=== PATIENT | male | born 1960 | race Caucasian/White ===

== ENCOUNTER 2023-03-22 13:01 | Outpatient (OUT) | payer OTHER, SELFPAY ==
[2023-03-22 13:30] LABS: Estimated Average Glucose 315 mg/dL; Glycohemoglobin A1C 12.6 % (4.5-6.2)
== END 2023-03-22 13:02 | disposition home or self-care (01) ==
PROVIDERS: PCP Internal Medicine; Visit Provider Internal Medicine
DX: E11.65 Type 2 diabetes mellitus with hyperglycemia (principal)
CPT/HCPCS: 36415; 83036

== ENCOUNTER 2023-03-27 09:17 | Outpatient (OUT) | payer OTHER, SELFPAY ==
[2023-03-27 10:12] LABS: Basophils Percent Auto 0.3 % (0.2-2.0); Eosinophils Absolute Auto 0.2 10^3/uL (0.0-0.7); Eosinophils Percent Auto 3.5 % (0.9-7.0); Hematocrit 46.4 % (42.0-54.0); Hemoglobin 15.4 g/dL (14.0-18.0); Immature Granulocytes Abs Auto 0.02 10^3/uL (0.00-0.03); Immature Granulocytes Pct Auto 0.3 % (0.0-0.5); Lymphocytes Absolute Auto 1.7 10^3/uL (1.2-3.8); Lymphocytes Percent Auto 24.8 % (20.5-60.0); Mean Corpuscular HGB Conc 33.2 g/dL (29.9-35.2); Mean Corpuscular Hemoglobin 30.7 pg (25.9-34.0); Mean Corpuscular Volume 92.4 fL (80.0-94.0); Mean Platelet Volume 8.4 fL (9.5-13.5); Monocytes Absolute Auto 0.7 10^3/uL (0.3-0.8); Monocytes Percent Auto 9.9 % (1.7-12.0); Neutrophils Absolute Auto 4.2 10^3/uL (1.4-6.5); Neutrophils Percent Auto 61.2 % (43.0-75.0); Platelet Count 193 10^3/uL (150-450); Red Blood Count 5.02 10^6/uL (4.70-6.10); Red Cell Distribution Width 13.2 % (11.0-15.0); White Blood Count 6.9 10^3/uL (4.0-11.0)
[2023-03-27 10:44] LABS: Alanine Aminotransferase 29 U/L (16-63); Albumin Globulin Ratio 0.9; Albumin Level 3.6 g/dL (3.4-5.0); Alkaline Phosphatase 75 U/L (46-116); Anion Gap 10.2; Aspartate Amino Transferase 15 U/L (15-37); Bilirubin Direct 0.1 mg/dL (0.0-0.2); Bilirubin Total 0.6 mg/dL (0.2-1.0); Calcium 9.3 mg/dL (8.5-10.1); Carbon Dioxide 32.1 mmol/L (21.0-32.0); Chloride 101 mmol/L (98-107); Chol HDL Ratio 3.6; Cholesterol 150 mg/dL (<=200); Estimated GFR (African America >60 (>=60); Estimated GFR (Non-African Ame >60 (>=60); Globulin 4.2 g/dL; Glucose 224 mg/dL (74-106); HDL Cholesterol 42 mg/dL (40-60); LDL Cholesterol Calculated 78.8 mg/dL; Potassium 5.3 mmol/L (3.5-5.1); Sodium 138 mmol/L (136-145); Total Protein 7.8 g/dL (6.4-8.2); Triglycerides 146 mg/dL (<=150); VLDL CHOLESTEROL 29.2 mg/dL
== END 2023-03-27 09:18 | disposition home or self-care (01) ==
PROVIDERS: PCP Internal Medicine; Visit Provider Nurse Practitioner
DX: R06.09 Other forms of dyspnea (principal); I12.0 Hypertensive chronic kidney disease with stage 5 chronic kidney disease or end stage renal disease
CPT/HCPCS: 36415; 80048; 80061; 80076; 85025

== ENCOUNTER 2023-05-02 12:47 | Outpatient (OUT) | payer OTHER, SELFPAY ==
--- NOTE | 2023-05-02 13:23 | CA_ITS ---
Patient: AUGUSTA PATINO Exam Date: 05/02/2023 : 1960 Gender:M Ordering : MELBA MCCLELLAN Admission #: [id number] Family : DR Aldo Simeon D.O. Order #: [id number] CLICK HERE TO VIEW EXAM ECHOCARDIOGRAM REPORT PROCEDURE: CA ECHO DOPPLER COMPLETE INDICATIONS: Dyspnea on exertion, angina, hypertension, diabetes COMPARISON: None. DESCRIPTION: COMPLETE ECHOCARDIOGRAM Real-time transthoracic echocardiography with 2D, M-mode, spectral and color flow Doppler performed. QUALITY: Technically difficult due to patients condition. 73 350# LEFT VENTRICLE: Normal chamber size. Severe concentric left ventricular hypertrophy. LV EF: Global left ventricular systolic function is difficult to assess but appears preserved; visually estimated ejection fraction is 55 to 60%. Unable to assess regional wall motion abnormality; suggest contrast study for better delineation of endocardial borders. DIASTOLIC: Unable to assess degree of diastolic dysfunction. ATRIAL SEPTUM: Inadequately seen. LEFT ATRIUM: Mild dilatation. RIGHT ATRIUM: Moderate dilatation. RIGHT VENTRICLE: Normal chamber size. Normal systolic function. TRICUSPID VALVE: Normal mobility and thickness. No stenosis with trivial regurgitation. Unable to assess right-sided pressures due to lack of measurable tricuspid regurgitation. MITRAL VALVE: Normal mobility and thickness. No evidence of mitral valve stenosis. There is no mitral annular calcification. Trivial mitral regurgitation. AORTIC VALVE: Normal trileaflet appearance. No visible sclerosis. Normal leaflet mobility. No evidence of aortic valve stenosis. No aortic regurgitation. AORTIC ROOT: Normal diameter and appearance. PULMONIC VALVE: Not well visualized. No stenosis. No regurgitation. PERICARDIUM: No evidence of pericardial effusion. IVC: Collapses with inspirations. CONCLUSION: 1. Global left ventricular systolic function is difficult to assess but appears preserved; visually estimated ejection fraction is 55 to 60% 2. Severely increased left ventricular wall thickness 3. Biatrial enlargement 4. The right ventricle is normal in size and systolic function 5. Valves are poorly seen; no significant valvular abnormalities 6. Unable to assess right-sided pressures due to lack of measurable tricuspid regurgitation Adult Echocardiography Procedure Report Left Ventricle LVEDD (3.7 - 5.6 cm): 5.12 cm LVESD (2.2 - 4.0 cm): 3.11 cm LVIVS thickness (0.6 - 1.2 cm): 1.74 cm LVPW thickness (0.5 - 1.0 cm): 1.55 cm e': 0.10 m/s E - e': 9.77 LVOT Max Gradient: 3.70 mm[Hg] LVOT Area (cm2): 0.96 m/s Peak Velocity (LVOT): 0.96 m/s LVOT Diameter 2.37 cm Left Atrium LA Volume Index (2D A2C): 40.66 ml/m2 Left Atrium Systolic Dimension: 4.92 cm Mitral Valve MV E to A Ratio: 1.16 Mitral Valve A-Wave Peak Velocity: 0.83 m/s Mitral Valve E-Wave Peak Velocity: 0.96 m/s Right Ventricle Aorta AO Root Diam: 3.88 cm Aortic Valve AoV Area (Peak Mathieu): 3.85 cm2, 3.85 cm2 Peak Velocity(Antegrade Flow): 1.10 m/s Peak Gradient(Antegrade Flow): 4.84 mm[Hg] Tricuspid Valve Pulmonic Valve Mean Gradient: 1.71 mm[Hg] Mean Velocity: 0.60 m/s Peak Velocity: 0.97 m/s, 1.02 m/s Peak Gradient: 3.73 mm[Hg], 4.18 mm[Hg] Right Atrium Right Atrium Systolic Pressure: 86.43 ml, 86.43 ml Dictated by: Marielena Quintana M.D. on 05/03/2023 at 09:20 Approved by: Marielena Quintana M.D. on 05/03/2023 at 09:23
== END 2023-05-02 12:48 | disposition home or self-care (01) ==
LOC: CARD 12:47
PROVIDERS: PCP Internal Medicine; Visit Provider Nurse Practitioner
DX: I20.0 Unstable angina (principal); R06.09 Other forms of dyspnea
CPT/HCPCS: 93306

== ENCOUNTER 2023-06-27 09:16 | Outpatient (OUT) | payer OTHER, SELFPAY ==
[2023-06-27 10:05] LABS: Alanine Aminotransferase 28 U/L (16-63); Albumin Globulin Ratio 0.8; Albumin Level 3.4 g/dL (3.4-5.0); Alkaline Phosphatase 86 U/L (46-116); Aspartate Amino Transferase 11 U/L (15-37); Bilirubin Direct 0.1 mg/dL (0.0-0.2); Bilirubin Total 0.5 mg/dL (0.2-1.0); Globulin 4.3 g/dL; Total Protein 7.7 g/dL (6.4-8.2)
== END 2023-06-27 09:17 | disposition home or self-care (01) ==
LOC: LAB 09:17
PROVIDERS: PCP Internal Medicine; Visit Provider Nurse Practitioner
DX: I25.10 Atherosclerotic heart disease of native coronary artery without angina pectoris (principal); E78.2 Mixed hyperlipidemia
CPT/HCPCS: 36415; 80076

== ENCOUNTER 2023-07-28 09:38 | Outpatient (OUT) | payer OTHER, SELFPAY ==
--- OUTSIDE RECORDS SUMMARY | 2023-07-28 09:42 | XMS_ITS | CCD ---
Author Name Unknown Address [address] [place] [address] Organization [facility] Care Team Providers Care Stamp Collector Name Role Phone Allison Florez Unavailable BLANCO, DR HUGGINS Attending Unavailable BALL, DR HUGGINS Primary Care Unavailable BALL, DR HUGGINS Consulting Unavailable BALL, DR HUGGINS Admitting Unavailable BALL, DR HUGGINS Consulting Unavailable BALL, DR HUGGINS Attending Unavailable BALL, DR HUGGINS Primary Care Unavailable BALL, DR HUGGINS Admitting Unavailable WEST, DR DOUG Gold Consulting Unavailable BALL, DR HUGGINS Consulting Unavailable BALL, DR HUGGINS Attending Unavailable BALL, DR HUGGINS Primary Care Unavailable BALL, DR HUGGINS Admitting Unavailable BALL, DR HUGGINS Primary Care Unavailable ELTAHAWY, DR ZEPEDA Attending Unavailable ELTAHAWY, DR ZEPEDA Admitting Unavailable WEST, DR DOUG Gold Consulting Unavailable ELTAHAWY, DR ZEPEDA Consulting Unavailable BALL, DR HUGGINS Primary Care Unavailable BALL, DR HUGGINS Attending Unavailable BALL, DR HUGGINS Admitting Unavailable BALL, DR HUGGINS Consulting Unavailable BALL, DR HUGGINS Primary Care Unavailable BALL, DR HUGGINS Attending Unavailable BALL, DR HUGGINS Admitting Unavailable BALL, DR HUGGINS Consulting Unavailable ZIEBER, DR LEONID Ruiz Consulting Unavailable BALL, DR HUGGINS Attending Unavailable BALL, DR HUGGINS Primary Care Unavailable BALL, DR HUGGINS Admitting Unavailable BALL, DR HUGGINS Consulting Unavailable ZIEBER, DR LEONID Ruiz Consulting Unavailable BALL, DR HUGGINS Admitting Unavailable BALL, DR HUGGINS Attending Unavailable BALL, DR HUGGINS Primary Care Unavailable BALL, DR HUGGINS Consulting Unavailable TIMMIS, DR CHAUDHARI Attending Unavailable BALL, DR HUGGINS Primary Care Unavailable TIMMIS, DR CHAUDHARI Admitting Unavailable TIMMIS, DR CHAUDHARI Consulting Unavailable ZIEBER, DR LEONID Ruiz Consulting Unavailable Blanco, Aldo Unavailable ELTAHAWY, JAHAB Admitting Unavailable ELTAHAWY, MARIELENA Attending Unavailable ELTAHAWY, MARIELENA Attending Unavailable VY, MELBA Attending Unavailable ELTAHAWY, JAHAB Referring Unavailable VY, MELBA Attending Unavailable Allergies Allergy Classification Reported Allergen(s) Allergy Type Date of Onset Reaction(s) Facility (11 sources) Lisinopril Drug Allergy Unknown [facility] Other Medications Current Medications Medication Drug Class(es) Dates Sig (Normalized) Sig (Original) [id number] 200 actuat albuterol 0.09 mg/actuat metered dose inhaler (11 sources) beta2-Adrenergic Agonist take 1 puff(s) by inhalation every four hours as needed Albuterol Sulfate HFA 108 (90 Base) MCG/ACT 1 puff as needed Inhalation every 4 hrs Active take 1 puff(s) by in halation every four hours as needed Albuterol Sulfate HFA 108 (90 Base) MCG/ACT 1 puff as needed Inhalation every 4 hrs Active amLODIPine 5 mg oral tablet (12 sources) Dihydropyridine Calcium Channel Jyoti amLODIPine Besylate 5 mg TAKE 1 TABLET DAILY Active aspirin 81 mg delayed release oral tablet (12 sources) Platelet Aggregation Inhibitor, Nonsteroidal Anti-inflammatory Drug take 1 tablet by mouth every twenty-four hours Aspirin 81 MG 1 tablet Orally Once a day Active atorvastatin 20 mg oral tablet (12 sources) HMG-CoA Reductase Inhibitor Atorvastatin Calcium 20 mg TAKE 1 TABLET DAILY IN THE EVENING Active empagliflozin 10 mg oral tablet (5 sources) Sodium-Glucose Cotransporter 2 Inhibitor Start: 023 take 1 tablet by mouth every twenty-four hours Jardiance 10 MG 1 tablet Orally Once a day for 90 days Mar, Active hydroCHLOROthiazide 25 mg / losartan potassium 100 mg oral tablet (12 sources) Thiazide Diuretic, Angiotensin 2 Receptor Jyoti Losartan Potassium-HCTZ 100-25 mg TAKE 1 TABLET DAILY Active 1.5 ml insulin glargine 300 unt/ml pen injector (1 source) Insulin Analog Toujeo SoloStar 300 UNIT/ML INJECT 44 UNITS UNDER THE SKIN DAILY Active metFORMIN hydrochloride 1000 mg oral tablet (12 sources) Biguanide metFORMIN HCl 10 00 mg TAKE 1 TABLET TWICE A DAY WITH FOOD Active semaglutide 14 mg oral tablet (16 sources) Rybelsus 14 MG 1 tablet at least 30 minutes before first food, beverage or other oral medicine of the day Orally Once a day replaces Rybelsus 7 mg Active Ozempic (0.25 or 0.5 MG/DOSE) 2 MG/1.5ML as directed Subcutaneous Active Rybelsus 7 MG 1 tablet at least 30 minutes before first food, beverage or other oral medicine of the day Orally Once a day Active spironolactone 25 mg oral tablet (12 sources) Aldosterone Antagonist Spironolactone 25 MG 1 tablet Orally Active terbinafine 250 mg oral tablet (11 sources) Allylamine Antifungal Start: 08-18-19 take 1 tablet by mouth every twenty-four hours Terbinafine HCl 250 MG 1 tablet Orally Once a day for 10 day(s) Aug, Active TOUJEO SOLOSTAR U-300 (11 sources) TOUJEO SOLOSTAR U-300 50 units Injectable Once Daily Active TOUJEO SOLOSTAR U-300 30 units Injectable Once Daily Active triamcinolone acetonide 0.25 mg/ml topical cream (11 sources) Corticosteroid Start: 08-30-2022 Triamcinolone Acetonide 0.025 % 1 application Externally Once a day for 30 days Aug, Active Problems Active Problems Problem Classification Problem Date Documented Da te Episodic/Chronic Cardiac and circulatory congenital anomalies (2 sources) Malformation of coronary vessels; Translations: [Malformation of coronary vessels] Onset: 04-21-2023 Chronic Coronary atherosclerosis and other heart disease (7 sources) Coronary arteriosclerosis; Translations: [Atherosclerotic heart disease of alutiiq coronary artery without angina pectoris] Onset: 03-22-2023 Chronic Diabetes mellitus with complications (20 sources) Type 2 diabetes mellitus with hyperglycemia; Translations: [Hyperglycemia due to type 2 diabetes mellitus] Onset: 06-13-2022 Chronic Diabetes mellitus without complication (3 sources) Type 2 diabetes mellitus without complications; Translations: [TYPE 2 DM WITHOUT COMPLICATIONS] Onset: 11-24-2021 Chronic Disorders of lipid metabolism (16 sources) Hyperlipidemia, unspecified; Translations: [Pure hypercholesterolemia ] Onset: 11-24-2021 Chronic Esophageal disorders (11 sources) Gastro-esophageal reflux disease with esophagitis; Translations: [Gastroesophageal reflux disease with esophagitis without hemorrhage] Chronic Essential hypertension (20 sources) Essential (primary) hypertension; Translations: [Essential hypertension] Onset: 11-24-2021 Chronic Hyperplasia of prostate (11 sources) Benign prostatic hypertrophy without outflow obstruction; Translations: [Benign prostatic hyperplasia without lower urinary tract symptoms] Chronic Hypertension with complications and secondary hypertension (2 sources) Hypertensive heart disease without heart failure; Translations: [Hypertensive heart disease without heart failure] Onset: 07-24-2023 Chronic Mycoses (12 sources) Candidiasis of skin and nails; Translations: [Candidiasis of skin and nail] Episodic Nonspecific chest pain (16 sources) Chest pain, unspecified; Translations: [Chest pain on exertion] Onset: 09-20-2021 Episodic Osteoarthritis (20 sources) Localized, primary osteoarthritis of the shoulder region; Translations: [Primary osteoarthritis, right shoulder] Chronic Other aftercare (4 sources) 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; Translations: [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 INSULIN] Onset: 06-18-2022 Episodic Other aftercare (11 sources) Long-term current use of insulin; Translations: [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] Episodic Other and ill-defined heart disease (4 sources) Cardiomegaly; Translations: [CARDIOMEGALY] Onset: 09-20-2021 Chronic Other and ill-defined heart disease (10 sources) Left ventricular hypertrophy; Translations: [Cardiomegaly] Chronic Other diseases of kidney and ureters (6 sources) Cyst of kidney, acquired; Translations: [CYST OF KIDNEY ACQUIRED] Onset: 06-29-2022 Episodic Other diseases of kidney and ureters (9 sources) Cyst of kidney; Translations: [Cyst of kidney, acquired] Episodic Other diseases of veins and lymphatics (11 sources) Peripheral venous insufficiency; Translations: [Venous insufficiency (chronic) (peripheral)] Episodic Other diseases of veins and lymphatics (2 sources) Venous insufficiency (chronic) (peripheral) Episodic Other lower respiratory disease (9 sources) Multiple nodules of lung; Translations: [Other nonspecific abnormal finding of lung field] Episodic Other lower respiratory disease (11 sources) Dyspnea; Translations: [Shortness of breath] Episodic Other lower respiratory disease (2 sources) Other nonspecific abnormal finding of lung field; Translations: [Multiple pulmonary nodules] Episodic Other nutritional; endocrine; and metabolic disorders (11 sources) Morbid obesity; Translations: [Morbid (severe) obesity due to excess calories] Chronic Other nutritional; endocrine; and metabolic disorders (3 sources) Morbid (severe) obesity due to excess calories; Translations: [Morbid (severe) obesity due to excess calories] Onset: 03-22-2023 Chronic Other screening for suspected conditions (not mental disorders or infectious disease) (2 sources) Encounter for screening for malignant neoplasm of prostate; Translations: [ENC SCREEN MALIG NEOPLASM PROSTATE] Onset: 08-19-2022 Episodic Other upper respiratory disease (11 sources) Difficulty speaking; Translations: [Dysphonia] Episodic Carmen-; endo-; and myocarditis; cardiomyopathy (except that caused by tuberculosis or sexually transmitted disease) (13 sources) Hypertrophic cardiomyopathy; Translations: [Other hypertrophic cardiomyopathy] Chronic Residual codes; unclassified (10 sources) Obstructive sleep apnea syndrome; Translations: [Obstructive sleep apnea (adult) (pediatric)] Chronic Residual codes; unclassified (3 sources) Obstructive sleep apnea (adult) (pediatric); Translations: [Obstructive sleep apnea] Chronic Substance-related disorders (1 source) Nicotine dependence, cigarettes, in remission; Translations: [NICOTINE DEPEND CIGARETTES REMISS] Onset: 04-08-2022 Chronic Past or Other Problems Problem Classification Problem Date Documented Da te Episodic/Chronic Esophageal disorders (1 source) Esophageal disorders Other circulatory disease (1 source) Other specified symptoms and signs involving the circulatory and respiratory systems; Translations: [OTH SPEC SX SIGNS INVLV CIRC RS] Onset: 11-25-2021 Episodic Other lower respiratory disease (4 sources) Dyspnea, unspecified; Translations: [DYSPNEA UNSPECIFIED] Onset: 04-06-2022 Episodic Other lower respiratory disease (2 sources) Other forms of dyspnea; Translations: [Other forms of dyspnea] Onset: 03-22-2023 Episodic Other skin disorders (4 sources) Localized swelling, mass and lump, neck; Translations: [LOCALIZED SWELLING MASS AND LUMP NECK] Onset: 04-20-2022 Episodic Unclassified (1 source) Cough R05.9 Onset: 02-12-2022 Resolved: 02-12-2022 Viral infection (1 source) COVID-19 Onset: 02-12-2022 Resolved: 02-12-2022 Results Test Name Value Interpretation Reference Range Facility Office Visiton 07-24-2023 Follow-up visit [id number] Jose J Evans 1960 M Date Provider Department Center 07/24/2023 271-DENYS, MARIELENA CARD [facility] No family history on file Level of Service:91377 SD OFFICE/OUTPATIENT ESTABLISHED MOD MDM 30 MIN Normal [facility] Follow-Upon 04-21-2023 Follow-Up [id number] Jose J Evans 1960 M Date Provider Department Center 04/21/2023 MELBA QUINN REMIGIO [facility] No family history on file Level of Service:67684 SD OFFICE/OUTPATIENT ESTABLISHED MOD MDM 30-39 MIN Normal [facility] Orders Onlyon 04-03-2023 Orders Only [id number] Jos eJ Evans 1960 M Date Provider Department Center 04/03/[address] [facility] No family history on file Normal [facility] ANESon 03-29-2023 ANES Attestation signed by Marielena Mcfarlane MD at 03/29/2023 9:35 AM Marielena Mcfarlane MD, MPH, [facility], [facility], [facility] Interventional Cardiology Pager Email: [email or web address] Patient: Jose J Evans Procedure Information Date/Time: 03/29/23 1030 Procedures: Coronary angiography Left heart cath - Rt LT Cors Right heart cath Location: [facility] 3 / [facility] HV VASCULAR LAB (Cath) Providers: Marielena Mcfarlane MD Clinical information reviewed: Tobacco Allergies Meds Med Hx Surg Hx Fam Hx Soc Hx Physical Exam Airway Mallampati: III Cardiovascular Rhythm: regular Rate: normal Dental Pulmonary Abdominal Anesthesia Plan ASA 3 Additional Equipment Requests Normal [facility] HPon 03-29-2023 HP Attestation signed by Marielena Mcfarlane MD at 03/29/2023 9:35 AM Marielena Mcfarlane MD, MPH, [facility], [facility], [facility] Interventional Cardiology Pager Email: [email or web address] H&P reviewed. The patient was examined and there are no changes to the H&P. Patient will have coronary angiogram and right heart catheterization for dyspnea on exertion and chest pain. Patient has history of diabetes mellitus. He is a current smoker. Risk and benefits explained to the patient who agreed to proceed. [facility] NURSNOTEulisses 03-29-2023 VALDO RN educated pt on d/c instructions. RN encouraged pt to voice any questions or concerns. Pt verbalizes no questions or concerns at this time. [facility] Office Visiton 03-22-2023 Follow-up visit [id number] Jose J Evans 1960 M Date Provider Department Center 03/22/2023 MELBA QUINN CARD [facility] No family history on file Level of Service:28127 SD OFFICE/OUTPATIENT ESTABLISHED HIGH MDM 40-54 MIN Reason for Visit and Comments: Follow-up [678952] - Yearly F/U [facility] CBC AUTO DIFFon 08-15-2022 BASO # 0.0 103/ul Normal 0.0-0.1 [facility] Comment on above: Performed By: #### C BC #### [facility] [address] [place] [address] Dr. Beth Johnson Basophils/100 WBC (Bld) 0.6 % Normal 0.2-2.0 [facility] Comment on above: Performed By: #### C BC #### [facility] [address] [place] [address] Dr. Beth Johnson EO # 0.2 103/ul Normal 0.0-0.7 [facility] Comment on above: Performed By: #### C BC #### [facility] [address] [place] [address] Dr. Beth Johnson Eosinophils/100 WBC (Bld) 3.4 % Normal 0.9-7.0 [facility] Comment on above: Performed By: #### C BC #### [facility] [address] [place] [address] Dr. Beth Johnson Erythrocyte distribution width (RBC) [Ratio] 13.4 % Normal 11.0-15.0 [facility] Comment on above: Performed By: #### C BC #### [facility] [address] [place] [address] Dr. Beth Johnson Hematocrit (Bld) [Volume fraction] 44.1 % Normal 42.0-54.0 [facility] Comment on above: Performed By: #### C BC #### [facility] [address] [place] [address] Dr. Beth Johnson Hemoglobin (Bld) [Mass/Vol] 14.9 g/dL Normal 14.0-18.0 [facility] Comment on above: Performed By: #### C BC #### [facility] [address] [place] [address] Dr. Beth Johnson IG # 0.03 10e3/ul Normal 0.00-0.03 [facility] Comment on above: Performed By: #### C BC #### [facility] [address] [place] [address] Dr. Beth Johnson IG % 0.4 % Normal 0.0-0.5 [facility] Comment on above: Performed By: #### C BC #### [facility] [address] [place] [address] Dr. Beth Johnson LYMPH # 1.9 103/ul Normal 1.2-3.8 [facility] Comment on above: Performed By: #### C BC #### [facility] [address] [place] [address] Dr. Beth Johnson Lymphocytes/100 WBC (Bld) 26.2 % Normal 20.5-60.0 [facility] Comment on above: Performed By: #### C BC #### [facility] [address] [place] [address] Dr. Beth Johnson MANUAL DIFF REQ NO Normal [facility] Comment on above: Performed By: #### C BC #### [facility] [address] [place] [address] Dr. Beth Johnson MCH (RBC) [Entitic mass] 30.4 pg Normal 25.9-34.0 [facility] Comment on above: Performed By: #### C BC #### [facility] [address] [place] [address] Dr. Beth Johnson MCHC (RBC) [Mass/Vol] 33.8 g/dL Normal 29.9-35.2 [facility] Comment on above: Performed By: #### C BC #### [facility] [address] [place] [address] Dr. Beth Johnson MCV (RBC) [Entitic vol] 90.0 fL Normal 80.0-94.0 [facility] Comment on above: Performed By: #### C BC #### [facility] [address] [place] [address] Dr. Beth Johnson MONO # 0.7 103/ul Normal 0.3-0.8 [facility] Comment on above: Performed By: #### C BC #### [facility] [address] [place] [address] Dr. Beth Johnson Monocytes/100 WBC (Bld) 9.8 % Normal 1.7-12.0 [facility] Comment on above: Performed By: #### C BC #### [facility] [address] [place] [address] Dr. Beth Johnson NEUT # 4.2 103/ul Normal 1.4-6.5 [facility] Comment on above: Performed By: #### C BC #### [facility] [address] [place] [address] Dr. Beth Johnson Neutrophils/100 WBC (Bld) 59.6 % Normal 43.0-75.0 [facility] Comment on above: Performed By: #### C BC #### [facility] [address] [place] [address] Dr. Beth Johnson Platelet mean volume (Bld) [Entitic vol] 8.1 fL Critically low 9.5-13.5 [facility] Comment on above: Performed By: #### C BC #### [facility] [address] [place] [address] Dr. Beth Johnson PLT 184 103/ul Normal 150-450 [facility] Comment on above: Performed By: #### C BC #### [facility] [address] [place] [address] Dr. Beth Johnson RBC 4.90 106/ul Normal 4.70-6.10 [facility] Comment on above: Performed By: #### C BC #### [facility] [address] [place] [address] Dr. Beth Johnson WBC 7.1 103/ul Normal 4.0-11.0 [facility] Comment on above: Performed By: #### C BC #### [facility] [address] [place] [address] Dr. Beth Johnson Complete Blood Count and Dif gala 08-15-2022 Anisocytosis Ql (Bld) 1EQ [facility] [employer] Other Basophilic stippling LM Ql (Bld) [facility] Other RBC morphology finding Nom (Bld) [facility] Other Complete Blood Count and Diff [facility] Other Comprehensive Metabolic Pane jenniffer 08-15-2022 Albumin [Mass/Vol] 3.424708 g/dL 3.4-5.0 g/dL N [facility] [employer] [facility] Other Calcium [Mass/Vol] 9.2594057 mg/dL 8.5-10 .1 mg/dL [facility] Other CO2 [Moles/Vol] 29.52415672 mmol/L 21.0-3 2.0 mmol/L [facility] Other Creatinine [Mass/Vol] 0.45742278 mg/dL 0.70-1.30 mg/dL [facility] Other Potassium [Moles/Vol] 4.73019375 mmol/L 3.5-5.1 mmol/L [facility] Other Protein [Mass/Vol] 8.530141 g/dL 6.4-8.2 g/dL [facility] [employer] Other Urea nitrogen [Mass/Vol] 17.5826825 mg/dL 7.0-18.0 mg/dL [facility] Other Comprehensive Metabolic Panel see note [facility] Other Comprehensive Metabolic Panel 137 mmol/L 136-145 mmol/L [facility] Other Comprehensive Metabolic Panel 182 mg/dL Critically high 74-106 mg/dL [facility] Other Comprehensive Metabolic Panel >60 mL/min/1.73m2 >=60 mL/min/1.73m2 [facility] Other Comprehensive Metabolic Panel 0.5 mg/dL 0.2-1.0 mg/dL [facility] Other Comprehensive Metabolic Panel 4.2 g/dL [facility] Other GLYCOHEMOGLOBIN A1Con 2022 ADA RECOMMENDATION SEE BELOW Normal [facility] Comment on above: Result Comment: ADA RECOMMENDED LIMIT 4.0 - 6.0 ADA THERAPEUTIC TARGET < 7.0 ACTION SUGGESTED > 7.0 Performed By: #### L IPID #### [facility] [address] [place] [address] Dr. Beth Johnson Glucose [Mass/Vol] 169 mg/dL Normal [facility] Comment on above: Performed By: #### L IPID #### [facility] [address] [address] [address] Beth Johnson HbA1c (Bld) [Mass fraction] 7.5 % Critically high 4.5-6.2 [facility] Comment on above: Performed By: #### L IPID #### [facility] [address] [address] [address] Beth Johnson LIPID PROFILEon 08-15-2022 CHOL-HDL RATIO NORM SEE BELOW Normal [facility] Comment on above: Result Comment: 3.3 - 4.4 LOW RISK 4.4 - 7.1 AVERAGE RISK 7.1 - 11.0 MODERATE RISK >11.0 HIGH RISK Performed By: #### L IPID, CMP #### [facility] [address] [address] [address] Beth Johnson Cholesterol [Mass/Vol] 155 mg/dL <=200 mg/dL [facility] Comment on above: Performed By: #### L IPID, CMP #### [facility] [address] [address] [address] Beth Johnson Cholesterol in HDL [Mass/Vol] 44 mg/dL 40-60 mg/dL [facility] Comment on above: Performed By: #### L IPID, CMP #### [facility] [address] [address] [address] Beth Johnson Cholesterol in LDL [Mass/Vol] 76.4 mg/dL Normal [facility] Comment on above: Performed By: #### L IPID, CMP #### [facility] [address] [address] [address] Beth Johnson Cholesterol.total/Ch olesterol in HDL [Mass ratio] 3.5 {ratio} [facility] Comment on above: Performed By: #### L IPID, CMP #### [facility] [address] [address] [address] Beth Johnson HDL NORMAL > or = 60 mg/dl - LOW CARDIOVASCULAR RISK <40 mg/dl - HIGH CARDIOVASCULAR RISK Normal [facility] Comment on above: Performed By: #### L IPID, CMP #### [facility] [address] [address] [address] Beth Johnson LDL CALC NORMAL SEE BELOW Normal [facility] Comment on above: Result Comment: <100 mg/dl OPTIMAL 100 - 129 mg/dl NEAR OR ABOVE OPTIMAL 130 - 159 mg/dl BORDERLINE HIGH 160 - 189 mg/dl HIGH >190 mg/dl VERY HIGH Performed By: #### L IPID, CMP #### [facility] [address] [address] [address] Beth Johnson Triglyceride [Mass/Vol] 173 mg/dL Critically high <=150 mg/dL [facility] Comment on above: Performed By: #### L IPID, CMP #### [facility] [address] [address] [address] Beth Johnson VLDL CALC 34.6 mg/dL Normal [facility] Comment on above: Performed By: #### L IPID, CMP #### [facility] [address] [address] [address] Beth Johnson Lipid Panelon 08-15-2022 Lipid Panel > or = 60 mg/dl - LOW CARDIOVASCULAR RISK <40 mg/dl - HIGH CARDIOVASCULAR RISK [facility] Other Lipid Panel SEE BELOW [facility] Other Lipid Panel 76.4 mg/dL [facility] Other Lipid Panel 34.6 mg/dL [facility] Other MICROALBUMIN, RAND URon 08-03 mALB 4.1 mg/L Normal <=30.0 [facility] Comment on above: Performed By: #### L IPID #### [facility] [address] [address] [address] Beth Johnson PROF 14(COMP METB)on 023 Albumin [Mass/Vol] 3.8 g/dL Normal 3.4-5.0 [facility] Comment on above: Performed By: #### L IPID, CMP #### [facility] [address] [address] [address] Beth Johnson Albumin/Globulin [Mass ratio] 0.9 {ratio} [facility] Comment on above: Performed By: #### L IPID, CMP #### [facility] [address] [place] [address] Dr. Beth Johnson ALP [Catalytic activity/Vol] 75 U/L 46-116 U/L [facility] Comment on above: Performed By: #### L IPID, CMP #### [facility] [address] [place] [address] Dr. Beth Johnson ALT [Catalytic activity/Vol] 44 U/L 16-63 U/L [facility] Comment on above: Performed By: #### L IPID, CMP #### [facility] [address] [place] [address] Dr. Beth Johnson Anion gap [Moles/Vol] 12.8 mmol/L [facility] Comment on above: Performed By: #### L IPID, CMP #### [facility] [address] [place] [address] Dr. Beth Johnson AST [Catalytic activity/Vol] 20 U/L 15-37 U/L [facility] Comment on above: Performed By: #### L IPID, CMP #### [facility] [address] [place] [address] Dr. Beth Johnson Bilirubin [Mass/Vol] 0.5 mg/dL Normal 0.2-1.0 [facility] Comment on above: Performed By: #### L IPID, CMP #### [facility] [address] [place] [address] Dr. Beth Johnson Calcium [Mass/Vol] 9.4 mg/dL Normal 8.5-10.1 [facility] Comment on above: Performed By: #### L IPID, CMP #### [facility] [address] [place] [address] Dr. Beth Johnson Chloride [Moles/Vol] 100 mmol/L 98-107 mmol/L [facility] Comment on above: Performed By: #### L IPID, CMP #### [facility] [address] [place] [address] Dr. Beth Johnson CO2 [Moles/Vol] 29.0 mmol/L Normal 21.0-32.0 [facility] Comment on above: Performed By: #### L IPID, CMP #### [facility] [address] [address] [address] Beth Johnson Creatinine [Mass/Vol] 0.95 mg/dL Normal 0.70-1.30 [facility] Comment on above: Performed By: #### L IPID, CMP #### [facility] [address] [address] [address] Beth Johnson EGFR-AF IVORIAN >60 Normal >=60 [facility] Comment on above: Performed By: #### L IPID, CMP #### [facility] [address] [address] [address] Beth Johnson EGFR-NON AF IVORIAN >60 Normal >=60 [facility] Comment on above: Performed By: #### L IPID, CMP #### [facility] [address] [address] [address] Beth Johnson Globulin (S) [Mass/Vol] 4.2 g/dL Normal [facility] Comment on above: Performed By: #### L IPID, CMP #### [facility] [address] [address] [address] Beth Johnson Glucose [Mass/Vol] 182 mg/dL Critically high 74-106 [facility] Comment on above: Performed By: #### L IPID, CMP #### [facility] [address] [address] [address] Beth Johnson Potassium [Moles/Vol] 4.8 mmol/L Normal 3.5-5.1 [facility] Comment on above: Performed By: #### L IPID, CMP #### [facility] [address] [address] [address] Beth Johnson Protein [Mass/Vol] 8.0 g/dL Normal 6.4-8.2 [facility] Comment on above: Performed By: #### L IPID, CMP #### [facility] [address] [address] [address] Beth Johnson Sodium [Moles/Vol] 137 mmol/L Normal 136-145 [facility] Comment on above: Performed By: #### L IPID, CMP #### [facility] [address] [place] [address] Dr. Beth Johnson Urea nitrogen [Mass/Vol] 17.0 mg/dL Normal 7.0-18.0 [facility] Comment on above: Performed By: #### L IPID, CMP #### [facility] [address] [place] [address] Dr. Beth Johnson Urea nitrogen/Creatinine [Mass ratio] 17.9 mg/mg [facility] Comment on above: Performed By: #### L IPID, CMP #### [facility] [address] [place] [address] Dr. Beth Johnson US KIDNEYSon 06-29-2022 US KIDNEYS EXAMINATION: US KIDNEYS HISTORY: Atrophy of kidney COMPARISON: No relevant comparison available. TECHNIQUE: Ultrasound examination was performed of the bladder. FINDINGS: Right Kidney: Normal in size, contour and cortical echotexture with no solid mass or hydronephrosis. Lateral anechoic area measuring 3.5 cm inferior anechoic area measuring 4.2 cm, simple cysts. The cortex measures 2.3 cm Height: 6.1 cm Length: 12.1 cm Width: 6.6 cm Left Kidney: Normal in size, contour and cortical echotexture with no solid mass or hydronephrosis Height: 7.1 cm Length: 12.0 cm Width: 7.3 cm Urinary bladder is normal in appearance. Volume of 129 mL IMPRESSION: Right renal simple cysts measuring up to 4.2 cm Electronically authenticated by: DOUG ALMONTE Date: 2022-06-29 16:16 Normal [facility] GLYCOHEMOGLOBIN A1Con 2021 ADA RECOMMENDATION SEE BELOW Normal [facility] Comment on above: Result Comment: ADA RECOMMENDED LIMIT 4.0 - 6.0 ADA THERAPEUTIC TARGET < 7.0 ACTION SUGGESTED > 7.0 Performed By: #### A 1C #### [facility] [address] [place] [address] Dr. Beth Johnson Glucose [Mass/Vol] 186 mg/dL Normal [facility] Comment on above: Performed By: #### A 1C #### [facility] [address] [place], [place] [address] Dr. Beth Johnson HbA1c (Bld) [Mass fraction] 8.1 % Critically high 4.5-6.2 [facility] Comment on above: Performed By: #### A 1C #### [facility] [address] [address] [address] Beth Johnson US ST HEAD_NECKon 04-21-[address] HEAD_NECK EXAM: US ST HEAD_NECK HISTORY: Mass of neck ; lateral left neck palpable lump for one year COMPARISON: None. TECHNIQUE: Percutaneous ultrasound evaluation. FINDINGS: Within the lateral left mid neck deep to the sternal cleidomastoid muscle and adjacent the jugular vein are 3 rounded hypoechoic nodules with fatty hilum favoring lymph nodes; 1.1 x 0.8 x 0.5 cm, 1.6 x 0.9 x 0.6 cm, and 0.6 x 0.7 x 0.5 cm respectively. IMPRESSION: 1. Patient's palpable lumps appear to correspond to small lymph nodes. No overtly suspicious findings. Electronically authenticated by: LEONID ST Date: 2022-04-21 06:21 Normal [facility] HEMOGLOBINon 04-06-2022 Hemoglobin (Bld) [Mass/Vol] 13.8 g/dL Critically low 14.0-18.0 [facility] Comment on above: Performed By: #### H GB #### [facility] [address] [address] [address] Beth Johnson COVID Quick Testingon 2021 Result Positive [facility] Other US CAROTID ART BILon 022 US CAROTID ART ARELY EXAMINATION: US CAROTID ART ARELY HISTORY: Cardiovascular symptoms carotid bruit, left neck pain for one year COMPARISON: No relevant comparison available. TECHNIQUE: Duplex Doppler ultrasound analysis of carotid and vertebral arteries. . Bilateral carotid arterial duplex examination was performed using B-mode, color flow and spectral analysis. Carotid stenosis is reported according to validated velocity parameters, similar to NASCET criteria. FINDINGS: RIGHT CAROTID ARTERY: Mild plaque without significant stenosis. RIGHT VERTEBRAL: Antegrade flow. Subclavian: PSV: 144.5 cm/s EDV: 0.0 cm/s CCA: Prox: PSV: 144.6 cm/s EDV: 27.6 cm/s Mid: PSV: 91.6 cm/s EDV: 16.4 cm/s Distal: PSV: 70.9 cm/s EDV: 19.2 cm/s BULB: PSV: 58.1 cm/s EDV: 17.5 cm/s ICA: Prox: PSV: 48.2 cm/s EDV: 17.5 cm/s Mid: PSV: 61.4 cm/s EDV: 21.9 cm/s Distal: PSV: 108.2 cm/s EDV: 34.4 cm/s ECA: PSV: 96.9 cm/s EDV: 14.1 cm/s VERTEBRAL: PSV: 40.9 cm/s EDV: 13.9 cm/s ICA/CCA ratio: PSV: 0.7 EDV: 1.2 LEFT CAROTID ARTERY: Mild plaque without significant stenosis. LEFT VERTEBRAL: Antegrade flow. Subclavian: PSV: 143.9 cm/s EDV: 0.0 cm/s CCA: Prox: PSV: 125.2 cm/s EDV: 27.6 cm/s Mid: PSV: 111.3 cm/s EDV: 23.0 cm/s Distal: PSV: 68.5 cm/s EDV: 16.7 cm/s BULB: PSV: 54.2 cm/s EDV: 16.7 cm/s ICA: Prox: PSV: 77.5 cm/s EDV: 24.5 cm/s Mid: PSV: 85.3 cm/s EDV: 36.1 cm/s Distal: PSV: 89.1 cm/s EDV: 35.9 cm/s ECA: PSV: 95.6 cm/s EDV: 7.6 cm/s VERTEBRAL: PSV: 57.2 cm/s EDV: 20.6 cm/s ICA/CCA ratio: PSV: 0.7 EDV: 1.3 IMPRESSION: 1. Bilateral 0-49% flow stenosis. Mild atherosclerotic disease. Electronically authenticated by: LEONID ST Date: 2021-11-19 16:07 Normal [facility] NM STRESS/REST MULTIon 11-18 NM STRESS/REST MULTI Patient: JOSE J EVANS Exam Date: 11/18/2021 : 1960 Gender:M Ordering : DR ALDO SIMEON D.O. Admission #: [id number] Family : Order #: [id number] CLICK HERE TO VIEW EXAM RADIOLOGY REPORT PROCEDURE: RADIONUCLIDE IMAGING STRESS/REST MULTI COMPARISON: NM STRESS/REST MULTI, 12/30/2019. INDICATIONS: Chest pain TECHNIQUE: Exam Description: Stress/Rest two day protocol gated SPECT Rest Imagin.7 mCi Tc-99m Cardiolite IV on 11/19/2021 Stress Imaging 25.1 mCi Tc-99m Cardiolite IV on 11/18/2021 Exercise Protocol: 0.4 mg Lexiscan given IV Heart Rate (bpm): Rest: 61 Max: 75 PMHR: 47 Blood Pressure: Rest: 130/78 Max: 182/92 Symptoms: Rest and peak stress ECG findings were normal and the exercise portion of the study was normal per attending physician Dr. Leobardo Simeon . For more details please see separate cardiac stress test report. FINDINGS: QUALITY OF STUDY: Excellent. PERFUSION DEFECT: LOCATION: Mid-inferolateral. Apical inferior. SIZE: Small (1-2 segments). SEVERITY: Mild. TYPE: Persistent. WALL MOTION: Dyskinesis: Apical anterior. LV SIZE: Enlarged; EDV 158 mL. TID / TCD: None; 1.1 LVEF: Abnormal. Calculated EF 53%. SUMMARY: Myocardial perfusion imaging study has ABNORMAL findings. CONCLUSION: 1. No acute or reversible ischemia. 2. Mild, fixed distal inferior and inferior lateral wall perfusion defect; not appreciably changed. 3. Mild dyskinesia of the apically anterior wall. 4. Mild left ventriculomegaly, 158 mL. 5. Slightly low ejection fraction, 53%. Dictated by: Leonid St M.D. on 11/19/2021 at 11:56 Approved by: Leonid St M.D. on 11/19/2021 at 12:06 Normal [facility] CBC AUTO DIFFon 09-17-2021 BASO # 0.0 103/ul Normal 0.0-0.1 [facility] Comment on above: Performed By: #### C BC #### [facility] [address] [place] [address] Dr. Beth Johnson Basophils/100 WBC (Bld) 0.2 % Normal 0.2-2.0 [facility] Comment on above: Performed By: #### C BC #### [facility] [address] [place] [address] Dr. Beth Johnson EO # 0.3 103/ul Normal 0.0-0.7 [facility] Comment on above: Performed By: #### C BC #### [facility] [address] [place] [address] Dr. Beth Johnson Eosinophils/100 WBC (Bld) 3.1 % Normal 0.9-7.0 [facility] Comment on above: Performed By: #### C BC #### [facility] [address] [place] [address] Dr. Beth Johnson Erythrocyte distribution width (RBC) [Ratio] 13.7 % Normal 11.0-15.0 [facility] Comment on above: Performed By: #### C BC #### [facility] [address] [place] [address] Dr. Beth Johnson Hematocrit (Bld) [Volume fraction] 43.9 % Normal 42.0-54.0 [facility] Comment on above: Performed By: #### C BC #### [facility] [address] [place] [address] Dr. Beth Johnson Hemoglobin (Bld) [Mass/Vol] 14.6 g/dL Normal 14.0-18.0 [facility] Comment on above: Performed By: #### C BC #### [facility] [address] [place] [address] Dr. Beth Johnson IG # 0.04 10e3/ul Critically high 0.00-0.03 [facility] Comment on above: Performed By: #### C BC #### [facility] [address] [place] [address] Dr. Beth Johnson IG % 0.5 % Normal 0.0-0.5 [facility] Comment on above: Performed By: #### C BC #### [facility] [address] [place] [address] Dr. Beth Johnson LYMPH # 2.4 103/ul Normal 1.2-3.8 [facility] Comment on above: Performed By: #### C BC #### [facility] [address] [place] [address] Dr. Beth Johnson Lymphocytes/100 WBC (Bld) 28.7 % Normal 20.5-60.0 [facility] Comment on above: Performed By: #### C BC #### [facility] [address] [place] [address] Dr. Beth Johnson MANUAL DIFF REQ NO Normal [facility] Comment on above: Performed By: #### C BC #### [facility] [address] [place] [address] Dr. Beth Johnson MCH (RBC) [Entitic mass] 30.6 pg Normal 25.9-34.0 [facility] Comment on above: Performed By: #### C BC #### [facility] [address] [place] [address] Dr. Beth Johnson MCHC (RBC) [Mass/Vol] 33.3 g/dL Normal 29.9-35.2 [facility] Comment on above: Performed By: #### C BC #### [facility] [address] [place] [address] Dr. Beth Johnson MCV (RBC) [Entitic vol] 92.0 fL Normal 80.0-94.0 [facility] Comment on above: Performed By: #### C BC #### [facility] [address] [place] [address] Dr. Beth Johnson MONO # 0.7 103/ul Normal 0.3-0.8 [facility] Comment on above: Performed By: #### C BC #### [facility] [address] [place] [address] Dr. Beth Johnson Monocytes/100 WBC (Bld) 8.7 % Normal 1.7-12.0 [facility] Comment on above: Performed By: #### C BC #### [facility] [address] [place] [address] Dr. Beth Johnson NEUT # 4.9 103/ul Normal 1.4-6.5 [facility] Comment on above: Performed By: #### C BC #### [facility] [address] [place] [address] Dr. Beth Johnson Neutrophils/100 WBC (Bld) 58.8 % Normal 43.0-75.0 [facility] Comment on above: Performed By: #### C BC #### [facility] [address] [place] [address] Dr. Beth Johnson Platelet mean volume (Bld) [Entitic vol] 8.2 fL Critically low 9.5-13.5 [facility] Comment on above: Performed By: #### C BC #### [facility] [address] [place] [address] Dr. Beth Johnson PLT 190 103/ul Normal 150-450 [facility] Comment on above: Performed By: #### C BC #### [facility] [address] [place] [address] Dr. Beth Johnson RBC 4.77 106/ul Normal 4.70-6.10 [facility] Comment on above: Performed By: #### C BC #### [facility] [address] [place] [address] Dr. Beht Johnson WBC 8.3 103/ul Normal 4.0-11.0 [facility] Comment on above: Performed By: #### C BC #### [facility] [address] [place] [address] Dr. Beth Johnson CTA CHEST WO W CONon 022 CTA CHEST WO W CON EXAMINATION: CTA CHEST WO W CON HISTORY: Chest pain , shortness of breath with exertion COMPARISON: No relevant comparison available. TECHNIQUE: Axial, Coronal, and Sagittal images were created without and with IV contrast. Dose reduction techniques were achieved by using automated exposure control and/or adjustment of mA and/or kV according to patient size and/or use of iterative reconstruction technique. FINDINGS: LUNGS: Scattered punctate solid pulmonary nodules the largest measures 4 mm superior segment of the right lower lobe along the major fissure axial image #52, nonspecific. Minimal dependent opacities, atelectasis is favored. PLEURA: No mass, effusion, or pneumothorax. VASCULATURE: Normal contrast filling of the central pulmonary arterial tree with no filling defects YANCI: No mass or adenopathy. MEDIASTINUM: No mass or adenopathy. CARDIAC: No enlargement or pericardial effusion. Moderate coronary atherosclerosis AORTA: No aneurysm or dissection. CHEST WALL: No mass or axillary adenopathy. BONES: No bone lesion or fracture. LIMITED ABDOMEN: Diffuse hypoattenuation of the visualized liver suggesting hepatic steatosis. OTHER: Negative. IMPRESSION: No central pulmonary thromboembolic disease Scattered punctate pulmonary nodules measuring up to 4 mm, nonspecific Hepatic steatosis Electronically authenticated by: DOUG ALMONTE Date: 2021-09-17 10:08 Normal [facility] ECHOCARDIO M/2D COMPLETEon 0 09-17-2021 ECHOCARDIO M/2D COMPLETE Patient: JOSE J EVANS Exam Date: 09/17/2021 : 1960 Gender:M Ordering : DR MARIELENA MCFARLANE M.D. Admission #: [id number] Family : DR ALDO SIMEON D.O. Order #: [id number] CLICK HERE TO VIEW EXAM ECHOCARDIOGRAM REPORT PROCEDURE: CARDIO PULMONARY ECHOCARDIO M/2D COMP INDICATIONS: Left ventricular hypertrophy COMPARISON: None. DESCRIPTION: COMPLETE ECHOCARDIOGRAM Real-time transthoracic echocardiography with 2D, M-mode, spectral and color flow Doppler performed. QUALITY: Technically difficult due to patient's condition. LEFT VENTRICLE: Normal chamber size. Moderate concentric left ventricular hypertrophy. Global left ventricular systolic function is normal. Visual estimation of left ventricular ejection fraction is 60-65%. LV EF: Normal left ventricular ejection fraction, (>55%). DIASTOLIC: Normal diastolic function. ATRIAL SEPTUM: Visually appears intact. LEFT ATRIUM: Mild dilatation. RIGHT ATRIUM: Mild dilatation. RIGHT VENTRICLE: Normal chamber size. Normal right ventricular systolic function. TRICUSPID VALVE: Normal mobility and thickness. No stenosis with trivial regurgitation. MITRAL VALVE: Normal mobility and thickness. No evidence of mitral valve stenosis. There is no mitral annular calcification. No mitral regurgitation. AORTIC VALVE: Normal trileaflet appearance. No visible sclerosis. Normal leaflet mobility. No evidence of aortic valve stenosis. No aortic regurgitation. AORTIC ROOT: Aortic root and ascending aorta are normal in size corrected for patient's BSA. PULMONIC VALVE: Not well visualized. No stenosis. No regurgitation. PERICARDIUM: No evidence of pericardial effusion. CONCLUSION: Global left ventricular systolic function is normal; visually estimated ejection fraction is 60 to 65%. Moderate to severe left ventricular hypertrophy. Biatrial enlargement. The right ventricle is normal in size and systolic function. No significant valvular abnormalities. Unable to assess right ventricular systolic pressure due to lack of measurable tricuspid regurgitation. Adult Echocardiography Procedure Report Left Ventricle LVEDD (3.7 - 5.6 cm): 4.96 cm LVESD (2.2 - 4.0 cm): 3.10 cm LVIVS thickness (0.6 - 1.2 cm): 1.60 cm LVPW thickness (0.5 - 1.0 cm): 1.61 cm e': 10.10 cm/s E - e': 8.60 LVOT Area (cm2): 7.55 cm2 LVOT Diameter 3.10 cm Left Ventricular Ejection Fraction: 67.30 % Left Atrium Left Atrium Systolic Dimension: 5.10 cm Left Atrium Systolic Area(A4C): 32.70 cm2 Left Atrium Systolic Volume(A4C): 318198 mm3 Mitral Valve MV E to A Ratio: 0.90 Mitral Valve A-Wave Peak Velocity: 92.90 cm/s Mitral Valve E-Wave Peak Velocity: 86.40 cm/s Deceleration Time: 251 ms Right Ventricle Aorta AO Root Diam: 4.70 cm Aortic Valve AoV Area (Peak Mathieu): 5.73 cm2 Peak Velocity(Antegrade Flow): 149.00 cm/s Peak Gradient(Antegrade Flow): 9 mm[Hg] Tricuspid Valve Pulmonic Valve Peak Velocity: 112.00 cm/s Peak Gradient: 5 mm[Hg] Right Atrium Dictated by: Marielena Mcfarlane M.D. on 09/17/2021 at 15:52 Approved by: Marielena Mcfarlane M.D. on 09/17/2021 at 15:55 Normal [facility] GLYCOHEMOGLOBIN A1Con 2021 ADA RECOMMENDATION ADA THERAPEUTIC TARGET 6.0 - 7.0 ACTION SUGGESTED > 7.0 Normal [facility] Comment on above: Performed By: #### A 1C #### [facility] [address] [place] [address] Dr. Beth Johnson Glucose [Mass/Vol] 160 mg/dL Normal [facility] Comment on above: Performed By: #### A 1C #### [facility] [address] [address] [address] Beth Johnson HbA1c (Bld) [Mass fraction] 7.2 % Critically high <=6.0 [facility] Comment on above: Performed By: #### A 1C #### [facility] [address] [address] [address] Beth Johnson LIPID PROFILEon 09-17-2021 CHOL-HDL RATIO NORM SEE BELOW Normal [facility] Comment on above: Result Comment: 3.3 - 4.4 LOW RISK 4.4 - 7.1 AVERAGE RISK 7.1 - 11.0 MODERATE RISK >11.0 HIGH RISK Performed By: #### L IPID #### [facility] [address] [place] [address] Dr. Beth Johnson Cholesterol [Mass/Vol] 154 mg/dL Normal <=200 [facility] Comment on above: Performed By: #### L IPID #### [facility] [address] [place] [address] Dr. Beth Johnson Cholesterol in HDL [Mass/Vol] 46 mg/dL Normal 40-60 [facility] Comment on above: Performed By: #### L IPID #### [facility] [address] [place] [address] Dr. Beth Johnson Cholesterol in LDL [Mass/Vol] 77.2 mg/dL Normal [facility] Comment on above: Performed By: #### L IPID #### [facility] [address] [address] [address] Beth Johnson Cholesterol.total/Ch olesterol in HDL [Mass ratio] 3.3 {ratio} Normal [facility] Comment on above: Performed By: #### L IPID #### [facility] [address] [place] [address] Dr. Beth Johnson HDL NORMAL > or = 60 mg/dl - LOW CARDIOVASCULAR RISK <40 mg/dl - HIGH CARDIOVASCULAR RISK Normal [facility] Comment on above: Performed By: #### L IPID #### [facility] [address] [address] [address] Beth Johnson LDL CALC NORMAL SEE BELOW Normal [facility] Comment on above: Result Comment: <100 mg/dl OPTIMAL 100 - 129 mg/dl NEAR OR ABOVE OPTIMAL 130 - 159 mg/dl BORDERLINE HIGH 160 - 189 mg/dl HIGH >190 mg/dl VERY HIGH Performed By: #### L IPID #### [facility] [address] [address] [address] Beth Johnson Triglyceride [Mass/Vol] 154 mg/dL Critically high <=150 [facility] Comment on above: Performed By: #### L IPID #### [facility] [address] [address] [address] Beth Johnson VLDL CALC 30.8 mg/dL Normal [facility] Comment on above: Performed By: #### L IPID #### [facility] [address] [place] [address] Dr. Beth Johnson MICROALBUMIN, RAND URon 08-31 mALB 2.4 mg/L Normal <=30.0 [facility] Comment on above: Performed By: #### L IPID #### [facility] [address] [address] [address] Beth Johnson PROF 14(COMP METB)on 022 Albumin [Mass/Vol] 3.9 g/dL Normal 3.4-5.0 [facility] Comment on above: Performed By: #### C MP #### [facility] [address] [place] [address] Dr. Beth Johnson Albumin/Globulin [Mass ratio] 0.9 {ratio} Normal [facility] Comment on above: Performed By: #### C MP #### [facility] [address] [address] [address] Beth Johnson ALP [Catalytic activity/Vol] 86 U/L Normal 46-116 [facility] Comment on above: Performed By: #### C MP #### [facility] [address] [place] [address] Dr. Beth Johnson ALT [Catalytic activity/Vol] 29 U/L Normal 16-63 [facility] Comment on above: Performed By: #### C MP #### [facility] [address] [address] [address] Beth Johnson Anion gap [Moles/Vol] 10.7 mmol/L Normal [facility] Comment on above: Performed By: #### C MP #### [facility] [address] [address] [address] Beth Johnson AST [Catalytic activity/Vol] 14 U/L Critically low 15-37 [facility] Comment on above: Performed By: #### C MP #### [facility] [address] [address] [address] Beth Johnson Bilirubin [Mass/Vol] 0.6 mg/dL Normal 0.2-1.3 [facility] Comment on above: Performed By: #### C MP #### [facility] [address] [address] [address] Beth Johnson Calcium [Mass/Vol] 8.7 mg/dL Normal 8.5-10.1 [facility] Comment on above: Performed By: #### C MP #### [facility] [address] [address] [address] Beth Johnson Chloride [Moles/Vol] 102 mmol/L Normal 98-107 [facility] Comment on above: Performed By: #### C MP #### [facility] [address] [address] [address] Beth Johnson CO2 [Moles/Vol] 30.6 mmol/L Critically high 22.0-30.0 [facility] Comment on above: Performed By: #### C MP #### [facility] [address] [address] [address] Beth Johnson Creatinine [Mass/Vol] 1.12 mg/dL Normal 0.66-1.25 [facility] Comment on above: Performed By: #### C MP #### [facility] [address] [address] [address] Beth Johnson EGFR-AF IVORIAN >60 Normal >=60 [facility] Comment on above: Performed By: #### C MP #### [facility] [address] [address] [address] Beth Johnson EGFR-NON AF IVORIAN >60 Normal >=60 [facility] Comment on above: Performed By: #### C MP #### [facility] [address] [address] [address] Beth Johnson Globulin (S) [Mass/Vol] 4.4 g/dL Normal [facility] Comment on above: Performed By: #### C MP #### [facility] [address] [address] [address] Beth Johnson Glucose [Mass/Vol] 131 mg/dL Critically high 74-106 [facility] Comment on above: Performed By: #### C MP #### [facility] [address] [address] [address] Beth Johnson Potassium [Moles/Vol] 4.3 mmol/L Normal 3.4-5.0 [facility] Comment on above: Performed By: #### C MP #### [facility] [address] [place] [address] Dr. Beth Johnson Protein [Mass/Vol] 8.3 g/dL Critically high 6.1-8.2 [facility] Comment on above: Performed By: #### C MP #### [facility] [address] [place] [address] Dr. Beth Johnson Sodium [Moles/Vol] 139 mmol/L Normal 137-145 [facility] Comment on above: Performed By: #### C MP #### [facility] [address] [place] [id number] Dr[address] Beth Johnson Urea nitrogen [Mass/Vol] 23.0 mg/dL Critically high 7.0-18.0 [facility] Comment on above: Performed By: #### C MP #### [facility] [address] [place] [address] Dr. Beth Johnson Urea nitrogen/Creatinine [Mass ratio] 20.5 mg/mg Normal [facility] Comment on above: Performed By: #### C MP #### [facility] [address] [place] [address] Dr. Beth Johnson Vital Signs Date Time Vital Sign Value Performing Clinician Facility 03-20-2023 09:00-0400 Body height 180.34 cm Aldo Ball Other [facility] Other 03-20-2023 09:00-0400 Body mass index (BMI) [Ratio] 50.23 kg/m2 Aldo Ball Other [facility] Other 03-20-2023 09:00-0400 Body weight 163.39 kg Aldo Ball Other [facility] Other 03-20-2023 09:00-0400 Diastolic blood pressure 76 mm[Hg] Aldo Ball Other [facility] Other 03-20-2023 09:00-0400 Respiratory rate 16 /min Aldo Ball Other [facility] Other 03-20-2023 09:00-0400 Systolic blood pressure 158 mm[Hg] Aldo Ball Other [facility] Other 08-18-2022 10:30-0500 Body height 180.34 cm Aldo Ball Other [facility] Other 08-18-2022 10:30-0500 Body mass index (BMI) [Ratio] 50.15 kg/m2 Aldo Ball Other [facility] Other 08-18-2022 10:30-0500 Body weight 163.11 kg Aldo Ball Other [facility] Other 08-18-2022 10:30-0500 Diastolic blood pressure 74 mm[Hg] Aldo Ball Other [facility] Other 08-18-2022 10:30-0500 Respiratory rate 16 /min Aldo Ball Other [facility] Other 08-18-2022 10:30-0500 Systolic blood pressure 128 mm[Hg] Aldo Simeon Other [facility] Other 02-12-2022 14:15-0400 Body height 180.34 cm Allison Florez Other [facility] Other 02-12-2022 14:15-0400 Body mass index (BMI) [Ratio] 50.2 kg/m2 Allison Florez Other [facility] Other 02-12-2022 14:15-0400 Body temperature 97.9 [degF] Allison Florez Other [facility] Other 02-12-2022 14:15-0400 Body weight 163.3 kg Allison Florez Other [facility] Other 02-12-2022 14:15-0400 Respiratory rate 20 /min Allison Florez Other [facility] Other 02-12-2022 14:15-0400 SaO2% (BldA) [Mass fraction] 92 % Allison Florez Other [facility] Other Encounters Encounter Date Encounter Type Care Provider Facility Start: 07-24-2023 End: 07-24-2023 ambulatory [facility] Start: 04-21-2023 End: 04-21-2023 ambulatory MELBA MCCLELLAN [facility] Start: 04-17-2023 End: 04-17-2023 ambulatory Aldo Simeon Other [facility] Other Start: 04-17-2023 Telephone encounter Aldo Simeon [facility] Start: 03-29-2023 Telephone encounter Aldo Ball [facility] Start: 03-29-2023 End: 03-29-2023 ambulatory EHAB DENYS [facility] Other Start: 03-23-2023 End: 03-23-2023 ambulatory Aldo Simeon Other [facility] Other Start: 03-23-2023 Telephone encounter Aldo BLANCO [facility] Start: 03-22-2023 End: 03-22-2023 ambulatory MELBA MCCLELLAN [facility] Other Start: 03-22-2023 Telephone encounter Aldo BLANCO [facility] Start: 03-20-2023 End: 03-20-2023 ambulatory Aldo Simeon Other [facility] Other Start: 03-20-2023 Office outpatient vi sit 25 minutes Aldo Simeon [facility] Start: 11-24-2022 End: 11-24-2022 ambulatory Aldo Simeon Other [facility] Other Start: 11-24-2022 Telephone encounter Aldo BLANCO [facility] Start: 08-22-2022 End: 08-22-2022 ambulatory Aldo Simeon Other [facility] Other Start: 08-22-2022 Telephone encounter Aldo BLANCO [facility] Start: 08-19-2022 Encounter for genera l adult medical examination without abnormal findings DR ALDO SIMEON [facility] Start: 08-18-2022 End: 08-18-2022 ambulatory Aldo Simeon Other [facility] Other Start: 08-18-2022 Encounter for genera l adult medical examination without abnormal findings Aldo Simeon [facility] Start: 08-18-2022 Periodic preventive med est patient 40-64yrs Aldo Simeon [facility] Start: 08-18-2022 Telephone encounter Aldo BLANCO [facility] Start: 08-15-2022 End: 02-14-[address] ALDO SIMEON Facility:[facility] Start: 08-15-2022 End: 08-16-2022 Encounter for general adult medical examination without abnormal findings DR ALDO SIMEON Facility:[facility] Start: 08-11-2022 End: 08-11-2022 ambulatory Aldo Simeon Other [facility] Other Start: 08-11-2022 Encounter for genera l adult medical examination without abnormal findings lAdo Simeon [facility] Start: 08-11-2022 Telephone encounter Aldo Simeon [facility] Start: 06-29-2022 End: 06-30-[address] ALDO SIMEON Facility:[facility] Start: 06-13-2022 End: 06-14-[address] ALDO SIMEON Facility:[facility] Start: 04-20-2022 End: 04-21-[address] FARA SNOW Facility:[facility] Start: 04-06-2022 End: 04-07-[address] ALDO SIMEON Facility:[facility] Start: 02-12-2022 End: 02-12-2022 ambulatory Allison Florez Other [facility] Other Start: 02-12-2022 Office outpatient ne w 30 minutes Allison Florez [facility] Start: 11-19-2021 End: 11-20-[address] ALDO SIMEON Facility:[facility] Start: 11-18-2021 End: 11-19-[address] ALDO SIMEON Facility:[facility] Start: 09-17-2021 End: 09-18-[address] ALDO SIMEON Facility:[facility] Procedures Date Procedure Procedure Detail Performing Clinician Start: 08-15-[address] AAMIR SIMEON Comment on above: Performed By: #### L IPID #### [facility] [address] [place] [address] Dr. Beth Johnson Immunizations Immunization Date Immunization Notes Care Provider Fa cili 03-20-2023 influenza, injectabl e, quadrivalent, preservative free Aldo Simeon Other [facility] Other 05-05-2022 influenza virus vaccine, split virus (incl. purified surface antigen) Aldo Simeon Other [facility] Other 05-05-2022 influenza, injectabl e, quadrivalent, contains preservative Aldo Simeon Other [facility] Other 05-25-2021 influenza virus vaccine, split virus (incl. purified surface antigen) Aldo Simeon Other [facility] Other 05-24-2021 COVID-19 Vaccine Moderna - Documentation Purposes Only Aldo Simeon Other [facility] Other 05-24-2021 zoster vaccine recombinant Aldo Simeon Other [facility] Other 05-24-2021 zoster vaccine, live Benjami aaron Simeon Other [facility] Other 03-05-2021 zoster vaccine recombinant Aldo Simeon Other [facility] Other 10-12-2020 COVID-19 Vaccine Moderna - Documentation Purposes Only Aldo Simeon Other [facility] Other 09-14-2020 COVID-19 Vaccine Moderna - Documentation Purposes Only Aldo Simeon Other [facility] Other 04-28-2020 influenza virus vaccine, split virus (incl. purified surface antigen) Aldo Simeon Other [facility] Other 04-16-2019 influenza virus vaccine, split virus (incl. purified surface antigen) Aldo Simeon Other [facility] Other Payers Date Payer Category Payer Unknown [id number] [id number] 1959 Unknown [id number] 2.16.84 [id number] 1959 Unknown [id number] 2.16.84 [id number] 1959 Unknown [id number] 2.16.84 [id number] 1959 Unknown [id number] 2.16.84 [id number] 1959 Unknown [id number] 2.16.84 [id number] 1959 Unknown [id number] 2.16.84 [id number] 1959 Unknown [id number] 2.16.84 [id number] 1959 Unknown [id number] 2.16.84 [id number] 1959 Unknown [id number] 2.16.84 [id number] Social History Date Type Detail Facility Sex Assigned At [facility] Other Medical Equipment Procedure Code Equipment Code Equipment Original Text Equi pment Identifier Dates BD Pen Needle Or iginal U/F 29G X 12.7MM Clinical Notes 02-12-2022 to 07-24-2023 Note Date & Type Note Facility 07-24-2023 Note [facility] Note Chief Complaint: Patient here for 3 mo follow up CAD and hyperlipidemia. Atorvastatin was increased to 40mg daily at last apt in Apr 2023. Had liver profile a few weeks ago but lipid wasn't drawn. Tolerating higher dose of statin just fine. Chest pain has resolved. Says LE edema and PORTILLO are no more than usual for him. Said HR was [address] Simeon's office on Monday and he advised him to exercise more. Says Dr. Simeon wanted to discontinue metoprolol until he realized it was prescribed by cardiology. HPI: Jose J Evans is a 63 y.o. male History of hypertension, left ventricular hypertrophy obesity and diabetes mellitus Family history: Father had an IN at age 55-56, a stroke and at the age of 61. The patient is a former smoker. Cardiology ROS: Review of Systems Eyes: Positive for blurred vision (intermittent). Cardiovascular: Positive for dyspnea on exertion and leg swelling. Musculoskeletal: Positive for arthritis and neck pain. Neurological: Positive for headaches. All other systems reviewed and are negative. Past Medical History He has no past medical history on file. Surgical History He has no past surgical history on file. Social History He reports that he quit smoking about 21 years ago. His smoking use included cigarettes. He has a 10.00 pack-year smoking history. He has never used smokeless tobacco. He reports current alcohol use of about 2.0 - 3.0 standard drinks of alcohol per week. He reports that he does not use drugs. Family History No family history on file. Allergies Patient has no known allergies. Medications Current Outpatient Medications: amLODIPine (Norvasc) 5 mg tablet, Take by mouth in the morning., Disp: , Rfl: aspirin 81 mg capsule, Take 81 mg by mouth in the morning., Disp: , Rfl: atorvastatin (Lipitor) 40 mg tablet, Take 1 tablet (40 mg) by mouth in the morning., Disp: 90 tablet, Rfl: 3 insulin glargine (Toujeo SoloStar U-300 Insulin) 300 unit/mL (1.5 mL) injection, Inject under the skin at bedtime., Disp: , Rfl: losartan-hydrochlorothiazide (Hyzaar) 100-25 mg tablet, Take 1 tablet by mouth in the morning., Disp: , Rfl: metFORMIN (Glucophage) 1,000 mg tablet, , Disp: , Rfl: metoprolol succinate XL (Toprol-XL) 25 mg 24 hr tablet, Take 1 tablet (25 mg) by mouth in the morning. Do not crush or chew., Disp: 90 tablet, Rfl: 3 Ozempic 1 mg/dose (4 mg/3 mL) pen injector, , Disp: , Rfl: semaglutide (Rybelsus) 14 mg tablet, Take 14 mg by mouth in the morning., Disp: , Rfl: spironolactone (Aldactone) 25 mg tablet, TAKE 1 TABLET DAILY, Disp: 90 tablet, Rfl: 3 Last Recorded Vitals BP 128/64 (BP Location: Right arm, Patient Position: Sitting) Pulse (!) 40 Ht 1.854 m (6' 1 ) Wt (!) 168 kg (371 lb) SpO2 94% BMI 48.95 kg/m??? Physical Examination: GENERAL: alert and oriented x3, well developed, in no acute distress. HEAD: atraumatic, normocephalic. EYES: YG, EOMI. NECK: trachea midline, no JVD present, no carotid bruits present. CARDIAC: S1, S2 present. RRR. No murmur, rubs, or gallops. RESPIRATORY: CTAB, no increased effort of breathing, no rales, rhonchi, or wheezing. ABDOMEN: soft, nontender, nondistended. EXTREMITIES: no lower extremity edema, peripheral pulses are 2+ bilaterally. No rash/skin discoloration present. NEURO: strength/sensation equal and symmetric in bilateral upper and lower extremities. PSYCH: appropriate mood, affect, and judgement. INVESTIGATIONS: CV Testing: EKG today Sinus bradycardia with 1st degree AV block, with ST changes 02/20/2020 TTE Left Ventricle: The left ventricle is normal size. Global left ventricular systolic function is hyperdynamic. The EF is 75 % visually. Left ventricular wall thickness is moderately increased. The septum is abnormal, consistent with RV volume and/or pressure overload. Unable to assess diastolic dysfunction. Right Ventricle: The right ventricle is mildly enlarged. Normal right ventricular systolic function. Doppler studies suggest mildly elevated right sided pressures. Left Atrium: The left atrium is mildly enlarged. Right Atrium: The right atrium is moderately enlarged. Overall Conclusions: Moderate concentric left ventricular hypertrophy. No evidence of left ventricular outflow tract obstruction at rest or with provocation. No significant valvular abnormalities No previous study to compare. No echocardiogram results found for the past 12 months 10/06/22 EDG Findings: The nasopharynx and oropharynx were normal. LA Grade A (one or more mucosal breaks less than 5 mm, not extending between tops of 2 mucosal folds) esophagitis with no bleeding was found 35 cm from the incisors. Biopsies were taken with a cold forceps for histology. A single 7 mm sessile polyp with no bleeding and no stigmata of recent bleeding was found on the greater curvature of the gastric body. The polyp was re (more content not included)... [facility] 04-21-2023 Note lipitor was increase d to 40 mg Will repeat labs in 2 months [facility] 04-21-2023 Note [facility] CARDIOLOGY PROGR ESS NOTE HPI: Jose J Evans is a 63 y.o. male here for Chest pain, CAD, myocardial bridging Patient here for follow up cath on 03/[address] Mcfarlane. Atorvastatin was doubled to 40mg. He will have liver and lipid panels drawn in Jun 2023. Says sometimes at home his BP is in the 170's systolic. He will recheck it a few minutes later and it comes down to the 130's systolic. Chest pain isn't as often but he did still have 1 episode the other day. SOB and lightheadedness has improved. Overall states he is doing well, has started walking about 1 hour/day- activity is limited by arthritic/knee pain States b/p at home is typically 130-140/80 Review of Systems Eyes: Positive for blurred vision. Cardiovascular: Positive for chest pain and leg swelling. Neurological: Positive for headaches. All other systems reviewed and are negative. Visit Vitals BP 156/85 (BP Location: Left arm, Patient Position: Sitting) Pulse 56 Ht 1.854 m (6' 1 ) Wt (!) 163 kg (360 lb) SpO2 94% BMI 47.50 kg/m??? Smoking Status Former BSA 2.9 m??? No Known Allergies Medications: Current Outpatient Medications on File Prior to Visit Medication Sig Dispense Refill amLODIPine (Norvasc) 5 mg tablet Take by mouth in the morning. aspirin 81 mg capsule Take 81 mg by mouth in the morning. atorvastatin (Lipitor) 40 mg tablet Take 1 tablet (40 mg) by mouth in the morning. 90 tablet 3 insulin glargine (Toujeo SoloStar U-300 Insulin) 300 unit/mL (1.5 mL) injection Inject under the skin at bedtime. losartan-hydrochlorothiazide (Hyzaar) 100-25 mg tablet Take 1 tablet by mouth in the morning. metFORMIN (Glucophage) 1,000 mg tablet semaglutide (Rybelsus) 14 mg tablet Take 14 mg by mouth in the morning. spironolactone (Aldactone) 25 mg tablet TAKE 1 TABLET DAILY 90 tablet 3 Ozempic 1 mg/dose (4 mg/3 mL) pen injector [DISCONTINUED] aspirin 81 mg chewable tablet Chew 81 mg in the morning. [DISCONTINUED] spironolactone (Aldactone) 25 mg tablet TAKE 1 TABLET DAILY 90 tablet 0 No current facility-administered medications on file prior to visit. Physical Exam: Constitutional: Appearance: Normal appearance. Without apparent distress, obese HENT: Head: Normocephalic and atraumatic. Nose: Nose normal. Mouth/Throat: Mouth: Mucous membranes are moist. Eyes: Extraocular Movements: Extraocular movements intact. Conjunctiva/sclera: Conjunctivae normal. Neck: Vascular: No JVD. Cardiovascular: Rate and Rhythm: Normal rate and regular rhythm. Pulses: Radial pulses are 3 on the right side and 3on the left side. Lt radial site C/D/I, well healed without bruit, hematoma or ecchymosis Posterior tibial pulses are 3 on the right side and 3 on the left side. Heart sounds: Normal heart sounds, S1 normal and S2 normal. Pulmonary: Effort: Pulmonary effort is normal. Breath sounds: Normal breath sounds. Abdominal: General: Bowel sounds are normal. Palpations: Abdomen is soft. Musculoskeletal: General: Normal range of motion. Cervical back: Normal range of motion. Right lower leg: No edema. Left lower leg: No edema. Skin: General: Skin is warm and dry. Capillary Refill: Capillary refill takes less than 2 seconds. Neurological: General: No focal deficit present. Mental Status: he is alert and oriented to person, place, and time. Psychiatric: Mood and Affect: Mood normal. Behavior: Behavior normal. Thought Content: Thought content normal. Judgment: Judgment normal. 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 Left anterior descending coronary artery: This shows a proximal to midportion 40% stenosis at the bend in the vessel followed by a long segment of what appears to be myocardial bridging. There is systolic compression. Post nitroglycerin this appearance was exaggerated. An instantaneous wave free ratio was 0.92.Final images showed AIDEE-3 (more content not included)... [facility] 04-21-2023 Note Patient here for fol low up cath on 03/[address] Mcfarlane. Atorvastatin was doubled to 40mg. He will have liver and lipid panels drawn in Jun 2023. Says sometimes at home his BP is in the 170's systolic. He will recheck it a few minutes later and it comes down to the 130's systolic. Chest pain isn't as often but he did still have 1 episode the other day. SOB and lightheadedness has improved. Review of Systems Eyes: Positive for blurred vision. Cardiovascular: Positive for chest pain and leg swelling. Neurological: Positive for headaches. All other systems reviewed and are negative. [facility] 04-21-2023 Note Coronary artery dise ase is stable Continue GDMT- ASA, lipitor and metoprolol Repeat hepatic function and lipid level in 2 months continue risk factor modifications- heart healthy diet, regular exercise as tolerated and continue all medications. [facility] 04-21-2023 Note Script for toprol se nt and d/w pt that if chest pain reoccurs he is to call office and will need uptitrating beta jyoti. [facility] 04-03-2023 Note In light of noted CA D, and LDL > 70 on recent labs therefore increased lipitor to 40 mg daily Will repeat LFT and Lipid level in 2-3 months. Melba Mcclellan PASTING MACHINE OFFBEARER Division of Cardiology, 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 Should his chest discomfort persist, will escalate the beta-jyoti and consider addition of nitrates or calcium channel jyoti. A complete echocardiogram will be obtained as an outpatient Follow-up with Melba Rodriguez certified nurse practitioner in the next 1 to 2 months Follow-up with her family physician as scheduled PROCEDURES: Ultrasound-guided access to the right internal jugular vein, right heart catheterization, ultrasound-guided access to the left radial artery, bilateral selective coronary angiography METHODS: After risks, benefits, and alternatives were explained, written informed consent was obtained. The patient was prepped and draped in usual sterile fashion over the right neck and left radial regions. Using 1% lidocaine solution, local infiltration anesthesia was achieved. Using a modified Seldinger technique, a micropuncture kit, and under ultrasound guidance, access to the right internal jugular vein was obtained. A 6 Yemeni 11 cm sheath was inserted without difficulty. Right heart catheterization was performed using a Gordon catheter via the venous sheath. Pressures were measured in the right atrium, right ventricle, pulmonary artery, and pulmonary capillary wedge positions. Oxygen saturations were obtained and cardiac output/cardiac index was calculated using the modified Justin principle. The Gordon catheter was removed. The jugular sheath was removed with application of manual pressure to achieve optimal hemostasis. Local infiltration anesthesia was achieved of the left wrist. Using a micropuncture kit, and under ultrasound-guided access of the left radial artery was obtained. A 6 Yemeni glide sheath was inserted without difficulty. Bilateral selective coronary angiography was performed using JL4 and JR4 catheters. After reviewing the images, it was elected to proceed with a physiological assessment of the left anterior descending. A 6 Yemeni XB 3.5 guide catheter was advanced in and coaxially engaged into the left main ostium. The Omni pressure wire was advanced in with pressures normalized just after exiting the catheter. It was used to traverse the suspect stenosis. An instantaneous wave free ratio was performed. An instantaneous wave free ratio pullback was performed. The wire was removed. Final images showed AIDEE-3 flow with no dissection thrombus or distal wire trauma. After reviewing the images, it was elected to conclude the procedure. All catheters were removed. The radial sheath was removed with application of a TR band per protocol to achieve optimal hemostasis. Overall the patient tolerated the procedure well. There were no overt complications. He was to be transferred to the holding area in stable condition. FINDINGS: Hemodynamics: RA 7 RV 39/1, 8 PA 39/13 (24) PCWP 11 TPG 13 AO 109/63 [75] Cardiac output /cardiac index AO sat /PA sat LEFT VENTRICULOGRAPHY: This was not performed; ejection fraction is normal by prior noninvasive imaging. CORONARY ARTERIES: Left main coronary artery: This arises from the left coronary cusp and bifurcates into the left anterior descending and left circumflex coronary arteries it shows plaque with no significant stenoses. Left anterior descending coronary artery: This shows a proximal to midportion 40% stenosis at the bend in the vessel followed by a long segment of what appears to be myocardial bridging. There is systolic compression. Post nitroglycerin this appearance was exaggerated. An instantaneous wave free ratio was 0.92.Final images showed AIDEE-3 flow with no dissection thrombus or distal wire trauma. Left circumflex coronary artery: This is a codominant vessel giving rise to posterolateral branches. It shows AIDEE II flow and mild plaque with no significant high-grade stenoses. Right coronary artery: This arises from the right coronary cusp, it appears to be a codominant vessel giving rise to the posterior descending artery, with diffuse calcific plaque and sluggish flow in the mid to distal portion. INDICATIONS: [facility] Completely normal CBCUnEast [facility]09-21-2023 Evaluation note* Encounter Date Diagnosis Assessment Notes Treatment Notes Treatment Clinical Notes Mar, Type 2 diabetes mellitus with hyperglycemia (ICD-10 - E11.65) Mar, residential (current) use of insulin (ICD-10 - Z79.4) [facility] Other 09-20-2023 NotePlan for cardiac cath to assess for any significant coronary disease/stenosis. Will start imdur for angina and script for NTG SL and d/w pt that he can take 1 tab SL for chest pain and may repeat q 5 min for max of 3 tablets and if CP continues to call 911, and he voiced understandingUnEast [facility]-20[facility] NoteWill monitorUnEast [facility]09-[facility]-2023 NoteHypertension is elevated today Start imdur for HTN and ANginaUnEast [facility]09-20-2023 Note Plan for cardiac cath- Rt LT and CORS, with echocardiogram to assess cardiac function and perfusion, rt sided pressures and fluid status. May be r/t multiple factors including pulmonary disease, obesity and deconditioning.[facility]09-20-2023 NoteRecommend weight loss- f/U with PCPUnEast [facility]09-20-2023 Note Diabetes is managed by PCP Reports A1C typically is 6-7UnEast [facility]09-20-2023 Note Review of Systems Eyes: Positive for blurred vision. Cardiovascular: Positive for chest pain and leg swelling. Respiratory: Positive for shortness of breath. Neurological: Positive for dizziness, headaches and light-headedness. All other systems reviewed and are negative.[facility] 03-22-2023 NoteUTP CARDIOLOGY PROGRESS NOTE HPI: Jose J Evans is a 63 y.o. male here for routine F/U for HTN, LVH, Obesity, DM Chest Pain This is a recurrent problem. The current episode started more than 1 month ago (within the last year). The onset quality is sudden. The problem occurs every several days. The problem has been gradually worsening. The pain is present in the substernal region. The pain is at a severity of 4/10. The pain is moderate. The quality of the pain is described as sharp. The pain does not radiate. Associated symptoms include diaphoresis, dizziness, exertional chest pressure, headaches, lower extremity edema, malaise/fatigue and shortness of breath. The pain is aggravated by food, emotional upset and exertion. He has tried nothing for the symptoms. Risk factors include alcohol intake, sedentary lifestyle, smoking/tobacco exposure, stress, lack of exercise, male gender and obesity. Father had IN at age 55-56 yo, stroke and at age 61 yo with second IN. Pt is a former smoker, obese, DM and sedentary with increased activity intolerance over the last couple months to 1 year. Review of Systems Constitutional: Positive for diaphoresis and malaise/fatigue. Respiratory: Positive for chest tightness and shortness of breath. Cardiovascular: Positive for chest pain and leg swelling. Neurological: Positive for dizziness, light-headedness and headaches. Negative for syncope. All other systems reviewed and are negative. Visit Vitals BP 146/73 (BP Location: Right arm, Patient Position: Sitting, BP Cuff Size: Adult) Pulse 55 Wt (!) 164 kg (361 lb) SpO2 94% BMI 47.63 kg/m??? Smoking Status Former BSA 2.91 m??? No Known Allergies Medications: Current Outpatient Medications on File Prior to Visit Medication Sig Dispense Refill amLODIPine (Norvasc) 5 mg tablet Take by mouth in the morning. aspirin 81 mg chewable tablet Chew 81 mg in the morning. atorvastatin (Lipitor) 20 mg tablet Take 1 tablet by mouth in the evening. insulin glargine (Toujeo SoloStar U-300 Insulin) 300 unit/mL (1.5 mL) injection Inject under the skin at bedtime. losartan-hydrochlorothiazide (Hyzaar) 100-25 mg tablet Take 1 tablet by mouth in the morning. metFORMIN (Glucophage) 1,000 mg tablet Ozempic 1 mg/dose (4 mg/3 mL) pen injector spironolactone (Aldactone) 25 mg tablet TAKE 1 TABLET DAILY 90 tablet 0 aspirin 81 mg capsule Take 81 mg by mouth in the morning. No current facility-administered medications on file prior to visit. Physical Exam: Constitutional: Appearance: Normal appearance. Without apparent distress, obese HENT: Head: Normocephalic and atraumatic. Nose: Nose normal. Mouth/Throat: Mouth: Mucous membranes are moist. Eyes: Extraocular Movements: Extraocular movements intact. Conjunctiva/sclera: Conjunctivae normal. Neck: Vascular: No JVD. Cardiovascular: Rate and Rhythm: Normal rate and regular rhythm. Pulses: Dorsalis pedis pulses are 3 on the right side and 3on the left side. Posterior tibial pulses are 3 on the right side and 3 on the left side. Heart sounds: Normal heart sounds, S1 normal and S2 normal. Pulmonary: Effort: Pulmonary effort is normal. Breath sounds: Normal breath sounds. Abdominal: General: Bowel sounds are normal. Palpations: Abdomen is soft. Musculoskeletal: General: Normal range of motion. Cervical back: Normal range of motion. Right lower leg: No edema. Left lower leg: No edema. Skin: General: Skin is warm and dry. Capillary Refill: Capillary refill takes less than 2 seconds. Neurological: General: No focal deficit present. Mental Status: he is alert and oriented to person, place, and time. Psychiatric: Mood and Affect: Mood normal. Behavior: Behavior normal. Thought Content: Thought content normal. Judgment: Judgment normal. Labs: No previous labs noted in chart Will send pt for routine labs, CBC, CMP, LIpid Last lab values have been reviewed CV Testing: EKG today Sinus bradycardia with 1st degree AV block, with ST changes 02/20/2020 TTE Left Ventricle: The left ventricle is normal size. Global left ventricular systolic function is hyperdynamic. The EF is 75 % visually. Left ventricular wall thickness is moderately increased. The septum is abnormal, consistent with RV volume and/or pressure overload. Unable to assess diastolic dysfunction. Right Ventricle: The right ventricle is mildly enlarged. Normal right ventricular systolic function. Doppler studies suggest mildly elevated right sided pressures. Left Atrium: The left atrium is mildly enlarged. Right Atrium: The right atrium is moderately enlarged. Overall Conclusions: Moderate concentric left ventricular hypertrophy. No evidence of left ventricular outflow tract obstruction at rest or with provocation. No significant valvular abnormalities No previous study to compare. No echocardiogram results found for the past 1 (more content not included)... [facility]09-20-2023 NoteUTP CARDIOLOGY PROGRESS NOTE HPI: Jose J Evans is a 63 y.o. male here for routine F/U for HTN, LVH, Obesity, DM Chest Pain This is a recurrent problem. The current episode started more than 1 month ago (within the last year). The onset quality is sudden. The problem occurs every several days. The problem has been gradually worsening. The pain is present in the substernal region. The pain is at a severity of 4/10. The pain is moderate. The quality of the pain is described as sharp. The pain does not radiate. Associated symptoms include diaphoresis, dizziness, exertional chest pressure, headaches, lower extremity edema, malaise/fatigue and shortness of breath. The pain is aggravated by food, emotional upset and exertion. He has tried nothing for the symptoms. Risk factors include alcohol intake, sedentary lifestyle, smoking/tobacco exposure, stress, lack of exercise, male gender and obesity. Father had IN at age 55-56 yo, stroke and at age 61 yo with second IN. Pt is a former smoker, obese, DM and sedentary with increased activity intolerance over the last couple months to 1 year. Review of Systems Constitutional: Positive for diaphoresis and malaise/fatigue. Respiratory: Positive for chest tightness and shortness of breath. Cardiovascular: Positive for chest pain and leg swelling. Neurological: Positive for dizziness, light-headedness and headaches. Negative for syncope. All other systems reviewed and are negative. Visit Vitals BP 146/73 (BP Location: Right arm, Patient Position: Sitting, BP Cuff Size: Adult) Pulse 55 Wt (!) 164 kg (361 lb) SpO2 94% BMI 47.63 kg/m??? Smoking Status Former BSA 2.91 m??? No Known Allergies Medications: Current Outpatient Medications on File Prior to Visit Medication Sig Dispense Refill amLODIPine (Norvasc) 5 mg tablet Take by mouth in the morning. aspirin 81 mg chewable tablet Chew 81 mg in the morning. atorvastatin (Lipitor) 20 mg tablet Take 1 tablet by mouth in the evening. insulin glargine (Toujeo SoloStar U-300 Insulin) 300 unit/mL (1.5 mL) injection Inject under the skin at bedtime. losartan-hydrochlorothiazide (Hyzaar) 100-25 mg tablet Take 1 tablet by mouth in the morning. metFORMIN (Glucophage) 1,000 mg tablet Ozempic 1 mg/dose (4 mg/3 mL) pen injector spironolactone (Aldactone) 25 mg tablet TAKE 1 TABLET DAILY 90 tablet 0 aspirin 81 mg capsule Take 81 mg by mouth in the morning. No current facility-administered medications on file prior to visit. Physical Exam: Constitutional: Appearance: Normal appearance. Without apparent distress, obese HENT: Head: Normocephalic and atraumatic. Nose: Nose normal. Mouth/Throat: Mouth: Mucous membranes are moist. Eyes: Extraocular Movements: Extraocular movements intact. Conjunctiva/sclera: Conjunctivae normal. Neck: Vascular: No JVD. Cardiovascular: Rate and Rhythm: Normal rate and regular rhythm. Pulses: Dorsalis pedis pulses are 3 on the right side and 3on the left side. Posterior tibial pulses are 3 on the right side and 3 on the left side. Heart sounds: Normal heart sounds, S1 normal and S2 normal. Pulmonary: Effort: Pulmonary effort is normal. Breath sounds: Normal breath sounds. Abdominal: General: Bowel sounds are normal. Palpations: Abdomen is soft. Musculoskeletal: General: Normal range of motion. Cervical back: Normal range of motion. Right lower leg: No edema. Left lower leg: No edema. Skin: General: Skin is warm and dry. Capillary Refill: Capillary refill takes less than 2 seconds. Neurological: General: No focal deficit present. Mental Status: he is alert and oriented to person, place, and time. Psychiatric: Mood and Affect: Mood normal. Behavior: Behavior normal. Thought Content: Thought content normal. Judgment: Judgment normal. Labs: No previous labs noted in chart Will send pt for routine labs, CBC, CMP, LIpid Last lab values have been reviewed CV Testing: EKG today Sinus bradycardia with 1st degree AV block, with ST changes 02/20/2020 TTE Left Ventricle: The left ventricle is normal size. Global left ventricular systolic function is hyperdynamic. The EF is 75 % visually. Left ventricular wall thickness is moderately increased. The septum is abnormal, consistent with RV volume and/or pressure overload. Unable to assess diastolic dysfunction. Right Ventricle: The right ventricle is mildly enlarged. Normal right ventricular systolic function. Doppler studies suggest mildly elevated right sided pressures. Left Atrium: The left atrium is mildly enlarged. Right Atrium: The right atrium is moderately enlarged. Overall Conclusions: Moderate concentric left ventricular hypertrophy. No evidence of left ventricular outflow tract obstruction at rest or with provocation. No significant valvular abnormalities No previous study to compare. No echocardiogram results found for the past 1 (more content not included)... [facility]09-20-2023 Evaluation note* Encounter Date Diagnosis Assessment Notes Treatment Notes Treatment Clinical Notes Mar, Type 2 diabetes mellitus with hyperglycemia (ICD-10 - E11.65) [facility] Other 09-18-2023 Evaluation note* Encounter Date Diagnosis Assessment Notes Treatment Notes Treatment Clinical Notes Mar, Hypertrophic cardiomyopathy (ICD-10 - I42.2) Control BP Aware of HFpEF - important to normalize BP, exercise and decrease weight Mar, Type 2 diabetes mellitus with hyperglycemia (ICD-10 - E11.65) This patient is following a comprehensive diabetic treatment plan. They are checking their feet daily for calluses and nonhealing ulcers. They are being seen for yearly dilated eye examinations. Goals: SBP less than 130, LDL less than 100, FBS less than 140, AC and A1C less than 7%. They are checking their BS daily, will which are reviewed at the office visit. Continue regular routine monitoring of A1C,] Microalbumin, Dilated eye exam and Foot exam Mar, Type 2 diabetes mellitus with diabetic polyneuropathy (ICD-10 - E11.42) Inspect feet daily for cuts and calluses.Recommend diabetic shoes and inserts to prevent callus formation.Fall precautions. Mar, Primary hypertension (ICD-10 - I10) This patient is instructed to consume a healthy, low-fat, low-salt diet. They are also encouraged to continue exercise to achieve/maintain a normal BMI. Elevated today Patient is instructed on home BP measurements: - rest for 5 minutes w/o talking- positioned w/ feet on floor and arm supported- average best 2/3 readings w/ goal < 135/85 _update office w results Mar, Hyperlipidemia type II (ICD-10 - E78.01) Instructed on diet and exercise with continued statin therapy.Discussed the beneficial effects of lowering cholesterol in reducing the risk for cerebrovascular and cardiovascular disease. Mar, Chronic venous insufficiency (ICD-10 - I87.2) Avoid salt and elevate lower extremities, support stockings, inspect legs and feet daily for blisters and ulcerations. Mar, Obstructive sleep apnea (ICD-10 - G47.33) This patient is aware of the benefits associated with JAMES: With continued use, the patient reduces the risk for IN, CVA, HTN, cardiac dysrhythmias and sudden cardiac deaths.The patient is also aware of the association between JAMES and morning headaches, daytime somnolence, fatigue and obesity. Noncomplaint, aware may be contributing to fatigue Mar, residential (current) use of insulin (ICD-10 - Z79.4) Continue as directed [facility] Other 02-16-2023 Evaluation note* Encounter Date Diagnosis Assessment Notes Treatment Notes Treatment Clinical Notes Aug, Wellness examination (ICD-10 - Z00.00) Healthy diet and exercise. Reviewed age-appropriate preventive testing recommended. Aug, Obstructive sleep apnea (ICD-10 - G47.33) This patient is aware of the benefits associated with JAMES: With continued use, the patient reduces the risk for IN, CVA, HTN, cardiac dysrhythmias and sudden cardiac deaths.The patient is also aware of the association between JAMES and morning headaches, daytime somnolence, fatigue and obesity Noncompliant, recommend referral back to sleep clinic to discuss Inspire Aug, Essential hypertensi on (ICD-10 - I10) This patient is instructed to consume a healthy, low-fat, low-salt diet. They are also encouraged to continue exercise to achieve/maintain a normal BMI. Aug, Chronic venous insufficiency (ICD-10 - I87.2) Avoid salt and elevate lower extremities, support stockings, inspect legs and feet daily for blisters and ulcerations. Aug, Hypertrophic cardiomyopathy (ICD-10 - I42.2) Healthy, low fat/salt diet. Exercise and weight loss. Control BP Aug, Hyperlipidemia type II (ICD-10 - E78.01) Diet and exercise with continued statin therapy. Aug, Type 2 diabetes mellitus with hyperglycemia (ICD-10 - E11.65) This patient is following a comprehensive diabetic treatment plan. They are checking their feet daily for calluses and nonhealing ulcers. They are being seen for yearly dilated eye examinations. Goals: SBP less than 130, LDL less than 100, FBS less than 140, AC and A1C less than 7%. They are checking their BS daily, will which are reviewed at the office visit. A1C: [ ] Microalbumin: [ ] Eye exam: [ ] Foot exam: [ ] Aug, residential (current) use of insulin (ICD-10 - Z79.4) Aug, Morbid exogenous obesity (ICD-10 - E66.01) This patient has been instructed on a low-fat, high-fiber diet. They are instructed to reduce calories, portion sizes and snacks. It is recommended that they exercise for 30 minutes, 3-5 times weekly. Aug, Gastroesophageal reflux disease with esophagitis without hemorrhage (ICD-10 - K21.00) Diet instructions: Smaller portions, avoid eating and laying flat, avoid eating or drinking prior to bedtime. Weight loss. Declined PPI Refer for EGD Aug, Screening PSA (prostate specific antigen) (ICD-10 - Z12.5) [facility] Other 02-16-2023 Evaluation note* Encounter Date Diagnosis Assessment Notes Treatment Notes Treatment Clinical Notes Aug, Tinea cruris (ICD-10 - B35.6) [facility] Other 02-09-2023 Evaluation note* Encounter Date Diagnosis Assessment Notes Treatment Notes Treatment Clinical Notes Aug, Wellness examination (ICD-10 - Z00.00) [facility] Other 08-13-2022 Evaluation note* Encounter Date Diagnosis Assessment Notes Treatment Notes Treatment Clinical Notes Jan, Cough (ICD-10 - R05.9) Jan, COVID-19 (ICD-10 - U07.1) Rapid COVID test performed in office today. Advised patient that test was positive. Instructed patient to isolate per CDC guidelines for 5 days from symptom onset, mask 5 days following. May return to work/activities outside home after isolation period as long as symptoms are improving and has been afebrile for 24 hours without use of antipyretic. Advised patient that treatment of COVID is with viral supportive care, OTC cold medications as directed, Tylenol/Motrin as needed for body aches/fever. Increase fluids and rest. Encouraged use of cool mist humidifier. Follow-up with PCP to advise of positive result and further management. Immediate eval for SOB, difficulty, chest pain, fevers that do not break with antipyretic or any other concerning symptoms as reviewed on patient education handout. Patient verbalizes understanding and is agreeable to treatment plan. Patient left in stable condition [facility] Other Evaluation noteNo InformationNort [employer] Other History general Narrative - Reported* Type Description Date Medical History Type 2 Diabetic [facility] Other Histxoe general Narrative - Reported* Type Description Date Medical History Type 2 Diabetic Medical History Renal cyst Medical History Controlled type 2 di abetes mellitus with hyperglycemia, without long-term current use of insulin Medical History Obstructive sleep apnea Medical History Shortness of breath Medical History Multiple pulmonary nodules Medical History Essential hypertension Medical History Hypertrophic cardiomyopathy Medical History Chronic venous insufficiency Medical History Type 2 diabetes gatito itus with diabetic polyneuropathy, without long-term current use of insulin Medical History Hyperlipidemia type II Medical History Bilateral primary osteoarthritis of knee Medical History Degenerative arthritis of right shoulder region Medical History Chest pain on exertion Medical History Left ventricular hypertrophy Medical History Benign prostatic hyp erplasia, presence of lower urinary tract symptoms unspecified Medical History Candidiasis, intertrigo Medical History Hoarseness, persistent Surgical History COLONOSCOPY Surgical History FISTULECTOMY 2006 Surgical History HEMORRHOIDECTOMY 2006 Surgical History ARTHROSCOPY RIGHT KNEE 2009 Surgical History I/D GROIN ABSCESS 2009 Hospitalization History SEE SURGICAL HX [facility] Other [employer] general Narrative - Reported* Type Description Date Medical History Type 2 Diabetic Medical History Renal cyst Medical History Controlled type 2 di abetes mellitus with hyperglycemia, without long-term current use of insulin Medical History Obstructive sleep apnea Medical History Shortness of breath Medical History Multiple pulmonary nodules Medical History Essential hypertension Medical History Hypertrophic cardiomyopathy Medical History Chronic venous insufficiency Medical History Type 2 diabetes gatito itus with diabetic polyneuropathy, without long-term current use of insulin Medical History Hyperlipidemia type II Medical History Bilateral primary osteoarthritis of knee Medical History Degenerative arthritis of right shoulder region Medical History Chest pain on exertion Medical History Left ventricular hypertrophy Medical History Benign prostatic hyp erplasia, presence of lower urinary tract symptoms unspecified Medical History Candidiasis, intertrigo Medical History Hoarseness, persistent Surgical History COLONOSCOPY Surgical History FISTULECTOMY 2006 Surgical History HEMORRHOIDECTOMY 2006 Surgical History ARTHROSCOPY RIGHT KNEE 2009 Surgical History I/D GROIN ABSCESS 2009 Surgical History EGD w/ biopsy 10/2022 Hospitalization History SEE SURGICAL HX [facility] Other [employer] general Narrative - Reported* Type Description Date Medical History Type 2 Diabetic Medical History Renal cyst Medical History Controlled type 2 di abetes mellitus with hyperglycemia, without long-term current use of insulin Medical History Obstructive sleep apnea Medical History Shortness of breath Medical History Multiple pulmonary nodules Medical History Essential hypertension Medical History Hypertrophic cardiomyopathy Medical History Chronic venous insufficiency Medical History Type 2 diabetes gatito itus with diabetic polyneuropathy, without long-term current use of insulin Medical History Hyperlipidemia type II Medical History Bilateral primary osteoarthritis of knee Medical History Degenerative arthritis of right shoulder region Medical History Chest pain on exertion Medical History Left ventricular hypertrophy Medical History Benign prostatic hyp erplasia, presence of lower urinary tract symptoms unspecified Medical History Candidiasis, intertrigo Medical History Hoarseness, persistent Medical History ASHD Surgical History COLONOSCOPY Surgical History FISTULECTOMY 2005 Surgical History HEMORRHOIDECTOMY 2005 Surgical History ARTHROSCOPY RIGHT KNEE 2009 Surgical History I/D GROIN ABSCESS 2009 Surgical History EGD w/ biopsy 10/2022 Surgical History LHC (moderate diseas e of LAD, sluggish flow, endomyocardial bridging) 03/2023 Hospitalization History SEE SURGICAL HX [facility] Other Summary Purpose Family History No Family History Records FoundNo Family History Records Found Advance Directives No Advanced Directives Records FoundNo Advanced Directives Records Found Reason for Referral Reason 09/28/22 Patient i s being referred for persistent upper abdominal discomfort and heartburn. He denies change in appetite, unexplained weight loss, dysphagia, melena or hematochezia. He is being referred for an EGD. Diagnosis 1 Gastroesophageal ref lux disease with esophagitis without hemorrhage (K21.00) Referral Organization [facility] Referring Provider First Name Aldo Referring Provider Last Name Blanco Referring Provider Specialty Internal Ct hailey Referred Organization Unknown Facility Referred Provider Diego Kinsey Referred Provider Specialty Surgery Referral Priority Routine Referral Appointment Date 2022-09-28 General Notes Sendy Dennis 12:07:09 PM >received today, notes locked, labs and insurance card attached, referral faxed Sendy Dennis 08/22/2022 04:57:13 PM >received message that Dr. Ward is no longer priacting and referral needs sent elsewhere. will call pt in morning to see if he has another doctor in mind Sendy Dennis 08/23/2022 03:21:31 PM >spoke with pt, and he mentioned Dr. 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, POSITIVE HOME TEST, H/A, SORE THROAT, COUGHLabsWELLNESSNo InformationReferralNo Information4 month Follow upNo InformationNo InformationLab ResultsNo InformationMedication intolerance (unrecognized sect ion and content) No Status Records FoundNo Status Records Found INFORMATION SOURCE (unrecogn ized section and content) DATE CREATED AUTHOR 08/20/2022 [facility] DATE CREATED AUTHOR AUTHOR'S ORGANIZ ATION 07/24/2023 [facility] FOR RECORDS PERTAINING TO PATIENTS WHO ARE OR HAVE BEEN ENROLLED IN A CHEMICAL DEPENDENCY/SUBSTANCEABUSE PROGRAM, SOME INFORMATION MAY BE OMITTED. This clinical summary was aggregated from multiple sources. Caution should be exercised in using it in the provision of clinical care. This summary normalizes information from multiple sources, and as a consequence, information in this document may materially change the coding, format and clinical context of patient data. In addition, data may be omitted in some cases. CLINICAL DECISIONS SHOULD BE BASED ON THE PRIMARY CLINICAL RECORDS. [email or web address] provides no warranty or guarantee of the accuracy or completeness of information in this document.
[2023-07-28 10:16] LABS: Estimated Average Glucose 286 mg/dL; Glycohemoglobin A1C 11.6 % (4.5-6.2)
== END 2023-07-28 09:39 | disposition home or self-care (01) ==
LOC: LAB 09:39
PROVIDERS: PCP Internal Medicine; Visit Provider Internal Medicine
DX: E11.65 Type 2 diabetes mellitus with hyperglycemia (principal)
CPT/HCPCS: 36415; 83036

== ENCOUNTER 2023-12-14 08:11 | Outpatient (OUT) | payer OTHER, SELFPAY ==
--- OUTSIDE RECORDS SUMMARY | 2023-12-14 08:20 | XMS_ITS | CCD ---
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 Name Role Phone Allison Florez Unavailable BLANCO, [...] Admitting Unavailable BALL, DR HUGGINS Consulting Unavailable ZIEBJUAN J, DR LEONID Ruiz Consulting Unavailable BALL, DR HUGGINS Admitting Unavailable BALL, DR HUGGINS Attending Unavailable BALL, DR HUGGINS Primary Care Unavailable BALL, DR HUGGINS Consulting Unavailable TIMMIS, DR CHAUDHARI Attending Unavailable BALL, DR HUGGINS Primary Care Unavailable TIMMIS, DR CHAUDHARI Admitting Unavailable TIMMIS, DR CHAUDHARI Consulting Unavailable ZIEBER, DR LEONID Ruiz Consulting Unavailable Blanco, Aldo Unavailable ELTAHAWY, MARIELENA Admitting Unavailable ELTAHAWY, MARIELENA Attending Unavailable ELTAHAWY, MARIELENA Attending Unavailable VY, MELBA Attending Unavailable ELTAHAWY, MARIELENA Referring Unavailable VY, MELBA Attending Unavailable LINO DOVE Referring Unavailable BALL, ALDO Primary Care Unavailable Allergies Allergy Classification Reported Allergen(s) Allergy Type Date of Onset Reaction(s) Facility (12 sources) Lisinopril Drug Allergy Unknown Showcase Other Medications Current Medications Medication Drug Class(es) Dates Sig (Normalized) Sig (Original) [id number] 200 actuat albuterol 0.09 mg/actuat metered dose inhaler (14 sources) beta2-Adrenergic Agonist Start: 10-19-2023 take 1 puff(s) by inhalation every four hours Albuterol Sulfate Active 1 PUFF INHALATION Every 4 hours October 19, 2023 12:00am take 1 puff(s) by in halation every [...] hrs Active amLODIPine 5 mg oral tablet (15 sources) Dihydropyridine Calcium Channel Jyoti Start: 10-19-2023 take 5 mg by mouth once daily Amlodipine Active 5 MG PO Daily October 19, 2023 12:00am amLODIPine Besyl ate 5 mg TAKE 1 TABLET DAILY Active aspirin 81 mg delayed release oral tablet (15 sources) Platelet Aggregation Inhibitor, Nonsteroidal Anti-inflammatory Drug Start: 10-19-2023 take 81 mg by mouth once daily Aspirin Active 81 MG PO Daily October 19, 2023 12:00am take 1 tablet by karin th every twenty-four hours Aspirin 81 MG 1 tablet Orally Once a day Active atorvastatin 20 mg oral tablet (15 sources) HMG-CoA Reductase Inhibitor Start: 10-19-2023 take 20 mg by mouth once daily in the evening Atorvastatin Active 20 MG PO Every evening October 19, 2023 12:00am Atorvastatin Phillip cium 20 mg TAKE 1 TABLET DAILY IN THE EVENING Active ciprofloxacin 500 mg oral tablet (2 sources) Quinolone Antimicrobial Start: 10-20-2023 End: 10-26-2023 take 500 mg by mouth twice daily Ciprofloxacin Hcl Active 500 MG PO Twice daily 14 October 26, 2023 9:14am empagliflozin 10 mg oral tablet (5 sources) Sodium-Glucose Cotransporter 2 Inhibitor Start: 03-22-2023 take 1 tablet by mouth every twenty-four hours Jardiance 10 MG 1 tablet Orally Once a day for 90 days Mar, Active hydroCHLOROthiazide 25 mg / losartan potassium 100 mg oral tablet (15 sources) Thiazide Diuretic, Angiotensin 2 Receptor Jyoti Start: 10-19-2023 take 1 tablet by mouth once daily Losartan-Hydrochl orothiazide Active 1 TAB PO Daily October 19, 2023 12:00am Losartan Potassi um-HCTZ 100-25 mg TAKE 1 TABLET DAILY Active 1.5 ml insulin glargine 300 unt/ml pen injector (2 sources) Insulin Analog Toujeo SoloStar 300 UNIT/ML INJECT 44 UNITS UNDER THE SKIN DAILY Active Insulin Glargine U-300 Conc (Toujeo Solostar U-300 Insulin) 300 unit/mL (1.5 mL) insulin pen (2 sources) Start: 10-19-19 Insulin Glargine U-300 Conc (Toujeo Solostar U-300 Insulin) 300 unit/mL (1.5 mL) insulin pen Active 44 UNIT SUBCUT Daily October 19, 2023 12:00am 3 ml insulin lispro 100 unt/ml pen injector (1 source) Insulin Analog Start: 07-28-19 inject 100 [IU] by subcutaneous injection once daily HumaLOG KwikPen 100 UNIT/ML 2-12units Subcutaneous qd for 30 days Jul, Active metFORMIN hydrochloride 1000 mg oral tablet (15 sources) Biguanide Start: 10-19-19 take 1000 mg by mouth twice daily at mealtime Metformin Active 1000 MG PO Twice daily with meals October 19, 2023 12:00am metFORMIN HCl 10 00 mg TAKE 1 TABLET TWICE A DAY WITH FOOD Active 24 hr metoprolol succinate 25 mg extended release oral tablet (3 sources) beta-Adrenergic Jyoti Start: 10-19-2023 take 25 mg by mouth once daily Metoprolol Succinate Active 25 MG PO Daily October 19, 2023 12:00am Metoprolol Succi aylin ER 25 MG Oral for 90 Days Active metroNIDAZOLE 500 mg oral tablet (2 sources) Nitroimidazole Antimicrobial Start: 10-20-2023 End: 10-26-2023 take 500 mg by mouth every eight hours Metronidazole Active 500 MG PO Every 8 hours 7 October 26, 2023 9:14am semaglutide 14 mg oral tablet (17 sources) take 50 [IU] by mouth once daily Rybelsus 14 MG 50 Units Orally Once a day replaces Rybelsus 7 mg Active Rybelsus 14 MG 1 tablet at least [...] the day Orally Once a day Active Semaglutide (1 source) Start: 10-20-2023 Semaglutide (Ozempic) 0.25 mg or 0.5 mg (2 mg/3 mL) pen injector Active 0.25 MG SUBCUT every week 3 October 20, 2023 12:00am for 4 weeks spironolactone 25 mg oral tablet (15 sources) Aldosterone Antagonist Start: 10-19-2023 take 25 mg by mouth once daily Spironolactone Active 25 MG PO Daily October 19, 2023 12:00am Spironolactone 2 5 MG 1 tablet Orally Active terbinafine 250 mg oral tablet (14 sources) Allylamine Antifungal Start: 10-19-2023 take 250 mg by mouth once daily Terbinafine Hcl Active 250 MG PO Daily October 19, 2023 12:00am Start: 08-18-2022 take 1 tablet by karin th every twenty-four hours Terbinafine HCl 250 MG 1 tablet Orally Once a day for 10 day(s) Aug, Active TOUJEO SOLOSTAR U-300 (11 sources) TOUJEO SOLOSTAR U-300 50 units Injectable Once Daily Active TOUJEO SOLOSTAR U-300 30 units Injectable Once Daily Active triamcinolone acetonide 0.25 mg/ml topical cream (14 sources) Corticosteroid Start: 10-19-2023 Triamcinolone Acetonide Active 1 APPLIC TOPICAL Daily October 19, 2023 12:00am Start: 08-30-2022 Triamcinolone Acetonide 0.025 % 1 application Externally Once a day for 30 days Aug, Active Start: 08-30-2022 Triamcinolone Acetonide 0.025 % 1 application Externally Once a day for 30 days Aug, Active Completed/Discontinued Medications Medication Drug Class(es) Dates Sig (Normalized) Sig (Original) Semaglutide (2 sources) Start: 10-19-2023 End: 10-20-2023 take 14 mg by mouth once daily Semaglutide Discontinued 14 MG PO Daily October 19, 2023 12:00am October 20, 2023 9:34am Start: 10-19-2023 take 14 mg by mouth once daily Semaglutide Active 14 MG PO Daily October 19, 2023 12:00am Problems Active Problems Problem Classification Problem Date Documented Da te Episodic/Chronic Cardiac and circulatory congenital anomalies (2 sources) Malformation of coronary vessels; Translations: [Malformation of coronary vessels] Onset: 04-21-2023 Chronic Coronary atherosclerosis and other heart disease (8 sources) Coronary arteriosclerosis; Translations: [Atherosclerotic heart disease of [place] coronary artery without angina pectoris] Onset: 03-22-2023 Chronic Diabetes mellitus with complications (20 sources) Type 2 diabetes mellitus with hyperglycemia; Translations: [Hyperglycemia due to type 2 diabetes mellitus] Onset: 06-13-2022 Chronic Diabetes mellitus without complication (3 sources) Type 2 diabetes mellitus without complications; Translations: [TYPE 2 DM WITHOUT COMPLICATIONS] Onset: 11-24-2021 Chronic Disorders of lipid metabolism (20 sources) Hyperlipidemia, unspecified; Translations: [Pure hypercholesterolemia ] Onset: 11-24-2021 Chronic Esophageal disorders (16 sources) Gastro-esophageal reflux disease with esophagitis; Translations: [Gastroesophageal reflux disease with esophagitis without hemorrhage] 10-19-2023 Chronic Essential hypertension (20 sources) Essential (primary) hypertension; Translations: [Essential hypertension] Onset: 11-24-2021 Chronic Hyperplasia of prostate (12 sources) Benign prostatic hypertrophy without outflow obstruction; Translations: [Benign prostatic hyperplasia without lower urinary tract symptoms] Chronic Hypertension with complications and secondary hypertension (2 sources) Hypertensive heart disease without heart failure; Translations: [Hypertensive heart disease without heart failure] Onset: 07-24-2023 Chronic Inflammatory conditions of male genital organs (3 sources) Inflammatory disorders of scrotum; Translations: [Other inflammatory disorders of male genital organs] Onset: 10-26-2023 10-20-2023 Episodic Mycoses (13 sources) Candidiasis of skin and nails; Translations: [Candidiasis of skin and nail] Episodic Nonspecific chest pain (17 sources) Chest pain, unspecified; Translations: [Chest pain on exertion] Onset: 09-20-2021 Episodic Osteoarthritis (20 sources) Localized, primary osteoarthritis of the shoulder region; Translations: [Primary osteoarthritis, right shoulder] Chronic Other aftercare (4 sources) residential (current) use of insulin; 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] Onset: 06-18-2022 Episodic Other aftercare (12 sources) Long-term current use of insulin; 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] Episodic Other and ill-defined heart disease (4 sources) Cardiomegaly; Translations: [CARDIOMEGALY] Onset: 09-20-2021 Chronic Other and ill-defined heart disease (11 sources) Left ventricular hypertrophy; Translations: [Cardiomegaly] Chronic Other diseases of kidney and ureters (6 sources) Cyst of kidney, acquired; Translations: [CYST OF KIDNEY ACQUIRED] Onset: 06-29-2022 Episodic Other diseases of kidney and ureters (10 sources) Cyst of kidney; Translations: [Cyst of kidney, acquired] Episodic Other diseases of veins and lymphatics (12 sources) Peripheral venous insufficiency; Translations: [Venous insufficiency (chronic) (peripheral)] Episodic Other diseases of veins and lymphatics (4 sources) Venous insufficiency (chronic) (peripheral); Translations: [Venous (peripheral) insufficiency, unspecified] Episodic Other diseases of veins and lymphatics (2 sources) Venous insufficiency of leg; Translations: [Venous insufficiency (chronic) (peripheral)] 10-19-2023 Episodic Other lower respiratory disease (10 sources) Multiple nodules of lung; Translations: [Other nonspecific abnormal finding of lung field] Episodic Other lower respiratory disease (12 sources) Dyspnea; Translations: [Shortness of breath] Episodic Other lower respiratory disease (2 sources) Other nonspecific abnormal finding of lung field; Translations: [Multiple pulmonary nodules] Episodic Other nutritional; endocrine; and metabolic disorders (12 sources) Morbid obesity; Translations: [Morbid (severe) obesity due to excess calories] Chronic Other nutritional; endocrine; and metabolic disorders (3 sources) Morbid (severe) obesity due to excess calories; Translations: [Morbid (severe) obesity due to excess calories] Onset: 03-22-2023 Chronic Other nutritional; endocrine; and metabolic disorders (1 source) Body mass index 40+ - severely obese; Translations: [Body mass index (BMI) 50.0-59.9, adult] Chronic Other nutritional; endocrine; and metabolic disorders (1 source) Severe obesity; Translations: [Morbid (severe) obesity due to excess calories] Chronic Other screening for suspected conditions (not mental disorders or infectious disease) (2 sources) Encounter for screening for malignant neoplasm of prostate; Translations: [ENC SCREEN MALIG NEOPLASM PROSTATE] Onset: 08-19-2022 Episodic Other upper respiratory disease (12 sources) Difficulty speaking; Translations: [Dysphonia] Episodic Carmen-; endo-; and myocarditis; cardiomyopathy (except that caused by tuberculosis or sexually transmitted disease) (14 sources) Hypertrophic cardiomyopathy; Translations: [Other hypertrophic cardiomyopathy] Chronic Residual codes; unclassified (13 sources) Obstructive sleep apnea syndrome; Translations: [Obstructive sleep apnea (adult) (pediatric)] 10-19-2023 Chronic Residual codes; unclassified (5 sources) Obstructive sleep apnea (adult) (pediatric); Translations: [Obstructive sleep apnea (adult)(pediatric)] Chronic Substance-related disorders (1 source) Nicotine dependence, [...] 02-12-2022 Viral infection (1 source) COVID-19 Onset: 08-13-2022 Resolved: 02-12-2022 Results Test Name Value Interpretation Reference Range Facility Office Visiton 07-24-2023 Follow-up visit [id number] J Godoy 1960 M [facility] Provider Department [place] 07/24/2023 MARIELENA PLAZA [facility] No family history on file Level of Service:23372 [place] OFFICE/OUTPATIENT ESTABLISHED MOD MDM 30 MIN Normal [facility] Follow-Upon 04-21-2023 Follow-Up [id number] J Victoria 1960 [facility] Provider Department [place] 04/21/2023 MELBA QUINN REMIGIO [facility] No family history on file Level of Service:04082 VA OFFICE/OUTPATIENT ESTABLISHED MOD MDM 30-39 MIN [facility] Orders Onlyon 04-03-2023 Orders Only [id number] J Godoy 1960 [facility] Department [place] 04/03/2023 MELBA QUINN Charlie . No family history on file [facility] ANESon 03-29-2023 ANES Attestation signed by Marielena Mcfarlane MD at 03/29/2023 9:35 AM Marielena Mcfarlane MD, MPH, [facility], [facility], [facility] Interventional Cardiology Pager Email: [email or web address] Patient: Jose J Evans Procedure Information Date/Time: 03/29/23 1030 Procedures: Coronary angiography Left heart cath - Rt LT Cors Right heart cath Location: [facility] 3 / [facility] (Cath) Providers: Marielena Mcfarlane MD Clinical information reviewed: Tobacco Allergies Meds Med Hx Surg Hx Fam Hx Soc Hx Physical Exam Airway Mallampati: III Cardiovascular Rhythm: regular Rate: normal Dental Pulmonary Abdominal Anesthesia Plan ASA 3 Additional Equipment Requests Normal [facility] HPon 03-29-2023 HP Attestation signed by Marielena Mcfarlane MD at 03/29/2023 9:35 AM Marielena Mcfarlane MD, MPH, [facility], [facility], [facility] Interventional Cardiology Pager Email: [email or web address] H&P reviewed. The patient was examined and there are no changes to the H&P. Patient will have coronary angiogram and right heart catheterization for dyspnea on exertion and chest pain. Patient has history of diabetes mellitus. He is a current smoker. Risk and benefits explained to the patient who agreed to proceed. Normal [facility] NURSNOTEon 03-29-2023 VALDO RN educated pt on d/c instructions. RN encouraged pt to voice any questions or concerns. Pt verbalizes no questions or concerns at this time. Normal [facility] Office Visiton 03-22-2023 Follow-up visit [id number] Jose J Evans 1960 M Date Provider Department Center 03/22/2023 MELBA QUINN BH CARD [facility] No family history on file Level of Service:47031 VA OFFICE/OUTPATIENT ESTABLISHED HIGH MDM 40-54 MIN Reason for Visit and Comments: Follow-up [[id number]] - Yearly F/U Normal [facility] CBC AUTO DIFFon 08-15-2022 BASO # 0.0 103/ul Normal 0.0-0.1 [facility] Comment on above: Performed By: #### C BC #### [facility] [address] [place] [address] Dr. Beth Johnson Basophils/100 WBC (Bld) 0.6 % Normal 0.2-2.0 [facility] Comment on above: Performed By: #### C BC #### [facility] [address] [place] [address] Dr. Beth Johnson EO # 0.2 103/ul Normal 0.0-0.7 [facility] Comment on above: Performed By: #### C BC #### [facility] [address] [place] [address] Dr. Beth Johnson Eosinophils/100 WBC (Bld) 3.4 % Normal 0.9-7.0 [facility] Comment on above: Performed By: #### C BC #### [facility] [address] [place] [address] Dr. Beth Johnson Erythrocyte distribution width (RBC) [Ratio] 13.4 % Normal 11.0-15.0 [facility] Comment on above: Performed By: #### C BC #### [facility] [address] [place] [address] Dr. Beth Johnson Hematocrit (Bld) [Volume fraction] 44.1 % Normal 42.0-54.0 [facility] Comment on above: Performed By: #### C BC #### [facility] [address] [place] [address] Dr. Beth Johnson Hemoglobin (Bld) [Mass/Vol] 14.9 g/dL Normal 14.0-18.0 [facility] Comment on above: Performed By: #### C BC #### [facility] [address] [place] [address] Dr. Beth Johnson IG # 0.03 10e3/ul Normal 0.00-0.03 [facility] Comment on above: Performed By: #### C BC #### [facility] [address] [place] [address] Dr. Beth Johnson IG % 0.4 % Normal 0.0-0.5 [facility] Comment on above: Performed By: #### C BC #### [facility] [address] [place] [address] Dr. Beth Johnson LYMPH # 1.9 103/ul Normal 1.2-3.8 [facility] Comment on above: Performed By: #### C BC #### [facility] [address] [place] [address] Dr. Beth Johnson Lymphocytes/100 WBC (Bld) 26.2 % Normal 20.5-60.0 [facility] Comment on above: Performed By: #### C BC #### [facility] [address] [place] [address] Dr. Beth Johnson MANUAL DIFF REQ NO Normal [facility] Comment on above: Performed By: #### C BC #### [facility] [address] [place] [address] Dr. Beth Johnson MCH (RBC) [Entitic mass] 30.4 pg Normal 25.9-34.0 [facility] Comment on above: Performed By: #### C BC #### [facility] [address] [place] [address] Dr. Beth Johnson MCHC (RBC) [Mass/Vol] 33.8 g/dL Normal 29.9-35.2 [facility] Comment on above: Performed By: #### C BC #### [facility] [address] [place] [address] Dr. Beth Johnson MCV (RBC) [Entitic vol] 90.0 fL Normal 80.0-94.0 [facility] Comment on above: Performed By: #### C BC #### [facility] [address] [place] [address] Dr. Beth Johnson MONO # 0.7 103/ul Normal 0.3-0.8 [facility] Comment on above: Performed By: #### C BC #### [facility] [address] [address] [address] Beth Johnson Monocytes/100 WBC (Bld) 9.8 % Normal 1.7-12.0 [facility] Comment on above: Performed By: #### C BC #### [facility] [address] [address] [address] Beth Johnson NEUT # 4.2 103/ul Normal 1.4-6.5 [facility] Comment on above: Performed By: #### C BC #### [facility] [address] [place] [address] Dr. Beth Johnson Neutrophils/100 WBC (Bld) 59.6 % Normal 43.0-75.0 [facility] Comment on above: Performed By: #### C BC #### [facility] [address] [place] [address] Dr. Beth Johnson Platelet mean volume (Bld) [Entitic vol] 8.1 fL Critically low 9.5-13.5 [facility] Comment on above: Performed By: #### C BC #### [facility] [address] [place] [address] Dr. Beth Johnson PLT 184 103/ul Normal 150-450 [facility] Comment on above: Performed By: #### C BC #### [facility] [address] [place] [address] Dr. Beth Johnson RBC 4.90 106/ul Normal 4.70-6.10 [facility] Comment on above: Performed By: #### C BC #### [facility] [address] [place] [address] Dr. Beth Johnson WBC 7.1 103/ul Normal 4.0-11.0 [facility] Comment on above: Performed By: #### C BC #### [facility] [address] [place] [address] Dr. Beth Johnson Complete Blood Count and Dif gala 08-15-2022 Anisocytosis Ql (Bld) Showcase Other Basophilic stippling LM Ql (Bld) Showcase Other RBC morphology finding Nom (Bld) Showcase Other Complete Blood Count and Diff Showcase Other Comprehensive Metabolic Pane jenniffer 08-15-2022 Albumin [Mass/Vol] 3.102967 g/dL 3.4-5.0 g/dL N VB Rags Other Calcium [Mass/Vol] 9.1421588 mg/dL 8.5-10 .1 mg/dL Showcase Other CO2 [Moles/Vol] 29.81508777 mmol/L 21.0-3 2.0 mmol/L Showcase Other Creatinine [Mass/Vol] 0.74692377 mg/dL 0.70-1.30 mg/dL Showcase Other Potassium [Moles/Vol] 4.05714152 mmol/L 3.5-5.1 mmol/L Showcase Other Protein [Mass/Vol] 8.998593 g/dL 6.4-8.2 g/dL N VB Rags Other Urea nitrogen [Mass/Vol] 17.9611920 mg/dL 7.0-18.0 mg/dL Showcase Other Comprehensive Metabolic Panel see note Showcase Other Comprehensive Metabolic Panel 137 mmol/L 136-145 mmol/L Showcase Other Comprehensive Metabolic Panel 182 mg/dL Critically high 74-106 mg/dL Showcase Other Comprehensive Metabolic Panel >60 mL/min/1.73m2 >=60 mL/min/1.73m2 Showcase Other Comprehensive Metabolic Panel 0.5 mg/dL 0.2-1.0 mg/dL Showcase Other Comprehensive Metabolic Panel 4.2 g/dL Showcase Other GLYCOHEMOGLOBIN A1Con 2022 ADA RECOMMENDATION SEE BELOW Normal [facility] Comment on above: Result Comment: ADA RECOMMENDED LIMIT 4.0 - 6.0 ADA THERAPEUTIC TARGET < 7.0 ACTION SUGGESTED > 7.0 Performed By: #### L IPID #### [facility] [address] [place] [address] Dr. Beth Johnson Glucose [Mass/Vol] 169 mg/dL Normal [facility] Comment on above: Performed By: #### L IPID #### [facility] [address] [address] [address] Beth Johnson HbA1c (Bld) [Mass fraction] 7.5 % Critically high 4.5-6.2 [facility] Comment on above: Performed By: #### L IPID #### [facility] [address] [place] [address] Dr. Beth Johnson LIPID PROFILEon 08-15-2022 CHOL-HDL RATIO NORM SEE BELOW Normal [facility] Comment on above: Result Comment: 3.3 - 4.4 LOW RISK 4.4 - 7.1 AVERAGE RISK 7.1 - 11.0 MODERATE RISK >11.0 HIGH RISK Performed By: #### L IPID, CMP #### [facility] [address] [place] [address] Dr. Beth Johnson Cholesterol [Mass/Vol] 155 mg/dL <=200 mg/dL [facility] Comment on above: Performed By: #### L IPID, CMP #### [facility] [address] [place] [address] Dr. Beth Johnson Cholesterol in HDL [Mass/Vol] 44 mg/dL 40-60 mg/dL [facility] Comment on above: Performed By: #### L IPID, CMP #### [facility] [address] [place] [address] Dr. Beth Johnson Cholesterol in LDL [Mass/Vol] 76.4 mg/dL Normal [facility] Comment on above: Performed By: #### L IPID, CMP #### [facility] [address] [place] [address] Dr. Beth Johnson Cholesterol.total/Ch olesterol in HDL [Mass ratio] 3.5 {ratio} [facility] Comment on above: Performed By: #### L IPID, CMP #### [facility] [address] [place] [address] Dr. Beth Johnson HDL NORMAL > or = 60 mg/dl - LOW CARDIOVASCULAR RISK <40 mg/dl - HIGH CARDIOVASCULAR RISK Normal [facility] Comment on above: Performed By: #### L IPID, CMP #### [facility] [address] [address] [address] Beth Johnson LDL CALC NORMAL SEE BELOW Normal [facility] Comment on above: Result Comment: <100 mg/dl OPTIMAL 100 - 129 mg/dl NEAR OR ABOVE OPTIMAL 130 - 159 mg/dl BORDERLINE HIGH 160 - 189 mg/dl HIGH >190 mg/dl VERY HIGH Performed By: #### L IPID, CMP #### [facility] [address] [place] [address] Dr. Beth Johnson Triglyceride [Mass/Vol] 173 mg/dL Critically high <=150 mg/dL [facility] Comment on above: Performed By: #### L IPID, CMP #### [facility] [address] [place] [address] Dr. Beth Johnson VLDL CALC 34.6 mg/dL Normal [facility] Comment on above: Performed By: #### L IPID, CMP #### [facility] [address] [place] [address] Dr. Beth Johnson Lipid Panelon 08-15-2022 Lipid Panel > or = 60 mg/dl - LOW CARDIOVASCULAR RISK <40 mg/dl - HIGH CARDIOVASCULAR RISK [facility] [employer] Other Lipid Panel SEE BELOW [facility] Other Lipid Panel 76.4 mg/dL [facility] Other Lipid Panel 34.6 mg/dL [facility] Other MICROALBUMIN, RAND URon 02- mALB 4.1 mg/L Normal <=30.0 [facility] Comment on above: Performed By: #### L IPID #### [facility] [address] [place] [address] Dr. Beth Johnson PROF 14(COMP METB)on 023 Albumin [Mass/Vol] 3.8 g/dL Normal 3.4-5.0 [facility] Comment on above: Performed By: #### L IPID, CMP #### [facility] [address] [place] [address] Dr. Beth Johnson Albumin/Globulin [Mass ratio] 0.9 {ratio} [facility] Comment on above: Performed By: #### L IPID, CMP #### [facility] [address] [place] [address] Dr. Beth Johnson ALP [Catalytic activity/Vol] 75 U/L 46-116 U/L [facility] Comment on above: Performed By: #### L IPID, CMP #### [facility] [address] [place] [address] Dr. Beth Johnson ALT [Catalytic activity/Vol] 44 U/L 16-63 U/L [facility] Comment on above: Performed By: #### L IPID, CMP #### [facility] [address] [place] [address] Dr. Beth Johnson Anion gap [Moles/Vol] 12.8 mmol/L [facility] Comment on above: Performed By: #### L IPID, CMP #### [facility] [address] [place] [address] Dr. Beth Johnson AST [Catalytic activity/Vol] 20 U/L 15-37 U/L [facility] Comment on above: Performed By: #### L IPID, CMP #### [facility] [address] [place] [address] Dr. Beth Johnson Bilirubin [Mass/Vol] 0.5 mg/dL Normal 0.2-1.0 [facility] Comment on above: Performed By: #### L IPID, CMP #### [facility] [address] [place] [address] Dr. Beth Johnson Calcium [Mass/Vol] 9.4 mg/dL Normal 8.5-10.1 [facility] Comment on above: Performed By: #### L IPID, CMP #### [facility] [address] [place] [address] Dr. Beth Johnson Chloride [Moles/Vol] 100 mmol/L 98-107 mmol/L [facility] Comment on above: Performed By: #### L IPID, CMP #### [facility] [address] [place] [address] Dr. Beth Johnson CO2 [Moles/Vol] 29.0 mmol/L Normal 21.0-32.0 [facility] Comment on above: Performed By: #### L IPID, CMP #### [facility] [address] [place] [address] Dr. Beth Johnson Creatinine [Mass/Vol] 0.95 mg/dL Normal 0.70-1.30 [facility] Comment on above: Performed By: #### L IPID, CMP #### [facility] [address] [place] [address] Dr. Beth Johnson EGFR-AF EQUATORIAL GUINEAN >60 Normal >=60 [facility] Comment on above: Performed By: #### L IPID, CMP #### [facility] [address] [place] [address] Dr. Beth Johnson EGFR-NON AF EQUATORIAL GUINEAN >60 Normal >=60 [facility] Comment on above: Performed By: #### L IPID, CMP #### [facility] [address] [place] [address] Dr. Beth Johnson Globulin (S) [Mass/Vol] 4.2 g/dL Normal [facility] Comment on above: Performed By: #### L IPID, CMP #### [facility] [address] [place] [address] Dr. Beth Johnson Glucose [Mass/Vol] 182 mg/dL Critically high 74-106 [facility] Comment on above: Performed By: #### L IPID, CMP #### [facility] [address] [place] [address] Dr. Beth Johnson Potassium [Moles/Vol] 4.8 mmol/L Normal 3.5-5.1 [facility] Comment on above: Performed By: #### L IPID, CMP #### [facility] [address] [place] [address] Dr. Beth Johnson Protein [Mass/Vol] 8.0 g/dL Normal 6.4-8.2 [facility] Comment on above: Performed By: #### L IPID, CMP #### [facility] [address] [place] [address] Dr. Beth Johnson Sodium [Moles/Vol] 137 mmol/L Normal 136-145 [facility] Comment on above: Performed By: #### L IPID, CMP #### [facility] [address] [place] [address] Dr. Beth Johnson Urea nitrogen [Mass/Vol] 17.0 mg/dL Normal 7.0-18.0 [facility] Comment on above: Performed By: #### L IPID, CMP #### [facility] [address] [place] [address] Dr. Beth Johnson Urea nitrogen/Creatinine [Mass ratio] 17.9 mg/mg [facility] Comment on above: Performed By: #### L IPID, CMP #### [facility] [address] [place] [address] Dr. Beth Johnson US KIDNEYSon 06-29-2022 US [...] by: DOUG ALMONTE Date: 2022-06-29 16:16 Normal [facility] GLYCOHEMOGLOBIN A1Con 2021 ADA RECOMMENDATION SEE BELOW Normal [facility] Comment on above: Result Comment: ADA RECOMMENDED LIMIT 4.0 - 6.0 ADA THERAPEUTIC TARGET < 7.0 ACTION SUGGESTED > 7.0 Performed By: #### A 1C #### [facility] [address] [address] [address] Beth Johnson Glucose [Mass/Vol] 186 mg/dL Normal [facility] Comment on above: Performed By: #### A 1C #### [facility] [address] [address] [address] Beth Johnson HbA1c (Bld) [Mass fraction] 8.1 % Critically high 4.5-6.2 [facility] Comment on above: Performed By: #### A 1C #### [facility] [address] [address] [address] Beth [address] US ST HEAD_NECKon 04-21-2022 [...] by: LEONID ST Date: 2022-04-21 06:21 Normal [facility] HEMOGLOBINon 04-06-2022 Hemoglobin (Bld) [Mass/Vol] 13.8 g/dL Critically low 14.0-18.0 [facility] Comment on above: Performed By: #### H GB #### [facility] [address] [address] [address] Beth Johnson COVID Quick Testingon 2021 Result Positive [facility] Other US CAROTID ART BILon 05-20-2 022 US CAROTID ART ARELY EXAMINATION: US [...] by: LEONID ST Date: 2021-11-19 16:07 Normal [facility] NM STRESS/REST MULTIon 11-18 NM STRESS/REST MULTI Patient: JOSE J EVANS Exam Date: 11/18/2021 : 1960 Gender:M Ordering : DR ALDO SIMEON D.O. Admission #: [id number] Family : Order #: [id number] CLICK HERE TO VIEW EXAM RADIOLOGY REPORT [...] St M.D. on 11/19/2021 at 12:06 Normal [facility] CBC AUTO DIFFon 09-17-2021 BASO # 0.0 103/ul Normal 0.0-0.1 [facility] Comment on above: Performed By: #### C BC #### [facility] [address] [address] [address] Beth Johnson Basophils/100 WBC (Bld) 0.2 % Normal 0.2-2.0 [facility] Comment on above: Performed By: #### C BC #### [facility] [address] [address] [address] Beth Johnson EO # 0.3 103/ul Normal 0.0-0.7 [facility] Comment on above: Performed By: #### C BC #### [facility] [address] [address] [address] Beth Johnson Eosinophils/100 WBC (Bld) 3.1 % Normal 0.9-7.0 [facility] Comment on above: Performed By: #### C BC #### [facility] [address] [place] [address] Dr. Beth Johnson Erythrocyte distribution width (RBC) [Ratio] 13.7 % Normal 11.0-15.0 [facility] Comment on above: Performed By: #### C BC #### [facility] [address] [address] [address] Beth Johnson Hematocrit (Bld) [Volume fraction] 43.9 % Normal 42.0-54.0 [facility] Comment on above: Performed By: #### C BC #### [facility] [address] [place] [address] Dr. Beth Johnson Hemoglobin (Bld) [Mass/Vol] 14.6 g/dL Normal 14.0-18.0 [facility] Comment on above: Performed By: #### C BC #### [facility] [address] [place] [address] Dr. Beth Johnson IG # 0.04 10e3/ul Critically high 0.00-0.03 [facility] Comment on above: Performed By: #### C BC #### [facility] [address] [place] [address] Dr. Beth Johnson IG % 0.5 % Normal 0.0-0.5 [facility] Comment on above: Performed By: #### C BC #### [facility] [address] [place] [address] Dr. Beth Johnson LYMPH # 2.4 103/ul Normal 1.2-3.8 [facility] Comment on above: Performed By: #### C BC #### [facility] [address] [place] [address] Dr. Beth Johnson Lymphocytes/100 WBC (Bld) 28.7 % Normal 20.5-60.0 [facility] Comment on above: Performed By: #### C BC #### [facility] [address] [place] [address] Dr. Beth Johnson MANUAL DIFF REQ NO Normal [facility] Comment on above: Performed By: #### C BC #### [facility] [address] [place] [address] Dr. Beth Johnson MCH (RBC) [Entitic mass] 30.6 pg Normal 25.9-34.0 [facility] Comment on above: Performed By: #### C BC #### [facility] [address] [place] [address] Dr. Beth Johnson MCHC (RBC) [Mass/Vol] 33.3 g/dL Normal 29.9-35.2 [facility] Comment on above: Performed By: #### C BC #### [facility] [address] [place] [address] Dr. Beth Johnson MCV (RBC) [Entitic vol] 92.0 fL Normal 80.0-94.0 [facility] Comment on above: Performed By: #### C BC #### [facility] [address] [place] [address] Dr. Beth Johnson MONO # 0.7 103/ul Normal 0.3-0.8 [facility] Comment on above: Performed By: #### C BC #### [facility] [address] [place] [address] Dr. Beth Johnson Monocytes/100 WBC (Bld) 8.7 % Normal 1.7-12.0 [facility] Comment on above: Performed By: #### C BC #### [facility] [address] [place] [address] Dr. Beth Johnson NEUT # 4.9 103/ul Normal 1.4-6.5 [facility] Comment on above: Performed By: #### C BC #### [facility] [address] [place] [address] Dr. Beth Johnson Neutrophils/100 WBC (Bld) 58.8 % Normal 43.0-75.0 [facility] Comment on above: Performed By: #### C BC #### [facility] [address] [place] [address] Dr. Beth Johnson Platelet mean volume (Bld) [Entitic vol] 8.2 fL Critically low 9.5-13.5 [facility] Comment on above: Performed By: #### C BC #### [facility] [address] [place] [address] Dr. Beth Johnson PLT 190 103/ul Normal 150-450 [facility] Comment on above: Performed By: #### C BC #### [facility] [address] [place] [address] Dr. Beth Johnson RBC 4.77 106/ul Normal 4.70-6.10 [facility] Comment on above: Performed By: #### C BC #### [facility] [address] [place] [address] Dr. Beth Johnson WBC 8.3 103/ul Normal 4.0-11.0 [facility] Comment on above: Performed By: #### C BC #### [facility] [address] [place] [address] Dr. Beth Johnson CTA CHEST WO W [...] by: DOUG ALMONTE Date: 2021-09-17 10:08 Normal [facility] ECHOCARDIO M/2D COMPLETEon 0 09-17-2021 ECHOCARDIO M/2D COMPLETE Patient: JOSE J EVANS Exam Date: 09/17/2021 : 1960 Gender:M Ordering : DR MARIELENA MCFARLANE M.D. Admission #: [id number] Family : DR ALDO SIMEON DCarrie Order #: [id number] CLICK HERE TO VIEW EXAM ECHOCARDIOGRAM REPORT [...] Area(A4C): 32.70 cm2 Left Atrium Systolic Volume(A4C): 098181 mm3 Mitral Valve MV E to A [...] Mcfarlane M.D. on 09/17/2021 at 15:55 Normal [facility] GLYCOHEMOGLOBIN A1Con 2021 ADA RECOMMENDATION ADA THERAPEUTIC TARGET 6.0 - 7.0 ACTION SUGGESTED > 7.0 Normal [facility] Comment on above: Performed By: #### A 1C #### [facility] [address] [address] [address] Beth Johnson Glucose [Mass/Vol] 160 mg/dL Normal [facility] Comment on above: Performed By: #### A 1C #### [facility] [address] [address] [address] Beth Johnson HbA1c (Bld) [Mass fraction] 7.2 % Critically high <=6.0 [facility] Comment on above: Performed By: #### A 1C #### [facility] [address] [place] [address] Dr. Beth Johnson LIPID PROFILEon 09-17-2021 CHOL-HDL RATIO NORM SEE BELOW Normal [facility] Comment on above: Result Comment: 3.3 - 4.4 LOW RISK 4.4 - 7.1 AVERAGE RISK 7.1 - 11.0 MODERATE RISK >11.0 HIGH RISK Performed By: #### L IPID #### [facility] [address] [place] [address] Dr. Beth Johnson Cholesterol [Mass/Vol] 154 mg/dL Normal <=200 [facility] Comment on above: Performed By: #### L IPID #### [facility] [address] [address] [address] Beth Johnson Cholesterol in HDL [Mass/Vol] 46 mg/dL Normal 40-60 [facility] Comment on above: Performed By: #### L IPID #### [facility] [address] [address] [address] Beth Johnson Cholesterol in LDL [Mass/Vol] 77.2 mg/dL Normal [facility] Comment on above: Performed By: #### L IPID #### [facility] [address] [address] [address] Beth Johnson Cholesterol.total/Ch olesterol in HDL [Mass ratio] 3.3 {ratio} Normal [facility] Comment on above: Performed By: #### L IPID #### [facility] [address] [place] [address] Dr. Beth Johnson HDL NORMAL > or = 60 mg/dl - LOW CARDIOVASCULAR RISK <40 mg/dl - HIGH CARDIOVASCULAR RISK Normal [facility] Comment on above: Performed By: #### L IPID #### [facility] [address] [address] [address] Beth Johnson LDL CALC NORMAL SEE BELOW Normal [facility] Comment on above: Result Comment: <100 mg/dl OPTIMAL 100 - 129 mg/dl NEAR OR ABOVE OPTIMAL 130 - 159 mg/dl BORDERLINE HIGH 160 - 189 mg/dl HIGH >190 mg/dl VERY HIGH Performed By: #### L IPID #### [facility] [address] [place] [address] Dr. Beth Johnson Triglyceride [Mass/Vol] 154 mg/dL Critically high <=150 [facility] Comment on above: Performed By: #### L IPID #### [facility] [address] [address] [address] Beth Johnson VLDL CALC 30.8 mg/dL Normal [facility] Comment on above: Performed By: #### L IPID #### [facility] [address] [place] [address] Dr. Beth Johnson MICROALBUMIN, RAND URon 03- mALB 2.4 mg/L Normal <=30.0 [facility] Comment on above: Performed By: #### L IPID #### [facility] [address] [place] [address] Dr. Beth Johnson PROF 14(COMP METB)on 022 Albumin [Mass/Vol] 3.9 g/dL Normal 3.4-5.0 [facility] Comment on above: Performed By: #### C MP #### [facility] [address] [place] [address] Dr. Beth Johnson Albumin/Globulin [Mass ratio] 0.9 {ratio} Normal [facility] Comment on above: Performed By: #### C MP #### [facility] [address] [address] [address] Beth Johnson ALP [Catalytic activity/Vol] 86 U/L Normal 46-116 [facility] Comment on above: Performed By: #### C MP #### [facility] [address] [address] [address] Beth Johnson ALT [Catalytic activity/Vol] 29 U/L Normal 16-63 [facility] Comment on above: Performed By: #### C MP #### [facility] [address] [address] [address] Beth Johnson Anion gap [Moles/Vol] 10.7 mmol/L Normal [facility] Comment on above: Performed By: #### C MP #### [facility] [address] [place] [address] Dr. Beth Johnson AST [Catalytic activity/Vol] 14 U/L Critically low 15-37 [facility] Comment on above: Performed By: #### C MP #### [facility] [address] [place] [address] Dr. Beth Johnson Bilirubin [Mass/Vol] 0.6 mg/dL Normal 0.2-1.3 [facility] Comment on above: Performed By: #### C MP #### [facility] [address] [place] [address] Dr. Beth Johnson Calcium [Mass/Vol] 8.7 mg/dL Normal 8.5-10.1 [facility] Comment on above: Performed By: #### C MP #### [facility] [address] [place] [address] Dr. Beth Johnson Chloride [Moles/Vol] 102 mmol/L Normal 98-107 [facility] Comment on above: Performed By: #### C MP #### [facility] [address] [place] [address] Dr. Beth Johnson CO2 [Moles/Vol] 30.6 mmol/L Critically high 22.0-30.0 [facility] Comment on above: Performed By: #### C MP #### [facility] [address] [address] [address] Beth Johnson Creatinine [Mass/Vol] 1.12 mg/dL Normal 0.66-1.25 [facility] Comment on above: Performed By: #### C MP #### [facility] [address] [address] [address] Beth Johnson EGFR-AF EQUATORIAL GUINEAN >60 Normal >=60 [facility] Comment on above: Performed By: #### C MP #### [facility] [address] [address] [address] Beth Johnson EGFR-NON AF EQUATORIAL GUINEAN >60 Normal >=60 [facility] Comment on above: Performed By: #### C MP #### [facility] [address] [place] [address] Dr. Beth Johnson Globulin (S) [Mass/Vol] 4.4 g/dL Normal [facility] Comment on above: Performed By: #### C MP #### [facility] [address] [address] [address] Beth Johnson Glucose [Mass/Vol] 131 mg/dL Critically high 74-106 [facility] Comment on above: Performed By: #### C MP #### [facility] [address] [place] [address] Dr. Beth Johnson Potassium [Moles/Vol] 4.3 mmol/L Normal 3.4-5.0 [facility] Comment on above: Performed By: #### C MP #### [facility] [address] [place] [address] Dr. Beth Johnson Protein [Mass/Vol] 8.3 g/dL Critically high 6.1-8.2 [facility] Comment on above: Performed By: #### C MP #### [facility] [address] [place] [address] Dr. Beth Johnson Sodium [Moles/Vol] 139 mmol/L Normal 137-145 [facility] Comment on above: Performed By: #### C MP #### [facility] [address] [place] [address] Dr. Beth Johnson Urea nitrogen [Mass/Vol] 23.0 mg/dL Critically high 7.0-18.0 [facility] Comment on above: Performed By: #### C MP #### [facility] [id number] Beth Johnson Urea nitrogen/Creatinine [Mass ratio] 20.5 mg/mg Normal [facility] Comment on above: Performed By: #### C MP #### [facility] [address] [address] [address] Beth Johnson Vital Signs Date Time Vital Sign Value Performing Clinician Facility 10-26-2023 08:54-0400 Body height 180.34 cm [facility] 10-26-2023 08:54-0400 Body mass index (BMI) [Ratio] 50.5 kg/m2 [facility] 10-26-2023 08:54-0400 Body weight 164.42 kg [facility] 10-26-2023 08:54-0400 Diastolic blood pressure 84 mm[Hg] [facility] 10-26-2023 08:54-0400 Heart rate 74 /min [facility] 10-26-2023 08:54-0400 Systolic blood pressure 142 mm[Hg] [facility] 10-20-2023 08:57-0400 Body height 180.34 cm [facility] 10-20-2023 08:57-0400 Body mass index (BMI) [Ratio] 50.5 kg/m2 [facility] 10-20-2023 08:57-0400 Body weight 164.25 kg [facility] 10-20-2023 08:57-0400 Diastolic blood pressure 76 mm[Hg] [facility] 10-20-2023 08:57-0400 Heart rate 54 /min [facility] 10-20-2023 08:57-0400 Respiratory rate 20 /min [facility] 10-20-2023 08:57-0400 Systolic blood pressure 140 mm[Hg] [facility] 03-20-2023 09:00-0400 Body height 180.34 cm Aldo Ball Other [facility] Other 03-20-2023 09:00-0400 Body mass index (BMI) [Ratio] 50.23 kg/m2 Aldo Ball Other [facility] Other 03-20-2023 09:00-0400 Body weight 163.39 kg Aldo Ball Other [facility] Other 03-20-2023 09:00-0400 Diastolic blood pressure 76 mm[Hg] Aldo Ball Other [facility] Other 03-20-2023 09:00-0400 Respiratory rate 16 /min Aldo Ball Other [facility] Other 03-20-2023 09:00-0400 Systolic blood pressure 158 mm[Hg] Aldo Ball Other [facility] Other 08-18-2022 10:30-0500 Body height 180.34 cm Aldo Ball Other [facility] Other 08-18-2022 10:30-0500 Body mass index (BMI) [Ratio] 50.15 kg/m2 Aldo Ball Other [facility] Other 08-18-2022 10:30-0500 Body weight 163.11 kg Aldo Ball Other [facility] Other 08-18-2022 10:30-0500 Diastolic blood pressure 74 mm[Hg] Aldo Ball Other [facility] Other 08-18-2022 10:30-0500 Respiratory rate 16 /min Aldo Ball Other [facility] Other 08-18-2022 10:30-0500 Systolic blood pressure 128 mm[Hg] Aldo Ball Other [facility] Other 02-12-2022 14:15-0400 Body height 180.34 cm Allison Gautam Other [facility] Other 02-12-2022 14:15-0400 Body mass index (BMI) [Ratio] 50.2 kg/m2 Allison Gautam Other [facility] Other 02-12-2022 14:15-0400 Body temperature 97.9 [degF] Allison Gautam Other [facility] Other 02-12-2022 14:15-0400 Body weight 163.3 kg Allison Gautam Other [facility] Other 02-12-2022 14:15-0400 Respiratory rate 20 /min Allison Florez Other [facility] Other 02-12-2022 14:15-0400 SaO2% (BldA) [Mass fraction] 92 % Allison Florez Other [facility] Other Encounters Encounter Date Encounter Type Care Provider Facility Start: 10-26-2023 End: 10-27-2023 ambulatory [facility] Start: 10-26-2023 End: 10-26-2023 ambulatory [facility] Work Phone: Start: 10-26-2023 End: 10-26-2023 [facility] Start: 10-20-2023 End: 10-20-2023 ambulatory [facility] Work Phone: Start: 10-20-2023 End: 10-20-2023 Encounter for general adult medical examination without abnormal findings [facility] Start: 10-20-2023 End: 10-20-2023 Patient encounter procedure [facility] Work Phone: Start: 07-28-2023 End: 07-28-2023 ambulatory Aldo Simeon Other [facility] Other Start: 07-28-2023 Telephone encounter Aldo Simeon [facility] Start: 07-24-2023 End: 07-24-2023 ambulatory [facility] Start: 04-21-2023 End: 04-21-2023 ambulatory [facility] Start: 04-17-2023 End: 04-17-2023 ambulatory Aldo Simeon Other [facility] Other Start: 04-17-2023 Telephone encounter Aldo Simeon [facility] Start: 03-29-2023 Telephone encounter Aldo Simeon [facility] Start: 03-29-2023 End: 03-29-2023 ambulatory [facility] Other Start: 03-23-2023 End: 03-23-2023 ambulatory Aldo Simeon Other [facility] Other Start: 03-23-2023 Telephone encounter Aldo Simeon [facility] Start: 03-22-2023 End: 03-22-2023 ambulatory MELBA MCCLELLAN [facility] Other Start: 03-22-2023 Telephone encounter Aldo Simeon [facility] Start: 03-20-2023 End: 03-20-2023 ambulatory Aldo Simeon Other [facility] Other Start: 03-20-2023 Office outpatient vi sit 25 minutes Aldo Simeon [facility] Start: 11-24-2022 End: 11-24-2022 ambulatory Aldo Simeon Other [facility] Other Start: 11-24-2022 Telephone encounter Aldo Simeon [facility] Start: 08-22-2022 End: 08-22-2022 ambulatory Aldo Simeon Other [facility] Other Start: 08-22-2022 Telephone encounter Aldo Simeon [facility] Start: 08-19-2022 Encounter for genera l adult medical examination without abnormal findings DR ALDO SIMEON [facility] Start: 08-18-2022 End: 08-18-2022 ambulatory Aldo Simeon Other [facility] Other Start: 08-18-2022 Encounter for genera l adult medical examination without abnormal findings Aldo Simeon [facility] Start: 08-18-2022 Periodic preventive med est patient 40-64yrs Aldo Simeon [facility] Start: 08-18-2022 Telephone encounter Aldo Simeon [facility] Start: 08-15-2022 End: 08-16-[address] ALDO SIMEON Facility:[facility] Start: 08-15-2022 End: 08-16-2022 Encounter for general adult medical examination without abnormal findings DR ALDO SIMEON Facility:[facility] Start: 08-11-2022 End: 08-11-2022 ambulatory Aldo Simeon Other [facility] Other Start: 08-11-2022 Encounter for genera l adult medical examination without abnormal findings Aldo Simeon [facility] Start: 08-11-2022 Telephone encounter Aldo Simeon [facility] Start: 06-29-2022 End: 06-30-[address] ALDO SIMEON Facility:[facility] Start: 06-13-2022 End: 06-14-[address] ALDO SIMEON Facility:[facility] Start: 04-20-2022 End: 04-21-[address] FARA SNOW Facility:[facility] Start: 04-06-2022 End: 04-07-[address] ALDO SIMEON Facility:[facility] Start: 02-12-2022 End: 02-12-2022 ambulatory Allison Florez Other [facility] Other Start: 02-12-2022 Office outpatient ne w 30 minutes Allison Florez [facility] Start: 11-19-2021 End: 11-20-[address] ALDO SIMEON Facility:[facility] Start: 11-18-2021 End: 11-19-[address] ALDO SIMEON Facility:[facility] Start: 09-17-2021 End: 09-18-[address] ALDO SIMEON Facility:[facility] Procedures Date Procedure Procedure Detail Performing Clinician Start: 08-15-[address] AAMIR SIMEON Comment on above: Performed By: #### L IPID #### [facility] [address] [place] [address] Dr. Beth Johnson Immunizations Immunization Date Immunization Notes Care Provider Fa [facility] 03-20-2023 influenza, injectabl e, quadrivalent, preservative free Aldo Simeon Other [facility] 05-05-2022 influenza virus vaccine, split virus (incl. purified surface antigen) Aldo Simeon Other [facility] Other 05-05-2022 influenza virus vaccine, unspecified formulation [facility] 05-05-2022 influenza, injectabl e, quadrivalent, preservative free [facility] 05-05-2022 influenza, injectabl e, quadrivalent, contains preservative Aldo Simeon Other [facility] Other 05-25-2021 influenza virus vaccine, split virus (incl. purified surface antigen) Aldo Simeon Other [facility] Other 05-25-2021 influenza virus vaccine, unspecified formulation [facility] 05-24-2021 COVID-19 Vaccine Moderna - Documentation Purposes Only Aldo Simeon Other [facility] 05-24-2021 zoster vaccine recombinant Aldo Simeon Other [facility] 05-24-2021 zoster vaccine, live Yovany Simeon Other [facility] 03-05-2021 zoster vaccine recombinant Aldo Simeon Other [facility] 10-12-2020 COVID-19 Vaccine Moderna - Documentation Purposes Only Aldo Simeon Other [facility] 09-14-2020 COVID-19 Vaccine Moderna - Documentation Purposes Only Aldo Simeon Other [facility] 04-28-2020 influenza virus vaccine, split virus (incl. purified surface antigen) Aldo Simeon Other [facility] Other 04-28-2020 influenza virus vaccine, unspecified formulation [facility] 04-16-2019 influenza virus vaccine, split virus (incl. purified surface antigen) Aldo Simeon Other [facility] Other 04-16-2019 influenza virus vaccine, unspecified formulation [facility] Payers Date Payer Category Payer Unknown [id number] 2.16.8 [id number] 1959 Unknown [id number] 2.16.84 [id number] 1959 Unknown [id number] 2.16.84 [id number] 1959 Unknown [id number] 2.16.84 [id number] 1959 Unknown [id number] 2.16.84 [id number] 1959 Unknown [id number] 2.16.84 [id number] 1959 Unknown [id number] 2.16.84 [id number] 1959 Unknown [id number] 2.16.84 [id number] 1959 Unknown [id number] 2.16.84 [id number] 1959 Unknown [id number] 2.16.84 [id number] 1959 Unknown [id number] 2.16.8 [id number] Unknown [facility] [id number] Social History Date Type Detail Facility Sex Assigned At [facility] Other Start: 10-19-2023 [facility] Start: 1960 Sex Assigned At Male F [facility] Medical Equipment Procedure Code Equipment Code Equipment Original Text Equi pment Identifier Dates BD Pen Needle Or iginal U/F 29G X 12.7MM Clinical Notes 02-12-2022 to 07-28-2023 Note Date & Type Note Facility 07-28-2023 Evaluation note Encounter Date Diagnosis Assessment Notes Jul, Type 2 diabetes mellitus with hyperglycemia (ICD-10 - E11.65) [facility] Chief Complaint: Patient here [...] diabetes mellitus Family history: Father had an FL at age 55-56, a stroke and at [...] The polyp was re (more content not included)...[facility] 04-21-2023 Notelipitor was increased to 40 mg Will repeat labs in 2 monthsUn[facility] Note UTP CARDIOLOGY PROGRESS NOTE HPI: Jose J Evans [...] 0.92.Final images showed AIDEE-3 (more content not included)...[facility]10-20-2023 NotePatient here for follow up cath on 03/29 [...] headaches. All other systems reviewed and are negative.[facility] 04-21-2023 NoteCoronary artery disease is stable Continue GDMT- ASA, lipitor and metoprolol Repeat hepatic function and lipid level in 2 months continue risk factor modifications- heart healthy diet, regular exercise as tolerated and continue all medications.[facility] 04-21-2023 NoteScript for toprol sent and d/w pt that if chest pain reoccurs he is to call office and will need uptitrating beta jyoti.[facility]10-02-2023 NoteIn light of noted CAD, and LDL > 70 on recent labs therefore increased lipitor to 40 mg daily Will repeat LFT and Lipid level in 2-3 months. Melba Mcclellan NP Division of Cardiology, [facility]- [phone] Pager- [phone] Email- [email or web address] hospitalUnAden[facility]09-27-2023 Evaluation note* Encounter Date Diagnosis Assessment Notes Treatment Notes Treatment Clinical Notes Mar, ASHD (arteriosclerotic heart disease) (ICD-10 - I25.10) [facility]: moderate disease in LAD - 03/2023 [facility] Other 09-27-2023 NoteCardiovascular Laboratory Report FINAL IMPRESSIONS: [...] internal jugular vein was obtained. A 6 Ivorian 11 cm sheath was inserted without difficulty. [...] left radial artery was obtained. A 6 Ivorian glide sheath was inserted without difficulty. Bilateral selective coronary angiography was performed using JL4 and JR4 catheters. After reviewing the images, it was elected to proceed with a physiological assessment of the left anterior descending. A 6 Ivorian XB 3.5 guide catheter was advanced in [...] the mid to distal portion. INDICATIONS: Unstable anginaUnAdena [facility]09-26-2023 Note Completely normal CBCUnAdena [facility]09-21-2023 Evaluation note* Encounter Date Diagnosis Assessment Notes Treatment Notes Treatment Clinical Notes Mar, Type 2 diabetes mellitus with hyperglycemia (ICD-10 - E11.65) Mar, residential (current) use of insulin (ICD-10 - Z79.4) [facility] Other 09-20-2023 NotePlan for cardiac cath to assess for any significant coronary disease/stenosis. Will start imdur for angina and script for NTG SL and d/w pt that he can take 1 tab SL for chest pain and may repeat q 5 min for max of 3 tablets and if CP continues to call 911, and he voiced understandingUnAdena [facility]09-20-2023 NoteWill monitorUnAdena [facility]09-20-2023 NoteHypertension is elevated today Start imdur for HTN and ANginaUnAdena [facility]09-20-2023 Note Plan for cardiac cath- Rt LT and CORS, with echocardiogram to assess cardiac function and perfusion, rt sided pressures and fluid status. May be r/t multiple factors including pulmonary disease, obesity and deconditioning.[facility]09-20-2023 NoteRecommend weight loss- f/U with PCPUnAdena [facility]09-20-2023 Note Diabetes is managed by PCP Reports A1C typically is 6-7UnAdena [facility]09-20-2023 Note Review of Systems Eyes: Positive for blurred vision. Cardiovascular: Positive for chest pain and leg swelling. Respiratory: Positive for shortness of breath. Neurological: Positive for dizziness, headaches and light-headedness. All other systems reviewed and are negative.[facility] 03-22-2023 NoteUTP CARDIOLOGY PROGRESS NOTE HPI: Jose [...] exercise, male gender and obesity. Father had FL at age 55-56 yo, stroke and at age 60 yo with second FL. Pt is a former smoker, obese, DM [...] by mouth in the evening. insulin glargine ([facility] U-300 Insulin) 300 unit/mL (1.5 mL) [...] the past 1 (more content not included)... [facility]09-20-2023 NoteUTP CARDIOLOGY PROGRESS NOTE HPI: Jose J [...] exercise, male gender and obesity. Father had FL at age 55-56 yo, stroke and at age 60 yo with second FL. Pt is a former smoker, obese, DM [...] by mouth in the evening. insulin glargine ([employer] SoloStar U-300 Insulin) 300 unit/mL (1.5 mL) [...] the past 1 (more content not included)... [facility]09-20-2023 Evaluation note* Encounter Date Diagnosis Assessment Notes Treatment Notes Treatment Clinical Notes Mar, Type 2 diabetes mellitus with hyperglycemia (ICD-10 - E11.65) [facility] Other 09-18-2023 Evaluation note* Encounter Date Diagnosis [...] use, the patient reduces the risk for FL, CVA, HTN, cardiac dysrhythmias and sudden cardiac deaths.The patient is also aware of the association between JAMES and morning headaches, daytime somnolence, fatigue and obesity. 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 Reviewed age-appropriate preventive testing recommended. Aug, Obstructive sleep apnea (ICD-10 - G47.33) This patient is aware of the benefits associated with JAMES: With continued use, the patient reduces the risk for FL, CVA, HTN, cardiac dysrhythmias and sudden cardiac [...] PSA (prostate specific antigen) (ICD-10 - Z12.5) [facility] Other 02-16-2023 Evaluation note* Encounter Date Diagnosis Assessment Notes Treatment Notes Treatment Clinical Notes Aug, Tinea cruris (ICD-10 - B35.6) [facility] Other 02-09-2023 Evaluation note* Encounter Date Diagnosis Assessment Notes Treatment Notes Treatment Clinical Notes Aug, Wellness examination (ICD-10 - Z00.00) [facility] Other 08-13-2022 Evaluation note* Encounter Date Diagnosis [...] treatment plan. Patient left in stable condition [facility] Other Evaluation noteNo InformationNortGeisinger [facility] Other Evaluation note* Diagnosis Onset Date Resolution Status Chronic venous insufficiency of lower extremity acute GERD (gastroesophageal reflux disease) acute Hypercholesterolemia acute Hypertension acute JAMES (obstructive sleep apnea) acute Type 2 diabetes mellitus wit h diabetic polyneuropathy acute Type 2 diabetes mellitus with hyperglycemia acute Wellness examination noneact [facility] Work Phone: Evaluation note* Diagnosis Onset Date Resolution Status Chronic venous insufficiency of lower extremity acute GERD (gastroesophageal reflux disease) acute Hypercholesterolemia acute Hypertension acute JAMES (obstructive sleep apnea) acute Type 2 diabetes mellitus wit h diabetic polyneuropathy acute Type 2 diabetes mellitus with hyperglycemia acute Cellulitis, scrotum noneacti ve Wellness examination noneact june Hypertension acute Type 2 diabetes mellitus with hyperglycemia acute Cellulitis, scrotum noneacti ve [facility] Work Phone: Hisiiky general Narrative - Reported* Type Description Date Medical History Type 2 Diabetic [facility] Other History general Narrative - Reported* Type [...] ABSCESS 2009 Hospitalization History SEE SURGICAL HX [facility] Other Hisdjkj general Narrative - Reported* Type Description Date [...] HEMORRHOIDECTOMY 2006 Surgical History ARTHROSCOPY RIGHT KNEE 2008 Surgical History I/D GROIN ABSCESS 2009 Surgical History EGD w/ biopsy 10/2022 Hospitalization History SEE SURGICAL [facility] Other Hisedyb general Narrative - Reported* Type Description Date [...] bridging) 03/2023 Hospitalization History SEE SURGICAL HX [facility] Other Summary Purpose Family History No Family History Records Found Relationship Condition Age at Onset Recorded Date/T parvin father Heart disease Unknown Unknown Not Specified Unknown Malignant neoplasm Unknown Diabetes mellitus Unknown Advance Directives No Advanced Directives Records Found Advance Directive Response Recorded Date/ Time Advance Directives No October 19, 024 8:49am Reason for Referral Reason 09/28/22 Patient i s being referred for persistent upper abdominal discomfort and heartburn. He denies change in appetite, unexplained weight loss, dysphagia, melena or hematochezia. He is being referred for an EGD. Diagnosis 1 Gastroesophageal ref lux disease with esophagitis without hemorrhage (K21.00) Referral Organization [facility] Referring Provider First Name Aldo Referring Provider Last Name Blanco Referring Provider Specialty Internal Al dicine Referred Organization Unknown Facility Referred Provider Diego [...] pt, and he mentioned Dr. Kinsey in [place], referral faxed Sendy Dennis 08/30/2022 09:07:00 AM >faxed first attempt letter Sendy Dennis 08/31/2022 02:39:54 PM >received fax with appt date Chief Complaint and Reason for Visit Chief Complaint wellness Reason for Visit Chronic venous insuf ficiency of lower extremity GERD (gastroesophageal reflux disease) Hypercholesterolemia Hypertension JAMES (obstructive sleep apnea) Type 2 diabetes mellitus with diabetic polyneuropathy Type 2 diabetes mellitus with hyperglycemia Wellness examination Chief Complaint wellness 1 week follow up Reason for Visit Chronic venous insuf ficiency of lower extremity GERD (gastroesophageal reflux disease) Hypercholesterolemia Hypertension JAMES (obstructive sleep apnea) Type 2 diabetes mellitus with diabetic polyneuropathy Type 2 diabetes mellitus with hyperglycemia Cellulitis, scrotum Wellness examination Hypertension Type 2 diabetes mellitus with hyperglycemia Cellulitis, scrotum Additional Source Comments REASON FOR VISIT (unrecogniz ed section and content) 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, POSITIVE HOME TEST, H/A, SORE THROAT, COUGHLabsWELLNESSNo InformationReferralNo Information4 month Follow upNo InformationNo InformationLab ResultsNo InformationMedication intoleranceLab results (unrecognized sect ion and content) No Status Records FoundNo Status Records FoundNo Status Records Found INFORMATION SOURCE (unrecogn ized section and content) DATE CREATED AUTHOR 08/20/2022 [facility] DATE CREATED AUTHOR AUTHOR'S ORGANIZ ATION 07/24/2023 [facility] DATE CREATED AUTHOR AUTHOR'S ORGANIZ ATION 10/28/2023 [facility] Care Teams (unrecognized sec tion and content) Team Status: Active Member Role Status Dates Aldo Simeon DO Primary Care Provider Active Team Status: Inactive Member Role Status Dates Aldo Simeon DO Primary Care Provide r, Attending Provider Active Start: October 20, 2023 End: October 20, 2023 Team Status: Inactive Member Role Status Dates Aldo Simeon DO Primary Care Provide r, Attending Provider Active Start: October 26, 2023 End: October 26, 2023 Goals (unrecognized section and content) Goals may be documented in a n alternate section FOR RECORDS PERTAINING TO PATIENTS WHO ARE [...] BE BASED ON THE PRIMARY CLINICAL RECORDS. [facility] [employer] [facility]. provides no warranty or guarantee of the accuracy or completeness of information in this document.
[2023-12-14 08:44] LABS: Basophils Percent Auto 0.3 % (0.2-2.0); Eosinophils Absolute Auto 0.4 10^3/uL (0.0-0.7); Eosinophils Percent Auto 4.3 % (0.9-7.0); Hematocrit 41.6 % (42.0-54.0); Hemoglobin 13.9 g/dL (14.0-18.0); Immature Granulocytes Abs Auto 0.04 10^3/uL (0.00-0.03); Immature Granulocytes Pct Auto 0.5 % (0.0-0.5); Lymphocytes Percent Auto 22.9 % (20.5-60.0); Mean Corpuscular HGB Conc 33.4 g/dL (29.9-35.2); Mean Corpuscular Volume 89.7 fL (80.0-94.0); Mean Platelet Volume 8.3 fL (9.5-13.5); Monocytes Absolute Auto 0.7 10^3/uL (0.3-0.8); Monocytes Percent Auto 7.7 % (1.7-12.0); Neutrophils Absolute Auto 5.7 10^3/uL (1.4-6.5); Neutrophils Percent Auto 64.3 % (43.0-75.0); Platelet Count 176 10^3/uL (150-450); Red Blood Count 4.64 10^6/uL (4.70-6.10); Red Cell Distribution Width 13.9 % (11.0-15.0); White Blood Count 8.8 10^3/uL (4.0-11.0)
[2023-12-14 08:51] LABS: Microalbumin Urine Random 3.2 mg/dL (<=30.0)
[2023-12-14 09:12] LABS: Alanine Aminotransferase 19 U/L (16-63); Albumin Globulin Ratio 0.8; Albumin Level 3.5 g/dL (3.4-5.0); Alkaline Phosphatase 98 U/L (46-116); Anion Gap 12.3; Aspartate Amino Transferase 15 U/L (15-37); BUN Creatinine Ratio 18.5; Bilirubin Total 0.7 mg/dL (0.2-1.0); Calcium 9.1 mg/dL (8.5-10.1); Carbon Dioxide 30.1 mmol/L (21.0-32.0); Chloride 103 mmol/L (98-107); Estimated Average Glucose 240 mg/dL; Estimated GFR (African America >60 (>=60); Estimated GFR (Non-African Ame >60 (>=60); Globulin 4.6 g/dL; Glucose 136 mg/dL (74-106); Potassium 4.4 mmol/L (3.5-5.1); Sodium 141 mmol/L (136-145); Total Protein 8.1 g/dL (6.4-8.2)
== END 2023-12-14 08:12 | disposition home or self-care (01) ==
LOC: LAB 08:12
PROVIDERS: PCP Internal Medicine; Visit Provider Internal Medicine
DX: Z00.00 Encounter for general adult medical examination without abnormal findings (principal)
CPT/HCPCS: 36415; 80053; 82043; 83036; 84681; 85025; G0103

== ENCOUNTER 2024-05-15 10:39 | Outpatient (OUT) | payer MEDICARE, OTHER, SELFPAY ==
[2024-05-15 11:59] LABS: Estimated Average Glucose 240 mg/dL
== END 2024-05-15 10:40 | disposition home or self-care (01) ==
LOC: LAB 10:47
PROVIDERS: PCP Internal Medicine; Visit Provider Internal Medicine
DX: E11.65 Type 2 diabetes mellitus with hyperglycemia (principal)
CPT/HCPCS: 36415; 83036

== ENCOUNTER 2024-12-24 07:47 | Outpatient (OUT) | payer MEDICARE, OTHER, SELFPAY ==
--- OUTSIDE RECORDS SUMMARY | 2024-12-24 07:59 | XMS_ITS | CCD ---
Author Organization [facility] Care Team Providers Care Director Epidemiology Name Role Phone Allison Florez Unavailable SOLITARIO, DR HUGGINS Attending Unavailable BALL, DR HUGGINS [...] Admitting Unavailable BALL, DR HUGGINS Consulting Unavailable SOLITARIO, DR HUGGINS Primary Care Unavailable BALL, DR HUGGINS Attending Unavailable BALL, DR HUGGINS Admitting Unavailable BALL, DR HUGGINS Consulting Unavailable ZIEBER, DR JAYSON Ruiz Consulting Unavailable SOLITARIO, DR HUGGINS Attending Unavailable BALL, DR HUGGINS Primary Care Unavailable BALL, DR HUGGINS Admitting Unavailable BALL, DR HUGGINS Consulting Unavailable ZIEBJUAN J, DR JAYSON Ruiz Consulting Unavailable SOLITARIO, DR HUGGINS Admitting Unavailable BALL, DR HUGGINS Attending Unavailable BALL, DR HUGGINS Primary Care Unavailable BALL, DR HUGGINS Consulting Unavailable TIMMIS, DR CHAUDHARI Attending Unavailable BALL, DR HUGGINS Primary Care Unavailable TIMMIS, DR CHAUDHARI Admitting Unavailable TIMMIS, DR CHAUDHARI Consulting Unavailable ARNOLDO, DR JAYSON Ruiz Consulting Unavailable Aldo Jerez Unavailable Aldo Jerez MD Primary Care Provider Aldo Jerez DO Primary Care Provider NATTY ARREGUIN Attending Unavailable FARA SNOW Attending Unavailable TIMMIFARA Aguirre Attending Unavailable POLO HAYNES Attending Unavailable ELTASAQIB, MARIELENA Attending Unavailable ZEYNEP ISAAC Referring Unavailable ALDO JEREZ Primary Care Unavailable ALDO JEREZ Primary Care Unavailable LINO DOVE Referring Unavailable ALDO JEREZ Primary Care Unavailable KARY ZAPATA Admitting Unavailable KARY ZAPATA Attending Unavailable SHI AYALA Consulting Unavailable Allergies Allergy Classification Reported Allergen(s) Allergy Type Date of Onset Reaction(s) Facility (16 sources) Lisinopril Drug Allergy 4 Other (See Comments) [facility] (8 sources) Lisinopril Allergy to substance 4 [facility] [employer] Work Phone: Medications Current Medications Medication Drug Class(es) Dates Sig (Normalized) Sig (Original) Acetaminophen (1 source) Start: 06-18-2024 acetaminophen (TYLENOL) tablet 650 mg [id number] 200 actuat albuterol 0.09 mg/actuat metered dose inhaler (20 sources) beta2-Adrenergic Agonist Start: 06-18-2024 Start: 10-19-2023 take 1 puff(s) by inhalation every six hours as needed albuterol sulfate HFA (PROVENTIL;VENTOLIN;PROAIR) 108 (90 Base) MCG/ACT inhaler Inhale 1 puff into the lungs every 6 hours as needed 10/19/2023 Active Start: 10-19-2023 take 1 puff(s) by inhalation every six hours albuterol HFA 90 mcg/act inhaler Inhale 1 puff every 6 (six) hours if needed 10/19/2023 Active Start: 10-19-2023 take 1 puff(s) by inhalation every four hours Albuterol Sulfate 90 mcg/actuation HFA aerosol inhaler Active 1 PUFF INHALATION Every 4 hours October 19, 2023 12:00am take 1 puff(s) by inhalation every four hours as needed Albuterol Sulfate HFA 108 (90 Base) MCG/ACT 1 puff as needed Inhalation every 4 hrs Active take 1 puff(s) by inhalation every four hours as needed Albuterol Sulfate HFA 108 (90 Base) MCG/ACT 1 puff as needed Inhalation every 4 hrs Active take 1 puff(s) by inhalation every four hours as needed Albuterol Sulfate HFA 108 (90 Base) MCG/ACT 1 puff as needed Inhalation every 4 hrs Active aspirin 81 mg delayed release oral tablet (20 sources) Platelet Aggregation Inhibitor, Nonsteroidal Anti-inflammatory Drug Start: 10-19-2023 take 1 tablet by mouth once daily Aspirin 81 mg tablet,delayed release (DR/EC) Active 81 MG PO Daily October 19, 2023 12:00am take 1 capsule by [facility] once daily as needed Aspirin 81 MG CAPS Take 81 mg by mouth daily as needed Active atorvastatin 20 mg oral tablet (20 sources) HMG-CoA Reductase Inhibitor Start: 10-19-2023 End: 07-10-2024 take 1 tablet by mouth once daily in the evening Atorvastatin 20 mg tablet Active 20 MG PO Every evening October 19, 2023 12:00am Start: 09-11-2023 End: 06-21-2024 atorvastatin (LIPITOR) 40 MG tablet 09/11/2023 06/21/2024 Discontinued (Stop Taking at Discharge) Blood-Glucose Meter,Continuo us (Dexcom G7 Automatic Drilling Machine Operator) misc (5 sources) Start: 07-24-2024 Blood-Glucose Meter,Continuous (Dexcom G7 Automatic Drilling Machine Operator) misc Active 0 .ROUTE .MEDSUPPLY July 24, 2024 2:17pm As directed Start: 07-24-2024 End: 07-24-2024 Blood-Glucose Meter,Continuo us (Dexcom G7 Automatic Drilling Machine Operator) misc Discontinued 0 .ROUTE .MEDSUPPLY July 24, 2024 1:58pm July 24, 2024 2:19pm As directed Start: 07-08-2024 End: 07-24-2024 Blood-Glucose Meter,Continuo us (Dexcom G7 Automatic Drilling Machine Operator) misc Discontinued 0 .ROUTE .MEDSUPPLY July 08, 2024 11:16am July 24, 2024 1:58pm As directed Start: 04-16-2024 End: 07-08-2024 Blood-Glucose Meter,Continuo us (Dexcom G7 Automatic Drilling Machine Operator) misc Discontinued 0 .ROUTE .MEDSUPPLY April 15, 2024 11:00pm July 08, 2024 11:16am As directed Start: 04-16-2024 Blood-Glucose Meter,Continuous (Dexcom G7 Automatic Drilling Machine Operator) misc Active 0 .ROUTE .MEDSUPPLY April 15, 2024 11:00pm As directed Blood-Glucose Sensor (Dexcom G7 Sensor) device (11 sources) Start: 07-24-2024 Blood-Glucose Sensor (Dexcom G7 Sensor) device Active 0 .ROUTE .MEDSUPPLY July 24, 2024 3:21pm Use to test home BS 4-6x daily Start: 07-24-2024 Blood-Glucose Sensor (Dexcom G7 Sensor) device Active 0 .ROUTE .MEDSUPPLY July 24, 2024 2:21pm Use to test home BS 4-6x daily Start: 07-24-2024 End: 07-24-2024 Blood-Glucose Sensor (Dexcom G7 Sensor) device Discontinued 0 .ROUTE .MEDSUPPLY July 24, 2024 3:21pm July 24, 2024 3:22pm Use to test home BS 4-6x daily Start: 07-24-2024 End: 07-24-2024 Blood-Glucose Sensor (Dexcom G7 Sensor) device Discontinued 0 .ROUTE .MEDSUPPLY July 24, 2024 2:21pm July 24, 2024 2:22pm Use to test home BS 4-6x daily Start: 07-24-2024 End: 07-24-2024 Blood-Glucose Sensor (Dexcom G7 Sensor) device Discontinued 0 .ROUTE .MEDSUPPLY July 24, 2024 2:58pm July 24, 2024 3:21pm Use to test home BS 4-6x daily Start: 07-24-2024 End: 07-24-2024 Blood-Glucose Sensor (Dexcom G7 Sensor) device Discontinued 0 .ROUTE .MEDSUPPLY July 24, 2024 1:58pm July 24, 2024 2:21pm Use to test home BS 4-6x daily Start: 07-08-2024 End: 07-24-2024 Blood-Glucose Sensor (Dexcom G7 Sensor) device Discontinued 0 .ROUTE .MEDSUPPLY July 08, 2024 12:15pm July 24, 2024 2:58pm Use to test home BS 4-6x daily Start: 07-08-2024 End: 07-24-2024 Blood-Glucose Sensor (Dexcom G7 Sensor) device Discontinued 0 .ROUTE .MEDSUPPLY July 08, 2024 11:15am July 24, 2024 1:58pm Use to test home BS 4-6x daily Start: 04-16-2024 End: 07-08-2024 Blood-Glucose Sensor (Dexcom G7 Sensor) device Discontinued 0 .ROUTE .MEDSUPPLY April 16, 2024 12:00am July 08, 2024 12:16pm Use to test home BS 4-6x daily Start: 04-16-2024 End: 07-08-2024 Blood-Glucose Sensor (Dexcom G7 Sensor) device Discontinued 0 .ROUTE .MEDSUPPLY April 15, 2024 11:00pm July 08, 2024 11:16am Use to test home BS 4-6x daily Start: 04-16-2024 Blood-Glucose Sensor (Dexcom G7 Sensor) device Active 0 .ROUTE .MEDSUPPLY April 15, 2024 11:00pm Use to test home BS 4-6x daily Blood-Glucose,Automatic Drilling Machine Operator,Cont (Dexcom G7 Automatic Drilling Machine Operator) misc (4 sources) Start: 07-24-2024 Blood-Glucose,Automatic Drilling Machine Operator,Cont (Dexcom G7 Automatic Drilling Machine Operator) misc Active 0 .ROUTE .MEDSUPPLY July 24, 2024 3:17pm As directed Start: 07-24-2024 End: 07-24-2024 Blood-Glucose,Automatic Drilling Machine Operator,Cont (Dexcom G7 Automatic Drilling Machine Operator) misc Discontinued 0 .ROUTE .MEDSUPPLY July 24, 2024 2:58pm July 24, 2024 3:19pm As directed Start: 07-08-2024 End: 07-24-2024 Blood-Glucose,Automatic Drilling Machine Operator,Cont (Dexcom G7 Automatic Drilling Machine Operator) misc Discontinued 0 .ROUTE .MEDSUPPLY July 08, 2024 12:16pm July 24, 2024 2:58pm As directed Start: 04-16-2024 End: 07-08-2024 Blood-Glucose,Automatic Drilling Machine Operator,Cont (Dexcom G7 Automatic Drilling Machine Operator) misc Discontinued 0 .ROUTE .MEDSUPPLY April 16, 2024 12:00am July 08, 2024 12:16pm As directed chlorhexidine gluconate 40 m g/ml medicated liquid soap (2 sources) Start: 07-23-2024 Chlorhexidine Gluconate (Hibiclens) 4 % solution Indications: Hidradenitis suppurativa Use up to 2-3 times a week around the groin area, do not use above the neck 118 mL 07/23/2024 Active Start: 07-23-2024 Chlorhexidine Gluconate (Hibiclens) 4 % solution Indications: Hidradenitis suppurativa Use up to 2-3 times a week around the groin area, do not use above the neck 118 mL 07/23/2024 Active ciprofloxacin 3 mg/ml / dexamethasone 1 mg/ml otic suspension (2 sources) Corticosteroid, Quinolone Antimicrobial Start: 06-10-2024 End: 06-17-2024 ciprofloxacin-dexAMETHasone (CiproDEX) otic suspension Indications: Acute reactive otitis externa of left ear Administer 4 drops into affected ear(s) in the morning and 4 drops before bedtime. Do all this for 7 days. 7.5 mL 06/10/2024 06/17/2024 Active clindamycin 10 mg/ml topical lotion (2 sources) Lincosamide Antibacterial Start: 07-23-2024 clindamycin (Cleocin T) 1 % lotion Indications: Hidradenitis suppurativa Apply thin layer to affected area on the groin, once daily, 30 day supply 60 mL 07/23/2024 Active Start: 07-23-2024 clindamycin (C leocin T) 1 % lotion Indications: Hidradenitis suppurativa Apply thin layer to affected area on the groin, once daily, 30 day supply 60 mL 07/23/2024 Active diphenhydrAMINE hydrochloride 20 mg/ml topical cream (3 sources) Histamine-1 Receptor Antagonist Start: 07-23-2024 End: 07-23-2025 diphenhydrAMINE (BENADryl) 2 % cream Indications: Hidradenitis suppurativa Apply topically 3 (three) times a day as needed for itching 30 g 07/23/2024 07/23/2025 Active Start: 06-19-2024 End: 06-19-2024 25 mg, IntraVENous, ONCE, 1 dose, On Mon06/19/24 at 1130, IV Push at rate not to exceed 25 mg/min. doxycycline hyclate 100 mg oral capsule (2 sources) Tetracycline-class Drug Start: 06-21-2024 End: 06-28-2024 take 1 capsule by mouth every twelve hours doxycycline hyclate (VIBRAMYCIN) 100 MG capsule Take 1 capsule by mouth every 12 hours for 7 days 14 capsule 06/21/2024 06/28/2024 Active Start: 06-19-2024 End: 06-29-2024 100 mg, Oral, EVERY 12 HOURS SCHEDULED (2 times per day), 20 doses, First dose on Mon06/19/24 at 1130, Last dose on Mon06/28/24 at 2100, Antimicrobial Indications: Skin and Soft Tissue Infection, Skin duration of therapy: Other, Other Skin and Soft Tissue Infection Duration: 10, This medication can interact with tube feedings (TF)- obtain MD order to manage. Recommend holding TF for 1 h before and 2 h after dose. Take 1 h before or 2 h after dairy, calcium, iron, magnesium, aluminum or zinc. empagliflozin 10 mg oral tablet (5 sources) Sodium-Glucose Cotransporter 2 Inhibitor Start: 03-22-2023 take 1 tablet by mouth every twenty-four hours Jardiance 10 MG 1 tablet Orally Once a day for 90 days Mar, Active glucagon (rdna) 1 mg injection (1 source) Antihypoglycemic Agent Start: 06-18-2024 1 mg, SubCUTAneous, PRN, Starting on Mon06/18/24 at 2135, Until Discontinued, Low blood sugar, Blood glucose LESS THAN 70 mg/dL and patient NOT ALERT or NPO and does not have IV access., After administration, attempt intravenous access and start dextrose 10% at 100 mL/hr. Repeat blood glucose in 15 minutes x 2 and notify provider. Reconstitute powder for injection by adding 1 mL of ammonia nitrate operator-cole pplied sterile diluent or sterile water for injection to a vial containing 1 mg of the drug, to provide solutions containing 1 mg/mL. Shake vial gently to dissolve. hydroCHLOROthiazide 25 mg / losartan potassium 100 mg oral tablet (20 sources) Thiazide Diuretic, Angiotensin 2 Receptor Jyoti Start: 02-22-2024 Losartan-Hydroc hlorothiazide 100-25 mg tablet Active 0 .ROUTE .COMPLEX 90 February 22, 2024 6:55am TAKE 1 TABLET DAILY Start: 10-19-2023 End: 02-22-2024 take 1 tablet by mouth once daily Losartan-Hydrochlorothiazide 100-25 mg tablet Discontinued 1 TAB PO Daily October 19, 2023 12:00am February 22, 2024 6:56am Insulin Aspart U-100 (Novolog Flexpen U-100 Insulin) 100 unit/mL (3 mL) insulin pen (3 sources) Start: 04-16-2024 inject 10 [IU] by subcutaneous injection three times daily Insulin Aspart U-100 (Novolog Flexpen U-100 Insulin) 100 unit/mL (3 mL) insulin pen Active 10 UNIT SUBCUT Three times daily April 16, 2024 12:00am Start: 04-16-2024 inject 10 [IU] by cole bcutaneous injection three times daily Insulin Aspart U-100 (Novolog Flexpen U-100 Insulin) 100 unit/mL (3 mL) insulin pen Active 10 UNIT SUBCUT Three times daily April 15, 2024 11:00pm Insulin Glargine U-300 Conc (Toujeo Max U-300 Solostar) 300 unit/mL (3 mL) insulin pen (1 source) Start: 10-01-2024 Insulin Glargi ne U-300 Conc (Toujeo Max U-300 Solostar) 300 unit/mL (3 mL) insulin pen Active 50 UNIT SUBCUT Daily October 01, 2024 12:00am Losartan (1 source) Angiotensin 2 Receptor Jyoti Start: 06-19-2024 losartan (COZAAR) tablet 100 mg 24 hr metoprolol succinate 25 mg extended release oral tablet (20 sources) beta-Adrenergic Jyoti Start: 12-12-2024 take 1 tablet by mouth every other day Metoprolol Succinate 25 mg tablet extended release 24 hr Active 25 MG PO .every other day December 12, 2024 9:08am Start: 12-12-2024 End: 12-12-2024 take 2 tablets by mouth once daily Metoprolol Succinate 25 mg tablet extended release 24 hr Discontinued 12.5 MG PO Daily December 12, 2024 8:31am December 12, 2024 9:09am Start: 07-26-2024 End: 12-12-2024 Metoprolol Succinate 25 mg t ablet extended release 24 hr Discontinued 37.5 MG PO Daily July 26, 2024 9:53am December 12, 2024 8:31am Start: 06-22-2024 take 1 tablet by karin th once daily metoprolol succinate (TOPROL XL) 25 MG extended release tablet Take 1 tablet by mouth daily 30 tablet 3 06/22/2024 Active Start: 06-22-2024 take 1 tablet by karin th once daily metoprolol succinate (TOPROL XL) 25 MG extended release tablet Take 1 tablet by mouth daily 30 tablet 3 06/22/2024 Active Start: 04-16-2024 End: 07-26-2024 take 2 tablets by mouth once daily Metoprolol Succinate 25 mg tablet extended release 24 hr Discontinued 12.5 MG PO Daily April 16, 2024 9:15am July 26, 2024 7:57pm Start: 04-16-2024 take 12.5 mg by mout h once daily Metoprolol Succinate Active 12.5 MG PO Daily April 16, 2024 9:15am Start: 10-02-2023 End: 06-21-2024 take 1 tablet by mouth once daily Metoprolol Succinate 25 mg tablet extended release 24 hr Discontinued 25 MG PO Daily October 19, 2023 12:00am April 16, 2024 9:15am omeprazole 40 mg delayed release oral capsule (3 sources) Proton Pump Inhibitor Start: 09-29-2022 take 1 capsule by mouth once daily omeprazole (PRILOSEC) 40 MG delayed release capsule Take 1 capsule by mouth daily 09/29/2022 Active ondansetron (ZOFRAN-ODT) disintegrating tablet 4 mg (1 source) Start: 06-18-2024 ondansetron (ZOFRAN-ODT) disintegrating tablet 4 mg piperacillin-tazobact am (ZOSYN) 4,500 mg in sodium chloride 0.9 % 100 mL IVPB ([id number]) (1 source) Start: 06-19-2024 End: 06-26-2024 4,500 mg, IntraVENous, EVERY 8 HOURS, 21 doses, First dose (after last modification) on Mon06/19/24 at 1200, Last dose on Mon06/26/24 at 0400, Antimicrobial Indications: Skin and Soft Tissue Infection, Skin duration of therapy: 7 days, Use 20mm (Blue) [id number] Adapter Preparation instructions: Attach medication vial to one 20mm (Blue) [id number] adapter. William fluid bag with adapter, mix, and administer per order. polyethylene glycol 3350 [id number] mg powder for oral solution (1 source) Osmotic Laxative Start: 06-18-2024 0.25 mg, 0.5 mg dose 1.5 ml semaglutide 1.34 mg/ml pen injector (20 sources) Semaglutide,0.25 or 0.5MG/DOS, (OZEMPIC, 0.25 OR 0.5 MG/DOSE,) 2 MG/1.5ML SOPN Inject into the skin Active End: 06-21-2024 take 1 tablet by mouth once daily RYBELSUS 14 MG TABS Take 14 mg by mouth daily 06/21/2024 Discontinued (Stop Taking at Discharge) take 50 [IU] by mout h once daily Rybelsus 14 MG 50 Units Orally Once a day replaces Rybelsus 7 mg Active Rybelsus 7 MG 1 tablet at least 30 minutes before first food, beverage or other oral medicine of the day Orally Once a day Active 1000 ml sodium chloride 9 mg/ml injection (5 sources) Start: 06-18-2024 5-40 mL, Intra VENous, EVERY 12 HOURS SCHEDULED (2 times per day), First dose on Mon06/18/24 at 2200, Until Discontinued, For Line Patency: Peripheral IV = 5 mL; Midline or Central Line = 10 mL/lumen. If following IV push medication, administer flush at same rate as the IV push. Flush volume is determined by type of infusion therapy being given. For non-viscous solutions use: Peripheral IV = 5 mL Midline or Central Line = 10 mL/lumen For viscous solutions (i.e. blood components, parenteral nutrition, contrast media, or after obtaining blood sample) use: Peripheral IV = 10 mL Midline or Central Line = 20 mL/lumen Start: 06-18-2024 Start: 06-18-2024 End: 06-20-2024 Start: 06-18-2024 End: 06-18-2024 2,466 mL (30 mL/kg 82.2 kg I deal weight), IntraVENous, at 4,772.9 mL/hr, Administer over 31 Minutes, ONCE, On Mon06/18/24 at 1600, For 1 dose spironolactone 25 mg oral tablet (20 sources) Aldosterone Antagonist Start: 10-13-2023 take 1 tablet by mouth once daily Spironolactone 25 mg tablet Active 25 MG PO Daily October 19, 2023 12:00am terbinafine 250 mg oral tablet (20 sources) Allylamine Antifungal Start: 08-18-2022 take 1 tablet by mouth once daily Terbinafine Hcl 250 mg tablet Active 250 MG PO Daily October 19, 2023 12:00am TOUJEO SOLOSTAR U-300 (11 sources) TOUJEO SOLOSTAR U-300 50 units Injectable Once Daily Active TOUJEO SOLOSTAR U-300 30 units Injectable Once Daily Active triamcinolone acetonide 0.25 mg/ml topical cream (20 sources) Corticosteroid Start: 10-19-2023 triamcinolone (KENALOG) 0.025 % cream Apply topically as needed 10/19/2023 Active Start: 10-19-2023 Triamcinolone Acetonide 0.025 % cream Active 1 APPLIC TOPICAL Daily October 19, 2023 12:00am Start: 08-30-2022 Triamcinolone Acetonide 0.025 % 1 application Externally Once a day for 30 days Aug, Active Start: 08-30-2022 Triamcinolone Acetonide 0.025 % 1 application Externally Once a day for 30 days Aug, Active Completed/Discontinued Medications Medication Drug Class(es) Dates Sig (Normalized) Sig (Original) amLODIPine 5 mg oral tablet (20 sources) Dihydropyridine Calcium Channel Jyoti Start: 01-11-2024 End: 08-20-2024 Amlodipine 5 mg tablet Discontinued 0 .ROUTE .COMPLEX 90 January 11, 2024 6:56am August 20, 2024 1:04pm TAKE 1 TABLET DAILY Start: 10-13-2023 End: 07-10-2024 take 1 tablet by mouth once daily Amlodipine 5 mg tablet Discontinued 5 MG PO Daily October 19, 2023 12:00am January 11, 2024 6:56am ceFEPIme (MAXIPIME) 2,000 mg in dextrose 5 % 100 mL IVPB ([id number]) (1 source) Start: 06-18-2024 End: 06-18-2024 2,000 mg, IntraVENous, ONCE, 1 dose, On Mon06/18/24 at 1645, Antimicrobial Indications: Other, Other Abx Indication: Suspected Sepsis of Skin or Soft Tissue Origin, Use 20mm (Blue) [id number] Adapter Preparation instructions: Attach medication vial to one 20mm (Blue) Qril0Ams adapter. William fluid bag with adapter, mix, and administer per order. ciprofloxacin 500 mg oral tablet (12 sources) Quinolone Antimicrobial Start: 10-20-2023 End: 06-03-2024 take 1 tablet by mouth twice daily Ciprofloxacin Hcl 500 mg tablet Discontinued 500 MG PO Twice daily 14 October 26, 2023 9:14am June 03, 2024 11:06am 1000 ml glucose 100 mg/ml injection (6 sources) Start: 06-18-2024 dextrose bolus 10% 125 mL Start: 06-18-2024 16 g (4 tablet ), Oral, PRN, Starting on Mon06/18/24 at 2218, Until Discontinued, Low blood sugar, If blood glucose is LESS THAN 70 mg/dL and patient is alert and tolerating oral. Give 4 tablets (16g) Repeat blood glucose in 15 minutes. If blood glucose is LESS THAN 70 mg/dL, repeat treatment and recheck blood glucose in 15 minutes x 2. If blood glucose remains LESS THAN 70 mg/dL, notify provider. Start: 06-18-2024 IntraVENous, a t 100 mL/hr, CONTINUOUS PRN, if blood glucose remains LESS THAN 70 mg/dL after 2 dextrose 10% intravenous boluses or administration of glucagon, Starting on Mon06/18/24 at 2218, If blood glucose fails to stabilize after 2 dextrose 10% intravenous boluses or glucagon administration, start dextrose 10% infusion at 100 mL/hour and repeat blood glucose at 30 and 60 minutes. If blood glucose is GREATER THAN 70 mg/dL after 60 minutes, discontinue dextrose 10% infusion. Start: 06-18-2024 dextrose bolus 10% 125 mL Start: 06-18-2024 16 g (4 tablet ), Oral, PRN, Starting on Mon06/18/24 at 2135, Until Discontinued, Low blood sugar, If blood glucose is LESS THAN 70 mg/dL and patient is alert and tolerating oral. Give 4 tablets (16g) Repeat blood glucose in 15 minutes. If blood glucose is LESS THAN 70 mg/dL, repeat treatment and recheck blood glucose in 15 minutes x 2. If blood glucose remains LESS THAN 70 mg/dL, notify provider. 1 ml heparin sodium, porcine 5000 unt/ml prefilled syringe (1 source) Unfractionated Heparin, Anti-coagulant Start: 06-18-2024 inject 1 dose by subcutaneous injection three times daily 5,000 Units, SubCUTAneous, EVERY 8 HOURS SCHEDULED (3 times per day), First dose on Mon06/18/24 at 2200, Until Discontinued 3 ml insulin glargine 100 unt/ml pen injector (20 sources) Insulin Analog Start: 09-30-2024 End: 10-01-2024 Insulin Glargine (Basaglar Kwikpen U-100 Insulin) 100 unit/mL (3 mL) insulin pen Discontinued 50 UNIT SUBCUT Every evening 45 90 September 30, 2024 12:00am October 01, 2024 9:27pm Start: 08-20-2024 End: 09-25-2024 Insulin Glargine (Lantus Fern ostar U-100 Insulin) 100 unit/mL (3 mL) insulin pen Discontinued 50 UNIT SUBCUT Daily 45 90 September 23, 2024 1:08pm September 25, 2024 9:14am Start: 07-16-2024 End: 08-20-2024 Insulin Glargine (Lantus Fern ostar U-100 Insulin) 100 unit/mL (3 mL) insulin pen Discontinued 44 UNIT SUBCUT Daily 45 30 July 16, 2024 1:00am August 20, 2024 1:07pm Start: 06-21-2024 TOUJEO SOLOSTA R 300 UNIT/ML concentrated injection pen Inject 60 Units into the skin every morning 5 Adjustable Dose Pre-filled Pen Syringe 5 06/21/2024 Active Start: 06-20-2024 inject 60 [IU] by cole bcutaneous injection once daily 60 Units, SubCUTAneous, DAILY, First dose (after last modification) on Mon06/20/24 at 0900, Until Discontinued Start: 06-19-2024 inject 1 dose by sub cutaneous injection once 20 Units, SubCUTAneous, ONCE, 1 dose, On Mon06/19/24 at 0930 Start: 06-19-2024 End: 06-19-2024 inject 40 [IU] by subcutaneous injection once daily 40 Units, SubCUTAneous, DAILY, First dose on Mon06/19/24 at 0900, Until Discontinued Start: 10-14-2023 End: 07-16-2024 Insulin Glargine U-300 Conc (Toujeo Solostar U-300 Insulin) 300 unit/mL (1.5 mL) insulin pen Discontinued 0 .ROUTE .COMPLEX 13.5 April 11, 2024 7:00am July 16, 2024 9:52am INJECT 44 UNITS UNDER THE SKIN DAILY Start: 10-14-2023 End: 06-21-2024 TOUJEO SOLOSTAR 300 UNIT/ML concentrated injection pen Inject 50 Units into the skin every morning 10/14/2023 06/21/2024 Discontinued Insulin Glargine U-300 Conc (Toujeo Solostar U-300 Insulin) 300 unit/mL (1.5 mL) insulin pen (12 sources) Start: 12-21-2023 End: 04-11-2024 Insulin Glargine U-300 Conc (Toujeo Solostar U-300 Insulin) 300 unit/mL (1.5 mL) insulin pen Discontinued 50 UNIT SUBCUT Daily December 21, 2023 12:02pm April 11, 2024 6:01am Start: 12-21-2023 End: 04-11-2024 Insulin Glargine U-300 Conc (Toujeo Solostar U-300 Insulin) 300 unit/mL (1.5 mL) insulin pen Discontinued 50 UNIT SUBCUT Daily December 21, 2023 1:02pm April 11, 2024 7:01am Start: 12-21-2023 Insulin Glargi ne U-300 Conc (Toujeo Solostar U-300 Insulin) 300 unit/mL (1.5 mL) insulin pen Active 50 UNIT SUBCUT Daily December 21, 2023 1:02pm Start: 10-19-2023 End: 12-21-2023 Insulin Glargine U-300 Conc (Toujeo Solostar U-300 Insulin) 300 unit/mL (1.5 mL) insulin pen Discontinued 44 UNIT SUBCUT Daily October 18, 2023 11:00pm December 21, 2023 12:03pm Start: 10-19-2023 End: 12-21-2023 Insulin Glargine U-300 Conc (Toujeo Solostar U-300 Insulin) 300 unit/mL (1.5 mL) insulin pen Discontinued 44 UNIT SUBCUT Daily October 19, 2023 12:00am December 21, 2023 1:03pm Start: 10-19-2023 Insulin Glargi ne U-300 Conc (Toumeraryo Solostar U-300 Insulin) 300 unit/mL (1.5 mL) insulin pen Active 44 UNIT SUBCUT Daily October 19, 2023 12:00am Insulin Glargine-Yfgn (1 source) Start: 09-25-2024 End: 09-30-2024 Insulin Glargine-Yfgn 100 unit/mL (3 mL) insulin pen Discontinued 50 UNIT SUBCUT Daily 45 90 September 25, 2024 12:00am September 30, 2024 8:59pm insulin lispro 100 unt/ml injectable solution (20 sources) Insulin Analog Start: 06-18-2024 0-8 Units, Sub CUTAneous, 4 TIMES DAILY BEFORE MEALS & NIGHTLY, First dose on Mon06/18/24 at 2245, Until Discontinued, Medium Dose Corrective Algorithm Glucose: Dose: 70-179 No Insulin 180-249 2 Units 250-299 4 Units 300-349 6 Units Over 349 8 Units and notify physician Administer as soon as possible within 60 minutes of last blood glucose check Start: 04-12-2024 End: 04-16-2024 inject 100 [IU] by subcutaneous injection once daily Insulin Lispro (Humalog Kwikpen Insulin) 100 unit/mL insulin pen Discontinued 0 .ROUTE .COMPLEX 15 April 12, 2024 6:54am April 16, 2024 9:40am INJECT 2 TO 12 UNITS UNDER THE SKIN DAILY Start: 07-31-2023 HUMALOG KWIKPE N 100 UNIT/ML SOPN 07/31/2023 Active Start: 07-31-2023 insulin lispro (HumaLOG) 100 UNIT/ML injection Inject under the skin 3 (three) times a day with meals 07/31/2023 Active Start: 07-28-2023 End: 12-21-2023 Insulin Lispro (Humalog Kwik pen Insulin) 100 unit/mL insulin pen Discontinued 1 sliding scale dose SUBCUT December 18, 2023 12:00am December 21, 2023 1:03pm 70 - 130 - 0 units 131-180 - 2 units 181-240 - 4 units 241-300 - 6 units 301-350- 8 units 351-400 - 10 units > 400 - 12 units Insulin Lispro (Humalog Kwikpen Insulin) 100 unit/mL insulin pen (5 sources) Start: 12-21-2023 End: 04-12-2024 Insulin Lispro (Humalog Kwik pen Insulin) 100 unit/mL insulin pen Discontinued 1 sliding scale dose SUBCUT December 21, 2023 12:02pm April 12, 2024 5:54am 70 - 130 - 0 units 131-180 - 12 units 181-240 - 16 units 241-300 - 20 units 301-350- 24 units 351-400 - 28 units > 400 - 32 units Start: 12-21-2023 End: 04-12-2024 Insulin Lispro (Humalog Kwik pen Insulin) 100 unit/mL insulin pen Discontinued 1 sliding scale dose SUBCUT December 21, 2023 1:02pm April 12, 2024 6:54am 70 - 130 - 0 units 131-180 - 12 units 181-240 - 16 units 241-300 - 20 units 301-350- 24 units 351-400 - 28 units > 400 - 32 units Start: 12-21-2023 Insulin Lispro (Humalog Kwikpen Insulin) 100 unit/mL insulin pen Active 1 sliding scale dose SUBCUT December 21, 2023 1:02pm 70 - 130 - 0 units 131-180 - 12 units 181-240 - 16 units 241-300 - 20 units 301-350- 24 units 351-400 - 28 units > 400 - 32 units insulin, regular, human 100 unt/ml injectable solution (1 source) Insulin Start: 06-18-2024 End: 06-18-2024 10 Units, IntraVENous, ONCE, 1 dose, On Mon06/18/24 at 1645 iopamidol (ISOVUE-370) 76 % injection 75 mL (1 source) Start: 06-18-2024 End: 06-18-2024 take 1 dose intravenously once 75 mL, IntraVENous, IMG ONCE PRN, 1 dose, Starting on Mon06/18/24 at 1647, Until Mon06/18/24 at 1708, Other metFORMIN hydrochloride 500 mg oral tablet (20 sources) Biguanide Start: 06-20-2024 take 500 mg by mouth twice daily at mealtime 500 mg, Oral, 2 TIMES DAILY WITH MEALS, First dose (after last reorder) on Mon06/20/24 at 1700, Until Discontinued Start: 02-15-2024 Metformin 1,00 0 mg tablet Active 0 .ROUTE .COMPLEX 180 February 15, 2024 7:28am TAKE 1 TABLET TWICE A DAY WITH FOOD Start: 02-15-2024 Metformin 1,00 0 mg tablet Active 0 .ROUTE .COMPLEX 180 February 15, 2024 6:28am TAKE 1 TABLET TWICE A DAY WITH FOOD Start: 02-15-2024 Metformin Acti ve 0 .ROUTE .COMPLEX 180 February 15, 2024 7:28am TAKE 1 TABLET TWICE A DAY WITH FOOD Start: 08-19-2023 End: 02-15-2024 take 1 tablet by mouth twice daily at mealtime Metformin 1,000 mg tablet Discontinued 1000 MG PO Twice daily with meals October 19, 2023 12:00am February 15, 2024 7:28am metroNIDAZOLE 500 mg oral tablet (12 sources) Nitroimidazole Antimicrobial Start: 10-20-2023 End: 08-20-2024 take 1 tablet by mouth every eight hours Metronidazole 500 mg tablet Discontinued 500 MG PO Every 8 hours 21 7 October 26, 2023 9:14am August 20, 2024 12:19pm piperacillin-tazoba ctam (ZOSYN) 3,375 mg in sodium chloride 0.9 % 50 mL IVPB (Ftdr7Opi) (1 source) Start: 06-19-2024 End: 06-19-2024 3,375 mg, IntraVENous, EVERY 8 HOURS, First dose on Mon06/19/24 at 0400, Until Discontinued, Antimicrobial Indications: Skin and Soft Tissue Infection, Skin duration of therapy: 7 days, Use 20mm (Blue) [id number] Adapter Preparation instructions: Attach medication vial to one 20mm (Blue) [id number] adapter. William fluid bag with adapter, mix, and administer per order. Semaglutide (4 sources) Start: 10-19-2023 End: 10-20-2023 take 14 mg by mouth once daily Semaglutide Discontinued 14 MG PO Daily October 19, 2023 12:00am October 20, 2023 9:34am Start: 10-19-2023 take 14 mg by mouth once daily Semaglutide Active 14 MG PO Daily October 19, 2023 12:00am Semaglutide (11 sources) Start: 07-05-2024 End: 08-20-2024 Semaglutide 0.25 mg or 0.5 m g (2 mg/3 mL) pen injector Discontinued 0.5 MG SUBCUT every week July 05, 2024 4:20pm August 20, 2024 12:53pm Start: 07-05-2024 End: 08-20-2024 Semaglutide 0.25 mg or 0.5 m g (2 mg/3 mL) pen injector Discontinued 0.5 MG SUBCUT every week July 05, 2024 3:20pm August 20, 2024 11:53am Start: 05-16-2024 End: 07-05-2024 inject 0.25 mg by subcutaneous injection every week, then inject 0.5 mg by subcutaneous injection every week Semaglutide 0.25 mg or 0.5 mg (2 mg/3 mL) pen injector Discontinued 0 SUBCUT every week May 16, 2024 1:00am July 05, 2024 4:20pm 0.25mg subcutaneously weekly x 4 weeks, then increase to 0.5mg SC weekly. Start: 05-16-2024 End: 07-05-2024 inject 0.25 mg by subcutaneous injection every week, then inject 0.5 mg by subcutaneous injection every week Semaglutide 0.25 mg or 0.5 mg (2 mg/3 mL) pen injector Discontinued 0 SUBCUT every week May 16, 2024 12:00am July 05, 2024 3:20pm 0.25mg subcutaneously weekly x 4 weeks, then increase to 0.5mg SC weekly. Start: 05-16-2024 inject 0.25 mg by cole bcutaneous injection every week, then inject 0.5 mg by subcutaneous injection every week Semaglutide 0.25 mg or 0.5 mg (2 mg/3 mL) pen injector Active 0 SUBCUT every week May 16, 2024 12:00am 0.25mg subcutaneously weekly x 4 weeks, then increase to 0.5mg SC weekly. Start: 10-20-2023 End: 12-15-2023 Semaglutide (Ozempic) 0.25 m g or 0.5 mg (2 mg/3 mL) pen injector Discontinued 0.25 MG SUBCUT every week 09 27October 19, 2023 11:00pm December 15, 2023 3:51pm for 4 weeks Start: 10-20-2023 End: 12-15-2023 Semaglutide (Ozempic) 0.25 m g or 0.5 mg (2 mg/3 mL) pen injector Discontinued 0.25 MG SUBCUT every week 3 October 20, 2023 12:00am December 15, 2023 4:51pm for 4 weeks Start: 10-20-2023 Semaglutide (O zempic) 0.25 mg or 0.5 mg (2 mg/3 mL) pen injector Active 0.25 MG SUBCUT every week 3 October 20, 2023 12:00am for 4 weeks Semaglutide (Rybelsus) 14 mg tablet (10 sources) Start: 01-11-2024 End: 05-16-2024 take 1 tablet by mouth once daily Semaglutide (Rybelsus) 14 mg tablet Discontinued 14 MG PO Daily January 11, 2024 9:43am May 16, 2024 6:37pm Start: 01-11-2024 End: 05-16-2024 take 1 tablet by mouth once daily Semaglutide (Rybelsus) 14 mg tablet Discontinued 14 MG PO Daily January 11, 2024 8:43am May 16, 2024 5:37pm Start: 01-11-2024 take 1 tablet by karin th once daily Semaglutide (Rybelsus) 14 mg tablet Active 14 MG PO Daily January 11, 2024 9:43am Start: 12-15-2023 End: 01-11-2024 take 1 tablet by mouth once daily Semaglutide (Rybelsus) 14 mg tablet Discontinued 14 MG PO Daily December 14, 2023 11:00pm January 11, 2024 8:44am Start: 12-15-2023 End: 01-11-2024 take 1 tablet by mouth once daily Semaglutide (Rybelsus) 14 mg tablet Discontinued 14 MG PO Daily December 15, 2023 12:00am January 11, 2024 9:44am Semaglutide 14 mg tablet (3 sources) Start: 10-19-2023 End: 10-20-2023 take 1 tablet by mouth once daily Semaglutide 14 mg tablet Discontinued 14 MG PO Daily October 19, 2023 12:00am October 20, 2023 9:34am Start: 10-19-2023 End: 10-20-2023 take 1 tablet by mouth once daily Semaglutide 14 mg tablet Discontinued 14 MG PO Daily October 18, 2023 11:00pm October 20, 2023 8:34am sulfamethoxazole 800 mg / trimethoprim 160 mg oral tablet (2 sources) Dihydrofolate Reductase Inhibitor Antibacterial, Sulfonamide Antimicrobial Start: 06-17-2024 End: 07-01-2024 take 1 tablet by mouth twice daily sulfamethoxazole-trimethoprim (BACTRIM DS;SEPTRA DS) 800-160 MG per tablet Take 1 tablet by mouth 2 times daily for 14 days 28 tablet 06/17/2024 07/01/2024 Suspended 300 ml vancomycin 5 mg/ml injection (2 sources) Glycopeptide Antibacterial Start: 06-19-2024 End: 06-19-2024 1,500 mg (9.21 mg/kg), IntraVENous, at 200 mL/hr, Administer over 90 Minutes, EVERY 24 HOURS, First dose on Mon06/19/24 at 0700 Start: 06-18-2024 End: 06-18-2024 2,000 mg (12.1 mg/kg), Intra VENous, at 200 mL/hr, Administer over 120 Minutes, ONCE, On Mon06/18/24 at 1645, For 1 dose Problems Active Problems Problem Classification Problem Date Documented Da te Episodic/Chronic Acute and unspecified renal failure (2 sources) Acute renal failure syndrome; Translations: [Acute kidney failure, unspecified] Onset: 06-18-2024 06-18-2024 Episodic Cardiac and circulatory congenital anomalies (10 sources) Myocardial bridge of coronary artery; Translations: [Malformation of coronary vessels] Onset: 04-21-2023 06-10-2024 Chronic Cardiac dysrhythmias (20 sources) Bradycardia; Translations: [Bradycardia, unspecified] Onset: 01-30-2024 01-11-2024 Episodic Coronary atherosclerosis and other heart disease (20 sources) Coronary arteriosclerosis; Translations: [Atherosclerotic heart disease of [place] coronary artery without angina pectoris] Onset: 03-22-2023 Resolved: 06-18-2024 Chronic Diabetes mellitus with complications (20 sources) Type 2 diabetes mellitus with hyperglycemia; Translations: [Hyperglycemia due to type 2 diabetes mellitus] Onset: 06-13-2022 Chronic Comment on above: ISS coverage:70-130 = 0,131-180 = 12,181-240 = 16,241-300 = 20,301-350 = 24, 351-400 = 28,> 400 = 32 Diabetes mellitus without complication (13 sources) Type 2 diabetes mellitus without complications; Translations: [Diabetes mellitus] Onset: 01-22-2020 06-10-2024 Chronic Disorders of lipid metabolism (20 sources) Hyperlipidemia, unspecified; Translations: [Pure hypercholesterolemia ] Onset: 11-24-2021 Resolved: 06-10-2024 Chronic Esophageal disorders (20 sources) Gastro-esophageal reflux disease with esophagitis; Translations: [Gastroesophageal reflux disease with esophagitis without hemorrhage] Onset: 01-30-2024 Resolved: 06-10-2024 10-19-2023 Chronic Essential hypertension (20 sources) Essential (primary) hypertension; Translations: [Essential hypertension] Onset: 01-22-2020 Chronic Fluid and electrolyte disorders (2 sources) Hyponatremia; Translations: [Hypo-osmolality and hyponatremia] Onset: 06-18-2024 06-18-2024 Episodic Hyperplasia of prostate (13 sources) Benign prostatic hypertrophy without outflow obstruction; Translations: [Benign prostatic hyperplasia without lower urinary tract symptoms] Chronic Mycoses (14 sources) Candidiasis of skin and nails; Translations: [Candidiasis of skin and nail] Episodic Nonspecific chest pain (18 sources) Chest pain, unspecified; Translations: [Chest pain on exertion] Onset: 09-20-2021 Episodic Osteoarthritis (20 sources) Localized, primary osteoarthritis of the shoulder region; Translations: [Primary osteoarthritis, right shoulder] Onset: 06-10-2024 06-10-2024 Chronic Other aftercare (4 sources) 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; 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] Onset: 06-18-2022 Episodic Other aftercare (15 sources) Long-term current use of insulin; Translations: [long-term (current) use of insulin] 07-24-2024 Episodic Other and ill-defined heart disease (2 sources) Cardiomegaly; Translations: [CARDIOMEGALY] Onset: 09-20-2021 Chronic Other and ill-defined heart disease (20 sources) Left ventricular hypertrophy; Translations: [Cardiomegaly] Onset: 01-22-2020 06-10-2024 Chronic Other circulatory disease (3 sources) Low blood pressure; Translations: [Hypotension, unspecified] Onset: 06-18-2024 06-18-2024 Episodic Other circulatory disease (2 sources) Spider nevus; Translations: [Nevus, non-neoplastic] 07-23-2024 Episodic Other diseases of kidney and ureters (6 sources) Cyst of kidney, acquired; Translations: [CYST OF KIDNEY ACQUIRED] Onset: 06-29-2022 Episodic Other diseases of kidney and ureters (11 sources) Cyst of kidney; Translations: [Cyst of kidney, acquired] Episodic Other diseases of veins and lymphatics (12 sources) Venous insufficiency (chronic) (peripheral); Translations: [Venous (peripheral) insufficiency, unspecified] Episodic Other diseases of veins and lymphatics (18 sources) Venous insufficiency of leg; Translations: [Venous insufficiency (chronic) (peripheral)] Onset: 03-22-2023 10-19-2023 Episodic Other diseases of veins and lymphatics (2 sources) Disorder of vein of lower extremity; Translations: [Venous insufficiency (chronic) (peripheral)] 07-23-2024 Episodic Other ear and sense organ disorders (11 sources) Chronic otitis externa; Translations: [Unspecified chronic otitis externa, unspecified ear] Onset: 06-10-2024 Resolved: 06-18-2024 06-10-2024 Chronic Other ear and sense organ disorders (8 sources) Malignant otitis externa; Translations: [Malignant otitis externa, unspecified ear] Onset: 06-10-2024 06-10-2024 Chronic Other ear and sense organ disorders (11 sources) Mixed conductive and sensorineural hearing loss of left ear; Translations: [Mixed conductive and sensorineural hearing loss, unilateral, left ear, with unrestricted hearing on the contralateral side] Onset: 06-10-2024 06-10-2024 Chronic Other ear and sense organ disorders (4 sources) Acute contact otitis externa; Translations: [Acute reactive otitis externa, left ear] 06-10-2024 Episodic Other ear and sense organ disorders (4 sources) Impacted cerumen in left ear; Translations: [Impacted cerumen, left ear] 06-10-2024 Episodic Other lower respiratory disease (11 sources) Multiple nodules of lung; Translations: [Other nonspecific abnormal finding of lung field] Episodic Other lower respiratory disease (13 sources) Dyspnea; Translations: [Shortness of breath] Episodic Other lower respiratory disease (2 sources) Other nonspecific abnormal finding of lung field; Translations: [Multiple pulmonary nodules] Episodic Other non-traumatic joint disorders (8 sources) Derangement of right shoulder joint; Translations: [Other specific joint derangements of right shoulder, not elsewhere classified] Onset: 06-10-2024 06-10-2024 Chronic Other nutritional; endocrine; and metabolic disorders (20 sources) Morbid obesity; Translations: [Morbid (severe) obesity due to excess calories] Onset: 03-22-2023 06-10-2024 Chronic Other nutritional; endocrine; and metabolic disorders (1 source) Morbid (severe) obesity due to excess calories Chronic Other nutritional; endocrine; and metabolic disorders (2 sources) Body mass index 40+ - severely obese; Translations: [Body mass index (BMI) 50.0-59.9, adult] Chronic Other nutritional; endocrine; and metabolic disorders (2 sources) Severe obesity; Translations: [Morbid (severe) obesity due to excess calories] Chronic Other nutritional; endocrine; and metabolic disorders (4 sources) Obesity; Translations: [Obesity, unspecified] 01-11-2024 Chronic Other nutritional; endocrine; and metabolic disorders (6 sources) Obesity, unspecified; Translations: [Obesity, unspecified] 04-16-2024 Chronic Other screening for suspected conditions (not mental disorders or infectious disease) (4 sources) Encounter for screening for malignant neoplasm of prostate; Translations: [Patient encounter status] Onset: 08-19-2022 Episodic Other skin disorders (2 sources) Lentiginosis; Translations: [Other melanin hyperpigmentation] 07-23-2024 Episodic Other skin disorders (2 sources) Sebaceous gland hypertrophy; Translations: [Other specified follicular disorders] 07-23-2024 Episodic Other skin disorders (2 sources) Acne vulgaris; Translations: [Acne vulgaris] 07-23-2024 Episodic Other skin disorders (2 sources) Hidradenitis suppurativa; Translations: [Hidradenitis suppurativa] 07-23-2024 Episodic Other upper respiratory disease (13 sources) Difficulty speaking; Translations: [Dysphonia] Episodic Carmen-; endo-; and myocarditis; cardiomyopathy (except that caused by tuberculosis or sexually transmitted disease) (20 sources) Hypertrophic cardiomyopathy; Translations: [Other hypertrophic cardiomyopathy] Chronic Comment on above: Echo: [id number]%, LV H, JANIA, normal RV size/function - 04/2023 Residual codes; unclassified (20 sources) Obstructive sleep apnea syndrome; Translations: [Obstructive sleep apnea (adult) (pediatric)] Onset: 06-10-2024 10-19-2023 Chronic Residual codes; unclassified (13 sources) Obstructive sleep apnea (adult) (pediatric); Translations: [Obstructive sleep apnea (adult)(pediatric)] Chronic Septicemia (except in labor) (6 sources) Sepsis; Translations: [Sepsis, unspecified organism] Onset: 06-18-2024 06-18-2024 Episodic Skin and subcutaneous tissue infections (11 sources) Abscess of groin; Translations: [Cutaneous abscess of groin] Onset: 06-17-2024 06-17-2024 Episodic Substance-related disorders (1 source) Nicotine dependence, cigarettes, in remission; Translations: [NICOTINE DEPEND CIGARETTES REMISS] Onset: 04-08-2022 Chronic Past or Other Problems Problem Classification Problem Date Documented Da te Episodic/Chronic Esophageal disorders (1 source) Esophageal disorders Inflammatory conditions of male genital organs (5 sources) Inflammatory disorders of scrotum; Translations: [Other inflammatory disorders of male genital organs] Onset: 10-26-2023 10-20-2023 Episodic Other and unspecified benign neoplasm (11 sources) History of polyp of colon; Translations: [Hx of colonic polyps] Onset: 09-28-2022 Resolved: 06-10-2024 06-10-2024 Episodic Other circulatory disease (1 source) Other specified symptoms and signs involving the circulatory and respiratory systems; Translations: [OTH SPEC SX SIGNS INVLV CIRC RS] Onset: 11-25-2021 Episodic Other diseases of veins and lymphatics (20 sources) Peripheral venous insufficiency; Translations: [Venous insufficiency (chronic) (peripheral)] Onset: 01-22-2020 06-10-2024 Episodic Other ear and sense organ disorders (11 sources) Bilateral hearing loss; Translations: [Conductive hearing loss, unilateral, left ear with restricted hearing on the contralateral side] Onset: 06-10-2024 Resolved: 06-18-2024 06-10-2024 Chronic Other gastrointestinal disorders (11 sources) History of diverticulitis; Translations: [Personal history of other diseases of the digestive system] Onset: 09-28-2022 Resolved: 06-10-2024 06-10-2024 Episodic Other lower respiratory disease (4 sources) Dyspnea, unspecified; Translations: [DYSPNEA UNSPECIFIED] Onset: 04-06-2022 Episodic Other lower respiratory disease (8 sources) Dyspnea on exertion; Translations: [Other forms of dyspnea] Onset: 03-22-2023 06-10-2024 Episodic Other skin disorders (4 sources) Localized swelling, mass and lump, neck; Translations: [LOCALIZED SWELLING MASS AND LUMP NECK] Onset: 04-20-2022 Episodic Unclassified (1 source) Cough R05.9 Onset: 02-12-2022 Resolved: 02-12-2022 Viral infection (1 source) COVID-19 Onset: 02-12-2022 Resolved: 02-12-2022 Results Test Name Value Interpretation Reference Range Facility Office Visiton 07-25-2024 Follow-up visit [id number] Jose J Evans 1960 M Date Provider Department Center 07/25/2024 [facility]MAR[facility]LE[facility] No family history on file Level of Service:39659 CO OFFICE/OUTPATIENT ESTABLISHED LOW MDM 20 MIN Normal [facility] Cult, Bloodon 06-23-2024 Cult, Blood Specimen Description .BLOOD Special Requests R AC 20ML Culture NO GROWTH 5 DAYS Report Status FINAL 06/23/2024 [facility] Comment on above: Performed By: #### C DP #### [facility] [address] [place] [address] [place] [address] Bait Man: Doug Juarez MD [facility],Bloodon 06-23-2024 [facility],Blood Specimen Description .BLOOD Special Requests L AC 20ML Culture NO GROWTH 5 DAYS Report Status FINAL 06/23/2024 [facility] Comment on above: Performed By: #### C DP #### [facility] [address] [place] [address] [place] [address] Bait Man: Doug Juarez MD Basic Metab w/rfx MGon 06-21 Anion gap [Moles/Vol] 7 mmol/L Low 9-16 [facility] Comment on above: Performed By: #### L ACDS #### [address] [place], [place] [id number] Bait Man: Doug Juarez MD Calcium [Mass/Vol] 8.7 mg/dL Normal 8.6-10.[address] [facility] Comment on above: Performed By: #### L ACDS #### [address] [place], [place] [id number] Bait Man: Doug Juarez MD Chloride [Moles/Vol] 107 mmol/L Normal 98-107 [facility] Comment on above: Performed By: #### L ACDS #### [address] [place], [place] [id number] Bait Man: Doug Juarez MD CO2 [Moles/Vol] 25 mmol/L Normal 20-31 [facility] Comment on above: Performed By: #### L ACDS #### [address] [place], [place] [id number] Bait Man: Doug Juarez MD Creatinine [Mass/Vol] 1.1 mg/dL Normal 0.70-1.20 [facility] Comment on above: Performed By: #### L ACDS #### [address] [place], [place] [id number] Bait Man: Doug Juarez MD Glucose [Mass/Vol] 107 mg/dL High 74-[address] [facility] Comment on above: Performed By: #### L ACDS #### [address] [place] [address] Bait Man: Doug Juarez MD Potassium [Moles/Vol] 4.9 mmol/L Normal 3.7-5.3 [facility] Comment on above: Performed By: #### L ACDS #### [address] [place] [id number] Bait Man: Doug Juarez MD Sodium [Moles/Vol] 139 mmol/L Normal 136-145 [facility] Comment on above: Performed By: #### L ACDS #### [facility] [address] [place] [id number] Bait Man: Doug Juarez MD Urea nitrogen [Mass/Vol] 21 mg/dL Normal 8-23 [facility] Comment on above: Performed By: #### L ACDS #### [facility] [address] [place] [id number] Bait Man: Doug Juarez MD BUN/CRE Ratio 19 Normal 9-20 [facility] Comment on above: Performed By: #### L ACDS #### [facility] [address] [place], [place] [id number] Bait Man: Doug Juarez MD GFR/1.73 sq M.predicted among non-blacks MDRD (S/P/Bld) [Vol rate/Area] 74 mL/min/{1.73_m2} Normal >60 [facility] Comment on above: Result Comment: These results are not intended for use in patients <18 years of age. eGFR results are calculated without a race factor using the 2020 CKD-EPI equation. Careful clinical correlation is recommended, particularly when comparing to results calculated using previous equations. The CKD-EPI equation is less accurate in patients with extremes of muscle mass, extra-renal metabolism of creatine, excessive creatine ingestion, or following therapy that affects renal tubular secretion. Performed By: #### L ACDS #### [facility] [address] [place], [place] [id number] Bait Man: Doug Juarez MD Basic Metabolic Panel w/ Ref ronald to MGon 06-21-2024 Est, Glom Filt Rate 74 - PINF [facility] Comment on above: These results are not intended for use in patients <18 years of age. eGFR results are calculated without a race factor using the 2020 CKD-EPI equation. Careful clinical correlation is recommended, particularly when comparing to results calculated using previous equations. The CKD-EPI equation is less accurate in patients with extremes of muscle mass, extra-renal metabolism of creatine, excessive creatine ingestion, or following therapy that affects renal tubular secretion. Interpretation and review of laboratory results Abnormal [facility] Urea nitrogen/Creatinine [Mass ratio] 19 mg/mg 9 - 20 [facility] CBC auto differentialon 06-03 0 Basophils (Bld) [#/Vol] [facility] Basophils/100 WBC (Bld) 0 % 0 - 2 % [facility] Eosinophils (Bld) [#/Vol] 0.15 10*3/uL [facility] [facility] E[facility]/100 WBC (Bld) 3 % 1 - 4 % [facility] Erythrocyte distribution width (RBC) [Ratio] 13.8 % 11.8 - 14.4 % [facility] Hematocrit (Bld) [Volume fraction] 37.1 % Low 40.7 - 50.3 % [facility] Hemoglobin (Bld) [Mass/Vol] 12.3 g/dL Low 13.0 - 17.0 g/dL [facility] Immature granulocytes (Bld) [#/Vol] [facility] Immature granulocytes/100 WBC (Bld) 0 % 0 [facility] Interpretation and review of laboratory results Abnormal [facility] Lymphocytes/100 WBC (Bld) 33 % 24 - 43 % [facility] Lymphocytes/100 WBC (Bld) 1.51 % [facility] MCH (RBC) [Entitic mass] 29.6 pg 25.2 - 33.5 pg [facility] MCHC (RBC) [Mass/Vol] 33.2 g/dL 28.4 - 34.8 g/dL [facility] MCV (RBC) [Entitic vol] 89.2 fL 82.6 - 102.9 fL [facility] Monocytes/100 WBC (Bld) 13 % High 3 - 12 % [facility] Monocytes/100 WBC (Bld) 0.59 % [facility] Neutrophils/100 WBC (Bld) 51 % 36 - 65 % [facility] Nucleated RBC/100 WBC (Bld) [Ratio] 0.0 % 0.0 per 100 WBC [facility] Platelet mean volume (Bld) [Entitic vol] 8.4 fL 8.1 - 13.5 fL [facility] Platelets (Bld) [#/Vol] 136 10*3/uL Low [facility] RBC (Bld) [#/Vol] 4.16 10*6/uL Low 4.21 - 5.7 7 m/uL [facility] Segmented neutrophils/100 WBC (Bld) 2.30 % [facility] WBC other (Bld) [#/Vol] 4.6 [facility] CBC with Diffon 06-21-2024 Abs. Basophil <0.03 Normal 0.00-0.20 [facility] Comment on above: Performed By: #### L ACDS #### [facility] [address] [place] [address] Dr. [place] [id number] Bait Man: Doug Juarez MD Abs.Imm.Granulocyte <0.03 Normal 0.00-0.30 [facility] Comment on above: Performed By: #### L ACDS #### [address] [place] [id number] Bait Man: Doug Juarez MD Abs.Neutrophil (Seg) 2.30 k/uL Normal 1.50-8.10 [facility] Comment on above: Performed By: #### L ACDS #### [facility] [address] [place] [address] Dr. [place] [id number] Bait Man: Doug Juarez MD Basophils/100 WBC (Bld) 0 % Normal 0-2 [facility] Comment on above: Performed By: #### L ACDS #### [address] [place] [id number] Bait Man: Doug Juarez MD Eosinophils (Bld) [#/Vol] 0.15 10*3/uL Normal 0.00-0.44 [facility] Comment on above: Performed By: #### L ACDS #### [facility] [address] [place], [place] [id number] Bait Man: Doug Juarez MD Eosinophils/100 WBC (Bld) 3 % Normal 1-4 [facility] Comment on above: Performed By: #### L ACDS #### [facility] [address] [place], [place] [id number] Bait Man: Doug Juarez MD Erythrocyte distribution width (RBC) [Ratio] 13.8 % Normal 11.8-14.4 [facility] Comment on above: Performed By: #### L ACDS #### [address] [place], [place] [id number] Bait Man: Doug Juarez MD Hematocrit (Bld) [Volume fraction] 37.1 % Low 40.7-50.3 [facility] Comment on above: Performed By: #### L ACDS #### [address] [place], [place] 1484683 Bait Man: Doug Juarez MD Hemoglobin (Bld) [Mass/Vol] 12.3 g/dL Low 13.0-17.0 [facility] Comment on above: Performed By: #### L ACDS #### [address] [place], [place] [id number] Bait Man: Doug Juarez MD Immature granulocytes/100 WBC (Bld) 0 % Normal 0 [facility] Comment on above: Performed By: #### L ACDS #### [address] [place] [address] Bait Man: Doug Juarez MD Lymphocytes (Bld) [#/Vol] 1.51 10*3/uL Normal 1.10-3.70 [facility] Comment on above: Performed By: #### L ACDS #### [address] [place] [address] Bait Man: Doug Juarez MD Lymphocytes/100 WBC (Bld) 33 % Normal 24-43 [facility] Comment on above: Performed By: #### L ACDS #### [facility] [address] [place], [place] [id number] Bait Man: Doug Juarez MD MCH (RBC) [Entitic mass] 29.6 pg Normal 25.2-33.5 [facility] Comment on above: Performed By: #### L ACDS #### [facility] [address] [place], [place] [id number] Bait Man: Doug Juarez MD MCHC (RBC) [Mass/Vol] 33.2 g/dL Normal 28.4-34.8 [facility] Comment on above: Performed By: #### L ACDS #### [facility] [address] [place] [address] Dr. [place], [facility]83 Bait Man: Doug Juarez MD MCV (RBC) [Entitic vol] 89.2 fL Normal 82.6-102.9 [facility] Comment on above: Performed By: #### L ACDS #### [address] [place], [place] 1518383 Bait Man: Doug Juarez MD Monocytes (Bld) [#/Vol] 0.59 10*3/uL Normal 0.10-1.20 [facility] Comment on above: Performed By: #### L ACDS #### [facility] [address] [place], [place] [id number] Bait Man: Doug Juarez MD Monocytes/100 WBC (Bld) 13 % High 3-12 [facility] Comment on above: Performed By: #### L ACDS #### [facility] [address] [place] [address] Bait Man: Doug Juarez MD Neutrophil (Seg) 51 % Normal 36-65 [facility] Comment on above: Performed By: #### L ACDS #### [facility] [address] [place], [place] [id number] Bait Man: Doug Juarez MD NRBC Automated 0.0 per 100 WBC Normal 0.0 [facility] Comment on above: Performed By: #### L ACDS #### [facility] [address] [place], [place] [id number] Bait Man: Doug Juarez MD Platelet mean volume (Bld) [Entitic vol] 8.4 fL Normal 8.1-13.5 [facility] Comment on above: Performed By: #### L ACDS #### [facility] [address] [place], [place] [id number] Bait Man: Doug Juarez MD Platelets (Bld) [#/Vol] 136 10*3/uL Low 138-453 [facility] Comment on above: Performed By: #### L ACDS #### [facility] [address] [place], [place] [id number] Bait Man: Doug Juarez MD RBC (Bld) [#/Vol] 4.16 10*6/uL Low 4.21-5.77 [facility] Comment on above: Performed By: #### L ACDS #### [facility] [address] [place], [place] [id number] Bait Man: Doug Juarez MD WBC (Bld) [#/Vol] 4.6 10*3/uL Normal 3.5-11.3 [facility] Comment on above: Performed By: #### L ACDS #### [facility] [address] [place] [address] Bait Man: Doug Juarez MD Glucose, Whole Bloodon 06-21 Glucose [Mass/Vol] 107 mg/dL High 74 - 100 mg/dL [facility] Interpretation and review of laboratory results Abnormal [facility] Glucose [Mass/Vol] 107 mg/dL High 74-100 [facility] Basic Metab w/rfx MGon 06-20 Anion gap [Moles/Vol] 7 mmol/L Low 9-16 [facility] Comment on above: Performed By: #### B MPX ####[facility] , [place] [id number] Lab Director: Doug Juarez MD BUN/CRE Ratio 22 High 9-20 [facility] Comment on above: Performed By: #### B MPX ####[facility] , [place] 1688183 Lab Director: Doug Juarez MD Calcium [Mass/Vol] 8.3 mg/dL Low 8.6-10.4 [facility] Comment on above: Performed By: #### B MPX ####[facility] , [place] 2770183 Lab Director: Doug Juarez MD Chloride [Moles/Vol] 106 mmol/L Normal 98-107 [facility] Comment on above: Performed By: #### B MPX ####[facility] , [place] 4834583 Lab Director: Doug Juarez MD CO2 [Moles/Vol] 24 mmol/L Normal 20-31 [facility] Comment on above: Performed By: #### B MPX ####[facility] , [place] 1649983 Lab Director: Doug Juarez MD Creatinine [Mass/Vol] 1.3 mg/dL High 0.70-1.20 [facility] Comment on above: Performed By: #### B MPX ####[facility] [place] [address] Lab Director: Doug uJarez MD GFR/1.73 sq M.predicted among non-blacks MDRD (S/P/Bld) [Vol rate/Area] 59 mL/min/{1.73_m2} Low >60 [facility] Comment on above: Result Comment: These results are not intended for use in patients <18 years of age. eGFR results are calculated without a race factor using the 2020 CKD-EPI equation. Careful clinical correlation is recommended, particularly when comparing to results calculated using previous equations. The CKD-EPI equation is less accurate in patients with extremes of muscle mass, extra-renal metabolism of creatine, excessive creatine ingestion, or following therapy that affects renal tubular secretion. Performed By: #### B MPX ####[address] [place] [address] Lab Director: Doug Juarez MD Glucose [Mass/Vol] 128 mg/dL High 74-99 [facility] Comment on above: Performed By: #### B MPX ####[address] , [place] 0691283 Lab Director: Doug Juarez MD Potassium [Moles/Vol] 5.0 mmol/L Normal 3.7-5.3 [facility] Comment on above: Performed By: #### B MPX ####[address] , [place] [id number] Lab Director: Doug Juarez MD Sodium [Moles/Vol] 137 mmol/L Normal 136-145 [facility] Comment on above: Performed By: #### B MPX ####[address] , [place] 6735083 Lab Director: Doug Juarez MD Urea nitrogen [Mass/Vol] 29 mg/dL High 8-23 [facility] Comment on above: Performed By: #### B MPX ####[address] [place] [address] Lab Director: Doug Juarez MD Basic Metabolic Panel w/ Ref ronald to MGon 06-20-2024 Anion gap [Moles/Vol] 7 mmol/L Low 9 - 16 mmol/L [facility] Calcium [Mass/Vol] 8.3 mg/dL Low 8.6 - 10. 4 mg/dL [facility] Chloride [Moles/Vol] 106 mmol/L 98 - 10 7 mmol/L [facility] CO2 [Moles/Vol] 24 mmol/L 20 - 31 mmol/L [facility] Creatinine [Mass/Vol] 1.3 mg/dL High 0.70 - 1.20 mg/dL [facility] EstLakhwindert Rate 59 Low - PINF [facility] Comment on above: These results are not intended for use in patients <18 years of age. eGFR results are calculated without a race factor using the 2020 CKD-EPI equation. Careful clinical correlation is recommended, particularly when comparing to results calculated using previous equations. The CKD-EPI equation is less accurate in patients with extremes of muscle mass, extra-renal metabolism of creatine, excessive creatine ingestion, or following therapy that affects renal tubular secretion. Glucose [Mass/Vol] 128 mg/dL High 74 - 99 mg/dL [facility] Interpretation and review of laboratory results Abnormal [facility] Potassium [Moles/Vol] 5.0 mmol/L 3.7 - 5.3 mmol/L [facility] Sodium [Moles/Vol] 137 mmol/L 136 - 145 mmol/L [facility] Urea nitrogen [Mass/Vol] 29 mg/dL High 8 - 23 mg/dL [facility] Urea nitrogen/Creatinine [Mass ratio] 22 mg/mg High 9 - 20 [facility] C-Reactive Proteinon 06-20-2 024 CRP High sensitivity method [Mass/Vol] 49.8 mg/L High 0.0 - 5.0 mg/L [facility] Interpretation and review of laboratory results Abnormal [facility] CRP [Mass/Vol] 49.8 mg/L High 0.0-5.0 [facility] Comment on above: Performed By: #### C RP ####[facility] [place] [address] , [place] [address] lab Director: Doug Juarez MD CBC auto differentialon 06-02 Basophils (Bld) [#/Vol] [facility] Basophils/100 WBC (Bld) 0 % 0 - 2 % [facility] Eosinophils (Bld) [#/Vol] 0.24 10*3/uL [facility] Eosinophils/100 WBC (Bld) 6 % High 1 - 4 % [facility] Erythrocyte distribution width (RBC) [Ratio] 14.0 % 11.8 - 14.4 % [facility] Hematocrit (Bld) [Volume fraction] 37.2 % Low 40.7 - 50.3 % [facility] Hemoglobin (Bld) [Mass/Vol] 12.4 g/dL Low 13.0 - 17.0 g/dL [facility] Immature granulocytes (Bld) [#/Vol] [facility] Immature granulocytes/100 WBC (Bld) 1 % High 0 [facility] Interpretation and review of laboratory results Abnormal [facility] Lymphocytes/100 WBC (Bld) 27 % 24 - 43 % [facility] Lymphocytes/100 WBC (Bld) 1.13 % [facility] MCH (RBC) [Entitic mass] 30.2 pg 25.2 - 33.5 pg [facility] MCHC (RBC) [Mass/Vol] 33.3 g/dL 28.4 - 34.8 g/dL [facility] MCV (RBC) [Entitic vol] 90.5 fL 82.6 - 102.9 fL [facility] Monocytes/100 WBC (Bld) 19 % High 3 - 12 % [facility] Monocytes/100 WBC (Bld) 0.79 % [facility] Neutrophils/100 WBC (Bld) 47 % 36 - 65 % [facility] Nucleated RBC/100 WBC (Bld) [Ratio] 0.0 % 0.0 per 100 WBC [facility] Platelet mean volume (Bld) [Entitic vol] 8.6 fL 8.1 - 13.5 fL [facility] Platelets (Bld) [#/Vol] 130 10*3/uL Low [facility] RBC (Bld) [#/Vol] 4.11 10*6/uL Low 4.21 - 5.7 7 m/uL [facility] Segmented neutrophils/100 WBC (Bld) 2.04 % [facility] WBC other (Bld) [#/Vol] 4.2 [facility] CBC with Diffon 06-20-2024 Abs. Basophil <0.03 Normal 0.00-0.20 [facility] Comment on above: Performed By: #### C DP #### [facility] [address] [place] [address] [place] [address] Bait Man: Doug Juarez MD Abs.Imm.Granulocyte <0.03 Normal 0.00-0.30 [facility] Comment on above: Performed By: #### C DP #### [address] [place], [place] [id number] Bait Man: Doug Juarez MD Abs.Neutrophil (Seg) 2.04 k/uL Normal 1.50-8.10 [facility] Comment on above: Performed By: #### C DP #### [address] [place], [place] 2254583 Bait Man: Doug Juarez MD Basophils/100 WBC (Bld) 0 % Normal 0-2 [facility] Comment on above: Performed By: #### C DP #### [facility] [address] [place] [address] Dr. [place], [place] [phone] Bait Man: Doug Juarez MD Eosinophils (Bld) [#/Vol] 0.24 10*3/uL Normal 0.00-0.44 [facility] Comment on above: Performed By: #### C DP #### [address] [place] [address] Bait Man: Doug Juarez MD Eosinophils/100 WBC (Bld) 6 % High 1-4 [facility] Comment on above: Performed By: #### C DP #### [facility] [address] [place], [place] [id number] Bait Man: Doug Juarez MD Erythrocyte distribution width (RBC) [Ratio] 14.0 % Normal 11.8-14.4 [facility] Comment on above: Performed By: #### C DP #### [facility] [address] [place], [place] [id number] Bait Man: Doug Juarez MD Hematocrit (Bld) [Volume fraction] 37.2 % Low 40.7-50.3 [facility] Comment on above: Performed By: #### C DP #### [address] [place], [place] 4849283 Bait Man: Doug Juarez MD Hemoglobin (Bld) [Mass/Vol] 12.4 g/dL Low 13.0-17.0 [facility] Comment on above: Performed By: #### C DP #### [facility] [address] [place] [address] Dr. [place], [facility]83 Bait Man: Doug Juarez MD Immature granulocytes/100 WBC (Bld) 1 % High 0 [facility] Comment on above: Performed By: #### C DP #### [address] [place], [place] [phone] Bait Man: Doug Juarez MD Lymphocytes (Bld) [#/Vol] 1.13 10*3/uL Normal 1.10-3.70 [facility] Comment on above: Performed By: #### C DP #### [facility] [address] [place], [place] 8652883 Bait Man: Doug Juarez MD Lymphocytes/100 WBC (Bld) 27 % Normal 24-43 [facility] Comment on above: Performed By: #### C DP #### [facility] [address] [place] [address] Bait Man: Doug Juarez MD MCH (RBC) [Entitic mass] 30.2 pg Normal 25.2-33.5 [facility] Comment on above: Performed By: #### C DP #### [facility] [address] [place] [phone] Bait Man: Doug Juarez MD MCHC (RBC) [Mass/Vol] 33.3 g/dL Normal 28.4-34.8 [facility] Comment on above: Performed By: #### C DP #### [facility] [address] [place] [phone] Bait Man: Doug Juarez MD MCV (RBC) [Entitic vol] 90.5 fL Normal 82.6-102.9 [facility] Comment on above: Performed By: #### C DP #### [address] [place] [phone] Bait Man: Doug Juarez MD Monocytes (Bld) [#/Vol] 0.79 10*3/uL Normal 0.10-1.20 [facility] Comment on above: Performed By: #### C DP #### [address] [place] [id number] Bait Man: Doug Juarez MD Monocytes/100 WBC (Bld) 19 % High 3-12 [facility] Comment on above: Performed By: #### C DP #### [address] [place], [facility]83 Bait Man: Doug Juarez MD Neutrophil (Seg) 47 % Normal 36-65 [facility] Comment on above: Performed By: #### C DP #### [address] [place] [id number] Bait Man: Doug Juarez MD NRBC Automated 0.0 per 100 WBC Normal 0.0 [facility] Comment on above: Performed By: #### C DP #### [address] [place] [address] Bait Man: Doug Juarez MD Platelet mean volume (Bld) [Entitic vol] 8.6 fL Normal 8.1-13.5 [facility] Comment on above: Performed By: #### C DP #### [facility] [address] [place] [address] Bait Man: Doug Juarez MD Platelets (Bld) [#/Vol] 130 10*3/uL Low 138-453 [facility] Comment on above: Performed By: #### C DP #### [facility] [address] [place] [address] Bait Man: Doug Juarez MD RBC (Bld) [#/Vol] 4.11 10*6/uL Low 4.21-5.77 [facility] Comment on above: Performed By: #### C DP #### [facility] [address] [place], [facility]83 Bait Man: Doug Juarez MD WBC (Bld) [#/Vol] 4.2 10*3/uL Normal 3.5-11.3 [facility] Comment on above: Performed By: #### C DP #### [facility] [address] [place] [address] Bait Man: Doug Juarez MD EKG Rhythm Stripon 4 sinus shanika [facility] Glucose, Whole Bloodon 06-20 Glucose [Mass/Vol] 314 mg/dL High 74 - 100 mg/dL [facility] Interpretation and review of laboratory results Abnormal [facility] Glucose [Mass/Vol] 314 mg/dL High 74-100 [facility] Glucose [Mass/Vol] 288 mg/dL High 74 - 100 mg/dL [facility] Interpretation and review of laboratory results Abnormal [facility] Glucose [Mass/Vol] 288 mg/dL High 74-100 [facility] Glucose [Mass/Vol] 199 mg/dL High 74 - 100 mg/dL [facility] Interpretation and review of laboratory results Abnormal [facility] Glucose [Mass/Vol] 199 mg/dL High 74-100 [facility] Glucose [Mass/Vol] 115 mg/dL High 74 - 100 mg/dL [facility] Interpretation and review of laboratory results Abnormal [facility] Glucose [Mass/Vol] 115 mg/dL High 74-100 [facility] CBC auto differentialon 06-02 Basophils (Bld) [#/Vol] 0.00 10*3/uL [facility] Basophils/100 WBC (Bld) 0 % 0 - 2 % [facility] Eosinophils (Bld) [#/Vol] 0.04 10*3/uL [facility] Eosinophils/100 WBC (Bld) 1 % 1 - 4 % [facility] Erythrocyte distribution width (RBC) [Ratio] 14.0 % 11.8 - 14.4 % [facility] Hematocrit (Bld) [Volume fraction] 38.2 % Low 40.7 - 50.3 % [facility] Hemoglobin (Bld) [Mass/Vol] 13.0 g/dL 13.0 - 17.0 g/dL [facility] Immature granulocytes (Bld) [#/Vol] 0.00 10*3/uL [facility] Immature granulocytes/100 WBC (Bld) 0 % 0 [facility] Interpretation and review of laboratory results Abnormal [facility] Lymphocytes/100 WBC (Bld) 9 % Low 24 - 43 % [facility] Lymphocytes/100 WBC (Bld) 0.33 % Low [facility] MCH (RBC) [Entitic mass] 30.7 pg 25.2 - 33.5 pg [facility] MCHC (RBC) [Mass/Vol] 34.0 g/dL 28.4 - 34.8 g/dL [facility] MCV (RBC) [Entitic vol] 90.1 fL 82.6 - 102.9 fL [facility] Monocytes/100 WBC (Bld) 6 % 3 - 12 % [facility] Monocytes/100 WBC (Bld) 0.22 % [facility] Morphology Ang (Bld) [Interp] Platelet scan shows Normal Platelets [facility] Neutrophils/100 WBC (Bld) 84 % High 36 - 65 % [facility] Nucleated RBC/100 WBC (Bld) [Ratio] 0.0 % 0.0 per 100 WBC [facility] Platelet mean volume (Bld) [Entitic vol] 8.4 fL 8.1 - 13.5 fL [facility] Platelets (Bld) [#/Vol] 115 10*3/uL Low [facility] RBC (Bld) [#/Vol] 4.24 10*6/uL 4.21 - 5.7 7 m/uL [facility] Segmented neutrophils/100 WBC (Bld) 3.11 % [facility] WBC other (Bld) [#/Vol] 3.7 [facility] CBC with Diffon 06-19-2024 Abs. Basophil 0.00 k/uL Normal 0.0-0.2 [facility] Comment on above: Performed By: #### V NCR, CMPX, CDP ####[address] [place] [address] Lab Director: Doug Juarez MD Abs.Imm.Granulocyte 0.00 k/uL Normal 0.00-0.30 [facility] Comment on above: Performed By: #### V NCR, CMPX, CDP ####[facility] [place] [address] Lab Director: Doug Juarez MD Abs.Neutrophil (Seg) 3.11 k/uL Normal 1.50-8.10 [facility] Comment on above: Performed By: #### V NCR, CMPX, CDP ####[facility] , [place] [id number] Lab Director: Doug Juarez MD Basophils/100 WBC (Bld) 0 % Normal 0-2 [facility] Comment on above: Performed By: #### V NCR, CMPX, CDP ####[address] , [place] [id number] Lab Director: Doug Juarez MD Eosinophils (Bld) [#/Vol] 0.04 10*3/uL Normal 0.00-0.44 [facility] Comment on above: Performed By: #### V NCR, CMPX, CDP ####[address] , [facility]83 Lab Director: Doug Juarez MD Eosinophils/100 WBC (Bld) 1 % Normal 1-4 [facility] Comment on above: Performed By: #### V NCR, CMPX, CDP ####[address] , [facility]83 Lab Director: Doug Juarez MD Immature granulocytes/100 WBC (Bld) 0 % Normal 0 [facility] Comment on above: Performed By: #### V NCR, CMPX, CDP ####[address] , [facility]83 Lab Director: Doug Juarez MD Lymphocytes (Bld) [#/Vol] 0.33 10*3/uL Low 1.10-3.70 [facility] Comment on above: Performed By: #### V NCR, CMPX, CDP ####[address] [place] [address] Lab Director: Doug Juarez MD Lymphocytes/100 WBC (Bld) 9 % Low 24-43 [facility] Comment on above: Performed By: #### V NCR, CMPX, CDP ####[address] , [place] [id number] Lab Director: Doug Juarez MD Monocytes (Bld) [#/Vol] 0.22 10*3/uL Normal 0.10-1.20 [facility] Comment on above: Performed By: #### V NCR, CMPX, CDP ####[address] [place] [address] Lab Director: Doug Juarez MD Monocytes/100 WBC (Bld) 6 % Normal 3-12 [facility] Comment on above: Performed By: #### V NCR, CMPX, CDP ####[address] [place] [address] Lab Director: Doug Juarez MD Morphology Ang (Bld) [Interp] Platelet scan shows Normal Platelets Normal [facility] Comment on above: Performed By: #### V NCR, CMPX, CDP ####[address] [place] [address] Lab Director: Doug Juarez MD Neutrophil (Seg) 84 % High 36-65 [facility] Comment on above: Performed By: #### V NCR, CMPX, CDP ####[address] [place] [address] Lab Director: Doug Juarez MD Erythrocyte distribution width (RBC) [Ratio] 14.0 % Normal 11.8-14.4 [facility] Comment on above: Performed By: #### V NCR, CMPX, CDP ####[address] [place] [address] Lab Director: Doug Juarez MD Hematocrit (Bld) [Volume fraction] 38.2 % Low 40.7-50.3 [facility] Comment on above: Performed By: #### V NCR, CMPX, CDP ####[address] , [place] [id number] Lab Director: Doug Juarez MD Hemoglobin (Bld) [Mass/Vol] 13.0 g/dL Normal 13.0-17.0 [facility] Comment on above: Performed By: #### V NCR, CMPX, CDP ####[address] [place] [address] Lab Director: Doug Juarez MD MCH (RBC) [Entitic mass] 30.7 pg Normal 25.2-33.5 [facility] Comment on above: Performed By: #### V NCR, CMPX, CDP ####[address] , [facility]83 Lab Director: Doug Juarez MD MCHC (RBC) [Mass/Vol] 34.0 g/dL Normal 28.4-34.8 [facility] Comment on above: Performed By: #### V NCR, CMPX, CDP ####[address] , [facility]83 Lab Director: Doug Juarez MD MCV (RBC) [Entitic vol] 90.1 fL Normal 82.6-102.9 [facility] Comment on above: Performed By: #### V NCR, CMPX, CDP ####[address] , [facility]83 Lab Director: Doug Juarez MD NRBC Automated 0.0 per 100 WBC Normal 0.0 [facility] Comment on above: Performed By: #### V NCR, CMPX, CDP ####[address] , [place] [address])[phone] Director: Doug Juarez MD Platelet mean volume (Bld) [Entitic vol] 8.4 fL Normal 8.1-13.5 [facility] Comment on above: Performed By: #### V NCR, CMPX, CDP ####[address] , [place] [id number] Lab Director: Doug Juarez MD Platelets (Bld) [#/Vol] 115 10*3/uL Low 138-453 [facility] Comment on above: Performed By: #### V NCR, CMPX, CDP ####[address] [place] [address] Lab Director: Doug Juarez MD RBC (Bld) [#/Vol] 4.24 10*6/uL Normal 4.21-5.77 [facility] Comment on above: Performed By: #### V NCR, CMPX, CDP ####[address] [place] [address] Lab Director: Doug Juarez MD WBC (Bld) [#/Vol] 3.7 10*3/uL Normal 3.5-11.3 [facility] Comment on above: Performed By: #### V NCR, CMPX, CDP ####[address] , [place] [id number] Lab Director: Doug Juarez MD Comp Metabolic Pr/rfx MGon 1 - Albumin [Mass/Vol] 3.1 g/dL Low 3.5-5.2 [facility] Comment on above: Performed By: #### V NCR, CMPX, CDP ####[address] , [place] [id number] Lab Director: Doug Juarez MD Albumin/Glob Ratio 1.0 Normal 1.0-2.5 [facility] Comment on above: Performed By: #### V NCR, CMPX, CDP ####[address] , [place] [id number] Lab Director: Doug Juarez MD Alkaline Phos 68 U/L Normal 40-129 [facility] Comment on above: Performed By: #### V NCR, CMPX, CDP ####[address] , [place] [id number] Lab Director: Doug Juarez MD ALT [Catalytic activity/Vol] 13 U/L Normal 10-50 [facility] Comment on above: Performed By: #### V NCR, CMPX, CDP ####[address] , [place] [id number] Lab Director: Doug Juarez MD Anion gap [Moles/Vol] 9 mmol/L Normal 9-16 [facility] Comment on above: Performed By: #### V NCR, CMPX, CDP ####[facility] [place] , [place] [address]83 Lab Director: Doug Juarez MD AST [Catalytic activity/Vol] 19 U/L Normal 10-50 [facility] Comment on above: Performed By: #### V NCR, CMPX, CDP ####[address] , [place] [id number] Lab Director: Doug Juarez MD Bilirubin [Mass/Vol] 0.5 mg/dL Normal 0.00-1.20 [facility] Comment on above: Performed By: #### V NCR, CMPX, CDP ####[address] , [place] [id number] Lab Director: Doug Juarez MD BUN/CRE Ratio 22 High 9-20 [facility] Comment on above: Performed By: #### V NCR, CMPX, CDP ####[address] [place] [address] Lab Director: Doug Juarez MD Calcium [Mass/Vol] 8.1 mg/dL Low 8.6-10.4 [facility] Comment on above: Performed By: #### V NCR, CMPX, CDP ####[address] , [place] [id number] Lab Director: Doug Juarez MD Chloride [Moles/Vol] 100 mmol/L Normal 98-107 [facility] Comment on above: Performed By: #### V NCR, CMPX, CDP ####[address] [place] [address] lab Director: Doug Juarez MD CO2 [Moles/Vol] 24 mmol/L Normal 20-31 [facility] Comment on above: Performed By: #### V NCR, CMPX, CDP ####[address] [place] [address] lab Director: Doug Juarez MD Creatinine [Mass/Vol] 1.9 mg/dL High 0.70-1.20 [facility] Comment on above: Performed By: #### V NCR, CMPX, CDP ####[address] [place] [address] lab Director: Doug Juarez MD GFR/1.73 sq M.predicted among non-blacks MDRD (S/P/Bld) [Vol rate/Area] 38 mL/min/{1.73_m2} Low >60 [facility] Comment on above: Result Comment: These results are not intended for use in patients <18 years of age. eGFR results are calculated without a race factor using the 2020 CKD-EPI equation. Careful clinical correlation is recommended, particularly when comparing to results calculated using previous equations. The CKD-EPI equation is less accurate in patients with extremes of muscle mass, extra-renal metabolism of creatine, excessive creatine ingestion, or following therapy that affects renal tubular secretion. Performed By: #### V NCR, CMPX, CDP ####[address] [place] [address] lab Director: Doug Juarez MD Glucose [Mass/Vol] 190 mg/dL High 74-99 [facility] Comment on above: Performed By: #### V NCR, CMPX, CDP ####[address] [place] [address] lab Director: Doug Juarez MD Potassium [Moles/Vol] 4.5 mmol/L Normal 3.7-5.3 [facility] Comment on above: Performed By: #### V NCR, CMPX, CDP ####[address] [place] [address] [facility] Director: Doug Juarez MD Protein [Mass/Vol] 6.3 g/dL Low 6.6-8.7 [facility] Comment on above: Performed By: #### V NCR, CMPX, CDP ####[facility] [place] , [place] [id number] lab Director: Doug Juarez MD Sodium [Moles/Vol] 133 mmol/L Low 136-145 [facility] Comment on above: Performed By: #### V NCR, CMPX, CDP ####[facility] [place] [address] lab Director: Doug Juarez MD Urea nitrogen [Mass/Vol] 42 mg/dL High 8-23 [facility] Comment on above: Performed By: #### V NCR, CMPX, CDP ####[facility] [place] , [facility]83 lab Director: Doug Juarez MD Comprehensive Metabolic Pane l w/ Reflex to MGon 06-19-2024 Albumin [Mass/Vol] 3.1 g/dL Low 3.5 - 5.2 g/dL [facility] Albumin/Globulin [Mass ratio] 1.0 {ratio} 1.0 - 2.5 [facility] ALP [Catalytic activity/Vol] 68 U/L 40 - 129 U/L [facility] ALT [Catalytic activity/Vol] 13 U/L 10 - 50 U/L [facility] Anion gap [Moles/Vol] 9 mmol/L 9 - 16 mmol/L [facility] AST [Catalytic activity/Vol] 19 U/L 10 - 50 U/L [facility] Bilirubin [Mass/Vol] 0.5 mg/dL 0.00 - 1.20 mg/dL [facility] Calcium [Mass/Vol] 8.1 mg/dL Low 8.6 - 10. 4 mg/dL [facility] Chloride [Moles/Vol] 100 mmol/L 98 - 10 7 mmol/L [facility] CO2 [Moles/Vol] 24 mmol/L 20 - 31 mmol/L [facility] Creatinine [Mass/Vol] 1.9 mg/dL High 0.70 - 1.20 mg/dL [facility] Lakhwinder Dunbar Rate 38 Low - PINF [facility] Comment on above: These results are not intended for use in patients <18 years of age. eGFR results are calculated without a race factor using the 2020 CKD-EPI equation. Careful clinical correlation is recommended, particularly when comparing to results calculated using previous equations. The CKD-EPI equation is less accurate in patients with extremes of muscle mass, extra-renal metabolism of creatine, excessive creatine ingestion, or following therapy that affects renal tubular secretion. Glucose [Mass/Vol] 190 mg/dL High 74 - 99 mg/dL [facility] Interpretation and review of laboratory results Abnormal [facility] Potassium [Moles/Vol] 4.5 mmol/L 3.7 - 5.3 mmol/L [facility] Protein [Mass/Vol] 6.3 g/dL Low 6.6 - 8.7 g/dL [facility] Sodium [Moles/Vol] 133 mmol/L Low 136 - 145 mmol/L [facility] Urea nitrogen [Mass/Vol] 42 mg/dL High 8 - 23 mg/dL [facility] Urea nitrogen/Creatinine [Mass ratio] 22 mg/mg High 9 - 20 [facility] Cult,Woundon 06-19-2024 Cult,Wound Specimen Description .LEG LEFT SWAB Direct Exam MANY NEUTROPHILS MANY GRAM POSITIVE COCCI IN PAIRS AND IN CHAINS MODERATE GRAM NEGATIVE RODS Culture NORMAL SKIN SARAH Report Status FINAL 06/19/2024 Normal [facility] Comment on above: Performed By: #### C DP #### [facility] [address] [place] [address] Bait Man: Doug Juarez MD EKG Rhythm Stripon 4 [facility] [address] [facility] Glucose, Whole Bloodon 06-19 Glucose [Mass/Vol] 289 mg/dL High 74 - 100 mg/dL [facility] Interpretation and review of laboratory results Abnormal [facility] Glucose [Mass/Vol] 289 mg/dL High 74-100 [facility] Glucose [Mass/Vol] 282 mg/dL High 74 - 100 mg/dL [facility] Interpretation and review of laboratory results Abnormal [facility] Glucose [Mass/Vol] 282 mg/dL High 74-100 [facility] Glucose [Mass/Vol] 285 mg/dL High 74 - 100 mg/dL [facility] Interpretation and review of laboratory results Abnormal [facility] Glucose [Mass/Vol] 285 mg/dL High 74-100 [facility] Glucose [Mass/Vol] 201 mg/dL High 74 - 100 mg/dL [facility] Interpretation and review of laboratory results Abnormal [facility] Glucose [Mass/Vol] 201 mg/dL High 74-100 [facility] Vancomycin Level, Randomon 1 08-20-2023 Vancomycin [Mass/Vol] 9.1 ug/mL 5.0 - 40.0 ug/mL [facility] Comment on above: Higher trough serum vancomycin concentrations of 15-20 ug/mL are recommended for complicated infections such as bacteremia, endocarditis, osteomyelitis, meningitis, and hospital acquired pneumonia. [facility] Vancomycin,Randomon 06-19-20 24 Vancomycin 9.1 ug/mL Normal 5.0-40.0 [facility] Comment on above: Result Comment: High er trough serum vancomycin concentrations of 15-20 ug/mL are recommended for complicated infections such as bacteremia, endocarditis, osteomyelitis, meningitis, and hospital acquired pneumonia. Performed By: #### V NCR, CMPX, CDP ####[facility] [place] [address] lab Director: Doug Juarez MD Basic Metabolic Panelon 06-02 Anion gap [Moles/Vol] 10 mmol/L 9 - 16 mmol/L [facility] Calcium [Mass/Vol] 7.6 mg/dL Low 8.6 - 10. 4 mg/dL [facility] Chloride [Moles/Vol] 97 mmol/L Low 98 - 10 7 mmol/L [facility] CO2 [Moles/Vol] 22 mmol/L 20 - 31 mmol/L [facility] Creatinine [Mass/Vol] 2.3 mg/dL High 0.70 - 1.20 mg/dL [facility] Est, Glom Filt Rate 31 Low - PINF [facility] Comment on above: These results are not intended for use in patients <18 years of age. eGFR results are calculated without a race factor using the 2020 CKD-EPI equation. Careful clinical correlation is recommended, particularly when comparing to results calculated using previous equations. The CKD-EPI equation is less accurate in patients with extremes of muscle mass, extra-renal metabolism of creatine, excessive creatine ingestion, or following therapy that affects renal tubular secretion. Glucose [Mass/Vol] 292 mg/dL High 74 - 99 mg/dL [facility] Potassium [Moles/Vol] 4.8 mmol/L 3.7 - 5.3 mmol/L [facility] Sodium [Moles/Vol] 129 mmol/L Low 136 - 145 mmol/L [facility] Urea nitrogen [Mass/Vol] 44 mg/dL High 8 - 23 mg/dL [facility] Urea nitrogen/Creatinine [Mass ratio] 19 mg/mg - [facility] Basic Metabolic Profon 06-18 Anion gap [Moles/Vol] 10 mmol/L Normal -16 [facility] Comment on above: Performed By: #### C DP #### [facility] [address] [place] [address] Bait Man: Doug Juarez MD BUN/CRE Ratio 19 Normal - [facility] Comment on above: Performed By: #### C DP #### [facility] [address] [place] [address] Bait Man: Doug Juarez MD Calcium [Mass/Vol] 7.6 mg/dL Low 8.6-10.4 [facility] Comment on above: Performed By: #### C DP #### [facility] [address] [place] [address] Bait Man: Doug Juarez MD Chloride [Moles/Vol] 97 mmol/L Low 98-107 [facility] Comment on above: Performed By: #### C DP #### [facility] [address] [place] [address] Bait Man: Doug Juarez MD CO2 [Moles/Vol] 22 mmol/L Normal 20-31 [facility] Comment on above: Performed By: #### C DP #### [facility] [address] [place] [address] Bait Man: Doug Juarez MD Creatinine [Mass/Vol] 2.3 mg/dL High 0.70-1.20 [facility] Comment on above: Performed By: #### C DP #### [facility] [address] [place] [address] Bait Man: Doug Juarez MD GFR/1.73 sq M.predicted among non-blacks MDRD (S/P/Bld) [Vol rate/Area] 31 mL/min/{1.73_m2} Low >60 [facility] Comment on above: Result Comment: These results are not intended for use in patients <18 years of age. eGFR results are calculated without a race factor using the 2020 CKD-EPI equation. Careful clinical correlation is recommended, particularly when comparing to results calculated using previous equations. The CKD-EPI equation is less accurate in patients with extremes of muscle mass, extra-renal metabolism of creatine, excessive creatine ingestion, or following therapy that affects renal tubular secretion. Performed By: #### C DP #### [facility] [address] [place] [address] Bait Man: Doug Juarez MD Glucose [Mass/Vol] 292 mg/dL High 74-99 [facility] Comment on above: Performed By: #### C DP #### [facility] [address] [place] [address] Bait Man: Doug Juarez MD Potassium [Moles/Vol] 4.8 mmol/L Normal 3.7-5.3 [facility] Comment on above: Performed By: #### C DP #### [facility] [address] [place], [place] [id number] Bait Man: Doug Juarez MD Sodium [Moles/Vol] 129 mmol/L Low 136-145 [facility] Comment on above: Performed By: #### C DP #### [facility] [address] [place] [address] Bait Man: Doug Juarez MD Urea nitrogen [Mass/Vol] 44 mg/dL High 8-23 [facility] Comment on above: Performed By: #### C DP #### [facility] [address] [place], [facility]83 Bait Man: Doug Juarez MD C-Reactive Proteinon CRP High sensitivity method [Mass/Vol] 138.0 mg/L High 0.0 - 5.0 mg/L [facility] CRP [Mass/Vol] 138.0 mg/L High 0.0-5.0 [facility] Comment on above: Performed By: #### C DP, TROPI, SED, CRP, CP #### [facility] [address] [place], [facility]83 Bait Man: Doug Juarez MD CBC with Auto Differentialon 06-18-2024 Basophils (Bld) [#/Vol] 0.00 10*3/uL [facility] Basophils/100 WBC (Bld) 0 % 0 - 2 % [facility] Eosinophils (Bld) [#/Vol] 0.00 10*3/uL [facility] Eosinophils/100 WBC (Bld) 0 % Low 1 - 4 % [facility] Erythrocyte distribution width (RBC) [Ratio] 13.5 % 11.8 - 14.4 % [facility] Hematocrit (Bld) [Volume fraction] 43.7 % 40.7 - 50.3 % [facility] Hemoglobin (Bld) [Mass/Vol] 15.1 g/dL 13.0 - 17.0 g/dL [facility] Immature granulocytes (Bld) [#/Vol] 0.08 10*3/uL [facility] Immature granulocytes/100 WBC (Bld) 1 % High 0 [facility] Interpretation and review of laboratory results Abnormal [facility] Lymphocytes/100 WBC (Bld) 2 % Low 24 - 43 % [facility] Lymphocytes/100 WBC (Bld) 0.15 % Low [facility] MCH (RBC) [Entitic mass] 30.4 pg 25.2 - 33.5 pg [facility] MCHC (RBC) [Mass/Vol] 34.6 g/dL 28.4 - 34.8 g/dL [facility] MCV (RBC) [Entitic vol] 88.1 fL 82.6 - 102.9 fL [facility] Monocytes/100 WBC (Bld) 5 % 3 - 12 % [facility] Monocytes/100 WBC (Bld) 0.39 % [facility] Morphology Ang (Bld) [Interp] Normal [facility] Neutrophils/100 WBC (Bld) 92 % High 36 - 65 % [facility] Nucleated RBC/100 WBC (Bld) [Ratio] 0.0 % 0.0 per 100 WBC [facility] Platelet mean volume (Bld) [Entitic vol] 8.8 fL 8.1 - 13.5 fL [facility] Platelets (Bld) [#/Vol] 180 10*3/uL [facility] RBC (Bld) [#/Vol] 4.96 10*6/uL 4.21 - 5.7 7 m/uL [facility] Segmented neutrophils/100 WBC (Bld) 7.08 % [facility] WBC other (Bld) [#/Vol] 7.7 [facility] CBC with Diffon 06-18-2024 Abs. Basophil 0.00 k/uL Normal 0.0-0.2 [facility] Comment on above: Performed By: #### L ACDS #### [facility] [address] [place] [address] Bait Man: Doug Juarez MD Abs.Imm.Granulocyte 0.08 k/uL Normal 0.00-0.30 [facility] Comment on above: Performed By: #### L ACDS #### [facility] [address] [place], [facility]83 Bait Man: Doug Juarez MD Abs.Neutrophil (Seg) 7.08 k/uL Normal 1.50-8.10 [facility] Comment on above: Performed By: #### L ACDS #### [address] [place], [facility]83 Bait Man: Doug Juarez MD Basophils/100 WBC (Bld) 0 % Normal 0-2 [facility] Comment on above: Performed By: #### L ACDS #### [address] [place], [facility]83 Bait Man: Doug Juarez MD Eosinophils (Bld) [#/Vol] 0.00 10*3/uL Normal 0.00-0.44 [facility] Comment on above: Performed By: #### L ACDS #### [facility] [address] [place] [address] Dr[address] [place], [facility]83 Bait Man: Doug Juarez MD Eosinophils/100 WBC (Bld) 0 % Low 1-4 [facility] Comment on above: Performed By: #### L ACDS #### [address] [place] [address] Bait Man: Doug Juarez MD Immature granulocytes/100 WBC (Bld) 1 % High 0 [facility] Comment on above: Performed By: #### L ACDS #### [facility] [address] [place], [place] [id number] Bait Man: Doug Juarez MD Lymphocytes (Bld) [#/Vol] 0.15 10*3/uL Low 1.10-3.70 [facility] Comment on above: Performed By: #### L ACDS #### [facility] [address] [place], [place] [id number] Bait Man: Doug Juarez MD Lymphocytes/100 WBC (Bld) 2 % Low 24-43 [facility] Comment on above: Performed By: #### L ACDS #### [facility] [address] [place], [place] [address] Bait Man: Doug Juarez MD Monocytes (Bld) [#/Vol] 0.39 10*3/uL Normal 0.10-1.20 [facility] Comment on above: Performed By: #### L ACDS #### [facility] [address] [place], [place] [id number] Bait Man: Doug Juarez MD Monocytes/100 WBC (Bld) 5 % Normal 3-12 [facility] Comment on above: Performed By: #### L ACDS #### [facility] [address] [place], [place] [id number] Bait Man: Doug Juarez MD Morphology Ang (Bld) [Interp] Normal Normal [facility] Comment on above: Performed By: #### L ACDS #### [facility] [address] [place], [place] [id number] Bait Man: Doug Juarez MD Neutrophil (Seg) 92 % High 36-65 [facility] Comment on above: Performed By: #### L ACDS #### [facility] [address] [place], [place] [id number] Bait Man: Doug Juarez MD Erythrocyte distribution width (RBC) [Ratio] 13.5 % Normal 11.8-14.4 [facility] Comment on above: Performed By: #### L ACDS #### [address] [place], [facility]83 Bait Man: Doug Juarez MD Hematocrit (Bld) [Volume fraction] 43.7 % Normal 40.7-50.3 [facility] Comment on above: Performed By: #### L ACDS #### [address] [place], [facility]83 Bait Man: Doug Juarez MD Hemoglobin (Bld) [Mass/Vol] 15.1 g/dL Normal 13.0-17.0 [facility] Comment on above: Performed By: #### L ACDS #### [address] [place], [facility]83 Bait Man: Doug Juarez MD MCH (RBC) [Entitic mass] 30.4 pg Normal 25.2-33.5 [facility] Comment on above: Performed By: #### L ACDS #### [address] [place] [address] Bait Man: Doug Juarez MD MCHC (RBC) [Mass/Vol] 34.6 g/dL Normal 28.4-34.8 [facility] Comment on above: Performed By: #### L ACDS #### [address] [place], [facility]83 Bait Man: Doug Juarze MD MCV (RBC) [Entitic vol] 88.1 fL Normal 82.6-102.9 [facility] Comment on above: Performed By: #### L ACDS #### [address] [place] [address] Bait Man: Doug Juarez MD NRBC Automated 0.0 per 100 WBC Normal 0.0 [facility] Comment on above: Performed By: #### L ACDS #### [facility] [address] [place], [place] [id number] Bait Man: Doug Juarez MD Platelet mean volume (Bld) [Entitic vol] 8.8 fL Normal 8.1-13.5 [facility] Comment on above: Performed By: #### L ACDS #### [address] [place], [place] [id number] Bait Man: Doug Juarez MD Platelets (Bld) [#/Vol] 180 10*3/uL Normal 138-453 [facility] Comment on above: Performed By: #### L ACDS #### [address] [place], [place] 937[address]83 Bait Man: Doug Juarez MD RBC (Bld) [#/Vol] 4.96 10*6/uL Normal 4.21-5.77 [facility] Comment on above: Performed By: #### L ACDS #### [address] [place], [place] [id number] Bait Man: Doug Juarez MD WBC (Bld) [#/Vol] 7.7 10*3/uL Normal 3.5-11.3 [facility] Comment on above: Performed By: #### L ACDS #### [address] [place], [place] [id number] Bait Man: Doug Juarez MD CT ABDOMEN PELVIS W IV CONTR Rosa Elena 06-18-2024 CT ABDOMEN PELVIS W IV CONTRAST EXAMINATION: CT OF THE ABDOMEN AND PELVIS WITH CONTRAST 06/18/2024 1:47 pm TECHNIQUE: CT of the abdomen and pelvis was performed with the administration of intravenous contrast. Multiplanar reformatted images are provided for review. Automated exposure control, iterative reconstruction, and/or weight based adjustment of the mA/kV was utilized to reduce the radiation dose to as low as reasonably achievable. COMPARISON: None. HISTORY: ORDERING SYSTEM PROVIDED HISTORY: groin abscess- TECHNOLOGIST PROVIDED HISTORY: pls scan low to include groin and upper thigh groin abscess- Decision Support Exception - unselect if not a suspected or confirmed emergency medical condition->Emergency Medical Condition (MA) FINDINGS: Lower Chest: Lung bases are clear. Organs: Liver is normal in size and density. No focal masses identified. No evidence of intrahepatic ductal dilatation. Spleen is normal size. The gallbladder is unremarkable. Both adrenal glands are normal. Pancreas is normal in appearance. Couple of right renal cysts. No follow-up imaging of the cysts is required.. The kidneys are normal in size and attenuation without evidence of hydronephrosis or renal calculi. GI/Bowel: The visualized bowel and mesentery show no mass lesions. Pelvis: No intrapelvic mass is identified. Bladder and rectum are intact. Peritoneum/Retroperi toneum: No free fluid. No lymphadenopathy. No evidence of pneumoperitoneum. Bones/Soft Tissues: Multiple left inguinal lymph nodes measuring up to 2.5 cm. Inflammatory/edemato us changes seen in the subcutaneous tissues of the medial left upper thigh.. Small fat containing umbilical hernia. Degenerative changes seen in the visualized spine. Spondylolysis at L5. No acute bony abnormalities. IMPRESSION: 1. Inflammatory/edemato us changes seen in the subcutaneous tissues of the medial left upper thigh suggesting cellulitis. No drainable fluid collection. 2. Multiple left inguinal lymph nodes measuring up to 2.5 cm, probably reactive. 3. No acute intra-abdominal or intrapelvic abnormalities. Interpreted by: Everardo Farnsworth MD Signed by: Everardo Farnsworth MD 06/18/24 Final result Normal [facility] CT Abdomen and Pelvis W cont rast James 06-18-2024 1. Inflammatory/edemato us changes seen in the subcutaneous tissues of the medial left upper thigh suggesting cellulitis. No drainable fluid collection. 2. Multiple left inguinal lymph nodes measuring up to 2.5 cm, probably reactive. 3. No acute intra-abdominal or intrapelvic abnormalities. [facility] RIS CONSOLIDATED EXAMINATION: CT OF THE ABDOMEN AND PELVIS WITH CONTRAST 06/18/2024 1:47 pm TECHNIQUE: CT of the abdomen and pelvis was performed with the administration of intravenous contrast. Multiplanar reformatted images are provided for review. Automated exposure control, iterative reconstruction, and/or weight based adjustment of the mA/kV was utilized to reduce the radiation dose to as low as reasonably achievable. COMPARISON: None. HISTORY: ORDERING SYSTEM PROVIDED HISTORY: groin abscess- TECHNOLOGIST PROVIDED HISTORY: pls scan low to include groin and upper thigh groin abscess- Decision Support Exception - unselect if not a suspected or confirmed emergency medical condition->Emergency Medical Condition (MA) FINDINGS: Lower Chest: Lung bases are clear. Organs: Liver is normal in size and density. No focal masses identified. No evidence of intrahepatic ductal dilatation. Spleen is normal size. The gallbladder is unremarkable. Both adrenal glands are normal. Pancreas is normal in appearance. Couple of right renal cysts. No follow-up imaging of the cysts is required.. The kidneys are normal in size and attenuation without evidence of hydronephrosis or renal calculi. GI/Bowel: The visualized bowel and mesentery show no mass lesions. Pelvis: No intrapelvic mass is identified. Bladder and rectum are intact. Peritoneum/Retroperi toneum: No free fluid. No lymphadenopathy. No evidence of pneumoperitoneum. Bones/Soft Tissues: Multiple left inguinal lymph nodes measuring up to 2.5 cm. Inflammatory/edemato us changes seen in the subcutaneous tissues of the medial left upper thigh.. Small fat containing umbilical hernia. Degenerative changes seen in the visualized spine. Spondylolysis at L5. No acute bony abnormalities. [facility] RIS CONSOLIDATED Everardo Farnsworth MD - 06/18/2024 EXAMINATION: CT OF THE ABDOMEN AND PELVIS WITH CONTRAST 06/18/2024 1:47 pm TECHNIQUE: CT of the abdomen and pelvis was performed with the administration of intravenous contrast. Multiplanar reformatted images are provided for review. Automated exposure control, iterative reconstruction, and/or weight based adjustment of the mA/kV was utilized to reduce the radiation dose to as low as reasonably achievable. COMPARISON: None. HISTORY: ORDERING SYSTEM PROVIDED HISTORY: groin abscess- TECHNOLOGIST PROVIDED HISTORY: pls scan low to include groin and upper thigh groin abscess- Decision Support Exception - unselect if not a suspected or confirmed emergency medical condition->Emergency Medical Condition (MA) FINDINGS: Lower Chest: Lung bases are clear. Organs: Liver is normal in size and density. No focal masses identified. No evidence of intrahepatic ductal dilatation. Spleen is normal size. The gallbladder is unremarkable. Both adrenal glands are normal. Pancreas is normal in appearance. Couple of right renal cysts. No follow-up imaging of the cysts is required.. The kidneys are normal in size and attenuation without evidence of hydronephrosis or renal calculi. GI/Bowel: The visualized bowel and mesentery show no mass lesions. Pelvis: No intrapelvic mass is identified. Bladder and rectum are intact. Peritoneum/Retroperi toneum: No free fluid. No lymphadenopathy. No evidence of pneumoperitoneum. Bones/Soft Tissues: Multiple left inguinal lymph nodes measuring up to 2.5 cm. Inflammatory/edemato us changes seen in the subcutaneous tissues of the medial left upper thigh.. Small fat containing umbilical hernia. Degenerative changes seen in the visualized spine. Spondylolysis at L5. No acute bony abnormalities. IMPRESSION: 1. Inflammatory/edemato us changes seen in the subcutaneous tissues of the medial left upper thigh suggesting cellulitis. No drainable fluid collection. 2. Multiple left inguinal lymph nodes measuring up to 2.5 cm, probably reactive. 3. No acute intra-abdominal or intrapelvic abnormalities. [facility] Radiology Study observation (narrative) [facility] CT Abdomen and Pelvis W cont rast IVOrdered By: Everardo Farnsworth on 06-18-2024 [facility] Work Phone: CT MAXILLOFACIAL WO CONTRAST on 06-18-2024 CT MAXILLOFACIAL WO CONTRAST EXAMINATION: CT OF THE FACE WITHOUT CONTRAST 06/18/2024 3:46 pm TECHNIQUE: CT of the face was performed without the administration of intravenous contrast. Multiplanar reformatted images are provided for review. Automated exposure control, iterative reconstruction, and/or weight based adjustment of the mA/kV was utilized to reduce the radiation dose to as low as reasonably achievable. COMPARISON: None HISTORY: ORDERING SYSTEM PROVIDED HISTORY: Right facial swelling/cellulitis and ear pain TECHNOLOGIST PROVIDED HISTORY: Right facial swelling/cellulitis and ear pain Decision Support Exception - unselect if not a suspected or confirmed emergency medical condition->Emergency Medical Condition (MA) FINDINGS: FACIAL BONES: The frontal sinuses, orbital graf, maxilla, pterygoid plates, zygomatic arches, hard palate, nasal bones and mandible are intact. The temporomandibular joints are aligned. ORBITAL CONTENTS: The globes appear intact. The extraocular muscles, optic nerve sheath complexes and lacrimal glands appear unremarkable. No retrobulbar hematoma or mass is seen. SINUSES: Moderate mucosal thickening in the bilateral ethmoid sinuses. Mild mucosal thickening in the bilateral maxillary, ethmoid and frontal sinuses. There is a left mastoid effusion without evidence of bony erosive change. There is partial opacification of the left middle ear cavity. The right mastoid air cells and middle ear cavity are clear. SOFT TISSUES: No superficial facial soft tissue swelling is seen. No appreciable periauricular or other facial fluid collection. The parotid glands and submandibular glands are unremarkable in appearance. IMPRESSION: 1. Left mastoid effusion and partial opacification of the left middle ear cavity. Findings are nonspecific, but could be related to otitis media with reactive mastoid effusion or mastoiditis. No evidence of bony erosive change. 2. No appreciable superficial facial soft tissue swelling or fluid collection. 3. Paranasal sinus disease. Interpreted by: Chantell Levine MD Signed by: Chantell Levine MD 06/18/24 Final result Normal [facility] CT [facility] 1. Left mastoid effusion and partial opacification of the left middle ear cavity. Findings are nonspecific, but could be related to otitis media with reactive mastoid effusion or mastoiditis. No evidence of bony erosive change. 2. No appreciable superficial facial soft tissue swelling or fluid collection. 3. Paranasal sinus disease. [facility] RIS CONSOLIDATED EXAMINATION: CT OF THE FACE WITHOUT CONTRAST 06/18/2024 3:46 pm TECHNIQUE: CT of the face was performed without the administration of intravenous contrast. Multiplanar reformatted images are provided for review. Automated exposure control, iterative reconstruction, and/or weight based adjustment of the mA/kV was utilized to reduce the radiation dose to as low as reasonably achievable. COMPARISON: None HISTORY: ORDERING SYSTEM PROVIDED HISTORY: Right facial swelling/cellulitis and ear pain TECHNOLOGIST PROVIDED HISTORY: Right facial swelling/cellulitis and ear pain Decision Support Exception - unselect if not a suspected or confirmed emergency medical condition->Emergency Medical Condition (MA) FINDINGS: FACIAL BONES: The frontal sinuses, orbital graf, maxilla, pterygoid plates, zygomatic arches, hard palate, nasal bones and mandible are intact. The temporomandibular joints are aligned. ORBITAL CONTENTS: The globes appear intact. The extraocular muscles, optic nerve sheath complexes and lacrimal glands appear unremarkable. No retrobulbar hematoma or mass is seen. SINUSES: Moderate mucosal thickening in the bilateral ethmoid sinuses. Mild mucosal thickening in the bilateral maxillary, ethmoid and frontal sinuses. There is a left mastoid effusion without evidence of bony erosive change. There is partial opacification of the left middle ear cavity. The right mastoid air cells and middle ear cavity are clear. SOFT TISSUES: No superficial facial soft tissue swelling is seen. No appreciable periauricular or other facial fluid collection. The parotid glands and submandibular glands are unremarkable in appearance. [facility] Chantell Hoffman MD - 06/18/2024 EXAMINATION: CT OF THE FACE WITHOUT CONTRAST 06/18/2024 3:46 pm TECHNIQUE: CT of the face was performed without the administration of intravenous contrast. Multiplanar reformatted images are provided for review. Automated exposure control, iterative reconstruction, and/or weight based adjustment of the mA/kV was utilized to reduce the radiation dose to as low as reasonably achievable. COMPARISON: None HISTORY: ORDERING SYSTEM PROVIDED HISTORY: Right facial swelling/cellulitis and ear pain TECHNOLOGIST PROVIDED HISTORY: Right facial swelling/cellulitis and ear pain Decision Support Exception - unselect if not a suspected or confirmed emergency medical condition->Emergency Medical Condition (MA) FINDINGS: FACIAL BONES: The frontal sinuses, orbital graf, maxilla, pterygoid plates, zygomatic arches, hard palate, nasal bones and mandible are intact. The temporomandibular joints are aligned. ORBITAL CONTENTS: The globes appear intact. The extraocular muscles, optic nerve sheath complexes and lacrimal glands appear unremarkable. No retrobulbar hematoma or mass is seen. SINUSES: Moderate mucosal thickening in the bilateral ethmoid sinuses. Mild mucosal thickening in the bilateral maxillary, ethmoid and frontal sinuses. There is a left mastoid effusion without evidence of bony erosive change. There is partial opacification of the left middle ear cavity. The right mastoid air cells and middle ear cavity are clear. SOFT TISSUES: No superficial facial soft tissue swelling is seen. No appreciable periauricular or other facial fluid collection. The parotid glands and submandibular glands are unremarkable in appearance. IMPRESSION: 1. Left mastoid effusion and partial opacification of the left middle ear cavity. Findings are nonspecific, but could be related to otitis media with reactive mastoid effusion or mastoiditis. No evidence of bony erosive change. 2. No appreciable superficial facial soft tissue swelling or fluid collection. 3. Paranasal sinus disease. [facility] Radiology Study observation (narrative) [facility] CT Maxillofacial region WO c ontrastOrdered By: Chantell Levine on 06-18-2024 [facility] Work Phone: Comp Metabolic Profon 2023 Albumin [Mass/Vol] 3.7 g/dL Normal 3.5-5.2 [facility] Comment on above: Performed By: #### C DP, TROPI, SED, CRP, CP #### [facility] [address] [place] [address] Bait Man: Doug Juarez MD Albumin/Glob Ratio 1.0 Normal 1.0-2.5 [facility] Comment on above: Performed By: #### C DP, TROPI, SED, CRP, CP #### [facility] [address] [place], [place] [id number] Bait Man: Doug Juarez MD Alkaline Phos 88 U/L Normal 40-129 [facility] Comment on above: Performed By: #### C DP, TROPI, SED, CRP, CP #### [facility] [address] [place] [address] Bait Man: Doug Juarez MD ALT [Catalytic activity/Vol] 11 U/L Normal 10-50 [facility] Comment on above: Performed By: #### C DP, TROPI, SED, CRP, CP #### [facility] [address] [place] [address] Bait Man: Doug Juarez MD Anion gap [Moles/Vol] 15 mmol/L Normal 9-16 [facility] Comment on above: Performed By: #### C DP, TROPI, SED, CRP, CP #### [facility] [address] [place], [place] [id number] Bait Man: Doug Juarez MD AST [Catalytic activity/Vol] 15 U/L Normal 10-50 [facility] Comment on above: Performed By: #### C DP, TROPI, SED, CRP, CP #### [facility] [address] [place], [place] [id number] Bait Man: Doug Juarez MD Bilirubin [Mass/Vol] 1.0 mg/dL Normal 0.00-1.20 [facility] Comment on above: Performed By: #### C DP, TROPI, SED, CRP, CP #### [facility] [address] [place] [address] Dr[address] [place], [place] [id number] Bait Man: Doug Juarez MD BUN/CRE Ratio 19 Normal 9-20 [facility] Comment on above: Performed By: #### C DP, TROPI, SED, CRP, CP #### [address] [place], [place] [id number] Bait Man: Doug Juarez MD Calcium [Mass/Vol] 8.7 mg/dL Normal 8.6-10.4 [facility] Comment on above: Performed By: #### C DP, TROPI, SED, CRP, CP #### [address] [place], [place] [id number] Bait Man: Doug Juarez MD Chloride [Moles/Vol] 92 mmol/L Low 98-107 [facility] Comment on above: Performed By: #### C DP, TROPI, SED, CRP, CP #### [facility] [address] [place] [address] Dr[address] [place], [place] [id number] Bait Man: Doug Juarez MD CO2 [Moles/Vol] 21 mmol/L Normal 20-31 [facility] Comment on above: Performed By: #### C DP, TROPI, SED, CRP, CP #### [address] [place] [address] Bait Man: Doug Juarez MD Creatinine [Mass/Vol] 2.3 mg/dL High 0.70-1.20 [facility] Comment on above: Performed By: #### C DP, TROPI, SED, CRP, CP #### [address] [place] [address] Bait Man: Doug Juarez MD GFR/1.73 sq M.predicted among non-blacks MDRD (S/P/Bld) [Vol rate/Area] 31 mL/min/{1.73_m2} Low >60 [facility] Comment on above: Result Comment: These results are not intended for use in patients <18 years of age. eGFR results are calculated without a race factor using the 2020 CKD-EPI equation. Careful clinical correlation is recommended, particularly when comparing to results calculated using previous equations. The CKD-EPI equation is less accurate in patients with extremes of muscle mass, extra-renal metabolism of creatine, excessive creatine ingestion, or following therapy that affects renal tubular secretion. Performed By: #### C DP, TROPI, SED, CRP, CP #### [address] [place] [address] Bait Man: Doug Juarez MD Glucose [Mass/Vol] 422 mg/dL Critically high 74-99 M [facility] Comment on above: Performed By: #### C DP, TROPI, SED, CRP, CP #### [address] [place] [address] Bait Man: Doug Juarez MD Potassium [Moles/Vol] 5.2 mmol/L Normal 3.7-5.3 [facility] Comment on above: Performed By: #### C DP, TROPI, SED, CRP, CP #### [address] [place] [address] Bait Man: Doug Juarez MD Protein [Mass/Vol] 7.4 g/dL Normal 6.6-8.7 [facility] Comment on above: Performed By: #### C DP, TROPI, SED, CRP, CP #### [address] [place] [address] Bait Man: Doug Juarez MD Sodium [Moles/Vol] 128 mmol/L Low 136-145 [facility] Comment on above: Performed By: #### C DP, TROPI, SED, CRP, CP #### [facility] [address] [place] [address] Bait Man: Doug Juarez MD Urea nitrogen [Mass/Vol] 43 mg/dL High 8-23 [facility] Comment on above: Performed By: #### C DP, TROPI, SED, CRP, CP #### [facility] [address] [place] [address] Bait Man: Doug Juarez MD [facility] Metabolic Pane [facility] 06-18-2024 Albumin [Mass/Vol] 3.7 g/dL 3.5 - 5.2 g/dL [facility] Albumin/Globulin [Mass ratio] 1.0 {ratio} 1.0 - 2.5 [facility] ALP [Catalytic activity/Vol] 88 U/L 40 - 129 U/L [facility] ALT [Catalytic activity/Vol] 11 U/L 10 - 50 U/L [facility] Anion gap [Moles/Vol] 15 mmol/L 9 - 16 mmol/L [facility] AST [Catalytic activity/Vol] 15 U/L 10 - 50 U/L [facility] Bilirubin [Mass/Vol] 1.0 mg/dL 0.00 - 1.20 mg/dL [facility] Calcium [Mass/Vol] 8.7 mg/dL 8.6 - 10. 4 mg/dL [facility] Chloride [Moles/Vol] 92 mmol/L Low 98 - 10 7 mmol/L [facility] CO2 [Moles/Vol] 21 mmol/L 20 - 31 mmol/L [facility] Creatinine [Mass/Vol] 2.3 mg/dL High 0.70 - 1.20 mg/dL [facility] Est, Glom Filt Rate 31 Low - PINF [facility] Comment on above: These results are not intended for use in patients <18 years of age. eGFR results are calculated without a race factor using the 2020 CKD-EPI equation. Careful clinical correlation is recommended, particularly when comparing to results calculated using previous equations. The CKD-EPI equation is less accurate in patients with extremes of muscle mass, extra-renal metabolism of creatine, excessive creatine ingestion, or following therapy that affects renal tubular secretion. Glucose [Mass/Vol] 422 mg/dL Critically high 74 - 99 mg/d L [facility] Potassium [Moles/Vol] 5.2 mmol/L 3.7 - 5.3 mmol/L [facility] Protein [Mass/Vol] 7.4 g/dL 6.6 - 8.7 g/dL [facility] Sodium [Moles/Vol] 128 mmol/L Low 136 - 145 mmol/L [facility] Urea nitrogen [Mass/Vol] 43 mg/dL High 8 - 23 mg/dL [facility] Urea nitrogen/Creatinine [Mass ratio] 19 mg/mg 9 - 20 [facility] EKG 12 LeadOrdered By: Walter Aden on 06-18-2024 Atrial Rate 76 BPM [facility] Work Phone: P-R Interval 268 ms [facility] Work Phone: Q-T Interval 358 ms [facility] Work Phone: QRS Duration 88 ms [facility] Work Phone: QTc Calculation (Bazett) 402 ms [facility] Work Phone: R [place] -32 degrees [facility] Work Phone: T [place] 28 degrees [facility] Work Phone: Ventricular Rate 76 BPM [facility] Work Phone: [employer] Phone: EKG 12 Leadon 06-18-2024 Sinus rhythm with 1st degree A-V block Left axis deviation Cannot rule out Anterior infarct , age undetermined Abnormal ECG No previous ECGs available Confirmed by JAYSON ADEN ([id number]) on 06/18/2024 11:52:04 PM [facility] Jaysno Aden MD - 06/18/2024 Sinus rhythm with 1st degree A-V block Left axis deviation Cannot rule out Anterior infarct , age undetermined Abnormal ECG No previous ECGs available Confirmed by JAYSON ADEN ([id number]) on 06/18/2024 11:52:04 PM [facility] EKG Rhythm Stripon [facility] Glucose, Whole Bloodon 06-18 Glucose [Mass/Vol] 242 mg/dL High 74 - 100 mg/dL [facility] Interpretation and review of laboratory results Abnormal [facility] Glucose [Mass/Vol] 242 mg/dL High 74-100 [facility] Glucose [Mass/Vol] 324 mg/dL High 74 - 100 mg/dL [facility] Interpretation and review of laboratory results Abnormal [facility] Glucose [Mass/Vol] 324 mg/dL High 74-100 [facility] Lactate, Sepsison 06-18-2024 Interpretation and review of laboratory results Abnormal [facility] Lactate (BldV) [Moles/Vol] 2.0 mmol/L High 0.5 - 1.9 mmol/L [facility] Lactic Acid, Sepsis 2.0 mmol/L High 0.5-1.9 [facility] Comment on above: Performed By: #### C DP #### [facility] [address] [place] [address] Bait Man: Doug Juarez MD Interpretation and review of laboratory results Abnormal [facility] Lactate (BldV) [Moles/Vol] 2.9 mmol/L High 0.5 - 1.9 mmol/L [facility] Lactic Acid, Sepsis 2.9 mmol/L High 0.5-1.9 [facility] Comment on above: Performed By: #### L ACDS #### [facility] [address] [place] [address] Bait Man: Doug Juarez MD Microscopic Urinalysison Bacteria LM Ql (Urine sed) 2+ Abnormal None [facility] Casts LM.LPF (Urine sed) [#/Area] 10 TO 20 FINE GRANULAR /LPF [facility] Casts LM.LPF (Urine sed) [#/Area] HYALINE /LPF [facility] Epithelial cells LM.HPF (Urine sed) [#/Area] 2 TO 5 [facility] Interpretation and review of laboratory results Abnormal [facility] Mucus Ql (Urine sed) 2+ Abnormal None [facility] RBC LM.HPF (Urine sed) [#/Area] 2 TO 5 [facility] WBC LM.HPF (Urine sed) [#/Area] 2 TO 5 [facility] No Panel Informationon 06-18 Interpretation and review of laboratory results Abnormal [facility] Interpretation and review of laboratory results Abnormal [facility] Portable XR Chest AP single viewon 06-18-2024 Findings suggestive of CHF. [facility] RIS CONSOLIDATED EXAMINATION: ONE XRAY VIEW OF THE CHEST 06/18/2024 4:21 pm COMPARISON: None. HISTORY: ORDERING SYSTEM PROVIDED HISTORY: Sepsis TECHNOLOGIST PROVIDED HISTORY: Sepsis FINDINGS: There is increased bilateral pulmonary vascular markings suggestive of CHF. There is associated cardiomegaly. Bony structures appear normal. Visualized upper abdomen appears normal. [facility] CONSOL[facility] Wilfrido Cordoba MD - 06/18/2024 EXAMINATION: ONE XRAY VIEW OF THE CHEST 06/18/2024 4:21 pm COMPARISON: None. HISTORY: ORDERING SYSTEM PROVIDED HISTORY: Sepsis TECHNOLOGIST PROVIDED HISTORY: Sepsis FINDINGS: There is increased bilateral pulmonary vascular markings suggestive of CHF. There is associated cardiomegaly. Bony structures appear normal. Visualized upper abdomen appears normal. IMPRESSION: Findings suggestive of CHF. [facility] Radiology Study observation (narrative) [facility] Portable XR Chest AP single viewOrdered By: Wilfrido Cordoba on 06-18-2024 [facility] Work Phone: Sedimentation Rateon 12-17-2 024 ESR Photometric method (Bld) [Velocity] 47 High [facility] Interpretation and review of laboratory results Abnormal [facility] Sedimentation Rate 47 mm/Hr High 0-20 [facility] Comment on above: Performed By: #### C DP, TROPI, SED, CRP, CP #### [facility] [address] [place], [place] [id number] Bait Man: Duog Juarez MD Troponinon 06-18-2024 Troponin I.cardiac High sensitivity method [Mass/Vol] 36 ng/L High 0 - 22 ng/L [facility] Comment on above: High Sensitivity Tro ponin values cannot be compared with other Troponin methodologies. Troponin, High Sens 36 ng/L High 022 [facility] Comment on above: Result Comment: High Sensitivity Troponin values cannot be compared with other Troponin methodologies. Performed By: #### C DP #### [facility] [address] [place], [place] [id number] Bait Man: Doug Juarez MD Troponin I.cardiac High sensitivity method [Mass/Vol] 41 ng/L High 0 - 22 ng/L [facility] Comment on above: High Sensitivity Tro ponin values cannot be compared with other Troponin methodologies. Troponin, High Sens 41 ng/L [facility] 0-22 [facility] Center Comment on above: Result Comment: High Sensitivity Troponin values cannot be compared with other Troponin methodologies. Performed By: #### C DP, TROPI, SED, CRP, CP #### [facility] [address] [place], [place] [id number] Bait Man: Doug Juarez MD UA w/Reflex Cultureon 2023 Bilirubin, SemiQt,Ur Negative Normal NEG [facility] Comment on above: Performed By: #### ABA DAS ####[facility] [place] [address] Lab Director: Doug Juarez MD Blood, Urine 1+ Abnormal NEG [facility] Comment on above: Performed By: #### U ABA CLARK ####[address] [place] [address] Lab Director: Doug Juarez MD Clarity (U) Clear Normal CLEAR [facility] Comment on above: Performed By: #### U AX, UMICAO ####[address] , [place] [id number] Lab Director: Doug Juarez MD Color (U) Yellow Normal YEL [facility] Comment on above: Performed By: #### U AX, UMICAO ####[address] [place] [address] Lab Director: Doug Juarez MD Glucose Ql (U) Negative Normal NEG [facility] Comment on above: Performed By: #### U AX, UMICAO ####[address] [place] [address] Lab Director: Doug Juarez MD Ketones Ql (U) Negative Normal NEG [facility] Comment on above: Performed By: #### U AX, UMICAO ####[address] [place] [address] Lab Director: Doug Juarez MD Leukocyte esterase Test strip Ql (U) Negative Normal NEG [facility] Comment on above: Performed By: #### U AX, UMICAO ####[address] [place] [address] Lab Director: Doug Juarez MD Nitrite,Ur Negative Normal NEG [facility] Comment on above: Performed By: #### U AX, UMICAO ####[address] , [place] [id number] Lab Director: Doug Juarez MD PH,Ur 5.5 Normal 5.0-9.0 [facility] Comment on above: Performed By: #### U AX, UMICAO ####[facility] , [place] [id number] [facility] Director: Doug Juarez MD Protein Ql (U) TRACE Abnormal NEG [facility] Comment on above: Performed By: #### U AX, UMICAO ####[facility] , [place] [id number] lab Director: Doug Juarez MD Spec. [place],Ur 1.020 Normal 1.010-1.020 [facility] Comment on above: Performed By: #### U AX, UMICAO ####[address] , [place] [id number] lab Director: Doug Juarez MD Urobilinogen,Ur Normal Normal 0.0-1.0 [facility] Comment on above: Performed By: #### U AX, UMICAO ####[address] , [facility] Director: Doug Juarez MD Urinalysis with Reflex to Cu ltureon 06-18-2024 Bilirubin Ql (U) Negative NEGATIVE [facility] Clarity (U) Clear Clear [facility] Color (U) Yellow Yellow [facility] Glucose Test strip (U) [Mass/Vol] Negative NEGATIVE mg/dL [facility] Hemoglobin Auto test strip Ql (U) 1+ Abnormal NEGATIVE [facility] Interpretation and review of laboratory results Abnormal [facility] Ketones (U) [Mass/Vol] Negative NEGATIVE mg/dL [facility] Leukocyte esterase Test strip Ql (U) Negative NEGATIVE [facility] Nitrite Ql (U) Negative NEGATIVE [facility] pH (U) 5.5 [pH] 5.0 - 9.0 [facility] Protein (U) [Mass/Vol] TRACE Abnormal NEGATIVE mg/dL [facility] Specific gravity (U) [Rel density] 1.020 1.010 - 1.020 [facility] Urobilinogen Qn (U) Normal 0.0 - 1. 0 EU/dL [facility] Bon [facility] Urinalysis,Microon 4 Bacteria 2+ Abnormal NONE [facility] Comment on above: Performed By: #### U AX, UMICAO ####[facility] , [place] [id number] lab Director: Doug Juarez MD Casts 10 TO 20 Normal [facility] Comment on above: Result Comment: FINE GRANULAR HYALINE Performed By: #### U AX, UMICAO ####[facility] , [place] [id number] lab Director: Doug Juarez MD Epithelial cells LM Ql (Urine sed) 2 TO 5 Normal 0-[address] [place] [address] Comment on above: Performed By: #### U AX UMICAO ####[address] , [place] [id number] lab Director: Doug Juarez MD Mucus Strands 2+ Abnormal NONE [facility] Comment on above: Performed By: #### U AX, UMICAO ####[address] , [place] [id number] lab Director: Doug Juarez MD Urine RBC's 2 TO 5 Normal 0-2 [facility] Comment on above: Performed By: #### U AX, UMICAO ####[address] , [place] [id number] lab Director: Doug Juarez MD Urine WBC's 2 TO 5 Normal 0-5 [facility] Comment on above: Performed By: #### U AX, UMICAO ####[address] [place] [address] lab Director: Doug Juarez MD XR CHEST PORTABLEon 06-18-20 24 XR CHEST PORTABLE EXAMINATION: ONE XRAY VIEW OF THE CHEST 06/18/2024 4:21 pm COMPARISON: None. HISTORY: ORDERING SYSTEM PROVIDED HISTORY: Sepsis TECHNOLOGIST PROVIDED HISTORY: Sepsis FINDINGS: There is increased bilateral pulmonary vascular markings suggestive of CHF. There is associated cardiomegaly. Bony structures appear normal. Visualized upper abdomen appears normal. IMPRESSION: Findings suggestive of CHF. Interpreted by: Wilfrido Cordoba MD Signed by: Wilfrido Cordoba MD 06/18/24 Final result Normal [facility] Glucose mean value [Mass/vol ume] in Blood Estimated from glycated hemoglobinon 05-15-2024 Average glucose Estimated from glycated hemoglobin (Bld) [Mass/Vol] Glucose mean value [Mass/volume] in Blood Estimated from glycated hemoglobin [facility] - Hematology and Cell countson 05-15-2024 HbA1c (Bld) [Mass fraction] 10.0 % High 4.5-6.2 [facility] Comment on above: ADA RECOMMENDED LIMI T 4.0 - 6.0ADA THERAPEUTIC TARGET < 7.0ACTION SUGGESTED> 7.0 Office Visiton 01-30-2024 Follow-up visit [id number] Jose J Evans 1960 M Date Provider Department Center 01/30/2024 POLO [facility]REAL [facility] No family history on file Level of Service:79345 CO OFFICE/OUTPATIENT ESTABLISHED LOW MDM 20 MIN Reason for Visit and Comments: Coronary Artery Disease [187] Hypertension [827996] Normal [facility] Basophils Auto (Bld) [#/Vol] on 12-14-2023 Basophils (Bld) [#/Vol] 0.0 10 3/uL 0.0-0.1 [facility] Basophils/100 WBC Auto (Bld) on 12-14-2023 Basophils/100 WBC (Bld) 0.3 % 0.2-2.0 [facility] Eosinophils/100 WBC Auto (Bl d)on 12-14-2023 Eosinophils/100 WBC (Bld) 4.3 % 0.9-7.0 [facility] Erythrocyte distribution wid th Auto (RBC) [Ratio]on 12-14-2023 Erythrocyte distribution width (RBC) [Ratio] 13.9 % 11.0-15.0 [facility] Estimated glomerular filtrat ion rate (GFR) non- Americanon 12-14-2023 GFR/1.73 sq M.predicted among non-blacks MDRD (S/P/Bld) [Vol rate/Area] mL/min/{1.73_m2} >=60 [facility] Globulin Calc (S) [Mass/Vol] on 12-14-2023 Globulin (S) [Mass/Vol] 4.6 g/dL [facility] Glucose mean value [Mass/vol ume] in Blood Estimated from glycated hemoglobinon 12-14-2023 Average glucose Estimated from glycated hemoglobin (Bld) [Mass/Vol] 240 mg/dL [facility] Hematocrit Auto (Bld) [Volum e fraction]on 12-14-2023 Hematocrit (Bld) [Volume fraction] 41.6 % Low 42.0-54.0 [facility] Hemoglobin [Mass/volume] in Bloodon 12-14-2023 Hemoglobin (Bld) [Mass/Vol] 13.9 g/dL Low 14.0-18.0 [facility] Laboratory - Chemistry and C hemistry - challengeon 12-14-2023 Albumin [Mass/Vol] 3.5 g/dL 3.4-5.0 [facility] ALP [Catalytic activity/Vol] 98 U/L 46-116 [facility] ALT [Catalytic activity/Vol] 19 U/L 16-63 [facility] AST [Catalytic activity/Vol] 15 U/L 15-37 [facility] Bilirubin [Mass/Vol] 0.7 mg/dL 0.2-1.0 [facility] Calcium [Mass/Vol] 9.1 mg/dL 8.5-10.1 [facility] Chloride [Moles/Vol] 103 mmol/L 98-107 [facility] CO2 [Moles/Vol] 30.1 mmol/L 21.0-32.0 [facility] Creatinine [Mass/Vol] 1.08 mg/dL 0.70-1.30 [facility] GFR/1.73 sq M.predicted MDRD (S/P/Bld) [Vol rate/Area] mL/min/{1.73_m2} >=60 [facility] Glucose [Mass/Vol] 136 mg/dL High 74-106 [facility] Potassium [Moles/Vol] 4.4 mmol/L 3.5-5.1 [facility] Protein [Mass/Vol] 8.1 g/dL 6.4-8.2 [facility] Sodium [Moles/Vol] 141 mmol/L 136-145 [facility] Urea nitrogen [Mass/Vol] 20.0 mg/dL High 7.0-18.0 [facility] Urea nitrogen/Creatinine [Mass ratio] 18.5 mg/mg [facility] Laboratory - Hematology and Cell countson 12-14-2023 HbA1c (Bld) [Mass fraction] 10.0 % High 4.5-6.2 [facility] Comment on above: ADA RECOMMENDED LIMI T 4.0 - 6.0ADA THERAPEUTIC TARGET < 7.0ACTION SUGGESTED> 7.0 Immature granulocytes/100 WBC (Bld) 0.5 % 0.0-0.5 [facility] Leukocytes [#/volume] correc fely for nucleated erythrocytes in Blood by Automated counon 12-14-2023 WBC corrected for nucl RBC Auto (Bld) [#/Vol] 8.8 10 3/uL 4.0-11.0 [facility] Lymphocytes Auto (Bld) [#/Vo l]on 12-14-2023 Lymphocytes (Bld) [#/Vol] 2.0 10 3/uL 1.2-3.8 [facility] Lymphocytes/100 WBC Auto (Bl d)on 12-14-2023 Lymphocytes/100 WBC (Bld) 22.9 % 20.5-60.0 [facility] MCH Auto (RBC) [Entitic mass ]on 12-14-2023 MCH (RBC) [Entitic mass] 30.0 pg 25.9-34.0 [facility] MCHC Auto (RBC) [Mass/Vol]on 12-14-2023 MCHC (RBC) [Mass/Vol] 33.4 g/dL 29.9-35.2 [facility] MCV Auto (RBC) [Entitic vol] on 12-14-2023 MCV (RBC) [Entitic vol] 89.7 fL 80.0-94.0 [facility] Microalbumin [Mass/volume] i n Urineon 12-14-2023 Albumin DL <= 20 mg/L (U) [Mass/Vol] 3.2 mg/dL <=30.0 [facility] Monocytes Auto (Bld) [#/Vol] on 12-14-2023 Monocytes (Bld) [#/Vol] 0.7 10 3/uL 0.3-0.8 [facility] Monocytes/100 WBC Auto (Bld) on 12-14-2023 Monocytes/100 WBC (Bld) 7.7 % 1.7-12.0 [facility] Neutrophils Auto (Bld) [#/Vo l]on 12-14-2023 Neutrophils (Bld) [#/Vol] 5.7 10 3/uL 1.4-6.5 [facility] Neutrophils/100 WBC Auto (Bl d)on 12-14-2023 Neutrophils/100 WBC (Bld) 64.3 % 43.0-75.0 [facility] No Panel Informationon 12-13 Eosinophils # (Auto) 0.4 10 3/uL 0.0-0.7 [facility] Immature Granulocyte # (Auto) 0.04 10 3/uL High 0.00-0.03 [facility] Prostate Specific Antigen Screen 1.90 ng/mL <=4.00 [facility] Platelet mean volume Auto (B ld) [Entitic vol]on 12-14-2023 Platelet mean volume (Bld) [Entitic vol] 8.3 fL Low 9.5-13.5 [facility] Platelets Auto (Bld) [#/Vol] on 12-14-2023 Platelets (Bld) [#/Vol] 176 10 3/uL 150-450 [facility] RBC Auto (Bld) [#/Vol]on RBC (Bld) [#/Vol] 4.64 10 6/uL Low 4.70-6.10 [facility] Serum or plasma albumin/glob ulin mass ratioon 12-14-2023 Albumin/Globulin [Mass ratio] 0.8 {ratio} [facility] Serum or plasma anion gap de terminationon 12-14-2023 Anion gap [Moles/Vol] 12.3 mmol/L [facility] Cult,Woundon 10-29-2023 Cult,Wound Specimen Description .WOUND Special Requests SCROTAL ABCESS Direct Exam NO NEUTROPHILS SEEN FEW GRAM POSITIVE COCCI IN CHAINS Culture STREPTOCOCCI, BETA HEMOLYTIC GROUP B MODERATE GROWTH NORMAL SKIN SARAH Report Status FINAL 10/29/2023 Normal [facility] Comment on above: Performed By: #### L ACDS #### [facility] [address] [place], [place] [id number] Bait Man: Doug Juarez MD CBC AUTO DIFFon 08-15-2022 BASO # 0.0 103/ul Normal 0.0-0.1 [facility] Comment on above: Performed By: #### C BC #### [facility] [address] [place] [address] Dr. Beth Johnson Basophils/100 WBC (Bld) 0.6 % Normal 0.2-2.0 [facility] Comment on above: Performed By: #### C BC #### [facility] [address] [place] [address] Dr. Beth Johnson EO # 0.2 103/ul Normal 0.0-0.7 [facility] Comment on above: Performed By: #### C BC #### [facility] [address] [place] [address] Dr. Beth Johnson Eosinophils/100 WBC (Bld) 3.4 % Normal 0.9-7.0 [facility] Comment on above: Performed By: #### C BC #### [facility] [address] [place] [address] Dr. Beth Johnson Erythrocyte distribution width (RBC) [Ratio] 13.4 % Normal 11.0-15.0 [facility] Comment on above: Performed By: #### C BC #### [facility] [address] [place] [address] Dr. Beth Johnson Hematocrit (Bld) [Volume fraction] 44.1 % Normal 42.0-54.0 [facility] Comment on above: Performed By: #### C BC #### [facility] [address] [place] [address] Dr. Beth Johnson Hemoglobin (Bld) [Mass/Vol] 14.9 g/dL Normal 14.0-18.0 [facility] Comment on above: Performed By: #### C BC #### [facility] [address] [place] [address] Dr. Beth Johnson IG # 0.03 10e3/ul Normal 0.00-0.03 [facility] Comment on above: Performed By: #### C BC #### [facility] [address] [place] [address] Dr. Beth Johnson IG % 0.4 % Normal 0.0-0.5 [facility] Comment on above: Performed By: #### C BC #### [facility] [address] [place] [address] Dr. Beth Johnson LYMPH # 1.9 103/ul Normal 1.2-3.8 [facility] Comment on above: Performed By: #### C BC #### [facility] [address] [place] [address] Dr. Beth Johnson Lymphocytes/100 WBC (Bld) 26.2 % Normal 20.5-60.0 [facility] Comment on above: Performed By: #### C BC #### [facility] [address] [place] [address] Dr. Beth Johnson MANUAL DIFF REQ NO Normal [facility] Comment on above: Performed By: #### C BC #### [facility] [address] [place] [address] Dr. Beth Johnson MCH (RBC) [Entitic mass] 30.4 pg Normal 25.9-34.0 [facility] Comment on above: Performed By: #### C BC #### [facility] [address] [place] [address] Dr. Beth Johnson MCHC (RBC) [Mass/Vol] 33.8 g/dL Normal 29.9-35.2 [facility] Comment on above: Performed By: #### C BC #### [facility] [address] [place] [address] Dr. Beth Johnson MCV (RBC) [Entitic vol] 90.0 fL Normal 80.0-94.0 [facility] Comment on above: Performed By: #### C BC #### [facility] [address] [place] [address] Dr. Beth Johnson MONO # 0.7 103/ul Normal 0.3-0.8 [facility] Comment on above: Performed By: #### C BC #### [facility] [address] [place] [address] Dr. Beth Johnson Monocytes/100 WBC (Bld) 9.8 % Normal 1.7-12.0 [facility] Comment on above: Performed By: #### C BC #### [facility] [address] [place] [address] Dr. Beth Johnson NEUT # 4.2 103/ul Normal 1.4-6.5 [facility] Comment on above: Performed By: #### C BC #### [facility] [address] [place] [address] Dr. Beth Johnson Neutrophils/100 WBC (Bld) 59.6 % Normal 43.0-75.0 [facility] Comment on above: Performed By: #### C BC #### [facility] [address] [place] [address] Dr. Beth Johnson Platelet mean volume (Bld) [Entitic vol] 8.1 fL Critically low 9.5-13.5 [facility] Comment on above: Performed By: #### C BC #### [facility] [address] [place] [address] Dr. Beth Johnson PLT 184 103/ul Normal 150-450 [facility] Comment on above: Performed By: #### C BC #### [facility] [address] [place] [address] Dr. Beth Johnson RBC 4.90 106/ul Normal 4.70-6.10 [facility] Comment on above: Performed By: #### C BC #### [facility] [address] [place] [address] Dr. Beth Johnson WBC 7.1 103/ul Normal 4.0-11.0 [facility] Comment on above: Performed By: #### C BC #### [facility] [address] [address] [address] Beth Johnson Complete Blood Count and Dif gala 08-15-2022 Anisocytosis Ql (Bld) [employer] Other Basophilic stippling LM Ql (Bld) [employer] Other RBC morphology finding Nom (Bld) [employer] Other Complete Blood Count and Diff [employer] Other Comprehensive Metabolic Pane jenniffer 08-15-2022 Albumin [Mass/Vol] 3.135892 g/dL 3.4-5.0 g/dL [facility] [employer] Other Calcium [Mass/Vol] 9.0282709 mg/dL 8.5-10 .1 mg/dL [employer] Other CO2 [Moles/Vol] 29.03823235 mmol/L 21.0-3 2.0 mmol/L [employer] Other Creatinine [Mass/Vol] 0.60531808 mg/dL 0.70-1.30 mg/dL [employer] Other Potassium [Moles/Vol] 4.27522829 mmol/L 3.5-5.1 mmol/L [employer] Other Protein [Mass/Vol] 8.986489 g/dL 6.4-8.2 g/dL [employer] Other Urea nitrogen [Mass/Vol] 17.0566356 mg/dL 7.0-18.0 mg/dL [employer] Other Comprehensive Metabolic Panel see note [employer] Other Comprehensive Metabolic Panel 137 mmol/L 136-145 mmol/L [employer] Other Comprehensive Metabolic Panel 182 mg/dL Critically high 74-106 mg/dL [employer] Other Comprehensive Metabolic Panel >60 mL/min/1.73m2 >=60 mL/min/1.73m2 [employer] [facility] [employer] Other Comprehensive Metabolic Panel 0.5 mg/dL 0.2-1.0 mg/dL [employer] Other Comprehensive Metabolic Panel 4.2 g/dL [employer] Other GLYCOHEMOGLOBIN A1Con 2022 ADA RECOMMENDATION SEE BELOW Normal [facility] Comment on above: Result Comment: ADA RECOMMENDED LIMIT 4.0 - 6.0 ADA THERAPEUTIC TARGET < 7.0 ACTION SUGGESTED > 7.0 Performed By: #### L IPID #### [facility] [address] [address] [address] Beth Johnson Glucose [Mass/Vol] 169 mg/dL Normal [facility] Comment on above: Performed By: #### L IPID #### [facility] [address] [place] [address] Dr. Beth Johnson HbA1c (Bld) [Mass fraction] 7.5 % Critically high 4.5-6.2 [facility] Comment on above: Performed By: #### L IPID #### [facility] [address] [address] [address] Beth Johnson LIPID PROFILEon 08-15-2022 CHOL-HDL RATIO NORM SEE BELOW Normal [facility] Comment on above: Result Comment: 3.3 - 4.4 LOW RISK 4.4 - 7.1 AVERAGE RISK 7.1 - 11.0 MODERATE RISK >11.0 HIGH RISK Performed By: #### L IPID, CMP #### [facility] [address] [address] [address] Beth Johnson Cholesterol [Mass/Vol] 155 mg/dL <=200 mg/dL [facility] Comment on above: Performed By: #### L IPID, CMP #### [facility] [address] [address] [address] Beth Johnson Cholesterol in HDL [Mass/Vol] 44 mg/dL 40-60 mg/dL [facility] Comment on above: Performed By: #### L IPID, CMP #### [facility] [address] [address] [address] Beth Johnson Cholesterol in LDL [Mass/Vol] 76.4 mg/dL Normal [facility] Comment on above: Performed By: #### L IPID, CMP #### [facility] [address] [address] [address] Beth Johnson Cholesterol.total/Ch olesterol in HDL [Mass ratio] 3.5 {ratio} [facility] Comment on above: Performed By: #### L IPID, CMP #### [facility] [address] [address] [address] Beth Johnson HDL NORMAL > or = 60 mg/dl - LOW CARDIOVASCULAR RISK <40 mg/dl - HIGH CARDIOVASCULAR RISK Normal [facility] Comment on above: Performed By: #### L IPID, CMP #### [facility] [address] [address] [address] Beth Johnson LDL CALC NORMAL SEE BELOW Normal [facility] Comment on above: Result Comment: <100 mg/dl OPTIMAL 100 - 129 mg/dl NEAR OR ABOVE OPTIMAL 130 - 159 mg/dl BORDERLINE HIGH 160 - 189 mg/dl HIGH >190 mg/dl VERY HIGH Performed By: #### L IPID, CMP #### [facility] [address] [address] [address] Beth Johnson Triglyceride [Mass/Vol] 173 mg/dL Critically high <=150 mg/dL [facility] Comment on above: Performed By: #### L IPID, CMP #### [facility] [address] [place] [address] Dr. Beth Johnson VLDL CALC 34.6 mg/dL Normal [facility] Comment on above: Performed By: #### L IPID, CMP #### [facility] [address] [address] [address] Beth Johnson Lipid Panelon 08-15-2022 Lipid Panel > or = 60 mg/dl - LOW CARDIOVASCULAR RISK <40 mg/dl - HIGH CARDIOVASCULAR RISK [employer] Other Lipid Panel SEE BELOW [employer] Other Lipid Panel 76.4 mg/dL [employer] Other Lipid Panel 34.6 mg/dL [employer] Other MICROALBUMIN, RAND URon 08-03 mALB 4.1 mg/L Normal <=30.0 [facility] Comment on above: Performed By: #### L IPID #### [facility] [address] [place] [address] Dr. Beth Johnson PROF 14(COMP METB)on 023 Albumin [Mass/Vol] 3.8 g/dL Normal 3.4-5.0 [facility] Comment on above: Performed By: #### L IPID, CMP #### [facility] [address] [place] [address] Dr. Beth Johnson Albumin/Globulin [Mass ratio] 0.9 {ratio} [facility] Comment on above: Performed By: #### L IPID, CMP #### [facility] [address] [place] [address] Dr. Beth Johnson ALP [Catalytic activity/Vol] 75 U/L 46-116 U/L [facility] Comment on above: Performed By: #### L IPID, CMP #### [facility] [address] [place] [address] Dr. Beth Johnson ALT [Catalytic activity/Vol] 44 U/L 16-63 U/L [facility] Comment on above: Performed By: #### L IPID, CMP #### [facility] [address] [place] [address] Dr. Beth Jonhson Anion gap [Moles/Vol] 12.8 mmol/L [facility] Comment on above: Performed By: #### L IPID, CMP #### [facility] [address] [place] [address] Dr. Beth Johnson AST [Catalytic activity/Vol] 20 U/L 15-37 U/L [facility] Comment on above: Performed By: #### L IPID, CMP #### [facility] [address] [place] [address] Dr. Beth Johnson Bilirubin [Mass/Vol] 0.5 mg/dL Normal 0.2-1.0 [facility] Comment on above: Performed By: #### L IPID, CMP #### [facility] [facility] [address] [place] [address] Dr. Beth Johnson Calcium [Mass/Vol] 9.4 mg/dL Normal 8.5-10.1 [facility] Comment on above: Performed By: #### L IPID, CMP #### [facility] [address] [place] [address] Dr. Beth Johnson Chloride [Moles/Vol] 100 mmol/L 98-107 mmol/L [facility] Comment on above: Performed By: #### L IPID, CMP #### [facility] [address] [place] [address] Dr. Beth Johnson CO2 [Moles/Vol] 29.0 mmol/L Normal 21.0-32.0 [facility] Comment on above: Performed By: #### L IPID, CMP #### [facility] [address] [place] [address] Dr. Beth Johnson Creatinine [Mass/Vol] 0.95 mg/dL Normal 0.70-1.30 [facility] Comment on above: Performed By: #### L IPID, CMP #### [facility] [address] [place] [address] Dr. Beth Johnson EGFR-AF NEPALESE >60 Normal >=60 [facility] Comment on above: Performed By: #### L IPID, CMP #### [facility] [address] [place] [address] Dr. Beth Johnson EGFR-NON AF NEPALESE >60 Normal >=60 [facility] Comment on above: Performed By: #### L IPID, CMP #### [facility] [address] [place] [address] Dr. Beth Johnson Globulin (S) [Mass/Vol] 4.2 g/dL Normal [facility] Comment on above: Performed By: #### L IPID, CMP #### [facility] [address] [place] [address] Dr. Beth Johnson Glucose [Mass/Vol] 182 mg/dL Critically high 74-106 [facility] Comment on above: Performed By: #### L IPID, CMP #### [facility] [address] [place] [address] Dr. Beth Johnson Potassium [Moles/Vol] 4.8 mmol/L Normal 3.5-5.1 [facility] Comment on above: Performed By: #### L IPID, CMP #### [facility] [address] [place] [address] Dr. Beth Johnson Protein [Mass/Vol] 8.0 g/dL Normal 6.4-8.2 [facility] Comment on above: Performed By: #### L IPID, CMP #### [facility] [address] [place] [address] Dr. Beth Johnson Sodium [Moles/Vol] 137 mmol/L Normal 136-145 [facility] Comment on above: Performed By: #### L IPID, CMP #### [facility] [address] [place] [address] Dr. Beth Johnson Urea nitrogen [Mass/Vol] 17.0 mg/dL Normal 7.0-18.0 [facility] Comment on above: Performed By: #### L IPID, CMP #### [facility] [address] [place] [address] Dr. Beth Johnson Urea nitrogen/Creatinine [Mass ratio] 17.9 mg/mg [facility] Comment on above: Performed By: #### L IPID, CMP #### [facility] [address] [place] [address] Dr. Beth Johnson US KIDNEYSon 06-29-2022 US [...] DOUG ALMONTE Date: 2022-06-29 16:16 Normal [facility] GLYCOHEMOGLOBIN A1Con 2021 ADA RECOMMENDATION SEE BELOW Normal [facility] Comment on above: Result Comment: ADA RECOMMENDED LIMIT 4.0 - 6.0 ADA THERAPEUTIC TARGET < 7.0 ACTION SUGGESTED > 7.0 Performed By: #### A 1C #### [facility] [address] [address] [address] Beth Johnson Glucose [Mass/Vol] 186 mg/dL Normal [facility] Comment on above: Performed By: #### A 1C #### [facility] [address] [address] [address] Beth Johnson HbA1c (Bld) [Mass fraction] 8.1 % Critically high 4.5-6.2 [facility] Comment on above: Performed By: #### A 1C #### [facility] [address] [address] [address] Beth [address] US ST HEAD_NECKon 04-21-2022 [...] No overtly suspicious findings. Electronically authenticated by: JAYSON MCLAUGHLIN Date: 2022-04-21 06:21 Normal [facility] HEMOGLOBINon 04-06-2022 Hemoglobin (Bld) [Mass/Vol] 13.8 g/dL Critically low 14.0-18.0 [facility] Comment on above: Performed By: #### H GB #### [facility] [address] [place] [address] Dr. Beth LEON Quick Testingon 2021 Result Positive F-Origin Other US CAROTID ART BILon 022 US [...] stenosis. Mild atherosclerotic disease. Electronically authenticated by: JAYSON MCLAUGHLIN Date: 2021-11-19 16:07 Normal [facility] STRESS/REST MULTIon 11-18 NM STRESS/REST MULTI Patient: JOSE J EVANS Exam Date: 11/18/2021 : 1960 Gender:M Ordering : DR ALDO JEREZ D.O. Admission #: [id number] Family : Order #: [id number] CLICK HERE TO VIEW EXAM RADIOLOGY REPORT PROCEDURE: RADIONUCLIDE IMAGING STRESS/REST MULTI COMPARISON: [place] STRESS/REST MULTI, 12/30/2019. INDICATIONS: Chest pain TECHNIQUE: [...] was normal per attending physician Dr. Leobardo Jerez . For more details please see separate [...] Slightly low ejection fraction, 53%. Dictated by: Jayson Mclaughlin M.D. on 11/19/2021 at 11:56 Approved by: Jayson Mclaughlin M.D. on 11/19/2021 at 12:06 Normal [facility] CBC AUTO DIFFon 09-17-2021 BASO # 0.0 103/ul Normal 0.0-0.1 [facility] Comment on above: Performed By: #### C BC #### [facility] [address] [address] [address] Beth Johnson Basophils/100 WBC (Bld) 0.2 % Normal 0.2-2.0 [facility] Comment on above: Performed By: #### C BC #### [facility] [address] [address] [address] Beth Johnson EO # 0.3 103/ul Normal 0.0-0.7 [facility] Comment on above: Performed By: #### C BC #### [facility] [address] [address] [address] Beth Johnson Eosinophils/100 WBC (Bld) 3.1 % Normal 0.9-7.0 [facility] Comment on above: Performed By: #### C BC #### [facility] [address] [address] [address] Beth Johnson Erythrocyte distribution width (RBC) [Ratio] 13.7 % Normal 11.0-15.0 [facility] Comment on above: Performed By: #### C BC #### [facility] [address] [address] [address] Beth Johnson Hematocrit (Bld) [Volume fraction] 43.9 % Normal 42.0-54.0 [facility] Comment on above: Performed By: #### C BC #### [facility] [address] [place] [address] Dr. Beth Johnson Hemoglobin (Bld) [Mass/Vol] 14.6 g/dL Normal 14.0-18.0 [facility] Comment on above: Performed By: #### C BC #### [facility] [address] [place] [address] Dr. Beth Johnson IG # 0.04 10e3/ul Critically high 0.00-0.03 [facility] Comment on above: Performed By: #### C BC #### [facility] [address] [place] [address] Dr. Beth Johnson IG % 0.5 % Normal 0.0-0.5 [facility] Comment on above: Performed By: #### C BC #### [facility] [address] [place] [address] Dr. Beth Johnson LYMPH # 2.4 103/ul Normal 1.2-3.8 [facility] Comment on above: Performed By: #### C BC #### [facility] [address] [place] [address] Dr. Beth Johnson Lymphocytes/100 WBC (Bld) 28.7 % Normal 20.5-60.0 [facility] Comment on above: Performed By: #### C BC #### [facility] [address] [place] [address] Dr. Beth Johnson MANUAL DIFF REQ NO Normal [facility] Comment on above: Performed By: #### C BC #### [facility] [address] [place] [address] Dr. Beth Johnson MCH (RBC) [Entitic mass] 30.6 pg Normal 25.9-34.0 [facility] Comment on above: Performed By: #### C BC #### [facility] [address] [place] [address] Dr. Beth Johnson MCHC (RBC) [Mass/Vol] 33.3 g/dL Normal 29.9-35.2 [facility] Comment on above: Performed By: #### C BC #### [facility] [address] [place] [address] Dr. Beth Johnson MCV (RBC) [Entitic vol] 92.0 fL Normal 80.0-94.0 [facility] Comment on above: Performed By: #### C BC #### [facility] [address] [place] [address] Dr. Beth Johnson MONO # 0.7 103/ul Normal 0.3-0.8 [facility] Comment on above: Performed By: #### C BC #### [facility] [address] [place] [address] Dr. Beth Johnson Monocytes/100 WBC (Bld) 8.7 % Normal 1.7-12.0 [facility] Comment on above: Performed By: #### C BC #### [facility] [address] [place] [address] Dr. Beth Johnson NEUT # 4.9 103/ul Normal 1.4-6.5 [facility] Comment on above: Performed By: #### C BC #### [facility] [address] [place] [address] Dr. Beth Johnson Neutrophils/100 WBC (Bld) 58.8 % Normal 43.0-75.0 [facility] Comment on above: Performed By: #### C BC #### [facility] [address] [place] [address] Dr. Beth Johnson Platelet mean volume (Bld) [Entitic vol] 8.2 fL Critically low 9.5-13.5 [facility] Comment on above: Performed By: #### C BC #### [facility] [address] [place] [address] Dr. Beth Johnson PLT 190 103/ul Normal 150-450 [facility] Comment on above: Performed By: #### C BC #### [facility] [address] [place] [address] Dr. Beth Johnson RBC 4.77 106/ul Normal 4.70-6.10 [facility] Comment on above: Performed By: #### C BC #### [facility] [address] [place] [address] Dr. Beth Johnson WBC 8.3 103/ul Normal 4.0-11.0 [facility] Comment on above: Performed By: #### C #### [facility] [address] [address] [address] Beth Johnson CTA CHEST WO W [...] by: DOUG ALMONTE Date: 2021-09-17 10:08 Normal [facility] ECHOCARDIO M/2D COMPLETEon 0 09-17-2021 ECHOCARDIO M/2D COMPLETE Patient: JOSE J EVANS Exam Date: 09/17/2021 : 1960 Gender:M Ordering : DR MARIELENA QUINTANA M.D. Admission #: [id number] Family : DR ALDO JEREZ D.O. Order #: [id number] CLICK HERE TO VIEW EXAM ECHOCARDIOGRAM REPORT [...] Area(A4C): 32.70 cm2 Left Atrium Systolic Volume(A4C): 975969 mm3 Mitral Valve MV E to A [...] 5 mm[Hg] Right Atrium Dictated by: Marielena Quintana M.D. on 09/17/2021 at 15:52 Approved by: Marielena Quintana M.D. on 09/17/2021 at 15:55 Normal [facility] GLYCOHEMOGLOBIN A1Con 2021 ADA RECOMMENDATION ADA THERAPEUTIC TARGET 6.0 - 7.0 ACTION SUGGESTED > 7.0 Normal [facility] Comment on above: Performed By: #### A 1C #### [facility] [address] [address] [address] Beth Johnson Glucose [Mass/Vol] 160 mg/dL Normal [facility] Comment on above: Performed By: #### A 1C #### [facility] [address] [address] [address] Beth Johnson HbA1c (Bld) [Mass fraction] 7.2 % Critically high <=6.0 [facility] Comment on above: Performed By: #### A 1C #### [facility] [address] [address] [address] Beth Johnson LIPID PROFILEon 09-17-2021 CHOL-HDL RATIO NORM SEE BELOW Normal [facility] Comment on above: Result Comment: 3.3 - 4.4 LOW RISK 4.4 - 7.1 AVERAGE RISK 7.1 - 11.0 MODERATE RISK >11.0 HIGH RISK Performed By: #### L IPID #### [facility] [address] [address] [address] Beth Johnson Cholesterol [Mass/Vol] 154 mg/dL Normal <=200 [facility] Comment on above: Performed By: #### L IPID #### [facility] [address] [address] [address] Beth Johnson Cholesterol in HDL [Mass/Vol] 46 mg/dL Normal 40-60 [facility] Comment on above: Performed By: #### L IPID #### [facility] [address] [address] [address] Beth Johnson Cholesterol in LDL [Mass/Vol] 77.2 mg/dL Normal [facility] Comment on above: Performed By: #### L IPID #### [facility] [address] [address] [address] Beth Johnson Cholesterol.total/Ch olesterol in HDL [Mass ratio] 3.3 {ratio} Normal [facility] Comment on above: Performed By: #### L IPID #### [facility] [address] [address] [address] Beth Johnson HDL NORMAL > or = 60 mg/dl - LOW CARDIOVASCULAR RISK <40 mg/dl - HIGH CARDIOVASCULAR RISK Normal [facility] Comment on above: Performed By: #### L IPID #### [facility] [address] [place] [address] Dr. Beth Johnson LDL CALC NORMAL SEE BELOW Normal [facility] Comment on above: Result Comment: <100 mg/dl OPTIMAL 100 - 129 mg/dl NEAR OR ABOVE OPTIMAL 130 - 159 mg/dl BORDERLINE HIGH 160 - 189 mg/dl HIGH >190 mg/dl VERY HIGH Performed By: #### L IPID #### [facility] [address] [place] [address] Dr. Beth Johnson Triglyceride [Mass/Vol] 154 mg/dL Critically high <=150 [facility] Comment on above: Performed By: #### L IPID #### [facility] [address] [place] [address] Dr. Beth Johnson VLDL CALC 30.8 mg/dL Normal [facility] Comment on above: Performed By: #### L IPID #### [facility] [address] [address] [address] Beth Johnson MICROALBUMIN, RAND URon - mALB 2.4 mg/L Normal <=30.0 [facility] Comment on above: Performed By: #### L IPID #### [facility] [address] [place] [address] Dr. Beth Johnson PROF 14(COMP METB)on 022 Albumin [Mass/Vol] 3.9 g/dL Normal 3.4-5.0 [facility] Comment on above: Performed By: #### C MP #### [facility] [address] [address] [address] Beth Johnson Albumin/Globulin [Mass ratio] 0.9 {ratio} Normal [facility] Comment on above: Performed By: #### C MP #### [facility] [address] [address] [address] Beth Johnson ALP [Catalytic activity/Vol] 86 U/L Normal 46-116 [facility] Comment on above: Performed By: #### C MP #### [facility] [address] [address] [address] Beth Johnson ALT [Catalytic activity/Vol] 29 U/L Normal 16-63 [facility] Comment on above: Performed By: #### C MP #### [facility] [address] [place] [address] Dr. Beth Johnson Anion gap [Moles/Vol] 10.7 mmol/L Normal [facility] Comment on above: Performed By: #### C MP #### [facility] [address] [place] [address] Dr. Beth Johnson AST [Catalytic activity/Vol] 14 U/L Critically low 15-37 [facility] Comment on above: Performed By: #### C MP #### [facility] [address] [place] [address] Dr. Beth Johnson Bilirubin [Mass/Vol] 0.6 mg/dL Normal 0.2-1.3 [facility] Comment on above: Performed By: #### C MP #### [facility] [address] [place] [address] Dr. Beth Johnson Calcium [Mass/Vol] 8.7 mg/dL Normal 8.5-10.1 [facility] Comment on above: Performed By: #### C MP #### [facility] [address] [place] [address] Dr. Beth Johnson Chloride [Moles/Vol] 102 mmol/L Normal 98-107 [facility] Comment on above: Performed By: #### C MP #### [facility] [address] [address] [address] Beth Johnson CO2 [Moles/Vol] 30.6 mmol/L Critically high 22.0-30.0 [facility] Comment on above: Performed By: #### C MP #### [facility] [address] [place] [address] Dr. Beth Johnson Creatinine [Mass/Vol] 1.12 mg/dL Normal 0.66-1.25 [facility] Comment on above: Performed By: #### C MP #### [facility] [address] [place] [address] Dr. Beth Johnson EGFR-AF NEPALESE >60 Normal >=60 [facility] Comment on above: Performed By: #### C MP #### [facility] [address] [place] [address] Dr. Beth Johnson EGFR-NON AF NEPALESE >60 Normal >=60 [facility] Comment on above: Performed By: #### C MP #### [facility] [address] [place] [address] Dr. Beth Johnson Globulin (S) [Mass/Vol] 4.4 g/dL Normal [facility] Comment on above: Performed By: #### C MP #### [facility] [address] [place] [address] Dr. Beth Johnson Glucose [Mass/Vol] 131 mg/dL Critically high 74-106 [facility] Comment on above: Performed By: #### C MP #### [facility] [address] [place] [address] Dr. Beth Johnson Potassium [Moles/Vol] 4.3 mmol/L Normal 3.4-5.0 [facility] Comment on above: Performed By: #### C MP #### [facility] [address] [place] [address] Dr. Beth Johnson Protein [Mass/Vol] 8.3 g/dL Critically high 6.1-8.2 [facility] Comment on above: Performed By: #### C MP #### [facility] [address] [place] [address] Dr. Beth Johnson Sodium [Moles/Vol] 139 mmol/L Normal 137-145 [facility] Comment on above: Performed By: #### C MP #### [facility] [address] [address] [address] Beth Johnson Urea nitrogen [Mass/Vol] 23.0 mg/dL Critically high 7.0-18.0 [facility] Comment on above: Performed By: #### C MP #### [facility] [address] [address] [address] Beth Johnson Urea nitrogen/Creatinine [Mass ratio] 20.5 mg/mg Normal [facility] Comment on above: Performed By: #### C MP #### [facility] [address] [address] [address] Beth Johnson Vital Signs Date Time Vital Sign Value Performing Clinician Facility 12-12-2024 08:29-0400 Body height 180.34 cm [facility] 12-12-2024 08:29-0400 Body mass index (BMI) [Ratio] 50.9 kg/m2 [facility] 12-12-2024 08:29-0400 Body weight 165.67 kg [facility] 12-12-2024 08:29-0400 Diastolic blood pressure 69 mm[Hg] [facility] 12-12-2024 08:29-0400 Heart rate 43 /min [facility] 12-12-2024 08:29-0400 Respiratory rate 12 /min [facility] 12-12-2024 08:29-0400 SaO2% (BldA) [Mass fraction] 94 % [facility] 12-12-2024 08:29-0400 Systolic blood pressure 129 mm[Hg] [facility] 08-20-2024 10:58-0500 Body height 180.34 cm [facility] 08-20-2024 10:58-0500 Body mass index (BMI) [Ratio] 49.3 kg/m2 [facility] 08-20-2024 10:58-0500 Body weight 160.28 kg [facility] 08-20-2024 10:58-0500 Diastolic blood pressure 80 mm[Hg] [facility] 08-20-2024 10:58-0500 Heart rate 57 /min [facility] 08-20-2024 10:58-0500 SaO2% (BldA) [Mass fraction] 96 % [facility] 08-20-2024 10:58-0500 Systolic blood pressure 124 mm[Hg] [facility] 07-10-2024 07:54-0500 Body height 185.4 cm Fara Snow MD Work Phone: [facility] 07-10-2024 07:54-0500 Body mass index (BMI) [Ratio] 47.5 kg/m2 Fara Snow MD Work Phone: [facility] 07-10-2024 07:54-0500 Body weight 163.29 kg Fara Snow MD Work Phone: [facility] 07-10-2024 07:54-0500 Diastolic blood pressure 80 mm[Hg] Fara Snow MD Work Phone: [facility] 07-10-2024 07:54-0500 Heart rate 55 /min Fara Snow MD Work Phone: [facility] 07-10-2024 07:54-0500 Systolic blood pressure 152 mm[Hg] Fara Snow MD Work Phone: [facility] 07-05-2024 11:49-0500 Body height 180.34 cm [facility] 07-05-2024 11:49-0500 Body mass index (BMI) [Ratio] 48.6 kg/m2 [facility] 07-05-2024 11:49-0500 Body weight 158.36 kg [facility] 07-05-2024 11:49-0500 Diastolic blood pressure 74 mm[Hg] [facility] 07-05-2024 11:49-0500 Heart rate 53 /min [facility] 07-05-2024 11:49-0500 Respiratory rate 12 /min [facility] 07-05-2024 11:49-0500 Systolic blood pressure 160 mm[Hg] [facility] 06-21-2024 06:55-0500 Body temperature 97 [degF] Millie Beltrán MD Work Phone: [employer] 06-21-2024 06:55-0500 Diastolic blood pressure 55 mm[Hg] Millie Beltrán MD Work Phone: [facility] 06-21-2024 06:55-0500 Heart rate 43 /min Millie Beltrán MD Work Phone: [facility] 06-21-2024 06:55-0500 Respiratory rate 18 /min Millie Beltrán MD Work Phone: [facility] 06-21-2024 06:55-0500 SaO2% (BldA) [Mass fraction] 94 % Millie Beltrán MD Work Phone: [facility] 06-21-2024 06:55-0500 Systolic blood pressure 125 mm[Hg] Millie Beltrán MD Work Phone: [facility] 06-21-2024 04:51-0500 Body mass index (BMI) [Ratio] 47.5 kg/m2 Millie Beltrán MD Work Phone: [facility] 06-21-2024 04:51-0500 Body weight 163.3 kg Millie Beltrán MD Work Phone: [facility] 06-19-2024 05:56-0500 Body height 185.4 cm Millie Beltrán MD Work Phone: [facility] 06-10-2024 13:21-0500 Body height 185.4 cm Fara Snow MD Work Phone: [facility] 06-10-2024 13:21-0500 Body mass index (BMI) [Ratio] 47.5 kg/m2 Fara Snow MD Work Phone: [facility] 06-10-2024 13:21-0500 Body weight 163.29 kg Fara Snow MD Work Phone: [facility] 06-10-2024 13:21-0500 Diastolic blood pressure 62 mm[Hg] Fara Snow MD Work Phone: [facility] 06-10-2024 13:21-0500 Systolic blood pressure 127 mm[Hg] Fara Snow MD Work Phone: [facility] 04-16-2024 08:56-0400 Body height 180.34 cm [facility] 04-16-2024 08:56-0400 Body mass index (BMI) [Ratio] 49.5 kg/m2 [facility] 04-16-2024 08:56-0400 Body weight 161.08 kg [facility] 04-16-2024 08:56-0400 Diastolic blood pressure 73 mm[Hg] [facility] 04-16-2024 08:56-0400 Heart rate 53 /min [facility] 04-16-2024 08:56-0400 Respiratory rate 12 /min [facility] 04-16-2024 08:56-0400 Systolic blood pressure 174 mm[Hg] [facility] 01-11-2024 09:30-0400 Body height 180.34 cm [facility] 01-11-2024 09:30-0400 Body mass index (BMI) [Ratio] 48.9 kg/m2 [facility] 01-11-2024 09:30-0400 Body weight 159.32 kg [facility] 01-11-2024 09:30-0400 Diastolic blood pressure 70 mm[Hg] [facility] 01-11-2024 09:30-0400 Heart rate 40 /min [facility] 01-11-2024 09:30-0400 Respiratory rate 12 /min [facility] 01-11-2024 09:30-0400 Systolic blood pressure 152 mm[Hg] [facility] 10-26-2023 08:54-0400 Body height 180.34 cm [facility] 10-26-2023 08:54-0400 Body mass index (BMI) [Ratio] 50.5 kg/m2 [facility] 10-26-2023 08:54-0400 Body weight 164.42 kg [facility] 10-26-2023 08:54-0400 Diastolic blood pressure 84 mm[Hg] [facility] 10-26-2023 08:54-0400 Heart rate 74 /min [facility] 10-26-2023 08:54-0400 Systolic blood pressure 142 mm[Hg] [facility] 10-20-2023 08:57-0400 Body height 180.34 cm [facility] 10-20-2023 08:57-0400 Body mass index (BMI) [Ratio] 50.5 kg/m2 [facility] 10-20-2023 08:57-0400 Body weight 164.25 kg [facility] 10-20-2023 08:57-0400 Diastolic blood pressure 76 mm[Hg] [facility] 10-20-2023 08:57-0400 Heart rate 54 /min [facility] 10-20-2023 08:57-0400 Respiratory rate 20 /min [facility] 10-20-2023 08:57-0400 Systolic blood pressure 140 mm[Hg] [facility] 03-20-2023 09:00-0400 Body height 180.34 cm Aldo Ball Other [facility] [employer] Other 03-20-2023 09:00-0400 Body mass index (BMI) [Ratio] 50.23 kg/m2 Aldo Ball Other [facility] Other 03-20-2023 09:00-0400 Body weight 163.39 kg Aldo Ball Other [facility] [employer] Other 03-20-2023 09:00-0400 Diastolic blood pressure 76 mm[Hg] Aldo Ball Other [facility] [employer] Other 03-20-2023 09:00-0400 Respiratory rate 16 /min Aldo Ball Other [facility] Other 03-20-2023 09:00-0400 Systolic blood pressure 158 mm[Hg] Aldo Ball Other [facility] Other 08-18-2022 10:30-0500 Body height 180.34 cm Aldo Ball Other [facility] Other 08-18-2022 10:30-0500 Body mass index (BMI) [Ratio] 50.15 kg/m2 Aldo Ball Other [facility] Other 08-18-2022 10:30-0500 Body weight 163.11 kg Aldo Ball Other [facility] Other 08-18-2022 10:30-0500 Diastolic blood pressure 74 mm[Hg] Aldo Ball Other [facility] Other 08-18-2022 10:30-0500 Respiratory rate 16 /min Aldo Ball Other [facility] Other 08-18-2022 10:30-0500 Systolic blood pressure 128 mm[Hg] Aldo Ball Other [facility] Other 02-12-2022 14:15-0400 Body height 180.34 cm Allison Florez Other [facility] Other 02-12-2022 14:15-0400 Body mass index (BMI) [Ratio] 50.2 kg/m2 Allison Florez Other [facility] Other 02-12-2022 14:15-0400 Body temperature 97.9 [degF] Allison Florez Other [facility] Other 02-12-2022 14:15-0400 Body weight 163.3 kg Allison Florez Other [facility] Other 02-12-2022 14:15-0400 Respiratory rate 20 /min Allison Florez Other [facility] Other 02-12-2022 14:15-0400 SaO2% (BldA) [Mass fraction] 92 % Allison Florez Other [facility] Other Encounters Encounter Date Encounter Type Care Provider Facility Start: 12-12-2024 End: 12-12-2024 ambulatory [facility] Work Phone: Start: 12-12-2024 End: 12-12-2024 Encounter for general adult medical examination without abnormal findings [facility] Start: 12-12-2024 End: 12-12-2024 Patient encounter procedure [facility] Work Phone: Start: 08-20-2024 End: 08-20-2024 ambulatory [facility] Work Phone: Start: 08-20-2024 End: 08-20-2024 Patient encounter procedure [facility] Work Phone: Start: 08-06-2024 End: 08-06-2024 Subsequent hospital visit by physician [facility] Diabetes Education Room [facility] Diabetic Education Start: 07-25-2024 End: 07-25-2024 ambulatory [facility] Start: 07-23-2024 End: 07-23-2024 Bamboo flowsheet Natty A Felter WOOD CARVING LATHE OPERATOR-ASSOCIATE AUTOMATION ENGINEER Work Phone: [facility] Start: 07-23-2024 End: 07-23-2024 Bamboo flowsheet Natty A Felter WOOD CARVING LATHE OPERATOR-ASSOCIATE AUTOMATION ENGINEER Work Phone: [facility] Start: 07-23-2024 End: 07-23-2024 Office outpatient new 45 minutes Natty A Felter WOOD CARVING LATHE OPERATOR-ASSOCIATE AUTOMATION ENGINEER Work Phone: [facility] Comment on above: Lentigines; Sebaceous hyperplasia; Stasis dermatitis of both legs; Capillary angioma; Acne vulgaris; Hidradenitis suppurativa Start: 07-23-2024 End: 07-23-2024 ambulatory NATTY ARREGUIN Not Available Start: 07-10-2024 End: 07-10-2024 Bamboo flowsheet Fara Snow MD Work Phone: [facility] Start: 07-10-2024 End: 07-10-2024 Bamboo flowsheet Fara Snow MD Work Phone: [facility] Start: 07-10-2024 End: 07-10-2024 Office outpatient visit 15 minutes Fara Snow MD Work Phone: [facility] Comment on above: Acute reactive otiti s externa of left ear (Primary Dx); Left ear impacted cerumen Start: 07-10-2024 End: 07-10-2024 ambulatory FARA SNOW Not Available Start: 07-09-2024 Non-patient / Non-visit [facility] Work Phone: Start: 07-05-2024 End: 07-05-2024 ambulatory [facility] Work Phone: Start: 07-05-2024 End: 07-05-2024 Patient encounter procedure [facility] Work Phone: Start: 06-21-2024 Non-patient / Non-visit [facility] Work Phone: Start: 06-18-2024 End: 06-21-2024 Evaluation and management of inpatient Millie Beltrán MD Work Phone: [facility] Comment on above: Severe sepsis (HCC) (Primary Dx); Groin abscess; SOSA (acute kidney injury) (HCC); Uncontrolled type 2 diabetes mellitus with hyperglycemia (HCC); Hyponatremia Start: 06-17-2024 End: 06-17-2024 ambulatory [facility] Start: 06-17-2024 End: 06-17-2024 Subsequent hospital visit by physician Aldo Jerez DO Work Phone: [facility] Laboratory Comment on above: Abscess of groin, le ft Start: 06-10-2024 End: 06-10-2024 Bamboo flowsheet Fara Snow MD Work Phone: [facility] Start: 06-10-2024 End: 06-10-2024 Bamboo flowsheet Fara Snow MD Work Phone: [facility] Start: 06-10-2024 End: 06-10-2024 Office outpatient visit 25 minutes [facility] Snow MD [facility] Comment on above: Acute reactive otiti s externa of left ear (Primary Dx); Left ear impacted cerumen Start: 06-10-2024 End: 06-10-2024 ambulatory FARA SNOW Not Available Start: 05-15-2024 Non-patient / Non-visit [facility] Work Phone: Start: 04-16-2024 End: 04-16-2024 ambulatory [facility] Work Phone: Start: 04-16-2024 End: 04-16-2024 [facility] Start: 01-30-2024 End: 01-30-[address] [facility] Start: 01-11-2024 End: 01-11-2024 ambulatory [facility] Work Phone: Start: 01-11-2024 End: 01-11-2024 Patient encounter procedure [facility] Work Phone: Start: 12-18-2023 End: 12-18-2023 ambulatory Aldo Jerez Other [facility] Other Start: 12-18-2023 Telephone encounter Aldo Jerez [facility] Start: 12-18-2023 Non-patient / Non-visit [facility] Work Phone: Start: 12-14-2023 Non-patient / Non-visit [facility] [facility] [address] Work Phone: Start: 10-26-2023 End: 10-26-2023 ambulatory ALDO JEREZ [facility] Start: 10-26-2023 End: 10-26-2023 ambulatory [facility] Work Phone: Start: 10-26-2023 End: 10-26-2023 Patient encounter procedure [facility] Work Phone: Start: 10-20-2023 End: 10-20-2023 ambulatory [facility] Work Phone: Start: 10-20-2023 End: 10-20-2023 Encounter for general adult medical examination without abnormal findings [facility] Start: 10-20-2023 End: 10-20-2023 Patient encounter procedure [facility] Work Phone: Start: 07-28-2023 End: 07-28-2023 ambulatory Aldo Jerez Other [facility] Other Start: 07-28-2023 Telephone encounter Aldo Jerez [facility] Start: 04-17-2023 End: 04-17-2023 ambulatory Aldo Jerez Other [facility] Other Start: 04-17-2023 Telephone encounter Aldo Jerez [facility] Start: 03-29-2023 End: 03-29-2023 ambulatory Aldo Jerez Other [facility] Other Start: 03-29-2023 Telephone encounter Aldo Jerez [facility] Start: 03-23-2023 End: 03-23-2023 ambulatory Aldo Jerez Other [facility] Other Start: 03-23-2023 Telephone encounter Aldo Jerez [facility] Start: 03-22-2023 End: 03-22-2023 ambulatory Aldo Jerez Other [facility] Other Start: 03-22-2023 Telephone encounter Aldo Jerez [facility] Start: 03-20-2023 End: 03-20-2023 ambulatory Aldo Jerez Other [facility] Other Start: 03-20-2023 Office outpatient vi sit 25 minutes Aldo Jerez [facility] Start: 11-24-2022 End: 11-24-2022 ambulatory Aldo Jerez Other [facility] Other Start: 11-24-2022 Telephone encounter Aldo Jerez [facility] Start: 08-22-2022 End: 08-22-2022 ambulatory Aldo Jerez Other [facility] Other Start: 08-22-2022 Telephone encounter Aldo Jerez [facility] Start: 08-19-2022 Encounter for genera l adult medical examination without abnormal findings DR ALDO JEREZ [facility] Start: 08-18-2022 End: 08-18-2022 ambulatory Aldo Jerez Other [facility] Other Start: 08-18-2022 Encounter for genera l adult medical examination without abnormal findings Aldo Jerez [facility] Start: 08-18-2022 Periodic preventive med est patient 40-64yrs Aldo Jerez [facility] Start: 08-18-2022 Telephone encounter Aldo BLANCO [facility] Start: 08-15-2022 End: 08-16-[address] ALDO JEREZ Facility:[facility] Start: 08-15-2022 End: 08-16-2022 Encounter for general adult medical examination without abnormal findings DR ALDO JEREZ Facility:[facility] Start: 08-11-2022 End: 08-11-2022 ambulatory Aldo Jerez Other [facility] Other Start: 08-11-2022 Encounter for genera l adult medical examination without abnormal findings Aldo Jerez [facility] Start: 08-11-2022 Telephone encounter Aldo Jerez [facility] Start: 06-29-2022 End: 06-30-[address] ALDO JEREZ Facility:[facility] Start: 06-13-2022 End: 06-14-[address] ALDO JEREZ Facility:[facility] Start: 04-20-2022 End: 04-21-[address] FARA SNOW Facility:[facility] Start: 04-06-2022 End: 04-07-[address] ALDO JEREZ Facility:[facility] Start: 02-12-2022 End: 02-12-2022 ambulatory Allison Florez Other [facility] [employer] Other Start: 02-12-2022 Office outpatient ne w 30 minutes Allison Florez [facility] Start: 11-19-2021 End: 11-20-[address] ALDO JEREZ Facility:[facility] Start: 11-18-2021 End: 11-19-[address] ALDO JEREZ Facility:[facility] Start: 09-17-2021 End: 09-18-[address] ALDO JEREZ Facility:[facility] Procedures Date Procedure Procedure Detail Performing Clinician Start: 06-21-2024 GLUCOSE, WHOLE BLOOD Ch mira Zapata MD Work Phone: Start: 06-21-2024 BASIC METABOLIC PANE L W/ REFLEX TO MG FOR LOW K Marce Briggs WOOD CARVING LATHE OPERATOR - ASSOCIATE AUTOMATION ENGINEER Work Phone: Start: 06-21-2024 Blood count complete auto&auto difrntl wbc Marce Briggs WOOD CARVING LATHE OPERATOR - ASSOCIATE AUTOMATION ENGINEER Work Phone: Start: 06-20-2024 GLUCOSE, WHOLE BLOOD Ch mira Zapata MD Work Phone: Start: 06-20-2024 GLUCOSE, WHOLE BLOOD Ch ivantopher Obdulio Zapata MD Work Phone: Start: 06-20-2024 GLUCOSE, WHOLE BLOOD Ch mira Zapata MD Work Phone: Start: 06-20-2024 GLUCOSE, WHOLE BLOOD Ch mira Zapata MD Work Phone: Start: 06-20-2024 Rhythm ecg 1-3 leads w/interpretation & report Unknown Provider Result Start: 06-20-2024 BASIC METABOLIC PANE L W/ REFLEX TO MG FOR LOW K Marce Hernandez [facility] Work Phone: Start: 06-20-2024 Blood count complete auto&auto difrntl wbc Marce Hernandez [facility] Work Phone: Start: 06-20-2024 C-reactive protein Jennie Hernandez [facility] Work Phone: Start: 06-19-2024 GLUCOSE, WHOLE BLOOD Liam Zapata MD Work Phone: Start: 06-19-2024 GLUCOSE, WHOLE BLOOD Liam Zapata MD Work Phone: Start: 06-19-2024 GLUCOSE, WHOLE BLOOD Liam Zapata MD Work Phone: Start: 06-19-2024 GLUCOSE, WHOLE BLOOD Ch mira Zapata MD Work Phone: Start: 06-19-2024 End: 06-20-2024 Rhythm ecg 1-3 leads w/interpretation & report Unknown Provider Result Start: 06-19-2024 Blood count complete auto&auto difrntl wbc Marce Hernandez [facility] Work Phone: Start: 06-19-2024 Drug screen quantita tive vancomycin Abhier bOdulio Zapata MD Work Phone: Start: 06-19-2024 Rhythm ecg 1-3 leads w/interpretation & report Unknown Provider Result Start: 06-18-2024 Urinalysis microscop ic only Millie Bletrán MD Work Phone: Start: 06-18-2024 Urnls dip stick/tabl et rgnt auto w/o microscopy Millie Beltrán MD Work Phone: Start: 06-18-2024 GLUCOSE, WHOLE BLOOD Ch mira Zaptaa MD Work Phone: Start: 06-18-2024 Rhythm ecg 1-3 leads w/interpretation & report Unknown Provider Result Start: 06-18-2024 Basic metabolic pane l calcium total Millie Andres Leigh Ann ROD Work Phone: Start: 06-18-2024 LACTATE, SEPSIS Millie Andres Leigh Ann ROD Work Phone: Start: 06-18-2024 GLUCOSE, WHOLE BLOOD Th emiliana Andres Leigh Ann ROD Work Phone: Start: 06-18-2024 Ct abdomen & pelvis w/contrast material Millie Beltrán MD Work Phone: Start: 06-18-2024 Ct maxillofacial w/o contrast material Millie Beltrán MD Work Phone: Start: 06-18-2024 Radiologic exam ches t single view Millie Beltrán MD Work Phone: Start: 06-18-2024 Ecg routine ecg w/le ast 12 lds i&r only Milliecarla Beltrán MD Work Phone: Start: 06-18-2024 C-reactive protein Jos aguirre Dmitry Beltrán MD Work Phone: Start: 06-18-2024 Comprehensive metabo lic panel Millie Beltrán MD Work Phone: Start: 06-18-2024 Culture bacterial bl ood aerobic w/id isolates Millie Beltrán MD Work Phone: Start: 06-18-2024 CULTURE, BLOOD 1 Millie Beltrán MD Work Phone: Start: 06-18-2024 LACTATE, SEPSIS Millie Dmitry Beltrán MD Work Phone: Start: 06-17-2024 Cul bact xcpt urine blood/stool aerobic isol Zeynep Isaac PA-C Work Phone: Start: 08-15-[address] [facility]LEDGE [facility] [place] Comment on above: Performed By: #### L IPID #### [facility] [address] [address] [address] Beth Johnson Plan of Treatment Date Care Activity Detail Author Start: 07-22-2025 End: 07-22-2025 Patient encounter procedure 07/22/2025 11:05 AM EST Office Visit [facility] [address] [place] [id number] Natty Arreguin, WOOD CARVING LATHE OPERATOR-ASSOCIATE AUTOMATION ENGINEER [address] [place] [address] [facility] Start: 06-21-2025 GFR test (Diabetes, CKD 3-4, OR last GFR 15-59) GFR test (Diabetes, CKD 3-4, OR last GFR 15-59) [facility] Start: 02-19-2025 End: 02-19-2025 Patient encounter procedure 02/19/2025 9:30 AM EDT Office Visit [facility] [address] [place] [address] Zeynep Isaac, PA-C [address] [place] [address] [address] [place], [place] [id number] 1yr Follow Up [facility] Comment on above: 1yr Follow Up Start: 07-23-2024 End: 07-23-2024 Patient encounter procedure [facility] Comment on above: Arrived Start: 07-10-2024 End: 07-10-2024 Patient encounter procedure [facility] Comment on above: Arrived Start: 07-09-2024 End: 07-09-2024 Patient encounter procedure 07/09/2024 1:00 PM EST Office Visit [facility] [address] [place] [address] Shi Ayala, DO [address] [id number] Groin abscess [facility] Comment on above: Groin abscess Start: 06-17-2024 Annual Wellness Visi t (Medicare) Annual Wellness Visit (Medicare) [facility] Start: 06-10-2024 End: 06-10-2024 Patient encounter procedure 06/10/2024 1:30 PM EST Office Visit [facility] [address] [place] [address] Fara Snow MD [address] [facility] [address] [place] [address] Arrived [facility] Comment on above: Arrived Start: 03-03-2024 COVID-19 Vaccine ( season) COVID-19 Vaccine ( season) [facility] Start: 01-17-2024 Abdominal aortic aneurysm screening AAA screen [facility] Start: 01-17-2024 Pneumococcal Vaccine : 65+ Years (1 of 1 - PCV) Pneumococcal Vaccine: 65+ Years (1 of 1 - PCV) [facility] Start: 2019 Respiratory Syncytia l Virus (RSV) or age 60 yrs+ (1 - Risk 60-74 years 1-dose series) Respiratory Syncytial Virus (RSV) or age 60 yrs+ (1 - Risk 60-74 years 1-dose series) [facility] Start: 01-17-2004 Screening for malign ant neoplasm of colon [facility] Start: 1978 DTaP/Tdap/Td vaccine (1 - Tdap) DTaP/Tdap/Td vaccine (1 - Tdap) [facility] Start: 1977 GFR test (Diabetes, CKD 3-4, OR last GFR 15-59) GFR test (Diabetes, CKD 3-4, OR last GFR 15-59) [facility] Start: 1977 Glaucoma screening Diabetic retinal exam [facility] Start: 1977 Hepatitis C screening Hepatitis C sc reen [facility] Start: 1977 Urine screening for protein Diabetic Alb to Cr ratio (uACR) test [facility] Start: 1974 HIV screening HIV screen [facility] [employer] Start: 1971 Depression Screen Depression Screen [facility] Start: 1969 Diabetic foot examination Diabetic foot exam [facility] Start: 1969 Hemoglobin A1c measurement A1C test (Diabetic or Prediabetic) [facility] [employer] [employer] Start: 1969 Lipid panel Lipids [facility] Start: 1965 Pneumococcal 50+ yea rs Vaccine (1 of 2 - PCV) Pneumococcal 50+ years Vaccine (1 of 2 - PCV) [facility] Start: 1965 Pneumococcal 65+ yea rs Vaccine (1 of 2 - PCV) Pneumococcal 65+ years Vaccine (1 of 2 - PCV) [facility] [employer] [employer] Start: 1959 Screening for malign ant neoplasm of colon [facility] End: 06-24-2024 Basic Metabolic Panel w/ Reflex to MG Basic Metabolic Panel w/ Reflex to MG Lab Routine Daily for 5 Days starting 06/20/2024 until 06/24/2024, 2 completed [facility] Comment on above: Daily for 5 Days sta rting 06/20/2024 until 06/24/2024, 2 completed Blood Culture 1 Blood Culture 1 Microbiology STAT 06/18/2024 3:50 PM EST [facility] End: 06-23-2024 CBC W Auto Differential panel - Blood CBC auto differential Lab Routine Daily for 5 Days starting 06/19/2024 until 06/23/2024, 3 completed [facility] Comment on above: Daily for 5 Days sta rting 06/19/2024 until 06/23/2024, 3 completed Comprehensive metabo lic 2000 panel - Serum or Plasma [facility] Culture, Blood 2 Culture, Blood 2 Microbiology STAT 06/18/2024 3:50 PM EST [facility] Culture, Wound (with Gram Stain) Culture, Wound (with Gram Stain) Microbiology Routine Abscess of groin, left 06/17/2024 9:45 AM EST [facility] Glucose [Mass/volume ] in Serum or Plasma [facility] Comment on above: 4X Daily (AC & HS) u ntil discontinued starting 06/19/2024 As Needed until disc ontinued starting 06/18/2024 End: 06-18-2024 Inpatient Consult to Wound Care Inpatient Consult to Wound Care Wound Ostomy Routine One Time for 1 Occurrences starting 06/18/2024 until 06/18/2024 [facility] Comment on above: One Time for 1 Occur rences starting 06/18/2024 until 06/18/2024 Nasal Cannula Oxygen Nasal Cannu la Oxygen Respiratory Care Routine Daily until discontinued starting 06/19/2024 [facility] Comment on above: Daily until disconti nued starting 06/19/2024 Oxygen therapy [[facility] Data Set] Initiate Oxygen Therapy Protocol Respiratory Care Routine Daily until discontinued starting 06/18/2024 [facility] Comment on above: Daily until disconti nued starting 06/18/2024 [facility] Immunizations Immunization Date Immunization Notes Care Provider Bryce markham 04-16-2024 influenza, high dose seasonal, preservative-free [facility] 03-20-2023 influenza virus vaccine, unspecified formulation Aldo Jerez DO Work Phone: [facility] 03-20-2023 influenza, injectabl e, quadrivalent, preservative free Aldo Jerez Other [facility] 05-05-2022 influenza virus vaccine, split virus (incl. purified surface antigen) Aldo Jerez Other [employer] [facility] Other 05-05-2022 influenza virus vaccine, unspecified formulation [facility] 05-05-2022 Influenza, injectabl e, Madin Viola Canine Kidney, preservative free, quadrivalent Aldo Jerez DO Work Phone: [facility] 05-05-2022 influenza, injectabl e, quadrivalent, preservative free [facility] 05-05-2022 influenza, injectabl e, quadrivalent, contains preservative Aldo Jerez Other [employer] [facility] Other 05-25-2021 influenza virus vaccine, split virus (incl. purified surface antigen) Aldo Jerez Other [facility] [employer] Other 05-25-2021 influenza virus vaccine, unspecified formulation [facility] 05-24-2021 COVID-19 Vaccine Moderna - Documentation Purposes Only Aldo Jerez Other [facility] 05-24-2021 COVID-19, [place] Vaccine , Vaccine Unspecified Aldo Ball DO Work Phone: [facility] 05-24-2021 zoster vaccine recombinant Aldo Ball Other [facility] 05-24-2021 zoster vaccine, live Benjami aaron [facility] Other [facility] 03-05-2021 zoster vaccine recombinant Aldo Ball Other [facility] 10-12-2020 COVID-19 Vaccine Moderna - Documentation Purposes Only Aldo Jerez Other [facility] 10-12-2020 COVID-19, [place] Vaccine , Vaccine Unspecified Aldo Ball DO Work Phone: [facility] 09-14-2020 COVID-19 Vaccine Moderna - Documentation Purposes Only Aldo Jerez Other [facility] 09-14-2020 COVID-19, [place] Vaccine , Vaccine Unspecified Aldo Ball DO Work Phone: [facility] 04-28-2020 influenza virus vaccine, split virus (incl. purified surface antigen) Aldo Jerez Other [facility] Other 04-28-2020 influenza virus vaccine, unspecified formulation [facility] 04-16-2019 influenza virus vaccine, split virus (incl. purified surface antigen) Aldo Jerez Other [facility] Other 04-16-2019 influenza virus vaccine, unspecified formulation [facility] Payers Date Payer Category Payer Medicare MEDICARE [id number] 2024 Private Health Insurance [employer] [id number] 2024 Medicare [id number] 2024 Private Health Insurance [id number] 1959 Unknown [id number] 1959 Unknown [id number] 1959 Unknown [id number] 1959 Unknown [id number] 1959 Unknown [id number] 1959 Unknown [id number] 1959 Unknown [id number] 1959 Unknown [id number] 1959 Unknown [id number] .593 1960 Unknown [id number] 1960 Unknown [id number] 1960 Unknown [id number] 1959 Unknown [id number] 1960 Unknown [id number] 1959 Unknown [id number] 1960 Unknown [id number] Unknown [facility] [id number] Social History Date Type Detail Facility Start: 06-17-2024 End: 06-18-2024 Sex Assigned At [facility] Start: 10-19-2023 End: 10-19-2023 Tobacco smoking status SDIS Ex-smoker (finding) [facility] Start: 1960 Sex Assigned At Male [facility] consumption [facility] Start: 1960 Sex assigned at Not on file [facility] Start: 06-10-2024 Tobacco smoking status SDIS Never smoked tobacco [facility] Start: 06-10-2024 End: 07-10-2024 Tobacco use and exposure Smokeless tobacco non-user [facility] Start: 06-10-2024 End: 06-19-2024 Alcoholic beverage intake Current drinker of alcohol (finding) [facility] Start: 1978 End: 05-03-1998 History of tobacco use Current smoker [facility] Start: 1978 End: 05-03-1998 History of tobacco use Cigarette Smoker [facility] Start: 11-14-2023 Tobacco use and exposure Former smokeless tobacco user [facility] Start: 06-17-2024 End: 06-18-2024 History of Social function [employer] Has the cooala - your brands, or water [employer] threatened to shut off services in your home in past 12Mo No [facility] How often to you hav e a drink containing alcohol? 2-3 time sa week [facility] How many standard dr inks containing alcohol do you have on a typical day? 5 or 6 [facility] How often do you hav e 6 or more drinks on 1 occasion? Never [facility] (I/We) worried ike er (my/our) food would run out before (I/we) got money to buy more. Never true [facility] In the past 12 month s, has lack of transportation kept you from medical appointments or from getting medications? No [facility] Start: 06-18-2024 Alcohol Comment 5 drinks per week containing beer and liquor [facility] Start: 07-05-2024 End: 12-12-2024 Sex Male (finding) [facility] Medical Equipment Procedure Code Equipment Code Equipment Origin al Text Equipment Identifier Dates Start: 09-16-2023 Blood Sugar Diagnostic (Freestyle Test) strip Start: 01-11-2024 Lancets (Freesty le Lancets) 28 gauge misc Start: 01-11-2024 Pen Needle, Diab etic (Bd Ultra-Fine Orig Pen Needle) 29 gauge x 1/2 needle Start: 03-11-2024 Pen Needle, Diab etic (Bd Ultra-Fine Orig Pen Needle) 29 gauge x 1/2 needle Start: 03-11-2024 End: 03-11-2024 Blood Sugar Diagnostic (Freestyle Test) strip Start: 06-25-2024 Lancets (Freesty le Lancets) 28 gauge misc Start: 01-11-2024 Pen Needle, Diab etic (Bd Ultra-Fine Orig Pen Needle) 29 gauge x 1/2 needle Start: 03-11-2024 Blood Sugar Diagnostic (Freestyle Test) strip Start: 06-24-2024 End: 06-25-2024 Blood Sugar Diagnostic (Freestyle Test) strip Start: 01-11-2024 End: 06-24-2024 Pen Needle, Diab etic (Bd Ultra-Fine Orig Pen Needle) 29 gauge x 1/2 needle Start: 03-11-2024 End: 03-11-2024 Lancets (Freesty le Lancets) 28 gauge misc Start: 01-11-2024 Pen Needle, Diab etic (Bd Ultra-Fine Orig Pen Needle) 29 gauge x 1/2 needle Start: 08-20-2024 Blood Sugar Diagnostic (Freestyle Test) strip Start: 06-24-2024 End: 06-25-2024 Blood Sugar Diagnostic (Freestyle Test) strip Start: 06-25-2024 End: 07-24-2024 Blood Sugar Diagnostic (Freestyle Test) strip Start: 07-24-2024 End: 07-24-2024 Blood Sugar Diagnostic (Freestyle Test) strip Start: 01-11-2024 End: 06-24-2024 Pen Needle, Diab etic (Bd Ultra-Fine Orig Pen Needle) 29 gauge x 1/2 needle Start: 03-11-2024 End: 03-11-2024 Pen Needle, Diab etic (Bd Ultra-Fine Orig Pen Needle) 29 gauge x 1/2 needle Start: 03-11-2024 End: 08-20-2024 Lancets (Freesty le Lancets) 28 gauge misc Start: 01-11-2024 Pen Needle, Diab etic (Bd Ultra-Fine Orig Pen Needle) 29 gauge x 1/2 needle Start: 08-20-2024 Blood Sugar Diagnostic (Freestyle Test) strip Start: 06-24-2024 End: 06-25-2024 Blood Sugar Diagnostic (Freestyle Test) strip Start: 06-25-2024 End: 07-24-2024 Blood Sugar Diagnostic (Freestyle Test) strip Start: 07-24-2024 End: 07-24-2024 Blood Sugar Diagnostic (Freestyle Test) strip Start: 01-11-2024 End: 06-24-2024 Pen Needle, Diab etic (Bd Ultra-Fine Orig Pen Needle) 29 gauge x 1/2 needle Start: 03-11-2024 End: 03-11-2024 Pen Needle, Diab etic (Bd Ultra-Fine Orig Pen Needle) 29 gauge x 1/2 needle Start: 03-11-2024 End: 08-20-2024 Clinical Notes 02-12-2022 to 08-06-2024 Nohelia Reardon RN, BSN - 08/06/2024 2:30 PM Chiqui Arreguin APRN-JAS - 07/23/2024 1:25 PM Ariel Snow MD - 07/10/2024 8:00 AM EST Note Date & Type Note Facility 08-06-2024 History of Present illness Narrative Patient called yesterday requesting assistance with Dexcom G7 and application. He has all supplies. Patient arrived to office today. Assisted with kirti download and account set up. We applied sensor in back of right arm after cleansing with alcohol. Warm up started. Educated on avoiding high doses of Tylenol. Informed sensor needs removed prior to CT and MRI. Shown trend arrows. Educated on when to perform fingerstick readings. Shown alarm settings and how to adjust. All of his questions are answered. First reading was 106 with stable trend arrow. Shown customer service number. Educated on proper disposal. Office number given to call with questions or concerns. documented in this encounter [facility] 07-25-2024 Note [facility] Cardiology Clinic Note Chief Complaint: Follow up Jose J Evans is a 64 y.o. male here for follow-up. WAS IN [facility] FOR SEPSIS FOR 3 DAYS WEEK BEFORE [place]. 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 The patient is a former smoker. UPDATE 07/25/2024 He had sepsis stemming from a groin infection around [place]; he was in the hospital for 4 days with IV antibiotics He is doing much better and has no new cardiovascular complaints His last HbA1c was 12! He is working with his family physician to bring that down and is currently on insulin, Ozempic, as well as semaglutide Cardiology ROS: Review of Systems Eyes: Positive for blurred vision (intermittent). Cardiovascular: Positive for dyspnea on exertion and leg swelling. Musculoskeletal: Positive for arthritis and neck pain. Neurological: Positive for headaches. All other systems reviewed and are negative. Past Medical History He has a past medical history of Bradycardia, Coronary artery disease, Diabetes mellitus (CMS/HCC), Hyperlipidemia, and Hypertension. Surgical History He has a past surgical history that includes Cardiac catheterization. Social History He reports that he quit smoking about 22 years ago. His smoking use included cigarettes. He started smoking about 32 years ago. He has a 10 pack-year smoking history. He has never used [...] , Rfl: atorvastatin (Lipitor) 40 mg tablet, TAKE 1 TABLET IN THE MORNING, Disp: 90 tablet, Rfl: 3 insulin glargine (Toujeo SoloStar U-300 Insulin) 300 unit/mL (1.5 mL) injection, Inject under the skin at bedtime., Disp: , Rfl: insulin lispro (HUMALOG PEN SUBQ), Inject under the skin., Disp: , Rfl: losartan-hydrochlorothiazide (Hyzaar) 100-25 mg tablet, Take 1 tablet by mouth in the morning., Disp: , Rfl: metFORMIN (Glucophage) 1,000 mg tablet, Take 1,000 mg by mouth with breakfast and with evening meal., Disp: , Rfl: metoprolol succinate XL (Toprol-XL) 25 mg 24 hr tablet, Take 1 tablet (25 mg) by mouth in the morning. Do not crush or chew. (Patient taking differently: Take 12.5 mg by mouth in the morning. Do not crush or chew.), Disp: 90 tablet, Rfl: 3 metoprolol succinate XL (Toprol-XL) 25 mg 24 hr tablet, Take 0.5 tablets (12.5 mg) by mouth in the morning. Do not crush or chew., Disp: 45 tablet, Rfl: 3 semaglutide (Rybelsus) 14 mg tablet, Take 14 mg by mouth in the morning., Disp: , Rfl: spironolactone (Aldactone) 25 mg tablet, TAKE 1 TABLET DAILY, Disp: 90 tablet, Rfl: 3 Last Recorded Vitals BP 131/81 Pulse 67 Wt (!) 160 kg (352 lb) SpO2 97% BMI 46.44 kg/m??? Physical Examination: GENERAL: alert and oriented [...] normal. LA Grade A (one or more mu (more content not included)... [facility] 07-23-2024 History of Present illness Narrative Skin Check Location: Patient requests a full body skin examination Dermatologic history: no history of skin cancer, no family history of melanoma Last visit: New patient Lesions: Location: groin Duration: years Quality: painful, itchy Modifying factors: rubs on clothing Associated symptoms: draining, enlarged, tender Treatments: he has had them drained before, he has been in the hospital before for them (sepsis) All pertinent medical history, medications, and allergies were reviewed. General Exam: alert, oriented to person, place, and time, normal affect, well appearing Unaccompanied Scalp, Examined , exam limited by hair Right leg Examined Head, Face Examined Left leg Examined Neck Examined Right foot Examined Chest Examined Left foot Examined Back Examined Buttocks Examined Abdomen Examined Digits,nails: Examined Right arm Examined Left arm Examined Lymphatics: Not examined Hands Examined 1. Lentigines Scattered lew macules in sun-exposed areas. The patient was informed that lentigines are benign pigmented lesions that occur on sun-exposed and sun-damaged skin. No treatment is necessary. Recommended regular use of broad spectrum sunscreen SPF 30 or higher 2. Sebaceous hyperplasia Head - Anterior (Face) Small yellow papules with a central dell. Reassure, benign. Discussed these can be removed for a cosmetic fee with the hyfrecator if desired. 3. Stasis dermatitis of both legs Left Lower Leg - Anterior, Right Lower Leg - Anterior [place] scaly plaques in areas of edema The patient was informed that stasis dermatitis is a chronic rash on the lower legs due to swelling often caused by poor circulation. The patient was instructed to keep the legs elevated when seated, avoid standing for long periods of time, and to wear compression stockings. Notify clinic if failing to improve despite treatment. 4. Capillary angioma Torso - Posterior (Back) Scattered andrade-red papule(s). The patient was informed that angiomas are benign growths on the the skin. No treatment is necessary. 5. Acne vulgaris Torso - Posterior (Back) Scattered comedones and inflammatory pustules. Flaring today Patient was counseled that this condition is chronic and can be controlled, but not cured. 6. Hidradenitis suppurativa Pelvis - Anterior Erythematous nodules, double comedones, and scarring. [place] Stage 1. Flaring today The patient was counseled that hidradenitis is a chronic inflammatory disorder of the hair follicles and sweat glands. There appears to be a genetic predisposition for this condition. Quitting smoking, weight loss, and wearing looser fitting clothing may help decrease the severity/amount of flares. The patient was informed that treatment can be difficult and depends on the severity of the condition. Treatment options were explained which include topical antibacterials, oral antibiotics, and Humira. Start Clindamycin lotion once a day, Hibiclens, and benadryl cream as needed to area. clindamycin (Cleocin T) 1 % lotion - Pelvis - Anterior Apply thin layer to affected area on the groin, once daily, 30 day supply Chlorhexidine Gluconate (Hibiclens) 4 % solution - Pelvis - Anterior Use up to 2-3 times a week around the groin area, do not use above the neck diphenhydrAMINE (BENADryl) 2 % cream - Pelvis - Anterior Apply topically 3 (three) times a day as needed for itching Next Visit: 1 year skin check documented in this encounter [facility] 07-10-2024 History of Present illness Narrative Subjective Patient ID: Jose J Evans is a 64 y.o. male who presents for Ear Problem (Ear cleaning) F/U left OE and cerumen impaction. Sx resolved Family History Problem Relation Name Age of Onset Diabetes Mother Nery Evans Heart failure Father Himanshu Evans Active Ambulatory Problems Diagnosis Date Noted Benign essential HTN (CMS/HCC) 03/22/2023 Bradycardia 06/10/2024 Chronic otitis externa 06/10/2024 Chronic venous insufficiency of lower extremity 03/22/2023 Peripheral venous insufficiency 01/22/2020 Conductive hearing loss, unilateral, left ear with restricted hearing on the contralateral side 06/10/2024 Coronary artery disease involving [place] coronary artery of [place] heart without angina pectoris [place] 04/03/2023 Coronary-myocardial bridge ([facility] 04/21/2023 Diabetes mellitus ([facility] 01/22/2020 PORTILLO (dyspnea on exertion) 03/22/2023 Internal derangement of right shoulder 06/10/2024 LVH (left ventricular hypertrophy) 01/22/2020 Malignant otitis externa 06/10/2024 Mixed conductive and sensorineural hearing loss of left ear 06/10/2024 Hypercholesterolemia ([facility]) 06/10/2024 Morbid obesity due to excess calories ([facility] 03/22/2023 Primary osteoarthritis 06/10/2024 JAMES (obstructive sleep apnea) 06/10/2024 Type 2 diabetes mellitus with diabetic polyneuropathy ([facility] 06/10/2024 Unstable angina ([facility] 03/22/2023 Resolved Ambulatory Problems Diagnosis Date Noted GERD (gastroesophageal reflux disease) 01/30/2024 History of diverticulitis of colon 09/28/2022 Hx of colonic polyps 09/28/2022 Mixed hyperlipidemia ([facility]) 04/03/2023 No Additional Past Medical History History reviewed. No pertinent surgical history. Allergies Allergen Reactions Lisinopril Other Reaction(s): Unknown Reaction Current Outpatient Medications on File Prior to Visit Medication Sig Dispense Refill albuterol HFA 90 mcg/act inhaler Inhale 1 puff every 6 (six) hours if needed aspirin 81 MG EC tablet Take 81 mg by mouth Daily insulin lispro (HumaLOG) 100 UNIT/ML injection Inject under the skin 3 (three) times a day with meals losartan-hydroCHLOROthiazide (Hyzaar) 100-25 MG tablet Take 1 tablet by mouth Daily metFORMIN (Glucophage) 1000 MG tablet Take 1 tablet by mouth in the morning and 1 tablet in the evening. Take with meals. semaglutide (Ozempic, 0.25 or 0.5 MG/DOSE,) 2 MG/1.5ML solution pen-injector Inject 0.5 mg under the skin 1 (one) time per week spironolactone (Aldactone) 25 MG tablet Take 25 mg by mouth Daily Toujeo SoloStar 300 UNIT/ML injection Inject under the skin Daily [DISCONTINUED] amLODIPine (Norvasc) 5 MG tablet Take 1 tablet by mouth Daily [DISCONTINUED] atorvastatin (Lipitor) 20 MG tablet Take 20 mg by mouth Daily No current facility-administered medications on file prior to visit. Objective Last Recorded Vitals Vitals: 07/10/24 0754 BP: 152/80 Pulse: 55 ENT Physical Exam Ear Ear Canals: right ear canal normal; Tympanic Membranes: right tympanic membrane normal; left tympanic membrane normal; Ear comments: LT - debrided. Inflammation resolved Assessment/Plan Diagnoses and all orders for this visit: Acute reactive otitis externa of left ear Left ear impacted cerumen LT ear debrided and inflammation resolved. Alc/vinegar gtts if sx recur documented in this encounter [facility] 07-05-2024 Evaluation note Diagnosis Onset Date Resolution ASHD (arteriosclerotic heart disease) acute July 05 11:21am Cellulitis of groin, left acute July 05, 2024 11:21am Chronic venous insufficiency of lower extremity acute July 05 11:21am Hypercholesterolemia acute Matti2024 11:21am Hypertension acute July 05, 2024 11:21am Hypertrophic cardiomyopathy acute July 05, 2024 11:21am Obesity acute July 05, 025 11:21am JAMES (obstructive sleep apnea) acute July 05 11:21am Type 2 diabetes mellitus with diabetic polyneuropathy acute July 05 11:21am Type 2 diabetes mellitus with hyperglycemia acute July 05, 2024 11:21am ASHD (arteriosclerotic heart disease) acute August 20, 2024 10:42am Bradycardia acute August 10:42am Chronic venous insufficiency of lower extremity acute August 20, 2024 10:42am GERD (gastroesophageal reflux disease) acute August 20, 2024 10:42am Hypercholesterolemia acute ua2024 10:42am Hypertension acute August 10:42am Hypertrophic cardiomyopathy acute August 20, 2024 10:42am Obesity acute August 20, 2024 10:42am JAMES (obstructive sleep apnea) acute August 20, 2024 10:42am Type 2 diabetes mellitus with diabetic polyneuropathy acute August 20, 2024 10:42am Type 2 diabetes mellitus with hyperglycemia acute August 10:42am [facility] Work Phone: 1(762) 212-820412-20-2024 History of Present illness Narrative* Jeanine Duran RN - 06/21/2024 12:10 PM EST Reviewed discharge instructions with patient. Patient aware of need to grape picker prescriptions. Reviewed new medication and side effects to monitor for. Reviewed home medications and when next dose is due. Patient aware to stop Norvasc and Lipitor. Instructed to follow a diabetic diet closely to keepblood sugars under control for healing. Patient is to check blood sugars before meals and bedtime. Patient is to do dressing changes to groin with gauze as needed. Educational handout given on Cellulitis, Abscess, and Hidradenitis Suppurativa. Questions answered. Verbalizes understanding. Copy of discharge instructions given to patient. * Fabian Paris RN - 06/21/2024 7:05 AM EST Assessment and vitals obtained. Patient alert and oriented x4. Complaining of some discomfort in his left groin. Wound draining lew/serosanguineous output. Dressing changed. Stating he has some numbness and tingling in lower extremities, which is baseline per patient. No needs at this time. Antibiotics infusing. Call light within reach. * Kirk Quevedo RN - 06/20/2024 6:53 PM EST Pt alert and oriented x4 resting comfortably in chair at this time. Vitals and assessment completedas charted. Pt denies any pain or current needs at this time. Call light is within reach. Care ongoing. * Aldo Coats - 06/20/2024 3:17 PM EST Spiritual Services Interventions [id number] 06/20/2024 Aldo Evans 64 y.o. year old male Encounter Summary Encounter Overview/Reason: (P) Spiritual/Emotional Needs Service Provided For: (P) Patient Referral/Consult From: Mukherjee (P) Last Encounter : (P) 06/20/24 Complexity of Encounter: (P) Moderate Begin Time: (P) 1000 End Time : (P) 1015 Total Time Calculated: (P) 15 min Spiritual/Emotional needs Type: (P) Spiritual Support Assessment/Intervention/Outcome Assessment: (P) Calm Intervention: (P) Discussed belief system/restoration practices/kartik, Discussed illness injury and it s impact Outcome: (P) Encouraged, Engaged in conversation * Katrina Xie RN - 06/20/2024 12:59 PM EST Reassessment and vitals obtained at this time as charted. Patient remains bradycardic, vitals otherwise WNL. Patient denies pain. Patient remains alert and oriented x4. Lung sounds clear to diminished throughout with an occasional cough still noted. Non-pitting edema remains present to BLE. Gauze remains in place to left groin wound. Assessment otherwise as charted, see flowsheets. Patient is resting in the chair with call light in reach, denies other needs at this time. Care ongoing. * Marce Briggs, WOOD CARVING LATHE OPERATOR - ASSOCIATE AUTOMATION ENGINEER - 06/20/2024 8:48 AM EST WOOD CARVING LATHE OPERATOR - Progress Note Patient - Jose J Evans Date of Admission - 06/18/2024 3:39 PM Date of Evaluation - 06/20/2024 Hospital Day - 2 SUBJECTIVE: The Jose J Evans is a 64 y.o. male sitting up in chair no distress. Feels better overall. No complaints. Discussed exercise, DM and weight loss. Discussed POC. ROS: Constitutional: negative for fevers, and negative for chills. Respiratory: negative for shortness of breath, negative for cough, and negative for wheezing Cardiovascular: negative for chest pain, and negative for palpitations Gastrointestinal: negative for abdominal pain, negative for nausea,negative for vomiting, negative for diarrhea, and negative for constipation All other systems were reviewed with the patient and are negative unless otherwise stated in HPI. OBJECTIVE: VITAL SIGNS: Patient Vitals for the past 8 hrs: BP Temp Temp src Pulse Resp SpO2 Weight 06/20/24 0735 125/60 97.3 F (36.3 C) Temporal (!) 47 20 97 % -- 06/20/24 0500 -- -- -- -- -- -- (!) 163.7 kg (360 lb 14.4 oz) Temp: 97.3 F (36.3 C) Temp range: Temp Av.3 F (36.3 C) Min: 97 F (36.1 C) Max: 97.5 F (36.4 C) BP: 125/60 BP Range: Systolic (24hrs), Av , Min:116 , Max:158 Diastolic (24hrs), Av, Min:51, Max:70 Pulse: (!) 47 Pulse Range: Pulse Av Min: 47 Max: 63 Respirations: 20 Resp Range: Resp Av.6 Min: 20 Max: 24 SpO2: 97 % on room air SpO2 range: SpO2 Av.7 % Min: 91 % Max: 97 % Weight Wt Readings from Last 3 Encounters: 06/20/24 (!) 163.7 kg (360 lb 14.4 oz) 06/18/24 (!) 165.1 kg (364 lb) 06/17/24 (!) 165.1 kg (364 lb) Body mass index is 47.62 kg/m . 24HR INTAKE/OUTPUT: Intake/Output Summary (Last 24 hours) at 06/20/2024 0848 Last data filed at 06/20/2024 0745 Gross per 24 hour Intake 5761.97 ml Output 3700 ml Net 2061.97 ml Date 06/20/24 0000 - 06/20/24 235 Shift 2554-2886 3658-2828 7195-3473 24 Hour Total INTAKE P.O. 800 800 I.V.(mL/kg/hr) 3603(2.8) 3603 Shift Total(mL/kg) 4403(26.9) 4403(26.9) OUTPUT Urine(mL/kg/hr) 1650(1.3) 1650 Shift Total(mL/kg) 1650(10.1) 1650(10.1) Weight (kg) 163.7 163.7 163.7 163.7 PHYSICAL EXAM: GEN: Awake and following commands: [] No [x] Yes MENTAL STATUS: alert and oriented x3. DISTRESS: Acute respiratory distress: [x] No [] Yes EYES: EOMI, pupils equal NECK: Supple. No lymphadenopathy. No carotid bruit CVS: regular rate and rhythm, no audible murmur PULM: CTA, no wheezes, rales or rhonchi, no acute respiratory distress ABD: Bowels sounds normal. Abdomen is soft. No distention. no tenderness to palpation. EXT: no edema bilaterally . No calf tenderness. NEURO: Moves all extremities. Motor and sensory are grossly intact SKIN: No rashes. No skin lesions. Groin abscess purulent drainage DATA: Complete Blood Count: Recent Labs 06/18/24 1550 06/19/24 0505 06/20/24 0555 WBC 7.7 3.7 4.2 RBC 4.96 4.24 4.11* HGB 15.1 13.0 12.4* HCT 43.7 38.2* 37.2* MCV 88.1 90.1 90.5 RDW 13.5 14.0 14.0 PLT 180 115* 130* NEUTROABS 7.08 3.11 2.04 LYMPHOPCT 2* 9* 27 LYMPHSABS 0.15* 0.33* 1.13 MONOPCT 5 6 19* BASOPCT 0 0 0 IMMGRAN 1* 0 1* Recent Blood Glucose: Recent Labs 06/18/24 1550 06/18/24 1802 06/19/24 0505 GLUCOSE 422* 292* 190* Comprehensive Metabolic Profile: Recent Labs 06/18/24 1550 06/18/24 1802 06/19/24 0505 BUN 43* 44* 42* CREATININE 2.3* 2.3* 1.9* NA 128* 129* 133* K 5.2 4.8 4.5 CL 92* 97* 100 CALCIUM 8.7 7.6* 8.1* ANIONGAP 15 10 9 CO2 21 22 24 BILITOT 1.0 -- 0.5 ALKPHOS 88 -- 68 AST 15 -- 19 ALT 11 -- 13 Urinalysis: Lab Results Component Value Date/Time NITRU NEGATIVE 06/18/2024 10:48 PM COLORU Yellow 06/18/2024 10:48 PM PHUR 5.5 06/18/2024 10:48 PM WBCUA 2 TO 5 06/18/2024 10:48 PM RBCUA 2 TO 5 06/18/2024 10:48 PM MUCUS 2+ 06/18/2024 10:48 PM BACTERIA 2+ 06/18/2024 10:48 PM LEUKOCYTESUR NEGATIVE 06/18/2024 10:48 PM UROBILINOGEN Normal 06/18/2024 10:48 PM BILIRUBINUR NEGATIVE 06/18/2024 10:48 PM GLUCOSEU NEGATIVE 06/18/2024 10:48 PM KETUA NEGATIVE 06/18/2024 10:48 PM High Sensitivity Troponin: Recent Labs 06/18/24 1550 06/18/24 1802 TROPHS 41* 36* CRP: Recent Labs 06/18/24 1550 CRP 138.0* Radiology/Imaging: CT ABDOMEN PELVIS W IV CONTRAST Additional Contrast? None Final Result 1. Inflammatory/edematous changes seen in the subcutaneous tissues of the medial left upper thigh suggesting cellulitis. No drainable fluid collection. 2. Multiple left inguinal lymph nodes measuring up to 2.5 cm, probably reactive. 3. No acute intra-abdominal or intrapelvic abnormalities. CT MAXILLOFACIAL WO CONTRAST Final Result 1. Left mastoid effusion and partial opacification of the left middle ear cavity. Findings are nonspecific, but could be related to otitis media with reactive mastoid effusion or mastoiditis. No evidence of bony erosive change. 2. No appreciable superficial facial soft tissue swelling or fluid collection. 3. Paranasal sinus disease. XR CHEST PORTABLE Final Result Findings suggestive of CHF. ASSESSMENT / PLAN: Primary Problem(s): Severe sepsis (HCC) Differential diagnoses: Abscess, cellulitis, hydradenitis suppurativa Condition is an acute or chronic illness or injury that poses threat to life or bodily function Condition is Improving Treatment plan: Blood cultures-no growth WC-pending Appreciate Dr Ayala-discussed Monitor labs and replace electrolytes Trend CRP Imaging: no further imaging studies ordered today Medications: Continue Zosyn Stop Vancomycin d/t red blotches following infusion Continue Oral Doxycycline (concern for Hydradenitis Suppurativa) Continue Aldactone (Hydradenitis suppurativa) Continue on Metformin (Concern for Hydradenitis suppurativa) Given IV Cefepime x 1 in ED Received 30ml/kg bolus in ED Medication Monitoring / High Risk Medications: None Otitis media/possible mastoiditis Condition is stable Treatment plan: Monitor labs Blood cultures pending Medications: Continue Zosyn Type 2 Diabetes Condition is a chronic stable condition Treatment plan: POC glucose AC and HS Diabetic diet Last A1c over 12 per patient Imaging: no further imaging studies ordered today Medications: Continue to 60 u of Lantus Humalog sliding scale Hypoglycemia protocol Continue Metformin 500 mg bid (concern for Hydradenitis Suppeurativa) Nutrition status: morbid obesity Courtesy Car Driver consult initiated Hospital Prophylaxis: DVT: Heparin Stress Ulcer: Not indicated at this time Disposition: Shared decision making: All test results, treatment options and disposition options were discussed with the patient today Social determinants of health that may impact management: none Code status: Full Code Disposition: Discharge plan is pending [facility] Advanced Care Planning documentation: [x] I have confirmed that the patient's Advance Care Plan is present, Code Status is documented, orsurrogate decision maker is listed in the patient's medical record [If yes , STOP HERE] [] The patient's Advance Care Plan is NOT present because: [] I confirmed today that the patient does not wish or was not able to name a surrogate decision maker or provide and advance care plan. [] Hospice care is currently being provided or has been provided within the calendar year. [] I did NOT confirm today the presence of an Advance Care Plan or surrogate decision maker documented within the patient's medical record. [DOES NOT SATISFY [facility] PERFORMANCE] Marce Briggs APRN - ASSOCIATE AUTOMATION ENGINEER , RODRIGO-PERFECT BINDER SETTER-C 06/20/2024 8:48 AM Associated attestation - Kary Zapata MD - 06/20/2024 12:41 PM EST Images from the original note were not included. Kary Zapata M.D. Internal Medicine PA/PERFECT BINDER SETTER Attestation Note Patient: Jose J Evans Date of Admission: 06/18/2024 3:39 PM Date of Evaluation: 06/20/2024 I personally evaluated and examined the patient [id number] in conjunction with the PA/PERFECT BINDER SETTER and agree with the management and dispostition of the patient. Please see the PA/PERFECT BINDER SETTER's note for full details.My baltazar findings are: SUBJECTIVE: Jose J Evans is a 64 y.o. male who was seen today along with Marce Gagnon CNP for follow up of left inguinal cellulitis. His pain is much improved today. He denies any fever or chills. He denies any chest pain or palpitations. He has no previous history of adverse effects from anesthesia. OBJECTIVE: Vitals: Temp: 97.3 F (36.3 C) BP: 125/60 Respirations: 20 Pulse: (!) 47 SpO2: 97 % on room air Weight Wt Readings from Last 3 Encounters: 06/20/24 (!) 163.7 kg (360 lb 14.4 oz) 06/18/24 (!) 165.1 kg (364 lb) 06/17/24 (!) 165.1 kg (364 lb) Body mass index is 47.62 kg/m . 24HR INTAKE/OUTPUT: Intake/Output Summary (Last 24 hours) at 06/20/2024 1239 Last data filed at 06/20/2024 0745 Gross per 24 hour Intake 4858.1 ml Output 3050 ml Net 1808.1 ml Exam: GEN: Awake, alert and oriented x 3. EYES: EOMI, pupils equal NECK: Supple. No lymphadenopathy. No carotid bruit CVS: regular rate and rhythm, no audible murmur PULM: CTA, no wheezes, rales or rhonchi, no acute respiratory distress ABD: Bowels sounds normal. Abdomen is soft. No distention. no tenderness to palpation. : Left inguinal abscess with purulent drainage and surrounding erythema EXT: no edema bilaterally . No calf tenderness. NEURO: Moves all extremities. Motor and sensory are grossly intact SKIN: No rashes. No skin lesions. DATA: Complete Blood Count: Recent Labs 06/18/24 1550 06/19/24 0505 06/20/24 0555 WBC 7.7 3.7 4.2 RBC 4.96 4.24 4.11* HGB 15.1 13.0 12.4* HCT 43.7 38.2* 37.2* MCV 88.1 90.1 90.5 RDW 13.5 14.0 14.0 PLT 180 115* 130* Recent Labs 06/18/24 1550 06/19/24 0505 06/20/24 0555 NEUTROABS 7.08 3.11 2.04 LYMPHOPCT 2* 9* 27 LYMPHSABS 0.15* 0.33* 1.13 MONOPCT 5 6 19* BASOPCT 0 0 0 IMMGRAN 1* 0 1* Recent Blood Glucose: Recent Labs 06/18/24 1802 06/19/24 0505 06/20/24 0555 GLUCOSE 292* 190* 128* Comprehensive Metabolic Profile: Recent Labs 06/18/24 1550 06/18/24 1802 06/19/24 0505 06/20/24 0555 BUN 43* 44* 42* 29* CREATININE 2.3* 2.3* 1.9* 1.3* NA 128* 129* 133* 137 K 5.2 4.8 4.5 5.0 CL 92* 97* 100 106 CALCIUM 8.7 7.6* 8.1* 8.3* ANIONGAP 15 10 9 7* CO2 24 BILITOT 1.0 -- 0.5 -- ALKPHOS 88 -- 68 -- AST 15 -- 19 -- ALT 11 -- 13 -- UA: Lab Results Component Value Date COLORU Yellow 06/18/2024 WBCUA 2 TO 5 06/18/2024 RBCUA 2 TO 5 06/18/2024 LEUKOCYTESUR NEGATIVE 06/18/2024 BACTERIA 2+ (A) 06/18/2024 GLUCOSEU NEGATIVE 06/18/2024 KETUA NEGATIVE 06/18/2024 PROTEINU TRACE (A) 06/18/2024 HGBUR 1+ (A) 06/18/2024 CASTUA 10 TO 20 FINE GRANULAR 06/18/2024 CASTUA HYALINE 06/18/2024 Lactic Acid: Recent Labs 06/18/24 1550 06/18/24 1802 LACTSEPSIS 2.9* 2.0* High Sensitivity Troponin: Recent Labs 06/18/24 15506/18/24 1802 TROPHS 41* 36* Microbiology / Cultures: Results Procedure Component Value Units Date/Time Blood Culture 1 [[id number]] Collected: 06/18/241549 Order Status: Completed Specimen: Blood Updated: 06/20/24714 Specimen Description .BLOOD Special Requests L AC 20ML Culture NO GROWTH 2 DAYS Culture, Blood 2 [[id number]] Collected: 06/18/241549 Order Status: Completed Specimen: Blood Updated: 06/20/24714 Specimen Description .BLOOD Special Requests R AC 20ML Culture NO GROWTH 2 DAYS Culture, Wound (with Gram Stain) [[id number]] (Abnormal) Collected: 06/17/24 0945 Order Status: Completed Specimen: Leg Updated: 06/19/24 0755 Specimen Description .LEG LEFT Direct Exam MANY NEUTROPHILS MANY GRAM POSITIVE COCCI IN PAIRS AND IN CHAINS MODERATE GRAM NEGATIVE RODS Culture NORMAL SKIN SARAH Imaging Data: CT ABDOMEN PELVIS W IV CONTRAST Additional Contrast? None Result Date: 06/18/2024 EXAMINATION: CT OF THE ABDOMEN AND PELVIS WITH CONTRAST 06/18/2024 1:47 pm TECHNIQUE: CT of the abdomen and pelvis was performed with the administration of intravenous contrast. Multiplanar reformatted images are provided for review. Automated exposure control, iterative reconstruction, and/or weight based adjustment of the mA/kV was utilized to reduce the radiation dose to as low as reasonably achievable. COMPARISON: None. HISTORY: ORDERING SYSTEM PROVIDED HISTORY: groin abscess- TECHNOLOGIST PROVIDED HISTORY: pls scan low to include groin and upper thigh groin abscess- Decision Support Exception - unselect if not a suspected or confirmed emergency medical condition->Emergency Medical Co ndition ([place]) FINDINGS: Lower Chest: Lung bases are clear. Organs: Liver is normal in size and density. No focal masses identified. No evidence of intrahepatic ductal dilatation. Spleen is normal size. The gallbladder is unremarkable. Both adrenal glands are normal. Pancreas is normal in appearance. Couple of right renal cysts. No follow-up imaging of the cysts is required.. The kidneys are normalin size and attenuation without evidence of hydronephrosis or renal calculi. GI/Bowel: The visualized bowel and mesentery show no mass lesions. Pelvis: No intrapelvic mass is identified. Bladder and rectum are intact. Peritoneum/Retroperitoneum: No free fluid. No lymphadenopathy. No evidence of pneumoperitoneum. Bones/Soft Tissues: Multiple left inguinal lymph nodes measuring up to 2.5 cm. Inflammatory/edematous changes seen in the subcutaneous tissues of the medial left upper thigh.. Small fatcontaining umbilical hernia. Degenerative changes seen in the visualized spine. Spondylolysis at L5. No acute bony abnormalities. 1. Inflammatory/edematous changes seen in the subcutaneous tissues of the medial left upper thigh suggesting cellulitis. No drainable fluid collection. 2. Multiple left inguinal lymph nodes measuringup to 2.5 cm, probably reactive. 3. No acute intra-abdominal or intrapelvic abnormalities. CT MAXILLOFACIAL WO CONTRAST Result Date: 06/18/2024 EXAMINATION: CT OF THE FACE WITHOUT CONTRAST 06/18/2024 3:46 pm TECHNIQUE: CT of the face was performed without the administration of intravenous contrast. Multiplanar reformatted images are providedfor review. Automated exposure control, iterative reconstruction, and/or weight based adjustment ofthe mA/kV was utilized to reduce the radiation dose to as low as reasonably achievable. COMPARISON:None HISTORY: ORDERING SYSTEM PROVIDED HISTORY: Right facial swelling/cellulitis and ear pain TECHNOLOGIST PROVIDED HISTORY: Right facial swelling/cellulitis and ear pain Decision Support Exception -unselect if not a suspected or confirmed emergency medical condition->Emergency Medical Condition (MA) FINDINGS: FACIAL BONES: The frontal sinuses, orbital graf, maxilla, pterygoid plates, zygomatic arches, hard palate, nasal bones and mandible are intact. The temporomandibular joints are aligned. ORBITAL CONTENTS: The globes appear intact. The extraocular muscles, optic nerve sheath complexes and lacrimal glands appear unremarkable. No retrobulbar hematoma or mass is seen. SINUSES: Moderate mucosal thickening in the bilateral ethmoid sinuses. Mild mucosal thickening in the bilateral maxillary, ethmoid and frontal sinuses. There is a left mastoid effusion without evidence of bony erosive change. There is partial opacification of the left middle ear cavity. The right mastoid air cells and middle ear cavity are clear. SOFT TISSUES: No superficial facial soft tissue swelling is seen. No appreciable periauricular or other facial fluid collection. The parotid glands and submandibular glands are unremarkable in appearance. 1. Left mastoid effusion and partial opacification of the left middle ear cavity. Findings are nonspecific, but could be related to otitis media with reactive mastoid effusion or mastoiditis. No evidence of bony erosive change. 2. No appreciable superficial facial soft tissue swelling or fluid collection. 3. Paranasal sinus disease. XR CHEST PORTABLE Result Date: 06/18/2024 EXAMINATION: ONE XRAY VIEW OF THE CHEST 06/18/2024 4:21 pm COMPARISON: None. HISTORY: ORDERING SYSTEM PROVIDED HISTORY: Sepsis TECHNOLOGIST PROVIDED HISTORY: Sepsis FINDINGS: There is increased bilateral pulmonary vascular markings suggestive of CHF. There is associated cardiomegaly. Bony structures appear normal. Visualized upper abdomen appears normal. Findings suggestive of CHF. ASSESSMENT / PLAN: I agree with the assessment, plan and medical decision making documentation as outlined by PA/PERFECT BINDER SETTER below: Severe sepsis with septic shock due to left inguinal cellulitis Condition is improving - sepsis and shock resolved Treatment plan: Gen Surg consult appreciated: discussed with Dr. Ayala Blood cultures = no growth x 2 days Labs ordered: CBC with diff, BMP Imaging: CT = cellulitis, no abcsess no further imaging studies ordered today Medications: Continue IV Zosyn DC Vancomycin due to rash following infusion Start Doxycycline Otitis media / mastoiditis Condition is stable Medications: Continue Zosyn / Doxycycline Diabetes mellitus Condition is uncontrolled Treatment plan: POC glucose A1c (last reading >12 per patient report) Medications: Increase Lantus to 60 units (previously 50 units) daily Start metformin Continue Humalog sliding scale Nutrition status: morbid obesity Courtesy Car Driver consult appreciated Hospital Prophylaxis: DVT: Heparin Medication monitoring / High risk medications: none Disposition: Discharge plan is pending SHARED APC VISIT, PHYSICIAN ATTESTATION: [id number] I personally performed a substantive part of the MDM during the patient's visit. I personally evaluated and examined the patient. I personally made or approved the documented management plan and acknowledge its risk of complications. Test interpretation: My independent EKG interpretation: Normal sinus rhythm with first degree AV block My independent imaging interpretation: CXR shows pulmonary vascular congestion Management and/or test interpretation discussed with JAS Lindquist MD , M.D. 06/20/2024 12:39 PM * Katrina Xie RN - 06/20/2024 7:35 AM EST Shift assessment and vitals obtained at this time as charted. Patient is bradycardic, vitals otherwise WNL. Patient denies pain. Patient is alert and oriented x4. Lung sounds clear to diminished throughout with an occasional cough noted. Non-pitting edema noted to BLE. Gauze dressing to groin abscess changed at this time as well. Assessment otherwise as charted, see flowsheets. Patient is restingin the bed with call light in reach, denies other needs at this time. Care ongoing. * Ian Patel RN - 06/19/2024 7:00 PM EST Shift assessment and vitals complete as charted- see flow sheet for details. Patient is alert and oriented x4 currently denying pain and discomfort. Dressing remains clean, dry and intact. Patient remains free of incontinence at this time. Call light in reach, bed in lowest position and alarm engaged to promote patient safety. Plan of care on going. * Fabian Paris RN - 06/19/2024 2:16 PM EST Report given to JULIANNA Adorno. Patient transferred out of ICU to room 326. * Fabian Paris RN - 06/19/2024 12:[address] Ayala at bedside. * Erica Marroquin [facility] - 06/19/2024 11:13 AM EST Clinical Pharmacy Note Metformin-IV Contrast Interaction Monitoring Serum Creatinine Follow-up Jose J Evans is a 64 y.o. male Recent Labs 06/18/24 1802 06/19/24 0505 CREATININE 2.3* 1.9* Estimated Creatinine Clearance: 62 mL/min (A) (based on SCr of 1.9 mg/dL (H)). It is recommended that METFORMIN be temporarily discontinued in patients undergoing radiologic studies in which intravascular iodinated contrast media are utilized. DATE: Iopamidol given on 06/18/24 at 1708 pm. Authorizing Physician for original order: Marce Gagnon Assessment/Plan: 1. Metformin has been held > 48 hours from time of IV contrast dye administration. 2. Will re-evaluate GFR in 48 hours and restart if appropriate. If eGFR is greater than 30, it should be safe to resume metformin. Note: previous ammonia nitrate operator recommendations stated the following as safe to administer: sCr < 1.5 mg/dL in males, or < 1.4 mg/dL in females. Erica Marroquin RPH, [facility] 06/19/2024 11:11 AM * Fabian Paris RN - 06/19/2024 11:04 AM EST Vancomycin order discontinued by Marce Gagnon NP. One time dose of Benadryl ordered. * Fabian Paris RN - 06/19/2024 10:51 AM EST When this RN was about to administer patient's insulin in his abdomen, noticed his stomach is red and blotchy. Patient states it is not usually like this. Also noticed blotchy spots on his chest and back. Patient stating it does not itch. Marce Gagnon NP, notified. * Erica Marroquin RPH - 06/19/2024 10:18 AM EST Images from the original note were not included. [facility] Pharm[facility] Pharmacy Dosing Adjustment Note Jose J Evans is a 64 y.o. male. Pharmacist assessment of renally cleared medications. Recent Labs 06/18/24 1550 06/18/24 1802 06/19/24 0505 CREATININE 2.3* 2.3* 1.9* Estimated Creatinine Clearance: 62 mL/min (A) (based on SCr of 1.9 mg/dL (H)). Height: Ht Readings from Last 1 Encounters: 06/19/24 1.854 m (6' 1 ) Weight: Wt Readings from Last 1 Encounters: 06/18/24 (!) 162.9 kg (359 lb 0.4 oz) Zosyn 3375mg IV every 8 hours increased to zosyn 4500 IV every 8 hours extended interval for BMI >40kg/m2 and CrCl >40mL/min Thank you, Eriac Marroquin RPH,06/19/2024,10:15 AM * Erica Marroquin RPH - 06/19/2024 10:18 AM EST Images from the original note were not included. [facility] Pharmacy Pharmacy Dosing Adjustment Note Jose J Evans is a 64 y.o. male. Pharmacist assessment of renally cleared medications. Recent Labs 06/18/24 1550 06/18/24 1802 06/19/24 0505 CREATININE 2.3* 2.3* 1.9* Estimated Creatinine Clearance: 62 mL/min (A) (based on SCr of 1.9 mg/dL (H)). Height: Ht Readings from Last 1 Encounters: 06/19/24 1.854 m (6' 1 ) Weight: Wt Readings from Last 1 Encounters: 06/18/24 (!) 162.9 kg (359 lb 0.4 oz) Zosyn 3375mg IV every 8 hours increased to zosyn 4500 IV every 8 hours extended interval for BMI >40kg/m2 and CrCl >40mL/min Thank you, Erica Marroquin RPH,06/19/2024,10:15 AM * Fabian Paris RN - 06/19/2024 8:[address] Ayala in surgery today. Called down to surgery to make sure Dr. Ayala knows of the consult for this patient. * Apolinar Kuo, PT - 06/19/2024 8:18 AM EST Physical Therapy Facility/Department: [facility] ICU Physical Therapy Initial Assessment Name: Jose J Evans : 1960 Date of Service: 06/19/2024 Discharge Recommendations: Home with assist PRN, Home independently Patient Diagnosis(es): The primary encounter diagnosis was Severe sepsis (HCC). Diagnoses of Groin abscess, SOSA (acute kidney injury) (HCC), Uncontrolled type 2 diabetes mellitus with hyperglycemia (HCC), and Hyponatremia were also pertinent to this visit. Past Medical History: has a past medical history of CAD (coronary artery disease), Diabetes mellitus (HCC), Hyperlipidemia, and Hypertension. Past Surgical History: has no past surgical history on file. Assessment Assessment: Patient is 64 year old male with dx of hyponatremia who presents as safe and IND with all transfers and ambulation. No further PT required at this time. Therapy Prognosis: Good Decision Making: Low Complexity Requires PT Follow-Up: No Activity Tolerance Activity Tolerance: Patient tolerated evaluation without incident Plan Safety Devices Type of Devices: All fall risk precautions in place, Left in chair, Call light within reach, Nurse notified Restrictions Restrictions/Precautions Restrictions/Precautions: General Precautions Subjective General Chart Reviewed: Yes Patient assessed for rehabilitation services?: Yes Response To Previous Treatment: Not applicable Family/Caregiver Present: No Referring Practitioner: Dr. Ruy MD Referral Date : 06/18/24 Diagnosis: Hyponatremia, E87.1 Follows Commands: Within Functional Limits Subjective Subjective: Pt agrees to PT eval Social/Functional History Social/Functional History Lives With: Spouse Type of Home: House Home Layout: One level Home Access: Stairs to enter with rails Entrance Stairs - Number of Steps: 2 Entrance Stairs - Rails: Right Home Equipment: None Has the patient had two or more falls in the past year or any fall with injury in the past year?: No Receives Help From: Family Prior Level of Assist for ADLs: Independent Prior Level of Assist for Homemaking: Independent Homemaking Responsibilities: Yes Prior Level of Assist for Ambulation: Independent community ambulator, with or without device Prior Level of Assist for Transfers: Independent Active French Binding Folder: Yes Additional Comments: Pt used no AD prior to admission, shared IADLs with his Vision/Hearing Vision Vision: Impaired Vision Exceptions: Wears glasses for reading Hearing Hearing: Within functional limits Cognition Orientation Overall Orientation Status: Within Normal Limits Cognition Overall Cognitive Status: WNL Objective Temp: 97.1 F (36.2 C) Pulse: 55 Heart Rate Source: Monitor Respirations: 17 SpO2: 94 % O2 Device: None (Room air) BP: (!) 147/65 MAP (Calculated): 92 BP Location: Left Upper Arm BP Method: Automatic Patient Position: Turns self;Semi fowlers Gross Assessment AROM: Within functional limits Strength: Within functional limits Bed mobility Supine to Sit: Modified independent Scooting: Modified independent Transfers Sit to Stand: Modified independent Stand to Sit: Modified independent Ambulation Surface: Level tile Device: No Device Assistance: Independent Distance: Pt amb in room with no AD, mod. IND with no LOB or fatigue Balance Sitting - Static: Good Sitting - Dynamic: Good Standing - Static: Fair;+ Standing - Dynamic: Fair AM-PAC - Mobility AM-PAC Mobility without Stair Climbing Inpatient How much difficulty turning over in bed?: None How much difficulty sitting down on / standing up from a chair with arms?: None How much difficulty moving from lying on back to sitting on side of bed?: None How much help from another person moving to and from a bed to a chair?: None How much help from another person needed to walk in hospital room?: A Little AM-PAC Inpatient Mobility without Stair Climbing Raw Score : 19 AM-PAC Inpatient without Stair Climbing T-Scale Score : 56.04 Mobility Inpatient CMS 0-100% Score: 12.25 Mobility Inpatient without Stair CMS G-Code Modifier : CI Goals Short Term Goals Time Frame for Short Term Goals: 1 day Short Term Goal 1: Patient to be safe and IND with all transfers and ambulation to return to PLOF. -met Education Patient Education Education Given To: Patient Education Provided: Role of Therapy Education Method: Verbal Barriers to Learning: None Education Outcome: Verbalized understanding Therapy Time Individual Concurrent Group Co-treatment Time In 0750 Time Out 0805 Minutes 15 Timed Code Treatment Minutes: 14 Minutes Apolinar Kuo PT, DPT * Alyx Alcala OTR/L - 06/19/2024 8:16 AM EST [facility] Inpatient/Observation/Outpatient Rehabilitation Date: 06/19/2024 Patient Name: Jose J Evans [x] Inpatient Acute/Observation [] Outpatient : 1960 [x] Pt declined therapy at this time due to: Patient reports independence with self care, no concerns re: d/c home and ability to care for self. No OT services warranted at this time. Alyx Alcala OTR/L Date: 06/19/2024 * Marce Briggs APRN - ASSOCIATE AUTOMATION ENGINEER - 06/19/2024 8:14 AM EST INTENSIVE CARE UNIT WOOD CARVING LATHE OPERATOR - Progress Note Patient - Jose J Evans Date of Admission - 06/18/2024 3:39 PM Date of Evaluation - 06/19/2024 Hospital Day - 1 SUBJECTIVE: The Jose J Evans is a 64 y.o. male who is seen for follow up in the ICU. Per nursing report and notes, overnight events include: bradycardia and hypotension . He sitting up in chair no distress. Discussed his bradycardia, BP and meds. Follows with Cardiology at [facility]. Cath 03/25. Discussed abscess, not his first has had at least 3 in the past. Family history of having them. No previous diagnosis of Hydradenitis suppurativa and no body art technician evals ROS: Constitutional: negative for fevers, and negative for chills. Respiratory: negative for shortness of breath, negative for cough, and negative for wheezing Cardiovascular: negative for chest pain, and negative for palpitations Gastrointestinal: negative for abdominal pain, negative for nausea,negative for vomiting, negative for diarrhea, and negative for constipation All other systems were reviewed with the patient and are negative unless otherwise stated in HPI. OBJECTIVE: VITAL SIGNS: Patient Vitals for the past 8 hrs: BP Temp Temp src Pulse Resp SpO2 Height 06/19/24 0700 (!) 112/55 -- -- 50 15 92 % -- 06/19/24 0615 -- 97.1 F (36.2 C) Temporal -- -- -- -- 06/19/24 0600 (!) 138/58 -- -- (!) 49 12 92 % -- 06/19/24 0556 -- -- -- -- -- -- 1.854 m (6' 1 ) 06/19/24 0500 (!) 125/35 -- -- (!) 49 16 98 % -- 06/19/24 0400 (!) 147/63 -- -- (!) 49 17 98 % -- 06/19/24 0300 (!) 113/54 -- -- (!) 46 18 94 % -- 06/19/24 0258 (!) 113/54 -- -- (!) 48 18 94 % -- 06/19/24 0257 -- 97.8 F (36.6 C) Temporal (!) 46 18 94 % -- 06/19/24 0200 (!) 101/50 -- -- (!) 47 18 93 % -- 06/19/24 0100 (!) 119/29 -- -- 63 20 90 % -- Temp: 97.1 F (36.2 C) Temp range: Temp Av.3 F (36.8 C) Min: 97.1 F (36.2 C) Max: 99.9 F (37.7 C) BP: (!) 112/55 BP Range: Systolic (24hrs), Av , Min:67 , Max:147 Diastolic (24hrs), Av, Min:29, Max:64 Pulse: 50 Pulse Range: Pulse Av.3 Min: 46 Max: 77 Respirations: 15 Resp Range: Resp Av.5 Min: 12 Max: 21 SpO2: 92 % on room air SpO2 range: SpO2 Av.9 % Min: 90 % Max: 98 % Weight Wt Readings from Last 3 Encounters: 06/18/24 (!) 162.9 kg (359 lb 0.4 oz) 06/18/24 (!) 165.1 kg (364 lb) 06/17/24 (!) 165.1 kg (364 lb) Body mass index is 47.37 kg/m . 24HR INTAKE/OUTPUT: Intake/Output Summary (Last 24 hours) at 06/19/2024 0814 Last data filed at 06/19/2024 0742 Gross per 24 hour Intake 1868 ml Output 1200 ml Net 668 ml Date 06/19/24 0000 - 06/19/24 2359 Shift 0434-7973 7262-1685 7228-8131 24 Hour Total INTAKE P.O. 300 300 I.V.(mL/kg/hr) 667.8(0.5) 667.8 IV Piggyback 300.2 300.2 Shift Total(mL/kg) 1268(7.8) 1268(7.8) OUTPUT Urine(mL/kg/hr) 700(0.5) 700 Shift Total(mL/kg) 700(4.3) 700(4.3) Weight (kg) 162.9 162.9 162.9 162.9 PHYSICAL EXAM: GEN: Awake and following commands: [] No [x] Yes MENTAL STATUS: alert and oriented x3. DISTRESS: Acute respiratory distress: [x] No [] Yes EYES: EOMI, pupils equal NECK: Supple. No lymphadenopathy. No carotid bruit CVS: regular rate and rhythm, no audible murmur PULM: CTA, no wheezes, rales or rhonchi, no acute respiratory distress ABD: Bowels sounds normal. Abdomen is soft. No distention. no tenderness to palpation. EXT: no edema bilaterally . No calf tenderness. NEURO: Moves all extremities. Motor and sensory are grossly intact SKIN: No rashes. No skin lesions. Groin abscess moderate amount of purulent drainage MEDICATIONS: Scheduled Meds: vancomycin 1,500 mg IntraVENous Q24H [Held by provider] metoprolol succinate 25 mg Oral Daily [Held by provider] spironolactone 25 mg Oral Daily sodium chloride flush 5-40 mL IntraVENous 2 times per day piperacillin-tazobactam 3,375 mg IntraVENous Q8H [Held by provider] losartan 100 mg Oral Daily And [Held by provider] hydroCHLOROthiazide 25 mg Oral Daily insulin glargine 40 Units SubCUTAneous Daily heparin (porcine) 5,000 Units SubCUTAneous 3 times per day vancomycin (VANCOCIN) intermittent dosing (placeholder) Other RX Placeholder insulin lispro 0-8 Units SubCUTAneous 4x Daily AC & HS Continuous Infusions: sodium chloride 125 mL/hr at 06/18/24 2132 sodium chloride dextrose dextrose PRN Meds: albuterol sulfate HFA, 1 puff, Q6H PRN sodium chloride flush, 5-40 mL, PRN sodium chloride, , PRN ondansetron, 4 mg, Q8H PRN Or ondansetron, 4 mg, Q6H PRN polyethylene glycol, 17 g, Daily PRN acetaminophen, 650 mg, Q6H PRN Or acetaminophen, 650 mg, Q6H PRN glucose, 4 tablet, PRN dextrose bolus, 125 mL, PRN Or dextrose bolus, 250 mL, PRN glucagon (rDNA), 1 mg, PRN dextrose, , Continuous PRN glucose, 4 tablet, PRN dextrose bolus, 125 mL, PRN Or dextrose bolus, 250 mL, PRN dextrose, , Continuous PRN VASOPRESSORS: [x] No [] Yes [] Levophed [] Dopamine [] Vasopressin [] Dobutamine [] Phenylephrine [] Epinephrine DATA: Complete Blood Count: Recent Labs 06/18/24 1550 06/19/24 0505 WBC 7.7 3.7 RBC 4.96 4.24 HGB 15.1 13.0 HCT 43.7 38.2* MCV 88.1 90.1 RDW 13.5 14.0 PLT 180 115* NEUTROABS 7.08 3.11 LYMPHOPCT 2* 9* LYMPHSABS 0.15* 0.33* MONOPCT 5 6 BASOPCT 0 0 IMMGRAN 1* 0 Recent Blood Glucose: Recent Labs 06/18/24 1550 06/18/24 1802 06/19/24 0505 GLUCOSE 422* 292* 190* Comprehensive Metabolic Profile: Recent Labs 06/18/24 1550 06/18/24 1802 06/19/24 0505 BUN 43* 44* 42* CREATININE 2.3* 2.3* 1.9* NA 128* 129* 133* K 5.2 4.8 4.5 CL 92* 97* 100 CALCIUM 8.7 7.6* 8.1* ANIONGAP 15 10 9 CO2 21 22 24 BILITOT 1.0 -- 0.5 ALKPHOS 88 -- 68 AST 15 -- 19 ALT 11 -- 13 Urinalysis: Lab Results Component Value Date/Time NITRU NEGATIVE 06/18/2024 10:48 PM COLORU Yellow 06/18/2024 10:48 PM PHUR 5.5 06/18/2024 10:48 PM WBCUA 2 TO 5 06/18/2024 10:48 PM RBCUA 2 TO 5 06/18/2024 10:48 PM MUCUS 2+ 06/18/2024 10:48 PM BACTERIA 2+ 06/18/2024 10:48 PM LEUKOCYTESUR NEGATIVE 06/18/2024 10:48 PM UROBILINOGEN Normal 06/18/2024 10:48 PM BILIRUBINUR NEGATIVE 06/18/2024 10:48 PM GLUCOSEU NEGATIVE 06/18/2024 10:48 PM KETUA NEGATIVE 06/18/2024 10:48 PM HgBA1c: No results found for: LABA1C TSH: No results found for: TSH Lactic Acid: No results found for: LACTA High Sensitivity Troponin: Recent Labs 06/18/24 1550 06/18/24 1802 TROPHS 41* 36* Pro-BNP:No results found for: PROBNP D-Dimer:No results found for: DDIMER PT/INR: No results found for: PROTIME , INR PTT: No results found for: APTT CRP: Recent Labs 06/18/24 1550 CRP 138.0* ABGs: No results found for: PHART , PH , EWN1XSE , PCO2 , PO2ART , PO2 , AXZ0DIB , HCO3 , BEART , BE , THGBART , THB , [id number] , T2ATZSTP , O2SAT , FIO2 Radiology/Imaging: CT ABDOMEN PELVIS W IV CONTRAST Additional Contrast? None Final Result 1. Inflammatory/edematous changes seen in the subcutaneous tissues of the medial left upper thigh suggesting cellulitis. No drainable fluid collection. 2. Multiple left inguinal lymph nodes measuring up to 2.5 cm, probably reactive. 3. No acute intra-abdominal or intrapelvic abnormalities. CT MAXILLOFACIAL WO CONTRAST Final Result 1. Left mastoid effusion and partial opacification of the left middle ear cavity. Findings are nonspecific, but could be related to otitis media with reactive mastoid effusion or mastoiditis. No evidence of bony erosive change. 2. No appreciable superficial facial soft tissue swelling or fluid collection. 3. Paranasal sinus disease. XR CHEST PORTABLE Final Result Findings suggestive of CHF. ASSESSMENT / PLAN: Primary Problem(s): Severe sepsis (HCC) Differential diagnoses: Abscess, cellulitis, hydradenitis suppurativa Condition is an acute or chronic illness or injury that poses threat to life or bodily function Condition is stable Treatment plan: Admit to ICU Telemetry Blood cultures pending Appreciate Dr Ayala Monitor labs and replace electrolytes Imaging: no further imaging studies ordered today Medications: Continue Zosyn Stop Vancomycin d/t red blotches following infusion Start Oral Doxycycline (concern for Hydradenitis Suppurativa) Continue Aldactone (Hydradenitis suppurativa) Started on Metformin (Concern for Hydradenitis suppurativa) Given IV Cefepime x 1 in ED Received 30ml/kg bolus in ED Medication Monitoring / High Risk Medications: Vancomycin Otitis media/possible mastoiditis Condition is stable Treatment plan: Monitor labs Blood cultures pending Medications: Zosyn and vancomycin Type 2 Diabetes Condition is a chronic stable condition Treatment plan: POC glucose AC and HS Diabetic diet Last A1c over 12 per patient Imaging: no further imaging studies ordered today Medications: Increase to 60 u of Lantus Humalog sliding scale Hypoglycemia protocol Start Metformin 500 mg bid (concern for Hydradenitis Suppeurativa) Nutrition status: morbid obesity Courtesy Car Driver consult initiated Hospital Prophylaxis: DVT: Heparin Stress Ulcer: Not indicated at this time Disposition: Shared decision making: All test results, treatment options and disposition options were discussed with the patient today Social determinants of health that may impact management: none Code status: Full Code Disposition: Discharge plan is pending [facility] to [facility] Critical Care Time: Total critical care time caring for this patient with life threatening, unstable organ failure, including direct patient contact, management of life support systems, review of data including imaging and labs, discussions with other team members and physicians at least 0 minutes so far today, excluding separately billable procedures. [facility] Advanced Care Planning documentation: [x] I have confirmed that the patient's Advance Care Plan is present, Code Status is documented, orsurrogate decision maker is listed in the patient's medical record [If yes , STOP HERE] [] The patient's Advance Care Plan is NOT present because: [] I confirmed today that the patient does not wish or was not able to name a surrogate decision maker or provide and advance care plan. [] Hospice care is currently being provided or has been provided within the calendar year. [] I did NOT confirm today the presence of an Advance Care Plan or surrogate decision maker documented within the patient's medical record. [DOES NOT SATISFY [facility] PERFORMANCE] Marce Briggs, WOOD CARVING LATHE OPERATOR - ASSOCIATE AUTOMATION ENGINEER , WOOD CARVING LATHE OPERATOR-PERFECT BINDER SETTER-C 06/19/2024 8:14 AM Associated attestation - Kary Zapata MD - 06/19/2024 6:52 PM EST Images from the original note were not included. Kary Zapata M.D. Internal Medicine PA/PERFECT BINDER SETTER Attestation Note Patient: Jose J Evans Date of Admission: 06/18/2024 3:39 PM Date of Evaluation: 06/19/2024 I personally evaluated and examined the patient [id number] in conjunction with the PA/PERFECT BINDER SETTER and agree with the management and dispostition of the patient. Please see the PA/PERFECT BINDER SETTER's note for full details.My baltazar findings are: SUBJECTIVE: Jose J Evans is a 64 y.o. male who was seen today along with Marce Gagnon CNP for follow up of Severe sepsis (HCC). He still c/o pain in the left inguinar area d/t abscess . He denies any chest pain or palpitations. He has no previous history of adverse effects from anesthesia. OBJECTIVE: Vitals: Temp: 97.5 F (36.4 C) BP: (!) 143/59 Respirations: 24 Pulse: 57 SpO2: 91 % on room air Weight Wt Readings from Last 3 Encounters: 06/18/24 (!) 162.9 kg (359 lb 0.4 oz) 06/18/24 (!) 165.1 kg (364 lb) 06/17/24 (!) 165.1 kg (364 lb) Body mass index is 47.37 kg/m . 24HR INTAKE/OUTPUT: Intake/Output Summary (Last 24 hours) at 06/19/2024 1844 Last data filed at 06/19/2024 1354 Gross per 24 hour Intake 3636.97 ml Output 1850 ml Net 1786.97 ml Exam: GEN: Awake, alert and oriented x 3. EYES: EOMI, pupils equal NECK: Supple. No lymphadenopathy. No carotid bruit CVS: regular rate and rhythm, no audible murmur PULM: CTA, no wheezes, rales or rhonchi, no acute respiratory distress ABD: Bowels sounds normal. Abdomen is soft. No distention. no tenderness to palpation. : Left inguinal abscess with purulent drainage and surrounding erythema EXT: no edema bilaterally . No calf tenderness. NEURO: Moves all extremities. Motor and sensory are grossly intact SKIN: No rashes. No skin lesions. DATA: Complete Blood Count: Recent Labs 06/18/24 1550 06/19/24 0505 WBC 7.7 3.7 RBC 4.96 4.24 HGB 15.1 13.0 HCT 43.7 38.2* MCV 88.1 90.1 RDW 13.5 14.0 PLT 180 115* Recent Labs 06/18/24 1550 06/19/24 0505 NEUTROABS 7.08 3.11 LYMPHOPCT 2* 9* LYMPHSABS 0.15* 0.33* MONOPCT 5 6 BASOPCT 0 0 IMMGRAN 1* 0 Recent Blood Glucose: Recent Labs 06/18/24 1550 06/18/24 1802 06/19/24 0505 GLUCOSE 422* 292* 190* Comprehensive Metabolic Profile: Recent Labs 06/18/24 1550 06/18/24 1802 06/19/24 0505 BUN 43* 44* 42* CREATININE 2.3* 2.3* 1.9* NA 128* 129* 133* K 5.2 4.8 4.5 CL 92* 97* 100 CALCIUM 8.7 7.6* 8.1* ANIONGAP 15 10 9 CO2 21 22 24 BILITOT 1.0 -- 0.5 ALKPHOS 88 -- 68 AST 15 -- 19 ALT 11 -- 13 UA: Lab Results Component Value Date COLORU Yellow 06/18/2024 WBCUA 2 TO 5 06/18/2024 RBCUA 2 TO 5 06/18/2024 LEUKOCYTESUR NEGATIVE 06/18/2024 BACTERIA 2+ (A) 06/18/2024 GLUCOSEU NEGATIVE 06/18/2024 KETUA NEGATIVE 06/18/2024 PROTEINU TRACE (A) 06/18/2024 HGBUR 1+ (A) 06/18/2024 CASTUA 10 TO 20 FINE GRANULAR 06/18/2024 CASTUA HYALINE 06/18/2024 Lactic Acid: Recent Labs 06/18/24 1550 06/18/24 180 LACTSEPSIS 2.9* 2.0* High Sensitivity Troponin: Recent Labs 06/18/24 1550 06/18/24 1802 TROPHS 41* 36* Microbiology / Cultures: Results Procedure Component Value Units Date/Time Blood Culture 1 [[id number]] Collected: 06/18/241549 Order Status: Completed Specimen: Blood Updated: 06/19/24714 Specimen Description .BLOOD Special Requests L AC 20ML Culture NO GROWTH 15 HOURS Culture, Blood 2 [[id number]] Collected: 06/18/241549 Order Status: Completed Specimen: Blood Updated: 06/19/24714 Specimen Description .BLOOD Special Requests R AC 20ML Culture NO GROWTH 15 HOURS Culture, Wound (with Gram Stain) [[id number]] (Abnormal) Collected: 06/17/24 0945 Order Status: Completed Specimen: Leg Updated: 06/19/24 0755 Specimen Description .LEG LEFT Direct Exam MANY NEUTROPHILS MANY GRAM POSITIVE COCCI IN PAIRS AND IN CHAINS MODERATE GRAM NEGATIVE RODS Culture NORMAL SKIN SARAH Imaging Data: CT ABDOMEN PELVIS W IV CONTRAST Additional Contrast? None Result Date: 06/18/2024 EXAMINATION: CT OF THE ABDOMEN AND PELVIS WITH CONTRAST 06/18/2024 1:47 pm TECHNIQUE: CT of the abdomen and pelvis was performed with the administration of intravenous contrast. Multiplanar reformatted images are provided for review. Automated exposure control, iterative reconstruction, and/or weight based adjustment of the mA/kV was utilized to reduce the radiation dose to as low as reasonably achievable. COMPARISON: None. HISTORY: ORDERING SYSTEM PROVIDED HISTORY: groin abscess- TECHNOLOGIST PROVIDED HISTORY: pls scan low to include groin and upper thigh groin abscess- Decision Support Exception - unselect if not a suspected or confirmed emergency medical condition->Emergency Medical Co ndition ([place]) FINDINGS: Lower Chest: Lung bases are clear. Organs: Liver is normal in size and density. No focal masses identified. No evidence of intrahepatic ductal dilatation. Spleen is normal size. The gallbladder is unremarkable. Both adrenal glands are normal. Pancreas is normal in appearance. Couple of right renal cysts. No follow-up imaging of the cysts is required.. The kidneys are normalin size and attenuation without evidence of hydronephrosis or renal calculi. GI/Bowel: The visualized bowel and mesentery show no mass lesions. Pelvis: No intrapelvic mass is identified. Bladder and rectum are intact. Peritoneum/Retroperitoneum: No free fluid. No lymphadenopathy. No evidence of pneumoperitoneum. Bones/Soft Tissues: Multiple left inguinal lymph nodes measuring up to 2.5 cm. Inflammatory/edematous changes seen in the subcutaneous tissues of the medial left upper thigh.. Small fatcontaining umbilical hernia. Degenerative changes seen in the visualized spine. Spondylolysis at L5. No acute bony abnormalities. 1. Inflammatory/edematous changes seen in the subcutaneous tissues of the medial left upper thigh suggesting cellulitis. No drainable fluid collection. 2. Multiple left inguinal lymph nodes measuringup to 2.5 cm, probably reactive. 3. No acute intra-abdominal or intrapelvic abnormalities. CT MAXILLOFACIAL WO CONTRAST Result Date: 06/18/2024 EXAMINATION: CT OF THE FACE WITHOUT CONTRAST 06/18/2024 3:46 pm TECHNIQUE: CT of the face was performed without the administration of intravenous contrast. Multiplanar reformatted images are providedfor review. Automated exposure control, iterative reconstruction, and/or weight based adjustment ofthe mA/kV was utilized to reduce the radiation dose to as low as reasonably achievable. COMPARISON:None HISTORY: ORDERING SYSTEM PROVIDED HISTORY: Right facial swelling/cellulitis and ear pain TECHNOLOGIST PROVIDED HISTORY: Right facial swelling/cellulitis and ear pain Decision Support Exception -unselect if not a suspected or confirmed emergency medical condition->Emergency Medical Condition ([place]) FINDINGS: FACIAL BONES: The frontal sinuses, orbital graf, maxilla, pterygoid plates, zygomatic arches, hard palate, nasal bones and mandible are intact. The temporomandibular joints are aligned. ORBITAL CONTENTS: The globes appear intact. The extraocular muscles, optic nerve sheath complexes and lacrimal glands appear unremarkable. No retrobulbar hematoma or mass is seen. SINUSES: Moderate mucosal thickening in the bilateral ethmoid sinuses. Mild mucosal thickening in the bilateral maxillary, ethmoid and frontal sinuses. There is a left mastoid effusion without evidence of bony erosive change. There is partial opacification of the left middle ear cavity. The right mastoid air cells and middle ear cavity are clear. SOFT TISSUES: No superficial facial soft tissue swelling is seen. No appreciable periauricular or other facial fluid collection. The parotid glands and submandibular glands are unremarkable in appearance. 1. Left mastoid effusion and partial opacification of the left middle ear cavity. Findings are nonspecific, but could be related to otitis media with reactive mastoid effusion or mastoiditis. No evidence of bony erosive change. 2. No appreciable superficial facial soft tissue swelling or fluid collection. 3. Paranasal sinus disease. XR CHEST PORTABLE Result Date: 06/18/2024 EXAMINATION: ONE XRAY VIEW OF THE CHEST 06/18/2024 4:21 pm COMPARISON: None. HISTORY: ORDERING SYSTEM PROVIDED HISTORY: Sepsis TECHNOLOGIST PROVIDED HISTORY: Sepsis FINDINGS: There is increased bilateral pulmonary vascular markings suggestive of CHF. There is associated cardiomegaly. Bony structures appear normal. Visualized upper abdomen appears normal. Findings suggestive of CHF. ASSESSMENT / PLAN: I agree with the assessment, plan and medical decision making documentation as outlined by PA/PERFECT BINDER SETTER below: Severe sepsis with septic shock due to left inguinal abscess Condition is stable Treatment plan: Gen Surg consult appreciated: discussed with Dr. Ayala Blood cultures = pending Labs ordered: CBC with diff, BMP Imaging: no further imaging studies ordered today Medications: Continue IV Zosyn DC Vancomycin due to rash following infusion Start Doxycycline Otitis media / mastoiditis Condition is stable Medications: Continue Zosyn / Doxycycline Diabetes mellitus Condition is uncontrolled Treatment plan: POC glucose A1c (last reading >12 per patient report) Medications: Increase Lantus to 60 units (previously 50 units) daily Start metformin Continue Humalog sliding scale Nutrition status: morbid obesity Courtesy Car Driver consult appreciated Hospital Prophylaxis: DVT: Heparin Medication monitoring / High risk medications: none Disposition: Discharge plan is pending SHARED APC VISIT, PHYSICIAN ATTESTATION: [id number] I personally performed a substantive part of the MDM during the patient's visit. I personally evaluated and examined the patient. I personally made or approved the documented management plan and acknowledge its risk of complications. Test interpretation: My independent EKG interpretation: Normal sinus rhythm with first degree AV block My independent imaging interpretation: CXR shows pulmonary vascular congestion Management and/or test interpretation discussed with JAS Lindquist MD , M.D. 06/19/2024 6:44 PM * Fabian Paris RN - 06/19/2024 6:15 AM EST Assessment and vitals obtained. Patient alert and oriented. Complaining of some chest pain that he relates to muscle pain from dry heaving in the past. Does not feel nauseated at this time. Numbness/tingling noted in his lower extremities, which is baseline per patient. Trace swelling in lower extremities. Left groin with gauze dressing in place. IV antibiotics currently running. No needs at this time. Call light within reach. * Levon Ponce RD, LD - 06/19/2024 5:54 AM EST Comprehensive Nutrition Assessment Type and Reason for Visit: Initial Nutrition Recommendations/Plan: Encourage consistent carbohydrate intakes. Probiotic recommended if any GI issues with antibiotic. Recommend o/p education for diabetes when ready for change. Malnutrition Assessment: Malnutrition Status: At risk for malnutrition (06/19/24 0704) Context: Acute Illness Findings of the 6 clinical characteristics of malnutrition: Energy Intake: Mild decrease in energy intake (last 2 days) Weight Loss: Mild weight loss Body Fat Loss: No body fat loss Muscle Mass Loss: No muscle mass loss Fluid Accumulation: Mild Extremities Patient Accounts Clerk Strength: Not Performed Nutrition Assessment: Altered nutrition related labs r/t endocrine dysfunction, AEB hyperglycemia and reported A1C of 12 recently. Limited adherence to nutrition recommendations and prior diabetes education ~10 years ago. Not appearing ready for change or further education on this visit but would benefit from o/p education when ready for changes in lifestyle. Does report regular eating patterns at home which is of benefit. No GI c/o on antibiotic for groin abscess and doesn't like many yogurt products. Advised of probiotic benefits. PO low last 2 days with hopeful improvements. Nutrition Related Findings: active b/s. trace BLE edema. Wound Type: (scrotal abscess) Current Nutrition Intake & Therapies: Average Meal Intake: Unable to assess (no PO recorded) Average Supplements Intake: None Ordered ADULT DIET; Regular; 4 carb choices (60 gm/meal) Anthropometric Measures: Height: 185.4 cm (6' 1 ) Aptos Body Weight (IBW): 184 lbs (84 kg) Admission Body Weight: 165.1 kg (363 lb 15.7 oz) Current Body Weight: 162.9 kg (359 lb 2.1 oz), 195.2 % IBW. Weight Source: Bed scale Current BMI (kg/m2): 47.4 Usual Body Weight: 165.1 kg (364 lb) % Weight Change (Calculated): -1.3 Weight Adjustment For: No Adjustment BMI Categories: Obese Class 3 (BMI 40.0 or greater) Estimated Daily Nutrient Needs: Energy Requirements Based On: Kcal/kg Weight Used for Energy Requirements: Current Energy (kcal/day): 4656-7746 (11-15) Weight Used for Protein Requirements: Aptos Protein (g/day): 100-117 (1.2-1.4) Method Used for Fluid Requirements: 1 ml/kcal Fluid (ml/day): 2400+ Nutrition Diagnosis: Altered nutrition-related lab values, Limited adherence to nutrition-related recommendations related to endocrine dysfunction as evidenced by lab values Lab Results Component Value Date NA 133 (L) 06/19/2024 K 4.5 06/19/2024 CL 100 06/19/2024 CO2 24 06/19/2024 BUN 42 (H) 06/19/2024 CREATININE 1.9 (H) 06/19/2024 GLUCOSE 190 (H) 06/19/2024 CALCIUM 8.1 (L) 06/19/2024 BILITOT 0.5 06/19/2024 ALKPHOS 68 06/19/2024 AST 19 06/19/2024 ALT 13 06/19/2024 LABGLOM 38 (L) 06/19/2024 No results found for: LABA1C No results found for: VITD25 Nutrition Interventions: Food and/or Nutrient Delivery: Continue Current Diet Nutrition Education/Counseling: Education/Counseling initiated Coordination of Nutrition Care: Continue to monitor while inpatient Plan of Care discussed with: patient and nursing Goals: Goals: Meet at least 75% of estimated needs Type of Goal: New goal Previous Goal Met: New Goal Nutrition Monitoring and Evaluation: Behavioral-Environmental Outcomes: Readiness for Change Food/Nutrient Intake Outcomes: Food and Nutrient Intake Physical Signs/Symptoms Outcomes: Biochemical Data, Fluid Status or Edema, Weight, Skin Discharge Planning: Continue current diet Levon Ponce RD, LD Contact: [phone] * Fox Fields RPH - 06/19/2024 5:48 AM EST [facility] Pharmacokinetic Monitoring Service - Vancomycin Consulting Provider: Dr. Zapata Indication: Scrotal abscess Target Concentration: Goal trough of 10-15 mg/L and AUC/BROOKE <500 mg*hr/L Day of Therapy: 2 Additional Antimicrobials: Zosyn Pertinent Laboratory Values: Wt Readings from Last 1 Encounters: 06/18/24 (!) 162.9 kg (359 lb 0.4 oz) Temp Readings from Last 1 Encounters: 06/19/24 97.8 F (36.6 C) (Temporal) Estimated Creatinine Clearance: 62 mL/min (A) (based on SCr of 1.9 mg/dL (H)). Recent Labs 06/18/24 1550 06/18/24 1802 06/19/24 0505 CREATININE 2.3* 2.3* 1.9* BUN 43* 44* 42* WBC 7.7 -- 3.7 Procalcitonin: n/a Pertinent Cultures: Culture Date Source Results MRSA Nasal Swab: N/A. Non-respiratory infection. Recent vancomycin administrations vancomycin (VANCOCIN) 2000 mg in 400 mL IVPB (mg) 2,000 mg New Bag 06/18/24 1744 Assessment: Date/Time Current Dose Concentration Timing of Concentration (h) AUC 06/19 By levels 9.1 11 hours post dose - Note: Serum concentrations collected for AUC dosing may appear elevated if collected in close proximity to the dose administered, this is not necessarily an indication of toxicity Plan: Begin 1500mg IVPB every 24 hours. Anticipated AUC of 448, trough of 13.9 Repeat vancomycin concentration not yet ordered. Pharmacy will continue to monitor patient and adjust therapy as indicated Thank you for the consult, Fox Fields RPH 06/19/2024 5:45 AM * Kianna Torres RN - 06/19/2024 12:07 AM EST Pt is resting in bed with eyes closed. BP low, cuff changed to better fitting cuff and rechecked. Results reported to pot holder binder. * Kianna Torres RN - 06/18/2024 11:33 PM EST Pt placed on 2L nc, oxygne while sleeping is 87-88% on ra. Pt has history of james with home cpap at HS but does not wear at all per pt. Updated RT. * Kianna Torres RN - 06/18/2024 9:59 PM EST Called lab and requested A1C to be ran from ER blood. Chisty states she will do. Pt arrives to [id number], A/O x4 and denies pain. Left groin assessed with some sang/purulent drainage actively coming from small pin point area and carmen wound red and warm to touch. Area is hard to palpate. Picture uploaded to chart and gauze changed. Admission, assessment and VS obtained. Pt provided with ice water and states he may get nauseous but only dry heaves, given basin. Discussed poc for stay. Call light given with instruction and fall education complete. Bed alarm on and call light in reach. * Fox Fields [facility] - 06/18/2024 9:47 PM EST [facility] Pharmacokinetic Monitoring Service - Vancomycin Jose J Evans is a 64 y.o. male starting on vancomycin therapy for scrotal abscess. Pharmacy consulted by Dr. Zapata for monitoring and adjustment. Target Concentration: Dosing based on anticipated concentration <15 mg/L due to renal impairment/insufficiency Additional Antimicrobials: Zosyn Pertinent Laboratory Values: Wt Readings from Last 1 Encounters: 06/18/24 (!) 165.1 kg (363 lb 15.7 oz) Temp Readings from Last 1 Encounters: 06/18/24 99.9 F (37.7 C) (Oral) Estimated Creatinine Clearance: 52 mL/min (A) (based on SCr of 2.3 mg/dL (H)). Recent Labs 06/18/24 1550 06/18/24 1802 CREATININE 2.3* 2.3* BUN 43* 44* WBC 7.7 -- Procalcitonin: n/a Pertinent Cultures: Culture Date Source Results MRSA Nasal Swab: N/A. Non-respiratory infection. Plan: Concentration-guided dosing due to renal impairment/insufficiency Patient received 2000mg IVPB around 6pm on 06/18. Serum creatinine is elevated above normal limits. Unclear what patient's baseline renal function is. Will refrain from further dosing until morning labs result. Random vancomycin concentration ordered for 06/19 @ 0600 Pharmacy will continue to monitor patient and adjust therapy as indicated Thank you for the consult, Fox Fields RPH 06/18/2024 9:45 PM * Fox Fields RPH - 06/18/2024 9:39 PM EST Images from the original note were not included. Pharmacist Review and Automatic Dose Adjustment of Prophylactic Enoxaparin Reviewed reason(s) for admission/hospital problem list The reviewing pharmacist has made an adjustment to the ordered enoxaparin dose or converted to UFH per the approved [facility] protocol and table as identified below. Jose J Evans is a 64 y.o. male. Recent Labs 06/18/24 1550 06/18/24 1802 CREATININE 2.3* 2.3* Estimated Creatinine Clearance: 52 mL/min (A) (based on SCr of 2.3 mg/dL (H)). Recent Labs 06/18/24 1550 HGB 15.1 HCT 43.7 PLT 180 No results for input(s): INR in the last 72 hours. Height: Ht Readings from Last 1 Encounters: 06/18/24 1.88 m (6' 2 ) Weight: Wt Readings from Last 1 Encounters: 06/18/24 (!) 165.1 kg (363 lb 15.7 oz) Plan: Based upon the patient's weight and renal function Ordered: Enoxaparin 40mg SUBQ BID Changed/converted to New Order: Heparin 5,000 units SUBQ TID Thank you, Fox Fields RPH 06/18/2024, 9:38 PM * Fox Fields RPH - 06/18/2024 9:36 PM EST PHARMACY NOTE: The electrolyte replacement protocol for potassium/magnesium has been discontinued per P&T guidelines because the patient has reduced renal function (CrCl < 30 mL/min). The patient's most recent potassium & magnesium levels are: Recent Labs 06/18/24 1550 06/18/24 1802 K 5.2 4.8 Estimated Creatinine Clearance: 52 mL/min (A) (based on SCr of 2.3 mg/dL (H)). For patients with decreased renal function (below 30ml/min) needing potassium/magnesium supplementation, please order individual bolus doses with appropriate monitoring. Please contact the inpatient pharmacy with any concerns. Thank you. [facility] Discharge [facility]* Discharge Instructions* Jeanine Duran RN - 06/21/2024 10:48 AM EST Dressing changes to groin with gauze as needed. Check blood sugars before meals and at bedtime. * Discharge Instr - Activity* Jeanine Duran RN - 06/21/2024 10:47 AM EST As tolerated. * Discharge Instr - Diet* Jeanine Duran RN - 06/21/2024 10:47 AM EST Good nutrition is important when healing from an illness, injury, or surgery. Follow any nutrition recommendations given to you during your hospital stay. If you were given an oral nutrition supplement while in the hospital, continue to take this supplement at home. You can take it with meals, in-between meals, and/or before bedtime. These supplements can be purchased at most local grocery stores, pharmacies, and [employer]. If you have any questions about your diet or nutrition, call the hospital and ask for the dietitian. Diabetic diet. * Attachments The following attachments cannot be sent through Care Everywhere. * Cellulitis ([place]) * Abscess: Skin ([place]) * Hidradenitis Suppurativa ([place]) [facility] History of Present illness Narrative* Fara Snow MD - 06/10/2024 1:30 PM EST Images from the original note were not included. Subjective Patient ID: Jose J Evans is a 64 y.o. male who presents for Ear Problem Pt reports 10 days left ear fullness and pain. No tx yet. Family History Problem Relation Name Age of Onset Diabetes Mother Heart failure Father Active Ambulatory Problems Diagnosis Date Noted Benign essential HTN (CMS/HCC) 03/22/2023 Bradycardia 06/10/2024 Chronic otitis externa 06/10/2024 Chronic venous insufficiency of lower extremity 03/22/2023 Peripheral venous insufficiency 01/22/2020 Conductive hearing loss, unilateral, left ear with restricted hearing on the contralateral side 06/10/2024 Coronary artery disease involving chickahominy indian tribe coronary artery of chickahominy indian tribe heart without angina pectoris (CMS/HCC) 04/03/2023 Coronary-myocardial bridge (CMS/HCC) 04/21/2023 Diabetes mellitus (CMS/HCC) 01/22/2020 PORTILLO (dyspnea on exertion) 03/22/2023 Internal derangement of right shoulder 06/10/2024 LVH (left ventricular hypertrophy) 01/22/2020 Malignant otitis externa 06/10/2024 Mixed conductive and sensorineural hearing loss of left ear 06/10/2024 Hypercholesterolemia (CMS/HCC) 06/10/2024 Morbid obesity due to excess calories (CMS/HCC) 03/22/2023 Primary osteoarthritis 06/10/2024 JAMES (obstructive sleep apnea) 06/10/2024 Type 2 diabetes mellitus with diabetic polyneuropathy (CMS/HCC) 06/10/2024 Unstable angina (CMS/HCC) 03/22/2023 Resolved Ambulatory Problems Diagnosis Date Noted GERD (gastroesophageal reflux disease) 01/30/2024 History of diverticulitis of colon 09/28/2022 Hx of colonic polyps 09/28/2022 Mixed hyperlipidemia (CMS/HCC) 04/03/2023 No Additional Past Medical History History reviewed. No pertinent surgical history. Allergies Allergen Reactions Lisinopril Other Reaction(s): Unknown Reaction Current Outpatient Medications on File Prior to Visit Medication Sig Dispense Refill albuterol HFA 90 mcg/act inhaler Inhale 1 puff every 6 (six) hours if needed amLODIPine (Norvasc) 5 MG tablet Take 1 tablet by mouth Daily aspirin 81 MG EC tablet Take 81 mg by mouth Daily atorvastatin (Lipitor) 20 MG tablet Take 20 mg by mouth Daily insulin lispro (HumaLOG) 100 UNIT/ML injection Inject under the skin 3 (three) times a day with meals losartan-hydroCHLOROthiazide (Hyzaar) 100-25 MG tablet Take 1 tablet by mouth Daily metFORMIN (Glucophage) 1000 MG tablet Take 1 tablet by mouth in the morning and 1 tablet in the evening. Take with meals. spironolactone (Aldactone) 25 MG tablet Take 25 mg by mouth Daily Toujeo SoloStar 300 UNIT/ML injection Inject under the skin Daily semaglutide (Ozempic, 0.25 or 0.5 MG/DOSE,) 2 MG/1.5ML solution pen-injector Inject 0.5 mg under the skin 1 (one) time per week No current facility-administered medications on file prior to visit. Objective Last Recorded Vitals Vitals: 06/10/24 1321 BP: 127/62 ENT Physical Exam Constitutional Appearance: patient appears well-developed, well-nourished and well-groomed, Communication/Voice: communication appropriate for developmental age; vocal quality normal; Ear Ear comments: RT cerumen impaction and swollen EAC Patient ID: Jose J Evans is a 64 y.o. male. Procedures Cerumen was removed from the left ear using binocular microscopy under micro with suction Assessment/Plan Diagnoses and all orders for this visit: Acute reactive otitis externa of left ear Left ear impacted cerumen LT ear debrided. Coiprodex for OE. F/U Ronnie 2 weeks documented in this [facility]10-15-2024 Evaluation note* Diagnosis Onset Date Resolution Status Admit Date Bradycardia acute April 16, 2024 8:50am Chronic venous insufficiency of lower extremity acute April 16 8:50am GERD (gastroesophageal reflu x disease) acute April 16 8:50am Hypercholesterolemia acute 2023 8:50am Hypertension acute April 8:50am Obesity acute April 16, 2024 8:50am JAMES (obstructive sleep apnea) acute April 16, 2024 8:50am Type 2 diabetes mellitus wit h diabetic polyneuropathy acute April 16, 2024 8:50am Type 2 diabetes mellitus wit h hyperglycemia acute April 16 8:50am ASHD (arteriosclerotic heart disease) acute July 05 11:21am Cellulitis of groin, left acute July 05, 2024 11:21am Chronic venous insufficiency of lower extremity acute July 05 11:21am Hypercholesterolemia acute 2024 11:21am Hypertension acute July 05, 2024 11:21am Hypertrophic cardiomyopathy acute July 05, 2024 11:21am Obesity acute July 05, 2 025 11:21am JAMES (obstructive sleep apnea) acute July 05, 2024 11:21am Type 2 diabetes mellitus wit h diabetic polyneuropathy acute July 05, 2024 11:21am Type 2 diabetes mellitus wit h hyperglycemia acute July 05 11:21am [facility] Work Phone: 1(173) 795-293707-30-2024 NotePatient here for 6 mo follow up CAD, hypertension, and bradycardia. Wore 3 day Holter after last visit in Jul 2023. Had labs last month. Hasn't been taking aspirin daily. He denies chest pain, palpitations, and lightheadedness/syncope. Says his PORTILLO is improving since losing almost 20# since Jul 2023. Review of Systems Constitutional: Positive for weight loss (19# since Jul 2023). Eyes: Positive for blurred vision. Cardiovascular: Positive for dyspnea on exertion (improving) and leg swelling (minimal). Skin: Positive for color change. Musculoskeletal: Positive for arthritis, joint pain and neck pain. Neurological: Positive for numbness. All other systems reviewed and are negative.[facility] NoteCardiovascular Medicine [facility] SUBJECTIVE Chief Complaint Patient presents with Coronary Artery Disease Hypertension Jose J Evans is a 64 y.o. male here for follow-up. HPI PMHx: CAD, HLD, myocardial bridging in LAD, DM type II, HTN, LVH, bradycardia He is overall doing well from a cardiac standpoint. After his last visit we had him wear a holter monitor to evaluate his bradycardia. No significant arrhythmias were noted nor symptoms were noted. He has PORTILLO but this is improving. He has lost 19# since last seen. He has some LE edema, stable. Denies c/o CP, orthopnea, PND, dizziness/LH, palpitations, syncope. Patient Active Problem List Diagnosis Benign essential HTN LVH (left ventricular hypertrophy) Venous insufficiency (chronic) (peripheral) Morbid obesity due to excess calories ([facility]) Type 2 diabetes mellitus without complication, without long-term current use of insulin ([facility]) PORTILLO (dyspnea on exertion) Unstable angina ([facility]) Coronary artery disease involving chickahominy indian tribe coronary artery of chickahominy indian tribe heart without angina pectoris Mixed hyperlipidemia Coronary-myocardial bridge History of diverticulitis of colon Hx of colonic polyps Sleep apnea GERD (gastroesophageal reflux disease) Type 2 diabetes mellitus with hyperglycemia ([facility]) Past Medical History: Diagnosis Date Bradycardia Coronary artery disease Diabetes mellitus ([facility]) Hyperlipidemia Hypertension No family history on file. Social History Tobacco Use Smoking status: Former Packs/day: 1.00 Years: 10.00 Additional pack years: 0.00 Total pack years: 10.00 Types: Cigarettes Quit date: 2002 Years since quittin.5 Smokeless tobacco: Never Substance Use Topics Alcohol use: Yes Alcohol/week: 2.0 - 3.0 standard drinks of alcohol Types: 2 - 3 Shots of liquor per week Drug use: Never No Known Allergies ROS Constitutional: Positive for weight loss (19# since Jul 2023). Eyes: Positive for blurred vision. Cardiovascular: Positive for dyspnea on exertion (improving) and leg swelling (minimal). Skin: Positive for color change. Musculoskeletal: Positive for arthritis, joint pain and neck pain. Neurological: Positive for numbness. All other systems reviewed and are negative. OBJECTIVE Visit Vitals BP 138/68 (BP Location: Left arm, Patient Position: Sitting) Pulse (!) 43 Ht 1.854 m (6' 1 ) Wt (!) 160 kg (352 lb) SpO2 96% BMI 46.44 kg/m??? Smoking Status Former BSA 2.87 m??? Medications: Current Outpatient Medications: amLODIPine (Norvasc) 5 mg [...] , Rfl: metFORMIN (Glucophage) 1,000 mg tablet, Take 1,000 mg by mouth with breakfast and with evening meal., Disp: , Rfl: metoprolol succinate XL (Toprol-XL) 25 mg 24 hr tablet, Take 1 tablet (25 mg) by mouth in the morning. Do not crush or chew. (Patient taking differently: Take 12.5 mg by mouth in the morning. Do not crush or chew.), Disp: 90 tablet, Rfl: 3 semaglutide (Rybelsus) 14 mg tablet, Take 14 mg by mouth in the morning., Disp: , Rfl: spironolactone (Aldactone) 25 mg tablet, TAKE 1 TABLET DAILY, Disp: 90 tablet, Rfl: 3 aspirin 81 mg capsule, Take 81 mg by mouth in the morning., Disp: , Rfl: insulin lispro (HUMALOG PEN SUBQ), Inject under the skin., Disp: , Rfl: Physical Exam Constitutional: Appearance: Normal appearance. He is obese. HENT: Head: Normocephalic and atraumatic. Right Ear: External ear normal. Left Ear: External ear normal. Eyes: Extraocular Movements: Extraocular movements intact. Pupils: Pupils are equal, round, and reactive to light. Neck: Vascular: No carotid bruit. Cardiovascular: Rate and Rhythm: Normal rate and regular rhythm. Pulses: Normal pulses. Heart sounds: Normal heart sounds. Pulmonary: Effort: Pulmonary effort is normal. Breath sounds: Normal breath sounds. Abdominal: General: Bowel sounds are normal. Palpations: Abdomen is soft. Musculoskeletal: General: Normal range of motion. Cervical back: Neck supple. Right lower leg: Edema present. Left lower leg: Edema present. Comments: Mild BLE edema Skin: General: Skin is warm and dry. Neurological: General: No focal deficit present. Mental Status: He is alert and oriented to person, place, and time. Psychiatric: Mood and Affect: Mood normal. Behavior: Behavior normal. Thought Content: Thought content normal. Judgment: Judgment normal. Labs: Admission on 03/29/2023, Discharged on 03/29/2023 Component Date Value Ref Range Status Sodium 03/27/2023 138 Final Potassium (more content not included)...[facility] 07-28-2023 Evaluation note* Encounter Date Diagnosis Assessment Notes Treatment Notes Treatment Clinical Notes Jul, Type 2 diabetes mellitus with hyperglycemia (ICD-10 - E11.65) [facility] Other 09-27-2023 Evaluation note* Encounter Date Diagnosis Assessment Notes Treatment Notes Treatment Clinical Notes Mar, ASHD (arteriosclerotic heart disease) (ICD-10 - I25.10) LHC: moderate disease in [facility] - 03/2023 [facility] Other 09-21-2023 Evaluation note* Encounter Date Diagnosis Assessment Notes Treatment Notes Treatment Clinical Notes Mar, Type 2 diabetes mellitus with hyperglycemia (ICD-10 - E11.65) Mar, long-term (current) use of insulin (ICD-10 - Z79.4) [facility] Other 09-20-2023 Evaluation note* Encounter Date Diagnosis Assessment Notes Treatment Notes Treatment Clinical Notes Mar, Type 2 diabetes mellitus with hyperglycemia (ICD-10 - E11.65) [facility] Other 09-18-2023 Evaluation note* Encounter Date Diagnosis [...] use, the patient reduces the risk for CO, CVA, HTN, cardiac dysrhythmias and sudden cardiac deaths.The patient is also aware of the association between JAMES and morning headaches, daytime somnolence, fatigue and obesity. Noncomplaint, aware may be contributing to fatigue Mar, long-term (current) use of insulin (ICD-10 - Z79.4) Continue as directed [facility] Other 02-16-2023 Evaluation note* Encounter Date Diagnosis Assessment Notes Treatment Notes Treatment Clinical Notes Aug, Wellness examination (ICD-10 - Z00.00) Healthy diet and exercise. Reviewed age-appropriate preventive testing recommended. Aug, Obstructive sleep apnea (ICD-10 - G47.33) This patient is aware of the benefits associated with JAMES: With continued use, the patient reduces the risk for CO, CVA, HTN, cardiac dysrhythmias and sudden cardiac [...] [ ] Foot exam: [ ] Aug, 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 (ICD-10 - Z79.4) [...] PSA (prostate specific antigen) (ICD-10 - Z12.5) [facility] Other 02-16-2023 Evaluation note* Encounter Date Diagnosis Assessment Notes Treatment Notes Treatment Clinical Notes Aug, Tinea cruris (ICD-10 - B35.6) [facility] Other 02-09-2023 Evaluation note* Encounter Date Diagnosis Assessment Notes Treatment Notes Treatment Clinical Notes Aug, Wellness examination (ICD-10 - Z00.00) [facility] Other 08-13-2022 Evaluation note* Encounter Date Diagnosis [...] treatment plan. Patient left in stable condition [facility] Other [facility] Evaluation note* Diagnosis Onset Date Resolution Status Chronic venous insufficiency of lower extremity acute GERD (gastroesophageal reflux disease) acute Hypercholesterolemia acute Hypertension acute JAMES (obstructive sleep apnea) acute Type 2 diabetes mellitus wit h diabetic polyneuropathy acute Type 2 diabetes mellitus with hyperglycemia acute Wellness examination noneact [facility] Work Phone: Evaluation note* Diagnosis Onset Date [...] with hyperglycemia acute Cellulitis, scrotum noneacti ve [facility] Work Phone: Evaluation note* Diagnosis Onset [...] with hyperglycemia acute Cellulitis, scrotum noneacti ve Chronic venous insufficiency of lower extremity acute GERD (gastroesophageal reflux disease) acute Hypercholesterolemia acute Hypertension acute JAMES (obstructive sleep apnea) acute Type 2 diabetes mellitus wit h diabetic polyneuropathy acute Type 2 diabetes mellitus with hyperglycemia acute [facility] Work Phone: Evaluation note* Diagnosis Onset Date Resolution Status Bradycardia acute Chronic venous insufficiency of lower extremity acute GERD (gastroesophageal reflux disease) acute Hypercholesterolemia acute Hypertension acute Obesity acute JAMES (obstructive sleep apnea) acute Type 2 diabetes mellitus with diabetic polyneuropathy acute Type 2 diabetes mellitus with hyperglycemia acute [facility] Work Phone: Evaluation note* Diagnosis Acute reactive otitis externa of left ear- Primary Left ear impacted cerumen Impacted cerumen [facility] Abscess of groin, left Cellulitis and abscess of trunk documented in this encounter [facility] note* Diagnosis Severe sepsis (HCC)- Primary Severe sepsis (HCC) Groin abscess Cellulitis and abscess of trunk SOSA (acute kidney injury) (HCC) Acute kidney failure, unspecified Uncontrolled type 2 diabetes mellitus with hyperglycemia (HCC) Hyponatremia Hyposmolality and/or hyponatremia Abdominal wall abscess Cellulitis and abscess of trunk Diabetes mellitus (HCC) Type II or unspecified type diabetes mellitus without mention of complication, not stated as uncontrolled Hypotension Hypotension, unspecified Hypertension Unspecified essential hypertension JAMES (obstructive sleep apnea) Obstructive sleep apnea (adult) (pediatric) Morbid obesity due to excess calories documented in this encounter [facility] note* Diagnosis Acute reactive otitis externa of left ear- Primary Left ear impacted cerumen Impacted cerumen documented in [facility] encounter [facility]* Diagnosis Lentigines Sebaceous hyperplasia Stasis dermatitis of both legs Capillary angioma Nevus, non-neoplastic Acne vulgaris Other acne Hidradenitis suppurativa Hidradenitis documented in this encounter [facility]* Diagnosis Onset Date Resolution Status Admit Date ASHD (arteriosclerotic heart disease) acute December 12, 2024 8:51am Bradycardia acute December 12 8:51am Chronic venous insufficiency of lower extremity acute December 12, 2024 8:51am GERD (gastroesophageal reflu x disease) acute December 12, 2024 8:51am Hypercholesterolemia acute December 12, 2024 8:51am Hypertension acute December 12 8:51am Hypertrophic cardiomyopathy acute December 12, 2024 8:51am Obesity acute December 12 8:51am JAMES (obstructive sleep apnea) acute December 12, 2024 8:51am Screening PSA (prostate spec ific antigen) acute December 12, 2024 8:51am Type 2 diabetes mellitus wit h diabetic polyneuropathy acute December 8:51am Type 2 diabetes mellitus wit h hyperglycemia acute December 12, 2024 8:51am Welcome to Medicare preventi ve visit noneactive December 12, 2024 8:51am [facility] Work Phone: History general Narrative - Reported* Type Description Date Medical History Type 2 Diabetic [facility] Other [place] general Narrative - Reported* Type Description Date [...] Surgical History FISTULECTOMY 2006 Surgical History HEMORRHOIDECTOMY 2005 Surgical History ARTHROSCOPY RIGHT KNEE 2009 Surgical History I/D GROIN ABSCESS 2010 Hospitalization History SEE SURGICAL [facility] Other History general Narrative - Reported* Type [...] persistent Surgical History COLONOSCOPY Surgical History FISTULECTOMY 2005 Surgical History HEMORRHOIDECTOMY 2005 Surgical History ARTHROSCOPY RIGHT KNEE 2008 Surgical History I/D GROIN ABSCESS 2009 Surgical History EGD w/ biopsy 10/2022 Hospitalization History SEE SURGICAL [facility] Other History general Narrative - Reported* Type [...] ASHD Surgical History COLONOSCOPY Surgical History FISTULECTOMY 2006 Surgical History HEMORRHOIDECTOMY 2005 Surgical History ARTHROSCOPY RIGHT KNEE 2008 Surgical History I/D GROIN ABSCESS 2009 Surgical History EGD w/ biopsy 10/2022 Surgical History LHC (moderate diseas e of LAD, sluggish flow, endomyocardial bridging) 03/2023 Hospitalization History SEE SURGICAL [facility] Other Summary Purpose Family History Relationship Condition Age at Onset Recorded Date/T parvin father Heart disease Unknown Unknown Not Specified Unknown Malignant neoplasm Unknown Diabetes mellitus Unknown Relationship Condition Age at Onset Recorded Date/T parvin father Heart disease Unknown Unknown mother Unknown Malignant neoplasm Unknown Diabetes mellitus Unknown Advance Directives Advance Directive Response Recorded Date/ Time Advance Directives No October 19, 2 024 8:49am Date Activated Date Inactivated Comments 06/18/2024 9:31 PM Advance Directive Response Recorded Date/ Time Advance Directives No October 19, 2 024 7:49am Date Activated Date Inactivated Comments 06/18/2024 9:31 PM 06/21/2024 2:49 PM Reason for Referral Reason 09/28/22 Patient i s being referred for persistent upper abdominal discomfort and heartburn. He denies change in appetite, unexplained weight loss, dysphagia, melena or hematochezia. He is being referred for an EGD. Diagnosis 1 Gastroesophageal ref lux disease with esophagitis without hemorrhage (K21.00) Referral Organization [facility] Referring Provider First Name Aldo Referring Provider Last Name Solitario Referring Provider Specialty Internal Me hailey Referred Organization Unknown Facility Referred Provider [...] pt, and he mentioned Dr. Kinsey in [place], referral faxed Sendy Dennis 08/30/2022 09:07:00 AM [...] 2 diabetes mellitus with hyperglycemia Cellulitis, scrotum Chief Complaint wellness 1 week follow up Amb Documentation 3 month Reason for Visit Chronic venous insuf ficiency of lower extremity GERD (gastroesophageal reflux disease) Hypercholesterolemia Hypertension JAMES (obstructive sleep apnea) Type 2 diabetes mellitus with diabetic polyneuropathy Type 2 diabetes mellitus with hyperglycemia Cellulitis, scrotum Wellness examination Hypertension Type 2 diabetes mellitus with hyperglycemia Cellulitis, scrotum Chronic venous insufficiency of lower extremity GERD (gastroesophageal reflux disease) Hypercholesterolemia Hypertension JAMES (obstructive sleep apnea) Type 2 diabetes mellitus with diabetic polyneuropathy Type 2 diabetes mellitus with hyperglycemia Chief Complaint 3 Month f/u Reason for Visit Bradycardia Chronic venous insufficiency of lower extremity GERD (gastroesophageal reflux disease) Hypercholesterolemia Hypertension Obesity JAMES (obstructive sleep apnea) Type 2 diabetes mellitus with diabetic polyneuropathy Type 2 diabetes mellitus with hyperglycemia Chief Complaint Admit Date 3 Month f/u April 16, 2024 8 :50am Amb Documentation June 21, 2024 9:32am Mercy:Septis July 05, 2024 11 :21am Reason for Visit Admit Date Bradycardia April 16, 2024 8 :50am Chronic venous insufficiency of lower ex tremity April 16, 2024 8:50am GERD (gastroesophageal reflux disease) O ctober 2023 8:50am Hypercholesterolemia April 16, 2024 8:50am Hypertension April 16, 2024 8 :50am Obesity April 16, 2024 8 :50am JAMES (obstructive sleep apnea) April 162023 8:50am Type 2 diabetes mellitus with diabetic p olyneuropathy April 16, 2024 8:50am Type 2 diabetes mellitus with hyperglyce kiesha April 16, 2024 8:50am ASHD (arteriosclerotic heart disease) [facility] 2024 11:21am Cellulitis of groin, left July 05, 2 025 11:21am Chronic venous insufficiency of lower ex tremity July 05, 2024 11:21am Hypercholesterolemia July 05, 2024 1 1:21am Hypertension July 05, 2024 11 :21am Hypertrophic cardiomyopathy July 05, 2024 11:21am Obesity July 05, 2024 11 :21am JAMES (obstructive sleep apnea) July 11:21am Type 2 diabetes mellitus with diabetic p olyneuropathy July 05, 2024 11:21am Type 2 diabetes mellitus with hyperglyce kiesha July 05, 2024 11:21am Chief Complaint Admit Date Amb Documentation June 21, 2024 9:32am Mercy:Septis July 05, 2024 11 :21am CC Adult Risk Stratification July 2:57pm 1 month f/u-HIGH RISK August 20 10:42am Reason for Visit Admit Date ASHD (arteriosclerotic heart disease) Ja nuary 2024 11:21am Cellulitis of groin, left July 05, 2 025 11:21am Chronic venous insufficiency of lower ex tremity July 05, 2024 11:21am Hypercholesterolemia July 05, 2024 1 1:21am Hypertension July 05, 2024 11 :21am Hypertrophic cardiomyopathy July 05, 2024 11:21am Obesity July 05, 2024 11 :21am JAMES (obstructive sleep apnea) July 11:21am Type 2 diabetes mellitus with diabetic p olyneuropathy July 05, 2024 11:21am Type 2 diabetes mellitus with hyperglyce kiesha July 05, 2024 11:21am [facility] 10:42[facility] Bradycardia August 20, 2024 10:42am Chronic venous insufficiency of lower ex tremity August 20, 2024 10:42am GERD (gastroesophageal reflux disease) F ebruary 2024 10:42am Hypercholesterolemia August 20, 2024 10:42am Hypertension August 20, 2024 10:42am Hypertrophic cardiomyopathy August 10:42am Obesity August 20, 2024 10:42am JAMES (obstructive sleep apnea) August 032024 10:42am Type 2 diabetes mellitus with diabetic p olyneuropathy August 20, 2024 10:42am Type 2 diabetes mellitus with hyperglyce kiesha August 20, 2024 10:42am Chief Complaint Admit Date Wellness - High Risk December 12, 2024 8:5 1am Reason for Visit Admit Date ASHD (arteriosclerotic heart disease) Ju in 2024 8:51am Bradycardia December 12, 2024 8:51 am Chronic venous insufficiency of lower ex tremity December 12, 2024 8:51am GERD (gastroesophageal reflux disease) J une 2024 8:51am Hypercholesterolemia December 12, 2024 8:5 1am Hypertension December 12, 2024 8:51 am Hypertrophic cardiomyopathy December 12, 2 025 8:51am Obesity December 12, 2024 8:51 am JAMES (obstructive sleep apnea) December 12, 2024 8:51am Screening PSA (prostate specific antigen ) December 12, 2024 8:51am Type 2 diabetes mellitus with diabetic p olyneuropathy December 12, 2024 8:51am Type 2 diabetes mellitus with hyperglyce kiesha December 12, 2024 8:51am Welcome to Medicare preventive visit Bunny e 2024 8:51am Additional Source Comments REASON FOR VISIT (unrecogniz ed section and content) Reason Comments Ear Problem Reason Comments Abscess Sent from dr butts ons office for low bp, scrotal abscess, swelling to left side of face along with lightheadedness Reason Comments Ear Problem Ear cleaning Reason Comments Skin Check (unrecognized sect ion and content) No Status Records FoundNo Status Records FoundNo Status Records FoundNo Status Records Found INFORMATION SOURCE (unrecogn ized section and content) DATE CREATED AUTHOR 08/20/2022 [facility] DATE CREATED AUTHOR AUTHOR'S ORGANIZ ATION 07/25/2024 [facility] EPIC DATE CREATED AUTHOR AUTHOR'S ORGANIZ ATION 07/27/2024 [facility] DATE CREATED AUTHOR AUTHOR'S ORGANIZ ATION 08/08/2024 [facility] Care Teams (unrecognized sec tion and content) Team Status: Active Member Role Status Dates Aldo Jerez DO Primary Care Provider Active Team Status: Inactive Member Role Status Dates Aldo Jerez DO Primary Care Provide r, Attending Provider Active Start: December 12, 2024 End: December 12, 2024 Alisha Penny CMA Heating And Air Conditioning Mechanic Active St art: December 12, 2024 End: December 12, 2024 Team Status: Active Member Role Status Dates Aldo Jerez DO Primary Care Provider Active Team Status: Active Member Role Status Dates Aldo Jerez DO Primary Care Provider Active Start: June 21, 2024 Alisha Penny CMA Attending Provider Active Start: June 21, 2024 Team Status: Inactive Member Role Status Dates Aldo Jerez DO Primary Care Provide r, Attending Provider Active Start: July 05, 2024 End: July 05, 2024 Team Status: Active Member Role Status Dates Aldo Jerez DO Primary Care Provide r, Attending Provider Active Start: July 09, 2024 Team Status: Inactive Member Role Status Dates Aldo Jerez , DO Primary Care Provide r, Attending Provider Active Start: August 20, 2024 End: August 20, 2024 Team Status: Inactive Member Role Status Dates Aldo Jerez , DO Primary Care Provide r, Attending Provider Active Start: October 20, 2023 End: October 20, 2023 Team Status: Inactive Member Role Status Dates Aldo Jerez DO Primary Care Provide r, Attending Provider Active Start: October 26, 2023 End: October 26, 2023 Team Status: Active Member Role Status Dates Aldo Jerez DO Primary Care Provide r, Attending Provider Active Start: December 14, 2023 Team Status: Active Member Role Status Dates Aldo Jerez DO Primary Care Provider Active Start: December 18, 2023 MAGALIS Mustafa Attending Provider Active St art: December 18, 2023 Team Status: Inactive Member Role Status Dates Aldo Jerez DO Primary Care Provide r, Attending Provider Active Start: January 11, 2024 End: January 11, 2024 Team Status: Inactive Member Role Status Dates Aldo Jerez DO Primary Care Provide r, Attending Provider Active Start: April 16, 2024 End: April 16, 2024 Director Epidemiology Relationship Specialty Start Date End Date Aldo Jerez MD [address] [place] [address] PCP - General Internal Medicine 06/07/24 Director Epidemiology Relationship Specialty Start Date End Date Aldo Jerez MD [address] [place] [address] PCP - General Internal Medicine 06/07/24 Director Epidemiology Relationship Specialty Start Date End Date Aldo Jerez DO [address] [place] [id number] PCP - General Internal Medicine 10/26/23 Director Epidemiology Relationship Specialty Start Date End Date Aldo Jerez DO [address] [place] [address] PCP - General Internal Medicine 10/26/23 Director Epidemiology Relationship Specialty Start Date End Date Aldo Jerez MD [address] [place] [id number] PCP - General Internal Medicine 06/07/24 Director Epidemiology Relationship Specialty Start Date End Date Aldo Jerez MD [address] [place] [address] PCP - General Internal Medicine 06/07/24 Team Status: Active Member Role Status Dates Aldo Jerez DO Primary Care Provide r, Attending Provider Active Start: May 15, 2024 Director Epidemiology Relationship Specialty Start Date End Date Aldo Jerez MD [address] [place] [id number] PCP - General Internal Medicine 06/07/24 Director Epidemiology Relationship Specialty Start Date End Date Aldo Jerez MD [address] [place] [phone] PCP - General Internal Medicine 06/07/24 Director Epidemiology Relationship Specialty Start Date End Date Aldo Jerez DO [address] [place] [phone] PCP - General Internal Medicine 10/26/23 Team Status: Inactive Member Role Status Dates Aldo Jerez DO Primary Care Provide r, Attending Provider Active Start: December 12, 2024 End: December 12, 2024 Alisha Penny [facility] Heating And Air Conditioning Mechanic Active St art: December 12, 2024 End: December 12, 2024 Goals (unrecognized section and content) Goals may be documented in a n alternate section Ordered Prescriptions (unrec ognized section and content) Prescription Sig Dispensed Refills Start Date End Da te TOUJEO SOLOSTAR 300 UNIT/ML concentrated injection pen Inject 60 Units into the skin every morning 5 Adjustable Dose Pre-filled Pen Syringe 5 06/21/2024 doxycycline hyclate (VIBRAMYCIN) 100 MG capsule Take 1 capsule by mouth every 12 hours for 7 days 14 capsule 06/21/2024 06/28/2024 metoprolol succinate (TOPROL XL) 25 MG extended release tablet Take 1 tablet by mouth daily 30 tablet 3 06/22/2024 Scheduled Active and Recently Administ ered Medications (unrecognized section and content) Medication Order 06/19/2024 06/20/2024 06/21/2024 diphenhydrAMINE (BENADRYL) injection 25 mg (COMPLETED) 25 mg, IntraVENous, ONCE, 1 dose, On Mon06/19/24 at 1130, IV Push at rate not to exceed 25 mg/min. 1129 (Given - Provider: Fabian Paris RN) doxycycline hyclate (VIBRAMYCIN) capsule 100 mg 100 mg, Oral, EVERY 12 HOURS SCHEDULED (2 times per day), 20 doses, First dose on Mon06/19/24 at 1130, Last dose on Mon06/28/24 at 2100, Antimicrobial Indications: Skin and Soft Tissue Infection, Skin duration of therapy: Other, Other Skin and Soft Tissue Infection Duration: 10, This medication can interact with tube feedings (TF)- obtain MD order to manage. Recommend holding TF for 1 h before and 2 h after dose. Take 1 h before or 2 h after dairy, calcium, iron, magnesium, aluminum or zinc. 1128 (Given - Provider: Fabian Paris RN)2056 (Given - Provider: Ian Patel RN) 0747 (Given - Provider: Katrina Xie RN)2040 (Given - Provider: Kirk Quevedo, JULIANNA) 0832 (Given - Provider: Fabian Paris, JULIANNA)2100 (Due) heparin (porcine) injection 5,000 Units 5,000 Units, SubCUTAneous, EVERY 8 HOURS SCHEDULED (3 times per day), First dose on Mon06/18/24 at 2200, Until Discontinued 0509 (Given - Provider: Kianna Torres RN)1355 (Given - Provider: Fabian Paris RN)2256 (Given - Provider: Ian Patel RN) 0510 (Given - Provider: Ian Patel RN)1306 (Given - Provider: Katrina Xie, JULIANNA)203 (Given - Provider: Kirk Quevedo, JULIANNA) 0511 (Given - Provider: Kirk Quevedo RN)1400 (Due)2200 (Due) hydroCHLOROthiazide (HYDRODIURIL) tablet 25 mg(Linked Group 1) 25 mg, Oral, DAILY, First dose (after last modification) on Mon06/19/24 at 0930, Until Discontinued 09 (Given - Provider: Fabian Paris RN) 0747 (Given - Provider: Katrina Xie RN) 0832 (Given - Provider: Fabian Paris RN) insulin glargine (LANTUS) injection vial 20 Units (COMPLETED) 20 Units, SubCUTAneous, ONCE, 1 dose, On Mon06/19/24 at 0930 09 (Given - Provider: Fabian Paris RN) insulin glargine (LANTUS) injection vial 40 Units (CANCELED) 40 Units, SubCUTAneous, DAILY, First dose on Mon06/19/24 at 0900, Until Discontinued 08 (Given - Provider: Fabian Paris RN) insulin glargine (LANTUS) injection vial 60 Units 60 Units, SubCUTAneous, DAILY, First dose (after last modification) on Mon06/20/24 at 0900, Until Discontinued 07 (Given - Provider: Katrina Xie RN) 0832 (Given - Provider: Fabian Paris, JULIANNA) insulin lispro (HUMALOG,ADMELOG) injection vial 0-8 Units 0-8 Units, SubCUTAneous, 4 TIMES DAILY BEFORE MEALS & NIGHTLY, First dose on Mon06/18/24 at 2245, Until Discontinued, Medium Dose Corrective Algorithm Glucose: Dose: 70-179 No Insulin 180-249 2 Units 250-299 4 Units 300-349 6 Units Over 349 8 Units and notify physician Administer as soon as possible within 60 minutes of last blood glucose check 0826 (Given - Provider: Fabian Paris RN)1128 (Given - Provider: Fabian Paris RN)1630 (Given - Provider: Tila Melvin RN)2055 (Given - Provider: Ian Ptael RN) 0728 (Not Given - Provider: Katrina Xie RN - Reason: Order parameters not met - Comment: fsbs [phone] (Given - Provider: Katrina Xie RN)1635 (Given - Provider: Katrina Xie RN)2038 (Given - Provider: Kirk Quevedo RN - Comment: [phone]) 0705 (Not Given - Provider: Fabian Paris RN - Reason: Order parameters not met - Comment: blood sugar [phone] (Due)1700 (Due)2100 (Due) losartan (COZAAR) tablet 100 mg(Linked Group 1) 100 mg, Oral, DAILY, First dose (after last modification) on Mon06/19/24 at 0930, Until Discontinued 09 (Given - Provider: Fabian Paris RN) 0747 (Given - Provider: Katrina Xie RN) 0832 (Given - Provider: Fabian Paris RN) metFORMIN (GLUCOPHAGE) tablet 500 mg 500 mg, Oral, 2 TIMES DAILY WITH MEALS, First dose (after last reorder) on Mon06/20/24 at 1700, Until Discontinued 1635 (Given - Provider: Katrina Xie RN) 0832 (Given - Provider: Fabian Paris RN)1700 (Due) metoprolol succinate (TOPROL XL) extended release tablet 25 mg 25 mg, Oral, DAILY, First dose (after last modification) on Mon06/19/24 at 0930, Until Discontinued, Do not crush or chew. 0938 (Given - Provider: Fabian Paris RN) 0747 (Given - Provider: Katrina Xie RN) 0832 (Given - Provider: Fabian Paris RN) piperacillin-tazobactam (ZOSYN) 3,375 mg in sodium chloride 0.9 % 50 mL IVPB ([id number]) (CANCELED) 3,375 mg, IntraVENous, EVERY 8 HOURS, First dose on Mon06/19/24 at 0400, Until Discontinued, Antimicrobial Indications: Skin and Soft Tissue Infection, Skin duration of therapy: 7 days, Use 20mm (Blue) [id number] Adapter Preparation instructions: Attach medication vial to one 20mm (Blue) [id number] adapter. William fluid bag with adapter, mix, and administer per order. 0435 (New Bag - Provider: Kianna Torres RN)0835 (Stopped - Provider: Fabian Paris RN) piperacillin-tazobactam (ZOSYN) 4,500 mg in sodium chloride 0.9 % 100 mL IVPB ([id number])(Linked Group 2) 4,500 mg, IntraVENous, EVERY 8 HOURS, 21 doses, First dose (after last modification) on Mon06/19/24 at 1200, Last dose on Mon06/26/24 at 0400, Antimicrobial Indications: Skin and Soft Tissue Infection, Skin duration of therapy: 7 days, Use 20mm (Blue) [id number] Adapter Preparation instructions: Attach medication vial to one 20mm (Blue) [id number] adapter. William fluid bag with adapter, mix, and administer per order. 1133 (New Bag - Provider: Fabian Paris RN)1136 (Rate/Dose Verify - Provider: Fabian Paris RN)1228 (Rate/Dose Verify - Provider: Fabian Paris RN)1354 (Rate/Dose Verify - Provider: Fabian Paris RN)1538 (Stopped - Provider: Tila Melvin RN)2055 (New Bag - Provider: Ian Patel RN)2335 (Stopped - Provider: Joanie Leonard RN) 0507 (New Bag - Provider: Ian Patel RN)0952 (Stopped - Provider: Katrina Xie, RN)1140 (New Bag - Provider: Katrina Xie, JULIANNA)1540 (Stopped - Provider: Katrina Xie, JULIANNA)2037 (New Bag - Provider: Kirk Quevedo, JULIANNA) 0040 (Stopped - Provider: Kirk Quevedo, RN)0413 (New Bag - Provider: Kirk Quevedo, JULIANNA)0843 (Stopped - Provider: Fabian Paris RN)1200 (Due)2000 (Due) sodium chloride flush 0.9 % injection 5-40 mL 5-40 mL, IntraVENous, EVERY 12 HOURS SCHEDULED (2 times per day), First dose on Mon06/18/24 at 2200, Until Discontinued, For Line Patency: Peripheral IV = 5 mL; Midline or Central Line = 10 mL/lumen. If following IV push medication, administer flush at same rate as the IV push. Flush volume is determined by type of infusion therapy being given. For non-viscous solutions use: Peripheral IV = 5 mL Midline or Central Line = 10 mL/lumen For viscous solutions (i.e. blood components, parenteral nutrition, contrast media, or after obtaining blood sample) use: Peripheral IV = 10 mL Midline or Central Line = 20 mL/lumen 0827 (Given - Provider: Fabian Paris RN)212 (Not Given - Provider: Ian Patel RN - Reason: IV Fluid Infusing) 0748 (Not Given - Provider: Katrina Xie RN - Reason: IV Fluid Infusing)204 (Not Given - Provider: Kirk Quevedo RN - Reason: IV Fluid Infusing) 0833 (Given - Provider: Fabian Paris RN)2100 (Due) spironolactone (ALDACTONE) tablet 25 mg 25 mg, Oral, DAILY, First dose (after last modification) on Mon06/19/24 at 0930, Until Discontinued 0938 (Given - Provider: Fabian Paris RN) 0747 (Given - Provider: Katrina Xie, JULIANNA) 0832 (Given - Provider: Fabian Paris, JULIANNA) vancomycin (VANCOCIN) 1500 mg in 300 mL IVPB (CANCELED) 1,500 mg (9.21 mg/kg), IntraVENous, at 200 mL/hr, Administer over 90 Minutes, EVERY 24 HOURS, First dose on Mon06/19/24 at 0700 0610 (New Bag - Provider: Kianna Torres RN)0741 (Stopped - Provider: Fabian Paris RN) Continuous Medication Order 06/19/2024 06/20/2024 06/21/2024 0.9 % sodium chloride infusion (CANCELED) IntraVENous, at 125 mL/hr, CONTINUOUS, Starting on Mon06/18/24 at 2014 0836 (New Bag - Provider: Fabian Paris RN)1228 (Rate/Dose Verify - Provider: Fabian Paris RN)1354 (Rate/Dose Verify - Provider: Fabian Paris RN)1703 (New Bag - Provider: Tila Melvin RN) 0133 (New Bag - Provider: Ian Patel, RN)0911 (Stopped - Provider: Katrina Xie, JULIANNA) PRN Medication Order 06/19/2024 06/20/2024 06/21/2024 0.9 % sodium chloride infusion IntraVENous, at 100 mL/hr, PRN, If patient receiving piggyback infusions without ordered maintenance IV fluids or with frequent/long duration piggyback infusions, Starting on Mon06/18/24 at 2131, Administer at the same rate as the piggyback being infused. acetaminophen (TYLENOL) suppository 650 mg(Linked Group 3) 650 mg, Rectal, EVERY 6 HOURS PRN, Starting on Mon06/18/24 at 2131, Until Discontinued, Pain Mild (1-3), Fever, For temp greater than 100.4 F (38 C), Administer if oral route cannot be used. acetaminophen (TYLENOL) tablet 650 mg(Linked Group 3) 650 mg, Oral, EVERY 6 HOURS PRN, Starting on Mon06/18/24 at 2131, Until Discontinued, Pain Mild (1-3), Fever, For temp greater than 100.4 F (38 C), Maximum dose of acetaminophen is 4000 mg from all sources in 24 hours. albuterol sulfate HFA (PROVENTIL;VENTOLIN;PROAIR) 108 (90 Base) MCG/ACT inhaler 1 puff 1 puff, Inhalation, EVERY 6 HOURS PRN, Starting on Mon06/18/24 at 2131, Until Discontinued, Wheezing, Shortness of Breath, Initiate RT Bronchodilator Protocol: Yes - Inpatient Protocol dextrose 10 % infusion IntraVENous, at 100 mL/hr, CONTINUOUS PRN, if blood glucose remains LESS THAN 70 mg/dL after 2 dextrose 10% intravenous boluses or administration of glucagon, Starting on Mon06/18/24 at 2135, If blood glucose fails to stabilize after 2 dextrose 10% intravenous boluses or glucagon administration, start dextrose 10% infusion at 100 mL/hour and repeat blood glucose at 30 and 60 minutes. If blood glucose is GREATER THAN 70 mg/dL after 60 minutes, discontinue dextrose 10% infusion. dextrose 10 % infusion IntraVENous, at 100 mL/hr, CONTINUOUS PRN, if blood glucose remains LESS THAN 70 mg/dL after 2 dextrose 10% intravenous boluses or administration of glucagon, Starting on Mon06/18/24 at 2218, If blood glucose fails to stabilize after 2 dextrose 10% intravenous boluses or glucagon administration, start dextrose 10% infusion at 100 mL/hour and repeat blood glucose at 30 and 60 minutes. If blood glucose is GREATER THAN 70 mg/dL after 60 minutes, discontinue dextrose 10% infusion. dextrose bolus 10% 125 mL(Linked Group 4) 125 mL, IntraVENous, at 937.5 mL/hr, Administer over 8 Minutes, PRN, Other, Blood glucose 40 - 69 mg/dL and patient NOT ALERT or NPO, Starting on Mon06/18/24 at 2135, Repeat blood glucose in 15 minutes. If blood glucose remains LESS THAN 70 mg/dL, repeat treatment and recheck blood glucose in 15 minutes x 2. If using glycemic management system, dose as instructed per system. If blood glucose remains LESS THAN 70 mg/dL after 2 intravenous boluses start dextrose 10% at 100 mL/hour and notify provider. dextrose bolus 10% 125 mL(Linked Group 5) 125 mL, IntraVENous, at 937.5 mL/hr, Administer over 8 Minutes, PRN, Other, Blood glucose 40 - 69 mg/dL and patient NOT ALERT or NPO, Starting on Mon06/18/24 at 2218, Repeat blood glucose in 15 minutes. If blood glucose remains LESS THAN 70 mg/dL, repeat treatment and recheck blood glucose in 15 minutes x 2. If using glycemic management system, dose as instructed per system. If blood glucose remains LESS THAN 70 mg/dL after 2 intravenous boluses start dextrose 10% at 100 mL/hour and notify provider. dextrose bolus 10% 250 mL(Linked Group 4) 250 mL, IntraVENous, at 937.5 mL/hr, Administer over 16 Minutes, PRN, Other, Blood glucose LESS THAN 40 mg/dL and patient NOT ALERT or NPO, Starting on Mon06/18/24 at 2135, Repeat blood glucose in 15 minutes. If blood glucose remains LESS THAN 70 mg/dL, repeat treatment and recheck blood glucose in 15 minutes x 2. If using glycemic management system, dose as instructed per system. If blood glucose remains LESS THAN 70 mg/dL after 2 intravenous boluses start dextrose 10% at 100 mL/hour and notify provider. dextrose bolus 10% 250 mL(Linked Group 5) 250 mL, IntraVENous, at 937.5 mL/hr, Administer over 16 Minutes, PRN, Other, Blood glucose LESS THAN 40 mg/dL and patient NOT ALERT or NPO, Starting on Mon06/18/24 at 2218, Repeat blood glucose in 15 minutes. If blood glucose remains LESS THAN 70 mg/dL, repeat treatment and recheck blood glucose in 15 minutes x 2. If using glycemic management system, dose as instructed per system. If blood glucose remains LESS THAN 70 mg/dL after 2 intravenous boluses start dextrose 10% at 100 mL/hour and notify provider. glucagon injection 1 mg 1 mg, SubCUTAneous, PRN, Starting on Mon06/18/24 at 2135, Until Discontinued, Low blood sugar, Blood glucose LESS THAN 70 mg/dL and patient NOT ALERT or NPO and does not have IV access., After administration, attempt intravenous access and start dextrose 10% at 100 mL/hr. Repeat blood glucose in 15 minutes x 2 and notify provider. Reconstitute powder for injection by adding 1 mL of ammonia nitrate operator-supplied sterile diluent or sterile water for injection to a vial containing 1 mg of the drug, to provide solutions containing 1 mg/mL. Shake vial gently to dissolve. glucose chewable tablet 16 g 16 g (4 tablet), Oral, PRN, Starting on Mon06/18/24 at 2135, Until Discontinued, Low blood sugar, If blood glucose is LESS THAN 70 mg/dL and patient is alert and tolerating oral. Give 4 tablets (16g) Repeat blood glucose in 15 minutes. If blood glucose is LESS THAN 70 mg/dL, repeat treatment and recheck blood glucose in 15 minutes x 2. If blood glucose remains LESS THAN 70 mg/dL, notify provider. glucose chewable tablet 16 g 16 g (4 tablet), Oral, PRN, Starting on Mon06/18/24 at 2218, Until Discontinued, Low blood sugar, If blood glucose is LESS THAN 70 mg/dL and patient is alert and tolerating oral. Give 4 tablets (16g) Repeat blood glucose in 15 minutes. If blood glucose is LESS THAN 70 mg/dL, repeat treatment and recheck blood glucose in 15 minutes x 2. If blood glucose remains LESS THAN 70 mg/dL, notify provider. ondansetron (ZOFRAN) injection 4 mg(Linked Group 6) 4 mg, IntraVENous, EVERY 6 HOURS PRN, Starting on Mon06/18/24 at 2131, Until Discontinued, Nausea, Vomiting, Administer if oral route cannot be used. ondansetron (ZOFRAN-ODT) disintegrating tablet 4 mg(Linked Group 6) 4 mg, Oral, EVERY 8 HOURS PRN, Starting on Mon06/18/24 at 2130, Until Discontinued, Nausea, Vomiting polyethylene glycol (GLYCOLAX) packet 17 g 17 g, Oral, DAILY PRN, Starting on Mon06/18/24 at 2130, Until Discontinued, Constipation, First line therapy for constipation sodium chloride flush 0.9 % injection 5-40 mL 5-40 mL, IntraVENous, PRN, Starting on Mon06/18/24 at 2130, Until Discontinued, Line Care, After every IV line use, For Line Patency: Peripheral IV = 5 mL; Midline or Central Line = 10 mL/lumen. If following IV push medication, administer flush at same rate as the IV push. Flush volume is determined by type of infusion therapy being given. For non-viscous solutions use: Peripheral IV = 5 mL Midline or Central Line = 10 mL/lumen For viscous solutions (i.e. blood components, parenteral nutrition, contrast media, or after obtaining blood sample) use: Peripheral IV = 10 mL Midline or Central Line = 20 mL/lumen Linked Groups Order Group 1: losartan (COZAAR) tablet 100 mgJump to med 100 mg, Oral, DAILY, First dose (after last modification) on Mon06/19/24 at 0930, Until Discontinued And hydroCHLOROthiazide (HYDRODIURIL) tablet 25 mgJump to med 25 mg, Oral, DAILY, First dose (after last modification) on Mon06/19/24 at 0930, Until Discontinued Group 2: piperacillin-tazobactam (ZOSYN) 4,500 mg in sodium chloride 0.9 % 100 mL IVPB ([id number])Jump to med 4,500 mg, IntraVENous, EVERY 8 HOURS, 21 doses, First dose (after last modification) on Mon06/19/24 at 1200, Last dose on Mon06/26/24 at 0400, Antimicrobial Indications: Skin and Soft Tissue Infection, Skin duration of therapy: 7 days, Use 20mm (Blue) [id number] Adapter Preparation instructions: Attach medication vial to one 20mm (Blue) [id number] adapter. William fluid bag with adapter, mix, and administer per order. Group 3: acetaminophen (TYLENOL) tablet 650 mgJump to med 650 mg, Oral, EVERY 6 HOURS PRN, Starting on Mon06/18/24 at 2131, Until Discontinued, Pain Mild (1-3), Fever, For temp greater than 100.4 F (38 C), Maximum dose of acetaminophen is 4000 mg from all sources in 24 hours. Or acetaminophen (TYLENOL) suppository 650 mgJump to med 650 mg, Rectal, EVERY 6 HOURS PRN, Starting on Mon06/18/24 at 2131, Until Discontinued, Pain Mild (1-3), Fever, For temp greater than 100.4 F (38 C), Administer if oral route cannot be used. Group 4: dextrose bolus 10% 125 mLJump to med 125 mL, IntraVENous, at 937.5 mL/hr, Administer over 8 Minutes, PRN, Other, Blood glucose 40 - 69 mg/dL and patient NOT ALERT or NPO, Starting on Mon06/18/24 at 2135, Repeat blood glucose in 15 minutes. If blood glucose remains LESS THAN 70 mg/dL, repeat treatment and recheck blood glucose in 15 minutes x 2. If using glycemic management system, dose as instructed per system. If blood glucose remains LESS THAN 70 mg/dL after 2 intravenous boluses start dextrose 10% at 100 mL/hour and notify provider. Or dextrose bolus 10% 250 mLJump to med 250 mL, IntraVENous, at 937.5 mL/hr, Administer over 16 Minutes, PRN, Other, Blood glucose LESS THAN 40 mg/dL and patient NOT ALERT or NPO, Starting on Mon06/18/24 at 2135, Repeat blood glucose in 15 minutes. If blood glucose remains LESS THAN 70 mg/dL, repeat treatment and recheck blood glucose in 15 minutes x 2. If using glycemic management system, dose as instructed per system. If blood glucose remains LESS THAN 70 mg/dL after 2 intravenous boluses start dextrose 10% at 100 mL/hour and notify provider. Group 5: dextrose bolus 10% 125 mLJump to med 125 mL, IntraVENous, at 937.5 mL/hr, Administer over 8 Minutes, PRN, Other, Blood glucose 40 - 69 mg/dL and patient NOT ALERT or NPO, Starting on Mon06/18/24 at 2218, Repeat blood glucose in 15 minutes. If blood glucose remains LESS THAN 70 mg/dL, repeat treatment and recheck blood glucose in 15 minutes x 2. If using glycemic management system, dose as instructed per system. If blood glucose remains LESS THAN 70 mg/dL after 2 intravenous boluses start dextrose 10% at 100 mL/hour and notify provider. Or dextrose bolus 10% 250 mLJump to med 250 mL, IntraVENous, at 937.5 mL/hr, Administer over 16 Minutes, PRN, Other, Blood glucose LESS THAN 40 mg/dL and patient NOT ALERT or NPO, Starting on Mon06/18/24 at 2218, Repeat blood glucose in 15 minutes. If blood glucose remains LESS THAN 70 mg/dL, repeat treatment and recheck blood glucose in 15 minutes x 2. If using glycemic management system, dose as instructed per system. If blood glucose remains LESS THAN 70 mg/dL after 2 intravenous boluses start dextrose 10% at 100 mL/hour and notify provider. Group 6: ondansetron (ZOFRAN-ODT) disintegrating tablet 4 mgJump to med 4 mg, Oral, EVERY 8 HOURS PRN, Starting on Mon06/18/24 at 2131, Until Discontinued, Nausea, Vomiting Or ondansetron (ZOFRAN) injection 4 mgJump to med 4 mg, IntraVENous, EVERY 6 HOURS PRN, Starting on Mon06/18/24 at 2131, Until Discontinued, Nausea, Vomiting, Administer if oral route cannot be used. FOR RECORDS PERTAINING TO PATIENTS WHO ARE [...] BE BASED ON THE PRIMARY CLINICAL RECORDS. [facility]. provides no warranty or guarantee of the accuracy or completeness of information in this document.
[2024-12-24 08:18] LABS: Basophils Percent Auto 0.4 % (0.2-2.0); Eosinophils Absolute Auto 0.3 10^3/uL (0.0-0.7); Hematocrit 45.4 % (42.0-54.0); Immature Granulocytes Abs Auto 0.02 10^3/uL (0.00-0.03); Immature Granulocytes Pct Auto 0.3 % (0.0-0.5); Lymphocytes Absolute Auto 1.6 10^3/uL (1.2-3.8); Lymphocytes Percent Auto 20.9 % (20.5-60.0); Mean Corpuscular Volume 90.8 fL (80.0-94.0); Mean Platelet Volume 7.9 fL (9.5-13.5); Monocytes Absolute Auto 0.8 10^3/uL (0.3-0.8); Monocytes Percent Auto 10.6 % (1.7-12.0); Neutrophils Absolute Auto 4.8 10^3/uL (1.4-6.5); Neutrophils Percent Auto 63.8 % (43.0-75.0); Platelet Count 178 10^3/uL (150-450); Red Cell Distribution Width 14.2 % (11.0-15.0); White Blood Count 7.6 10^3/uL (4.0-11.0)
[2024-12-24 08:42] LABS: Creatinine Urine Random 115.87 mg/dL (20.00-300.00); Microalbum Creatinine Ratio Ur 79.3 mg/g (0.0-29.9); Microalbumin Urine Random 9.2 mg/dL (<=30.0)
[2024-12-24 08:44] LABS: Estimated Average Glucose 143 mg/dL; Glycohemoglobin A1C 6.6 % (4.5-6.2)
[2024-12-24 08:57] LABS: Alanine Aminotransferase 22 U/L (16-63); Albumin Globulin Ratio 0.8; Albumin Level 3.5 g/dL (3.4-5.0); Alkaline Phosphatase 79 U/L (46-116); Anion Gap 10.8; Aspartate Amino Transferase 13 U/L (15-37); BUN Creatinine Ratio 30.4; Bilirubin Total 0.4 mg/dL (0.2-1.0); Calcium 8.9 mg/dL (8.5-10.1); Carbon Dioxide 31.2 mmol/L (21.0-32.0); Chloride 105 mmol/L (98-107); Chol HDL Ratio 4.5; Cholesterol 208 mg/dL (<=200); Estimated GFR (African America >60 (>=60 mL/min/1.73m^2); Estimated GFR (Non-African Ame >60 (>=60 mL/min/1.73m^2); Globulin 4.5 g/dL; Glucose 109 mg/dL (74-106); HDL Cholesterol 46 mg/dL (40-60); Sodium 142 mmol/L (136-145); Triglycerides 118 mg/dL (<=150); VLDL CHOLESTEROL 23.6 mg/dL
[2024-12-24 09:23] LABS: Prostate Specific Antigen Scrn 1.71 ng/mL (<=4.00)
== END 2024-12-24 07:48 | disposition home or self-care (01) ==
LOC: LAB 07:49
PROVIDERS: PCP Internal Medicine; Visit Provider Internal Medicine
DX: E78.00 Pure hypercholesterolemia, unspecified (principal); E11.65 Type 2 diabetes mellitus with hyperglycemia; Z79.4 Long term (current) use of insulin; I87.2 Venous insufficiency (chronic) (peripheral); I10 Essential (primary) hypertension; Z12.5 Encounter for screening for malignant neoplasm of prostate
CPT/HCPCS: 36415; 80053; 80061; 82043; 82570; 83036; 85025; G0103